=== PATIENT | female | born 1960 | race Caucasian/White ===

== ENCOUNTER 2019-09-09 03:08 | Emergency (ER) | payer MEDICAID, SELFPAY ==
--- NOTE | 2019-09-09 03:14 | ED_ITS ---
Entered by Alea Lauren, acting as scribe for Travis Guido MD HPI - Back Pain/Injury General: Chief Complaint: Back Pain/Injury Stated Complaint: BACK PAIN Time Seen by Provider: 09/09/19 03:10 History of Present Illness: HPI Narrative: 59 yo f came to the er by [facility] for back pain. Onset was 3-4 weeks ago. Pt states that she fell 3-4 weeks ago and about 2100 last night the pain was severe. Pt states that it just isnt getting any better and that she is also out of her pain meds. MD elicited complaint: back pain Pertinent past history: prior back pain Onset (ago): day(s) Timing: constant Severity: mild Similar Symptoms Previously: Yes Quality: other (pain) Radiation: none Exacerbating factors: none Relieving factors: none Context: turning/twisting Associated symptoms: Reports no associated symptoms; Deny abdominal pain, chills, fever(s) or vomiting Work related injury: No Review of Systems General: Reports: 10 or more systems reviewed and unremarkable except in HPI and below Const: Denies: fever or chills Eyes: Denies: change in vision ENMT: Denies: throat pain or mouth pain Card: Denies: chest pain Resp: Denies: shortness of breath GI: Denies: abdominal pain, vomiting or diarrhea : Denies: difficulty urinating Musc: Reports: back pain; Denies: joint pain Skin/Breast: Denies: rash Neuro: Denies: headache Psych: Denies: depression Endo: Denies: excessive urination Emir/Lymph: Denies: easy bruising All/Imm: Denies: hives PFSH ED PFSH: Statuses (acute, chronic, etc) shown below reflect problem list status as previously entered and may not be historically accurate Social History Smoking and tobacco status: former smoker Physical Exam Const: COMMON NORMALS: no apparent distress and healthy appearing HENMT: COMMON NORMALS: normocephalic and external nose normal HEAD & SCALP: normocephalic NOSE: external nose normal and no nasal discharge (nasal dischage) Eye: COMMON NORMALS: PERRL PUPIL: Yes PERRL Neck/C-Spine: COMMON NORMALS: full ROM and no lymphadenopathy Chest: COMMONS NORMALS: inspection of chest normal Resp: COMMON NORMALS: normal respiratory effort and clear to auscultation bilaterally AUSCULTATION: clear to auscultation bilaterally Cardio: COMMON NORMALS: regular rate and regular rhythm RATE: regular rate RHYTHM: regular rhythm GI: COMMON NORMALS: soft to palpation PALPATION: Yes soft Back/Pelvis: OTHER: . Paraspinal tenderness over lumbar spine no midline tenderness Extremity: COMMON NORMALS: normal to inspection, full ROM and normal capillary refill Psych: COMMON NORMALS: mental status grossly normal and cooperative Skin: COMMON NORMALS: no rashes or lesions noted GENERAL SKIN EXAM: no rashes or lesions noted MDM - Back Pain/Injury MDM Narrative: Medical decision making narrative: Patient presents here with back pain that is acute on chronic. She states is been worsening over the last 3 weeks. X-ray shows no new fracture. Will place patient on Naprosyn and Robaxin and she is stable for discharge. She is to follow-up with her primary care doctor in 3 to 5 days and return if worsening. Imaging Data^: xr lumbar spine: Attestation: I personally reviewed and interpreted this imaging study as follows: My impression: no acute abnormality xr thoracic spine: Attestation: I personally reviewed and interpreted this imaging study as follows: My impression: no acute fx Discharge Plan Discharge Patient Disposition: Home, Self-Care Clinical Impression: Low back pain Qualifiers: Chronicity: chronic Back pain laterality: bilateral Sciatica presence: without sciatica Qualified Code(s): M54.5 - Low back pain Condition: Stable Prescriptions: New EC-Naprosyn 500 mg tablet,delayed release (DR/EC) 500 mg PO BID PRN (Reason: pain) Qty: 20 RF: 0 No Action Prozac 40 mg Capsule 40 mg PO DAILY RF: 0 Lipitor 40 mg Tablet 40 mg PO DAILY RF: 0 insulin glargine 100 unit/mL Solution 100 unit SUBCUT QPM RF: 0 trazodone 50 mg Tablet 100 mg PO DAILY RF: 0 Zyrtec 10 mg Tablet 10 mg PO DAILY PRN (Reason: Allergy Symptoms) RF: 0 Klonopin 0.5 mg Tablet 0.5 mg PO DAILY RF: 0 metoprolol succinate 100 mg Tablet Extended Release 24 Hr 100 mg PO Q12H RF: 0 aspirin 81 mg Tablet,Delayed Release (Dr/Ec) 81 mg PO DAILY RF: 0 tramadol 50 mg Tablet 50 mg PO BID PRN (Reason: Pain) RF: 0 acetaminophen 650 mg Tablet Extended Release 650 mg PO Q4H PRN (Reason: Fever) RF: 0 esomeprazole magnesium 40 mg Capsule,Delayed Release(Dr/Ec) 100 mg PO DAILY RF: 0 Zantac 150 mg Tablet 150 mg PO BID RF: 0 Topamax 200 mg Tablet 200 mg PO BID RF: 0 Neurontin 100 mg Capsule 100 mg PO TID RF: 0 insulin lispro 100 unit/mL Insulin Pen 10 unit SUBCUT TID RF: 0 metformin 750 mg Tablet Extended Release 24 Hr 1,500 mg PO BID RF: 0 Abilify 5 mg Tablet 5 mg PO DAILY RF: 0 Victoza 3-Chad 0.6 mg/0.1 mL (18 mg/3 mL) Pen Injector 1.2 mg SUBCUT DAILY RF: 0 Latuda 40 mg Tablet 40 mg PO QPM RF: 0 Discharge Orders: Discharge Order (Routine); Ordered 09/09/19 Ordered By: Travis Guido Referrals: Hilda Patel MD [Primary Care Provider] - 4-7 days Discharge Diet: Advance as tolerated Discharge Activity: Resume usual activity Patient Instructions: Back Pain (ED) Coding Level of Care Code ED Congregational Care Pastor for Chg Fwd Exam Problem Focused The documentation recorded by the Leonidas casper Stephanie Lyn, accurately reflects the service I personally performed and the decisions made by Lata dunne Korby, MD Sep 09, 2019 03:08
--- NOTE | 2019-09-09 03:16 | XR_ITS ---
WS: [id number] Lumbar spine, AP and lateral, 09/09/2019 Clinical Data: pain Comparison: Lumbar spine, 11/21/2018. Findings: The compression fracture of the anterior and central portions of the superior aspect of the L1 verteb ral body remains the same. There is loss of less than 25% of the vertebral body height. There is dege nerative disc narrowing at L4-L5 and L5-S1 unchanged.. The transverse processes and SI joints are no rmal. Minimal anterior osteoarthritic spurring of the vertebral bodies L1-L5 is noted. XR/XR lumbar spine 2-3V* [id number] Impression: 1. No change in compression fracture of L1. 2. Degenerative disc disease at L4-L5 and L5-S1. 3. No change in osteoarthritis.
--- NOTE | 2019-09-09 03:16 | XR_ITS ---
WS: [id number] Thoracic spine, 3 views, 09/09/2019 Clinical Data: injury Comparison: Thoracic spine, 09/09/2018. Findings: No compression fractures are seen. The disc heights are normal. Minimal osteoarthritis of the thoracic vertebral bodies is seen. There is an orthopedic anchor in one of the humeral heads. XR/XR thoracic spine 3V* [id number] Impression: Minimal osteoarthritis.
[2019-09-09 03:21] VITALS: BMI 37.2
[2019-09-09] MEDS: HYDROcodone-acetaminophen 5-325 mg Tablet 1 TAB PO (03:25)
[2019-09-09 05:30] VITALS: BP 138/71; PULSE 72; RESP 16; TEMP 36.7; O2SAT 97
== END 2019-09-09 05:47 | disposition home or self-care (01) ==
PROVIDERS: Emergency Provider Emergency Medicine; Family Provider Internal Medicine; PCP Internal Medicine
DX: G89.29 Other chronic pain (principal); M54.5 Low back pain; Z79.82 Long term (current) use of aspirin; Z79.4 Long term (current) use of insulin; Z87.891 Personal history of nicotine dependence
CPT/HCPCS: 72072; 72100; 99281; 99283

== ENCOUNTER → 2019-09-11 09:28 | Outpatient (BNVA) | payer MEDICAID, SELFPAY | PROVIDERS: Family Provider Internal Medicine; PCP Internal Medicine; Visit Provider Nurse Practitioner | DX: F25.1 Schizoaffective disorder, depressive type (principal); R41.83 Borderline intellectual functioning | CPT/HCPCS: 99213 ==

== ENCOUNTER 2019-09-16 08:24 | Emergency (ER) | payer MEDICAID, SELFPAY ==
[2019-09-16 08:29] VITALS: BP 145/103; PULSE 76; RESP 18; TEMP 36.6; O2SAT 96; BMI 31.6
--- NOTE | 2019-09-16 08:38 | ECG_ITS ---
Measurements Intervals [place] Rate: 69 P: 31 IA: 136 QRS: -26 QRSD: 100 T: 11 QT: 410 QTc: 442 SINUS RHYTHM BORDERLINE LEFT AXIS DEVIATION [QRS AXIS < -20] ST DEVIATION AND MODERATE T-WAVE ABNORMALITY, CONSIDER ANTERIOR ISCHEMIA [-0.1+ mV T WAVE IN V3/V4] Compared to ECG 11/21/2018 02:33:52 T-wave abnormality now present Possible ischemia now present Electronically Signed On 09-16-2019 22:07:45 ARTIST MODEL by Chuyita Mark M.D. [email or web address]
--- NOTE | 2019-09-16 08:38 | XR_ITS ---
WS: [id number] PORTABLE CHEST HISTORY: cough/congestion COMPARISON: 04/27/2019 Lungs are clear and well expanded. No pleural effusion or pneumothorax. Cardiac size: Normal. Mediastinum/Aorta: Mild atherosclerosis aorta. Prior rotator cuff repair on the LEFT. Resection of the distal LEFT clavicle. XR/XR chest 1V portable [id number] IMPRESSION: Atherosclerosis aorta. No acute disease.
--- NOTE | 2019-09-16 08:48 | PC.NURSE ---
X-ray completed at bedside.
[2019-09-16 09:17] LABS: Basophils # 0.1 10^3/uL (0.0-0.1); Basophils % 0.6 %; Eosinophils # 0.1 10^3/uL (0.0-0.8); Eosinophils % 1.3 %; Hematocrit 41.3 % (37.0-47.0); Hemoglobin 14.3 g/dL (11.5-15.3); Lymphocytes # 2.2 10^3/uL (0.8-4.8); Lymphocytes % 23.4 %; Mean Corpuscular HGB Conc 34.6 g/dL (30.0-36.0); Mean Corpuscular Hemoglobin 31.1 pg (28.0-34.0); Mean Corpuscular Volume 89.8 fL (81-99); Mean Platelet Volume 11.9 fL (7.4-10.4); Monocytes # 0.5 10^3/uL (0.2-0.9); Monocytes % 5.5 %; Neutrophils # 6.6 10^3/uL (1.8-7.7); Neutrophils % 68.9 %; Nucleated Red Blood Cells % 0 %; Platelet Count 107 10^3/cmm (130-400); Positive C 1; Red Cell Distribution Width 12.7 % (12.1-15.1); White Blood Count 9.6 10^3/uL (4.0-10.0)
[2019-09-16 09:26] LABS: Alanine Aminotransferase 16 U/L (0-33); Albumin Level 4.7 g/dL (3.5-5.2); Alkaline Phosphatase 79 IU/L (35-105); Anion Gap 16.4 (5-19); Aspartate Amino Transferase 20 U/L (0-32); Blood Urea Nitrogen 22 mg/dL (8-23); Calcium 9.4 mg/Dl (8.8-10.2); Carbon Dioxide 23 mmol/L (22-29); Chloride 103 mmol/L (98-107); Globulin 3.5 g/dL (1.3-4.6); Glomerular Filtration Rate 50.5 mL/min (90-130); Glucose 325 mg/dL (74-106); Lipase 65 U/L (13-60); Potassium 4.4 mmol/L (3.5-5.1); Sodium 138 mmol/L (136-145); Total Bilirubin 0.3 mg/dL (0.15-1.2); Total Protein 8.2 g/dL (6.6-8.7)
--- NOTE | 2019-09-16 09:36 | W.ED.GENADLT ---
HPI - General Adult General: Chief complaint: General Medical Stated complaint: cough/headache Time Seen by Provider: 09/16/19 08:33 Source: patient Mode of arrival: ambulatory Limitations: no limitations History of Present Illness: HPI narrative: Patient is a 59-year-old female who presents to ED today with complaints of a productive cough over the past week; patient has a history of COPD in which she normally just uses a rescue inhaler; reports some mild upper abdominal discomfort w/o N/V/D/C; no chest pains/SOB; no fevers/chills Associated symptoms: Deny dyspnea, headache(s), nausea, rash or vomiting Review of Systems Const: Denies: fever, chills, body aches or fatigue Eyes: Denies: change in vision, blurry vision, photophobia, eye discomfort or eye discharge ENMT: Denies: throat pain, enlarged tonsils, painful swallowing, swelling of lips/tongue, oral sores/lesions, ear pain, ear discharge, nasal discharge, nasal congestion, post nasal drip or facial/sinus pain Resp: Reports: productive cough and chest congestion; Denies: shortness of breath, wheezing, stridor, pain on inspiration, change in phlegm color or coughing up blood GI: Reports: abdominal pain and heartburn/indigestion; Denies: nausea, vomiting, vomiting blood, diarrhea, constipation, excessive passing of gas, fecal incontinence or painful bowel movements : Denies: difficulty urinating, painful urination, urinary frequency or urinary urgency Skin/Breast: Denies: rash Neuro: Denies: headache All/Imm: Denies: facial swelling or seasonal allergies PFSH ED PFSH: Statuses (acute, chronic, etc) shown below reflect problem list status as previously entered and may not be historically accurate Medical History (Updated 09/16/19 @ 10:06 by JESSICA Hinton) Borderline intellectual functioning (Acute) Schizoaffective disorder, depressive type (Acute) Social History (Updated 09/15/19 @ 11:23 by Onelia Jackson LPN) Smoking and tobacco status: never smoked Alcohol intake: never Lives independently: Yes Household members: none Housing: Apartment Marital status: Single Current occupational status: disabled Physical Exam Const: COMMON NORMALS: no apparent distress, oriented x3, alert and well nourished HENMT: COMMON NORMALS: normocephalic, head/scalp atraumatic, EAC's normal and TM's normal bilaterally HEAD & SCALP: normocephalic and atraumatic FACE & SINUS: normal facial exam EXTERNAL AUDITORY CANAL: EAC's normal TYMPANIC MEMBRANE: TM's normal bilaterally THROAT: posterior oropharynx normal, tonsils normal and uvula midline Neck/C-Spine: COMMON NORMALS: full ROM, no lymphadenopathy, supple and no meningeal signs Chest: COMMONS NORMALS: inspection of chest normal Resp: COMMON NORMALS: normal respiratory effort and clear to auscultation bilaterally AUSCULTATION: clear to auscultation bilaterally Cardio: COMMON NORMALS: regular rate and regular rhythm RATE: regular rate RHYTHM: regular rhythm GI: COMMON NORMALS: normal to inspection, nondistended, normoactive bowel sounds, soft to palpation, no hepatosplenomegaly and no masses PALPATION: Yes soft, Yes tender (mild tenderness throughout upper abdomen ) and Yes no hepatosplenomegaly OTHER: obese : COMMON NORMALS: Yes no CVA tenderness BLADDER/KIDNEY EXAM: Yes no CVA tenderness Back/Pelvis: COMMON NORMALS: no CVA tenderness and thoracic and lumbar spine normal to inspection Extremity: COMMON NORMALS: normal to inspection Neuro: COMMON NORMALS: oriented x3 SENSORIUM/ORIENTATION: Yes alert MENINGEAL SIGNS: Yes no meningeal signs Skin: COMMON NORMALS: no rashes or lesions noted GENERAL SKIN EXAM: no rashes or lesions noted Course Vital Signs: Vital signs: Vital Signs Temperature 98 F 09/16/19 08:29 Pulse Rate 70 09/16/19 10:10 Respiratory Rate 15 09/16/19 10:10 Blood Pressure 125/80 09/16/19 10:10 Pulse Oximetry 97 09/16/19 10:10 MDM - General Adult MDM Narrative: Medical decision making narrative: pts labs are non-concerning (elevated glucose but states her normal is in the 200s and she didn't take her DM meds this morning because I knew I'd be coming to the hospital ); her vitals are stable; clinically she is in NAD; most likely with viral bronchitis; there is no indication for abx at this time; won't place on steroids due to already uncontrolled sugars; she can continue her inhaler prn; requesting tessalon pearls as she states they work well for her; return to ED precautions given Lab Data: Labs: Lab Results 09/16/19 09/16/19 09/16/19 Range/Units 08:58 08:58 08:58 WBC 9.6 (4.0-10.0) 10^3/ uL RBC 4.60 (4.1-5.3) 10^6/u L Hgb 14.3 (11.5-15.3) g/dL Hct 41.3 (37.0-47.0) % MCV 89.8 (81-99) fL MCH 31.1 (28.0-34.0) pg MCHC 34.6 (30.0-36.0) g/dL RDW 12.7 (12.1-15.1) % Plt Count 107 L (130-400) 10^3/c mm MPV 11.9 H (7.4-10.4) fL Neut % (Auto) 68.9 % Lymph % (Auto) 23.4 % [place] % (Auto) 5.5 % Eos % (Auto) 1.3 % Baso % (Auto) 0.6 % Neut # (Auto) 6.6 (1.8-7.7) 10^3/u L Lymph # (Auto) 2.2 (0.8-4.8) 10^3/u L [place] # (Auto) 0.5 (0.2-0.9) 10^3/u L Eos # (Auto) 0.1 (0.0-0.8) 10^3/u L Baso # (Auto) 0.1 (0.0-0.1) 10^3/u L Nucleated RBC % (a uto) 0 % Nucleated RBCs # 0.0 /100WBC Sodium 138 (136-145) mmol/L Potassium 4.4 (3.5-5.1) mmol/L Chloride 103 (98-107) mmol/L Carbon Dioxide 23 (22-29) mmol/L Anion Gap 16.4 (5-19) BUN 22 (8-23) mg/dL Creatinine 1.1 H (0.5-0.9) mg/dL GFR Calculation 50.5 L (90-130) mL/min Glucose 325 H (74-106) mg/dL Calcium 9.4 (8.8-10.2) mg/Dl Total Bilirubin 0.3 (0.15-1.2) mg/dL AST 20 (0-32) U/L ALT 16 (0-33) U/L Alkaline Phosphata se 79 (35-105) IU/L Troponin T Gen 5 n g/L 8 (0-10) ng/mL Total Protein 8.2 (6.6-8.7) g/dL Albumin 4.7 (3.5-5.2) g/dL Globulin 3.5 (1.3-4.6) g/dL Lipase 65 H (13-60) U/L Imaging Data^: CXR: Radiologist's impression: [address] [address] XRay Report Signed Patient: Jacqueline Jackson Unit #: [id number] : 1960 Age/Sex: 59 / F ADM Date: 09/16/19 Loc: ER Room/Bed: Attending Dr: Ordering Provider/Ordering MD: Eli Yu Date of Service: 09/16/19 Procedure(s): XR chest 1V portable [id number] Accession Number(s): [id number] Report Number: [id number] WS: [id number] PORTABLE CHEST HISTORY: cough/congestion COMPARISON: 04/27/2019 Lungs are clear and well expanded. No pleural effusion or pneumothorax. Cardiac size: Normal. Mediastinum/Aorta: Mild atherosclerosis aorta. Prior rotator cuff repair on the LEFT. Resection of the distal LEFT clavicle. XR/XR chest 1V portable [id number] IMPRESSION: Atherosclerosis aorta. No acute disease. Dictated By: Kiersten Garcia DO Signed By: Kierstne Garcia DO Signed Date/Time: 09/16/19929 DD/ 8 Discharge Plan Discharge Patient Disposition: Home, Self-Care Clinical Impression: Acute bronchitis, viral Condition: Stable Prescriptions: New Tessalon Perles 100 mg capsule 100 mg PO TID PRN (Reason: cough) Qty: 20 RF: 0 No Action Prozac 40 mg capsule 40 mg PO DAILY Qty: 30 RF: 2 Topamax 200 mg tablet 200 mg PO BID Qty: 60 RF: 2 trazodone 50 mg tablet 100 mg PO DAILY Qty: 30 RF: 2 ziprasidone HCl [Geodon] 20 mg capsule 20 mg PO BID Qty: 60 RF: 2 Klonopin 0.5 mg tablet 0.5 mg PO DAILY PRN (Reason: anxiety) Qty: 30 RF: 2 Lipitor 40 mg Tablet 40 mg PO DAILY RF: 0 insulin glargine 100 unit/mL Solution 100 unit SUBCUT QPM RF: 0 Zyrtec 10 mg Tablet 10 mg PO DAILY PRN (Reason: Allergy Symptoms) RF: 0 metoprolol succinate 100 mg Tablet Extended Release 24 Hr 100 mg PO Q12H RF: 0 aspirin 81 mg Tablet,Delayed Release (Dr/Ec) 81 mg PO DAILY RF: 0 tramadol 50 mg Tablet 50 mg PO BID PRN (Reason: Pain) RF: 0 acetaminophen 650 mg Tablet Extended Release 650 mg PO Q4H PRN (Reason: Fever) RF: 0 esomeprazole magnesium 40 mg Capsule,Delayed Release(Dr/Ec) 100 mg PO DAILY RF: 0 Zantac 150 mg Tablet 150 mg PO BID RF: 0 Neurontin 100 mg Capsule 100 mg PO TID RF: 0 insulin lispro 100 unit/mL Insulin Pen 10 unit SUBCUT TID RF: 0 metformin 750 mg Tablet Extended Release 24 Hr 1,500 mg PO BID RF: 0 Victoza 3-Chad 0.6 mg/0.1 mL (18 mg/3 mL) Pen Injector 1.2 mg SUBCUT DAILY RF: 0 EC-Naprosyn 500 mg tablet,delayed release (DR/EC) 500 mg PO BID PRN (Reason: pain) Qty: 20 RF: 0 Discharge Orders: Discharge Order (Routine); Ordered 09/16/19 Ordered By: Eli Yu Referrals: Hilda Patel MD [Primary Care Provider] - Discharge Diet: Usual diet Discharge Activity: Increase activity as tolerated Activity Restrictions/Additional Instructions: Follow up with PCP in 5-7 days for continued symptoms. Return to ED for worsening symptoms, fevers greater than 100.4, shortness of breath, or chest pain. Discharge Date/Time: 09/16/19 10:11 Coding Level of Care Code ED Optical Manufacturing Technician for Chg Fwd Exam Problem Focused
[2019-09-16 09:44] LABS: Slide Review Slide Review Perform
[2019-09-16 09:57] LABS: Troponin T (5th) Once 8 ng/mL (0-10)
[2019-09-16 10:10] VITALS: BP 125/80; PULSE 70; RESP 15; O2SAT 97
== END 2019-09-16 10:11 | disposition home or self-care (01) ==
PROVIDERS: Emergency Provider Physician Assistant; Family Provider Internal Medicine; PCP Internal Medicine
DX: J20.8 Acute bronchitis due to other specified organisms (principal); Z79.4 Long term (current) use of insulin
CPT/HCPCS: 36415; 71045; 80053; 83690; 84484; 85025; 93005; 99282

== ENCOUNTER 2019-09-20 23:51 | Emergency (ER) | payer MEDICAID, SELFPAY ==
[2019-09-21 00:02] VITALS: BP 164/99; PULSE 82; RESP 18; TEMP 36.6; O2SAT 95; BMI 31.6
--- NOTE | 2019-09-21 00:06 | ED_ITS ---
Entered by Alea Lauren, acting as scribe for Zander Duncan DO HPI - Back Pain/Injury General: Chief Complaint: Back Pain/Injury Stated Complaint: back pain Time Seen by Provider: 09/21/19 00:07 Source: patient Mode of arrival: ambulatory Limitations: no limitations History of Present Illness: HPI Narrative: 59 yo f came to the er pov for back pain. Onset was tonight. Pt states that she was having some pain in the middle of her back. The pt states that she is unsure of any injury. Pt states that she is to see her pcp this coming week. PT states that she is out of her medication. PT states that she has had some back pain in the past. MD elicited complaint: back pain Pertinent past history: prior back pain Similar Symptoms Previously: Yes Quality: sharp Associated symptoms: Reports no associated symptoms; Deny abdominal pain, chills, dysuria, fever(s), hematuria, nausea, urinary urgency or vomiting Review of Systems Const: Denies: fever or chills Card: Denies: chest pain, palpitations, irregular heart rhythm, edema, swelling of feet/ankles, shortness of breath on exertion or shortness of breath when lying down Resp: Denies: shortness of breath, productive cough, non-productive cough or wheezing GI: Denies: abdominal pain, nausea, vomiting, rectal pain, blood in stool or black tarry stool : Denies: painful urination, urinary frequency, urinary urgency or blood in urine Musc: Reports: back pain; Denies: neck pain, redness or joint warmth Skin/Breast: Denies: rash, itching or redness Neuro: Denies: headache, dizziness, vertigo, confusion or seizure-like activity PFSH ED PFSH: Statuses (acute, chronic, etc) shown below reflect problem list status as previously entered and may not be historically accurate Medical History Borderline intellectual functioning (Acute) Schizoaffective disorder, depressive type (Acute) Social History Smoking and tobacco status: never smoked Alcohol intake: never Lives independently: Yes Household members: none Housing: Apartment Marital status: Single Current occupational status: disabled Physical Exam Const: GENERAL APPEARANCE: well developed ORIENTATION/CONSCIOUSNESS: Yes oriented to person, Yes oriented to place and Yes oriented to time HENMT: COMMON NORMALS: normocephalic and external nose normal HEAD & SCALP: normocephalic; no scalp tenderness FACE & SINUS: normal facial exam NOSE: external nose normal and no nasal discharge Eye: COMMON NORMALS: conjunctivae normal EYELID: eyelids normal CONJUNCTIVA: Yes conjunctivae normal Neck/C-Spine: GENERAL: No tracheal deviation CERVICAL SPINE: Yes normal cervical lordosis and No cervical spine tenderness Chest: COMMONS NORMALS: inspection of chest normal CHEST: No tenderness Resp: COMMON NORMALS: clear to auscultation bilaterally EFFORT & INSPECTION: No tachypneic, No respiratory distress, No retractions, No uses accessory muscles and No tracheal deviation AUSCULTATION: clear to auscul tation bilaterally, no rhonchi, no wheezes and lung sounds not diminished Cardio: COMMON NORMALS: regular rate and regular rhythm RATE: regular rate RHYTHM: regular rhythm HEART SOUNDS: no murmurs PERIPHERAL PULSES: radial pulses present GI: INSPECTION: No abdominal distension AUSCULTATION: No hyperactive bowel sounds and No hypoactive bowel sounds PALPATION: No guarding and No rigid PERCUSSION: no dullness to percussion and no tympanic to percussion : COMMON NORMALS: Yes no CVA tenderness BLADDER/KIDNEY EXAM: Yes no CVA tenderness Back/Pelvis: COMMON NORMALS: no CVA tenderness THORACIC SPINE/UPPER BACK: Yes thoracic spinal tenderness (On exam.Lower thoracic midline tenderness. No radicular symptoms. No pain) Neuro: SENSORIUM/ORIENTATION: Yes oriented to person, Yes oriented to place and Yes oriented to time Psych: COMMON NORMALS: mental status grossly normal Skin: COMMON NORMALS: no rashes or lesions noted GENERAL SKIN EXAM: no rashes or lesions noted Course ED course: Patient presents with acute on chronic problem of lower thoracic back pain. There was no trauma involved. She is experiencing no neurological symptoms. She was given an injection. Vital Signs: Vital signs: Vital Signs Temperature 97.9 F 09/21/19 00:02 Pulse Rate 77 09/21/19 01:19 Respiratory Rate 15 09/21/19 01:19 Blood Pressure 102/80 09/21/19 01:19 Pulse Oximetry 96 09/21/19 01:19 Discharge Plan Discharge Patient Disposition: Home, Self-Care Clinical Impression: Thoracic back pain Qualifiers: Chronicity: unspecified Back pain laterality: midline Qualified Code(s): M54.6 - Pain in thoracic spine Condition: Stable Prescriptions: No Action Prozac 40 mg capsule 40 mg PO DAILY Qty: 30 RF: 2 Topamax 200 mg tablet 200 mg PO BID Qty: 60 RF: 2 trazodone 50 mg tablet 100 mg PO DAILY Qty: 30 RF: 2 ziprasidone HCl [Geodon] 20 mg capsule 20 mg PO BID Qty: 60 RF: 2 Klonopin 0.5 mg tablet 0.5 mg PO DAILY PRN (Reason: anxiety) Qty: 30 RF: 2 Lipitor 40 mg Tablet 40 mg PO DAILY RF: 0 insulin glargine 100 unit/mL Solution 100 unit SUBCUT QPM RF: 0 Zyrtec 10 mg Tablet 10 mg PO DAILY PRN (Reason: Allergy Symptoms) RF: 0 metoprolol succinate 100 mg Tablet Extended Release 24 Hr 100 mg PO Q12H RF: 0 aspirin 81 mg Tablet,Delayed Release (Dr/Ec) 81 mg PO DAILY RF: 0 tramadol 50 mg Tablet 50 mg PO BID PRN (Reason: Pain) RF: 0 acetaminophen 650 mg Tablet Extended Release 650 mg PO Q4H PRN (Reason: Fever) RF: 0 esomeprazole magnesium 40 mg Capsule,Delayed Release(Dr/Ec) 100 mg PO DAILY RF: 0 Zantac 150 mg Tablet 150 mg PO BID RF: 0 Neurontin 100 mg Capsule 100 mg PO TID RF: 0 insulin lispro 100 unit/mL Insulin Pen 10 unit SUBCUT TID RF: 0 metformin 750 mg Tablet Extended Release 24 Hr 1,500 mg PO BID RF: 0 Victoza 3-Chad 0.6 mg/0.1 mL (18 mg/3 mL) Pen Injector 1.2 mg SUBCUT DAILY RF: 0 EC-Naprosyn 500 mg tablet,delayed release (DR/EC) 500 mg PO BID PRN (Reason: pain) Qty: 20 RF: 0 Tessalon Perles 100 mg capsule 100 mg PO TID PRN (Reason: cough) Qty: 20 RF: 0 Discharge Orders: Discharge Order (Routine); Ordered 09/21/19 Ordered By: Zander Duncan Referrals: Hilda Patel MD [Primary Care Provider] - Discharge Diet: Usual diet Discharge Activity: Increase activity as tolerated Patient Instructions: Back Pain (ED) Discharge Date/Time: 09/21/19 01:19 Coding Level of Care Code ED Ship Engineer for Casey Vaughn The documentation recorded by the Leonidas casper Stephanie Lyn, accurately reflects the service I personally performed and the decisions made by Dakota dunne Jeremy John, DO Sep 20, 2019 23:51
[2019-09-21] MEDS: HYDROcodone-acetaminophen 5-325 mg Tablet 1 TAB PO (00:35)
[2019-09-21] MEDS: ketorolac 60 mg/2 mL INJ IM (00:53)
[2019-09-21 01:19] VITALS: BP 102/80; PULSE 77; RESP 15; O2SAT 96
== END 2019-09-21 01:19 | disposition home or self-care (01) ==
PROVIDERS: Emergency Provider Emergency Medicine; Family Provider Internal Medicine; PCP Internal Medicine
DX: M54.6 Pain in thoracic spine (principal); Z79.4 Long term (current) use of insulin
CPT/HCPCS: 96372; 99281; J1885

== ENCOUNTER 2019-10-08 14:19 | Outpatient (CLI) | payer MEDICAID, SELFPAY ==
--- NOTE | 2019-10-08 14:40 | MR_ITS ---
WS: [id number] MRI THORACIC SPINE WITHOUT CONTRAST TECHNIQUE: Sagittal T1, T2 and STIR imaging. Axial T2 imaging. Noncontrast imaging obtained. CLINICAL INFORMATION: Thoracic pain COMPARISON: None. FINDINGS: Mild thoracic curve. Mild thoracic kyphosis. Mild chronic appearing compression superior endplate L1. No significant edema. Minimal retropulsion of the posterior superior cortex. Mild disc bulging T12-L 1 with slight effacement of ventral thecal sac. Mild left proximal foraminal narrowing at this level. Tiny central protrusion T2-3 with slight effacement of ventral thecal sac. Moderate facet arthropathy lower thoracic spine. Mild disc bulging cervical spine at C5-C6 and C6-C7. Normal visualized thoracic aorta. MR/MR thoracic spin wo con* [id number] IMPRESSION: 1. Mild thoracic curve. Mild thoracic kyphosis. No high-grade central canal st enosis. 2. Cord signal is normal. 3. Mild chronic appearing compression superior endplate L1. No endplate edema. 4. Disc bulging T12-L1 with slight effacement of ventral thecal sac. Minimal r etropulsion of the posterior L1 vertebral body. No significant central canal st enosis. 5. Tiny central protrusion T2-3 with slight effacement of ventral thecal sac. 6. Mild disc bulging in the lower cervical spine seen on the football scout imaging at C5-C6 and C6-C7.
== END 2019-10-08 14:20 | disposition home or self-care (01) ==
LOC: RADWPI 14:24
PROVIDERS: Family Provider Internal Medicine; PCP Internal Medicine; Visit Provider Licensed Practical Nurse
DX: M51.84 Other intervertebral disc disorders, thoracic region (principal); M51.24 Other intervertebral disc displacement, thoracic region
CPT/HCPCS: 72146

== ENCOUNTER 2019-11-03 22:59 | Emergency (ER) | payer MEDICAID, SELFPAY ==
[2019-11-03 23:02] VITALS: BP 150/86; PULSE 74; RESP 15; TEMP 36.4; O2SAT 97; BMI 32.1
--- NOTE | 2019-11-04 01:06 | W.ED.EXTPRO ---
HPI - Extremity Problem General: Chief complaint: Extremity Problem,Nontraumatic Stated complaint: right leg pain Time Seen by Provider: 11/04/19 01:06 History of Present Illness: HPI Narrative: Patient is a 59-year-old female who comes into the ED with right lower leg swelling and pain. Patient did say she has a history of blood clots. She currently takes baby aspirin daily. Patient says that tonight she noticed her right leg started feeling warm and started swelling. She also states that her right leg is a little bit of pain. She denies any chest pain, shortness of breath or cough. Denies coughing up any blood as well. Associated symptoms: Deny chest pain, fever(s) or rash Review of Systems Const: Denies: fever, chills or fatigue Eyes: Denies: change in vision or eye discomfort ENMT: Denies: throat pain, painful swallowing, nasal discharge or nasal congestion Card: Denies: chest pain, palpitations, edema, swelling of feet/ankles, shortness of breath on exertion or shortness of breath when lying down Resp: Denies: shortness of breath, productive cough or non-productive cough GI: Denies: abdominal pain, nausea, vomiting, diarrhea, constipation or blood in stool : Denies: flank pain, painful urination or blood in urine Musc: Reports: extremity pain (Right lower leg) and extremity swelling (Right lower leg); Denies: neck pain or back pain Skin/Breast: Denies: rash or new lesion Neuro: Denies: headache, numbness in extremities or weakness in extremities [facility] ED PFSH: Medical History Borderline intellectual functioning Disc displacement, lumbar Lumbar compression fracture 11/08/2018 Schizoaffective disorder, depressive type Surgical History History of knee surgery (~09/04/13) Dr. Harper Family History Sister High cholesterol Social History Smoking and tobacco status: never smoked Alcohol intake: never Lives independently: Yes Household members: none Housing: Apartment Marital status: Single service: No Current occupational status: disabled History of recent travel: No Physical Exam Const: COMMON NORMALS: oriented x3 HENMT: COMMON NORMALS: normocephalic HEAD & SCALP: normocephalic MOUTH: oral and palatal mucosa normal THROAT: posterior oropharynx normal and uvula midline Neck/C-Spine: COMMON NORMALS: supple GENERAL: Yes normal visual inspection Resp: COMMON NORMALS: normal respiratory effort, no retractions, no use of accessory muscles and clear to auscultation bilaterally AUSCULTATION: clear to auscultation bilaterally Cardio: COMMON NORMALS: regular rate, regular rhythm, S1 normal heart sound, S2 normal heart sound, no gallops, no clicks, no murmurs and peripheral pulses 2+ throughout RATE: regular rate RHYTHM: regular rhythm HEART SOUNDS: S1 normal and S2 normal PERIPHERAL PULSES: pulses 2+ throughout GI: COMMON NORMALS: normal to inspection, nondistended, normoactive bowel sounds, soft to palpation, non-tender and no masses PALPATION: Yes soft : COMMON NORMALS: Yes no CVA tenderness BLADDER/KIDNEY EXAM: Yes no CVA tenderness Back/Pelvis: COMMON NORMALS: no CVA tenderness Extremity: RIGHT LOWER EXTREMITY: Yes lower leg Right lower leg: Yes inspection (Swelling in lower leg-2+ non pitting edema), Yes palpation (mild tenderness along lower leg) and Yes neurovascular exam (Intact, with 2+ pedal pulse) Neuro: COMMON NORMALS: oriented x3 and moves all extremities Skin: COMMON NORMALS: no rashes or lesions noted GENERAL SKIN EXAM: no rashes or lesions noted and dry skin Course Vital Signs: Vital signs: Vital Signs Temperature 97.6 F 11/03/19 23:02 Pulse Rate 70 11/04/19 04:06 Respiratory Rate 18 11/04/19 04:06 Blood Pressure 100/53 11/04/19 04:06 Pulse Oximetry 98 11/04/19 04:06 MDM - Extremity (Nontraumatic) Lab Data: Labs: Lab Results 11/04/19 Range/Units 01:50 POC Glucose 88 (70-110) mg/dL Imaging Data^: US Vascular: Attestation: I personally reviewed and interpreted this imaging study as follows: Radiologist's impression: Prelim report?right lower extremity showed no clots or DVTs. All veins were open. Discharge Plan Discharge Patient Disposition: Home, Self-Care Clinical Impression: Right leg swelling Condition: Stable Prescriptions: No Action trazodone 50 mg tablet 100 mg PO DAILY Qty: 30 RF: 2 Klonopin 0.5 mg tablet 0.5 mg PO DAILY PRN (Reason: anxiety) Qty: 30 RF: 2 Prozac 40 mg capsule 40 mg PO DAILY Qty: 30 RF: 2 Topamax 200 mg tablet 200 mg PO BID Qty: 60 RF: 2 ziprasidone HCl [Geodon] 20 mg capsule 20 mg PO BID Qty: 60 RF: 2 atorvastatin [Lipitor] 40 mg Tablet 40 mg PO DAILY RF: 0 insulin glargine 100 unit/mL Solution 100 unit SUBCUT QPM RF: 0 cetirizine [Zyrtec] 10 mg Tablet 10 mg PO DAILY PRN (Reason: Allergy Symptoms) RF: 0 metoprolol succinate 100 mg Tablet Extended Release 24 Hr 100 mg PO Q12H RF: 0 aspirin 81 mg Tablet,Delayed Release (Dr/Ec) 81 mg PO DAILY RF: 0 tramadol 50 mg Tablet 50 mg PO BID PRN (Reason: Pain) RF: 0 acetaminophen 650 mg Tablet Extended Release 650 mg PO Q4H PRN (Reason: Fever) RF: 0 esomeprazole magnesium 40 mg Capsule,Delayed Release(Dr/Ec) 100 mg PO DAILY RF: 0 ranitidine HCl [Zantac] 150 mg Tablet 150 mg PO BID RF: 0 gabapentin [Neurontin] 100 mg Capsule 100 mg PO TID RF: 0 insulin lispro 100 unit/mL Insulin Pen 10 unit SUBCUT TID RF: 0 metformin 750 mg Tablet Extended Release 24 Hr 1,500 mg PO BID RF: 0 Victoza 3-Chad 0.6 mg/0.1 mL (18 mg/3 mL) Pen Injector 1.2 mg SUBCUT DAILY RF: 0 naproxen [EC-Naprosyn] 500 mg tablet,delayed release (DR/EC) 500 mg PO BID PRN (Reason: pain) Qty: 20 RF: 0 benzonatate [Tessalon Perles] 100 mg capsule 100 mg PO TID PRN (Reason: cough) Qty: 20 RF: 0 Discharge Orders: Discharge Order (Routine); Ordered 11/04/19 Ordered By: Lavon Flores Referrals: Hilda Patel MD [Primary Care Provider] - Discharge Diet: Advance as tolerated Discharge Activity: Resume usual activity Patient Instructions: Leg Edema (ED) Activity Restrictions/Additional Instructions: Follow-up with your PCP in 5 to 7 days for reevaluation. Elevate right leg to help reduce some of the swelling. You can also wear compression stockings on the right leg to help with swelling as well. Drink plenty of fluids and stay hydrated. Return to the ED if you are having any symptoms such coughing up any blood or shortness of breath. Discharge Date/Time: 11/04/19 03:59 Coding Level of Care Code ED Cv/Cvn Cv Tsc System Operator for Marileeg Fwd Exam Comprehensive
--- NOTE | 2019-11-04 01:41 | USCV_ITS ---
Manuel January Age: 59 Gender: F : 1960 Exam Date: 11/04/2019 03:38 Ordering Phys: Lavon Flores Technologist: Steffen Pascual [place]am [place] [facility] [place] Indication: SWELLING HISTORY: Lower extremity swelling. PROCEDURES: Venous duplex imaging was performed in only the right lower extremity. The following venous structures were evaluated: common femoral vein, profunda vein, proximal portion of the greater saphenous vein, superficial femoral vein, and the popliteal vein. In addition, the posterior tibial and peroneal trunk were evaluated. Serial compression, augmentation maneuvers, and spectral Doppler flow evaluation were performed. FINDINGS: Normal 2-D Doppler and augmentation and compressibility throughout the lower extremity venous structures. Additional imaging through the proximal calf veins also reveals no thrombus. Limited evaluation of the greater saphenous vein is patent with no thrombus.. CONCLUSIONS Negative right lower extremity deep venous Doppler ultrasound. Dr. Albertina Waite MD (Electronically Signed) Final Date: 04 November 2019 10:32 S
[2019-11-04 01:54] LABS: Glucose Point of Care 88 mg/dL (70-110)
[2019-11-04 02:00] VITALS: BP 134/82; PULSE 60; RESP 19; O2SAT 95
[2019-11-04 03:00] VITALS: BP 137/90; PULSE 59; O2SAT 97
[2019-11-04 04:06] VITALS: BP 100/53; PULSE 70; RESP 18; O2SAT 98
== END 2019-11-04 03:59 | disposition home or self-care (01) ==
PROVIDERS: Emergency Provider Physician Assistant; Family Provider Internal Medicine; PCP Internal Medicine
DX: R60.0 Localized edema (principal); Z79.82 Long term (current) use of aspirin
CPT/HCPCS: 12345; 36416; 82962; 93971; 99281; 99283

== ENCOUNTER → 2020-01-06 07:46 | Outpatient (BNVA) | payer MEDICAID, SELFPAY | PROVIDERS: Family Provider Internal Medicine; PCP Internal Medicine; Visit Provider Nurse Practitioner | DX: R41.83 Borderline intellectual functioning (principal); F25.1 Schizoaffective disorder, depressive type | CPT/HCPCS: 99213 ==

== ENCOUNTER 2020-02-07 20:46 | Emergency (ER) | payer MEDICAID, SELFPAY ==
[2020-02-07 22:19] VITALS: BP 126/78; PULSE 70; RESP 18; TEMP 36.6; O2SAT 98; BMI 32.3
--- NOTE | 2020-02-07 23:26 | ED_ITS ---
HPI - Back Pain/Injury General: Chief Complaint: Back Pain/Injury Stated Complaint: LUMBAR BACK PAIN Time Seen by Provider: 02/07/20 23:20 Source: patient Mode of arrival: ambulatory Limitations: no limitations History of Present Illness: HPI Narrative: Patient reports that she had been lifting some cases of soda today. Patient thinks she is aggravated her chronic back pain. Patient appears well. Patient appears no acute distress. Patient was requesting a shot of Toradol to help with her pain. Patient was also concerned about some cramps in her left lower leg and did not know if it may be her back pain causing it or she might have low potassium. Patient states that she has had a history of low potassium. Patient appears well. Patient appears in moderate pain. Review of Systems General: Reports: 10 or more systems reviewed and unremarkable except in HPI and below Musc: Reports: back pain PFS ED PFSH: Medical History (Updated 02/08/20 @ 00:01 by KIM Lloyd) Borderline intellectual functioning Disc displacement, lumbar Lumbar compression fracture 11/08/2018 Schizoaffective disorder, depressive type Surgical History History of knee surgery (~09/04/13) Dr. Harper Family History Sister High cholesterol Social History (Updated 11/05/19 @ 15:51 by Onelia Jackson LPN) Smoking and tobacco status: never smoked Alcohol intake: never Household members: none Marital status: Single Current occupational status: disabled History of recent travel: No Physical Exam Const: COMMON NORMALS: no acute distress and patient oriented x3 GENERAL APPEARANCE: cooperative HENMT: COMMON NORMALS: normocephalic and Normal external nose present HEAD & SCALP: normal to inspection and normocephalic NOSE: Normal external nose present MOUTH: Normal oral and palatal mucosa present THROAT: posterior oropharynx normal Eye: GENERAL EYE: appearance normal, both eyes and all related structures Neck/C-Spine: COMMON NORMALS: full ROM Lymph: LYMPHATIC: no lymphadenopathy noted Chest: COMMONS NORMALS: normal inspection of the chest Resp: COMMON NORMALS: normal respiratory effort EFFORT & INSPECTION: Yes able to speak in complete sentences Cardio: COMMON NORMALS: regular rate and regular rhythm RATE: regular rate RHYTHM: regular rhythm GI: COMMON NORMALS: non-tender Back/Pelvis: LUMBAR SPINE/LOWER BACK: Yes paraspinal muscle tenderness Extremity: COMMON NORMALS: normal to inspection Neuro: COMMON NORMALS: patient oriented x3 and moves all extremities Psych: COMMON NORMALS: mental status grossly normal and cooperative Skin: COMMON NORMALS: no rashes or lesions noted GENERAL SKIN EXAM: no rashes or lesions noted Course Vital Signs: Vital signs: Vital Signs Temperature 97.9 F 02/07/20 22:19 Pulse Rate 70 02/07/20 22:19 Respiratory Rate 18 02/07/20 22:19 Blood Pressure 126/78 02/07/20 22:19 Pulse Oximetry 98 02/07/20 22:19 MDM - Back Pain/Injury MDM Narrative: Medical decision making narrative: Patient came in today for concerns of low back pain and leg cramps. On exam patient has decreased range of motion of the lumbar spine. Respirations were even lungs were clear to auscultation. No acute distress was noted. Differential diagnosis includes lumbar strain, intervertebral disc disease, facet arthropathy, hypokalemia. Patient was concerned about her potassium being low. Basic metabolic panel was normal. Patient was given an injection of ketorolac for pain. Patient was recommended to follow-up with primary care for further treatment. Patient reported understanding agreed to plan. Lab Data: Labs: Lab Results 02/07/20 Range/Units 23:28 Sodium 136 (136-145) mmol/L Potassium 4.1 (3.5-5.1) mmol/L Chloride 101 (98-107) mmol/L Carbon Dioxide 22 (22-29) mmol/L Anion Gap 17.1 (5-19) BUN 18 (8-23) mg/dL Creatinine 0.9 (0.5-0.9) mg/dL GFR Calculation 63.4 L (90-130) mL/min Glucose 339 H (65-115) mg/dL Calculated Osmolal ity 292 (285-295) mOsm/k g Calcium 9.3 (8.5-10.5) mg/dL Discharge Plan Discharge Patient Disposition: Home, Self-Care Clinical Impression: Lumbar radiculopathy Condition: Stable Prescriptions: No Action famotidine 40 mg tablet 40 mg PO DAILY RF: 0 Prozac 40 mg capsule 40 mg PO DAILY Qty: 30 RF: 2 Topamax 200 mg tablet 200 mg PO BID Qty: 60 RF: 2 trazodone 50 mg tablet 100 mg PO DAILY Qty: 30 RF: 2 ziprasidone HCl [Geodon] 20 mg capsule 20 mg PO BID Qty: 60 RF: 2 Klonopin 0.5 mg tablet 0.5 mg PO DAILY PRN (Reason: anxiety) Qty: 30 RF: 2 atorvastatin [Lipitor] 40 mg Tablet 40 mg PO DAILY RF: 0 insulin glargine 100 unit/mL Solution 100 unit SUBCUT QPM RF: 0 cetirizine [Zyrtec] 10 mg Tablet 10 mg PO DAILY PRN (Reason: Allergy Symptoms) RF: 0 metoprolol succinate 100 mg Tablet Extended Release 24 Hr 100 mg PO Q12H RF: 0 aspirin 81 mg Tablet,Delayed Release (Dr/Ec) 81 mg PO DAILY RF: 0 tramadol 50 mg Tablet 50 mg PO BID PRN (Reason: Pain) RF: 0 acetaminophen 650 mg Tablet Extended Release 650 mg PO Q4H PRN (Reason: Fever) RF: 0 esomeprazole magnesium 40 mg Capsule,Delayed Release(Dr/Ec) 100 mg PO DAILY RF: 0 gabapentin [Neurontin] 100 mg Capsule 100 mg PO TID RF: 0 insulin lispro 100 unit/mL Insulin Pen 10 unit SUBCUT TID RF: 0 metformin 750 mg Tablet Extended Release 24 Hr 1,500 mg PO BID RF: 0 Victoza 3-Chad 0.6 mg/0.1 mL (18 mg/3 mL) Pen Injector 1.2 mg SUBCUT DAILY RF: 0 naproxen [EC-Naprosyn] 500 mg tablet,delayed release (DR/EC) 500 mg PO BID PRN (Reason: pain) Qty: 20 RF: 0 benzonatate [Tessalon Perles] 100 mg capsule 100 mg PO TID PRN (Reason: cough) Qty: 20 RF: 0 Discharge Orders: Discharge Order (Routine); Ordered 02/07/20 Ordered By: Nilesh Resendez Referrals: Hilda Patel MD [Primary Care Provider] - Discharge Diet: Usual diet Discharge Activity: Increase activity as tolerated Patient Instructions: Lumbar Radiculopathy (ED) Activity Restrictions/Additional Instructions: Activity as tolerated. Continue with routine medications at home for pain. Use ice or heat for further pain relief. Use gentle stretching and exercise to help in the recovery of discomfort. Follow-up with primary care as needed. Return to the ER for fever or new concerns. Coding Level of Care Code ED Vice President Of Consulting Services for Casey Fwrain Exam Comprehensive
[2020-02-07] MEDS: ketorolac 30 mg/mL INJ IM (23:30)
[2020-02-07 23:56] LABS: Anion Gap 17.1 (5-19); Blood Urea Nitrogen 18 mg/dL (8-23); Calcium 9.3 mg/dL (8.5-10.5); Carbon Dioxide 22 mmol/L (22-29); Chloride 101 mmol/L (98-107); Glomerular Filtration Rate 63.4 mL/min (90-130); Glucose 339 mg/dL (65-115); Osmolality Calculated 292 mOsm/kg (285-295); Potassium 4.1 mmol/L (3.5-5.1); Sodium 136 mmol/L (136-145)
[2020-02-08 00:14] VITALS: BP 116/74; PULSE 70; RESP 16; O2SAT 97
--- NOTE | 2020-02-08 00:32 | PC.NURSE ---
i agree with this assessment
== END 2020-02-08 00:32 | disposition home or self-care (01) ==
PROVIDERS: Emergency Provider Nurse Practitioner Family; PCP Internal Medicine
DX: M54.16 Radiculopathy, lumbar region (principal); Z79.4 Long term (current) use of insulin; Z79.82 Long term (current) use of aspirin
CPT/HCPCS: 12345; 80048; 96372; 99281; 99283; J1885

== ENCOUNTER 2020-03-17 19:32 | Emergency (ER) | payer MEDICAID, SELFPAY ==
[2020-03-17 20:28] VITALS: PULSE 74; RESP 16; O2SAT 94
--- NOTE | 2020-03-17 22:31 | XR_ITS ---
WS: [id number] LEFT SHOULDER: 3 VIEW(S) TECHNIQUE: Internal and external rotation with Y view. HISTORY: pain COMPARISON: 08/15/2016 Prior resection of the distal LEFT clavicle. Single anchor in the humeral head. Hypertrophic bone for mation with deformity of the LEFT humeral head. Moderate narrowing of the glenohumeral joint. No frac ture identified or displacement. Humeral head is high riding. Visualized LEFT lung is clear. Mild atherosclerosis aorta. XR/XR shoulder LT min 2V* [id number] IMPRESSION: 1. Prior resection distal LEFT clavicle. 2. Hypertrophic bone formation with degenerative changes involving the humeral head and glenohumeral joint. No acute fracture.
--- NOTE | 2020-03-17 22:44 | W.ED.GENADLT ---
HPI - General Adult General: Chief complaint: General Medical Stated complaint: shoulder pain Time Seen by Provider: 03/17/20 22:22 Source: patient Mode of arrival: ambulatory Limitations: no limitations History of Present Illness: HPI narrative: 60-year-old female whose had left shoulder surgery and injuries in the past. She states she believes she slept on her left arm wrong as she woke up and had shoulder pain in that left arm. She states that it continued throughout the day and is an aching pain and rates it a 5 out of 10. She denies any weakness. She states is actually improved slightly through the day. She states that it is worse with palpation and with movement. It is improved with rest. Associated symptoms: Deny chest pain, dyspnea, headache(s), nausea, rash or vomiting Review of Systems Const: Denies: fever(s), chills, body aches or change in appetite Eyes: Denies: blurry vision or eye discomfort ENMT: Denies: throat pain or dental pain Card: Denies: chest pain Resp: Denies: dyspnea GI: Denies: abdominal pain, nausea, vomiting or diarrhea : Denies: dysuria Musc: Reports: joint pain; Denies: neck pain or back pain Skin/Breast: Denies: rash Neuro: Denies: headache(s) Psych: Denies: depression Emir/Lymph: Denies: easy bruising All/Imm: Denies: urticaria PFSH ED PFSH: Medical History (Updated 03/17/20 @ 22:46 by Travis Guido MD) Borderline intellectual functioning Disc displacement, lumbar Lumbar compression fracture 11/08/2018 Schizoaffective disorder, depressive type Surgical History History of knee surgery (~09/04/13) Dr. Harper Family History Sister High cholesterol Social History Smoking and tobacco status: never smoked Alcohol intake: never Household members: none Marital status: Single Current occupational status: disabled History of recent travel: No Physical Exam Const: COMMON NORMALS: no acute distress, patient oriented x3 and healthy appearing HENMT: COMMON NORMALS: normocephalic and atraumatic HEAD & SCALP: normocephalic and atraumatic Eye: COMMON NORMALS: Equal, round and reactive pupils present and EOMs intact bilaterally PUPIL: Yes Equal, round and reactive pupils present Neck/C-Spine: COMMON NORMALS: full ROM and supple Chest: COMMONS NORMALS: normal inspection of the chest and normal palpation of entire chest wall Resp: COMMON NORMALS: normal respiratory effort, No retractions, No use of accessory muscles and clear to auscultation bilaterally AUSCULTATION: clear to auscultation bilaterally Cardio: COMMON NORMALS: regular rate, regular rhythm and No murmurs present (Cardio) RATE: regular rate RHYTHM: regular rhythm GI: COMMON NORMALS: Normal to inspection, nondistended, normoactive bowel sounds present, Soft to palpation, non-tender and no masses PALPATION: Yes Soft to palpation Extremity: COMMON NORMALS: normal to inspection and full ROM NARRATIVE EXTREMITY EXAM: Slight tenderness over left shoulder. Full range of motion is available. No obvious deformity Neuro: COMMON NORMALS: patient oriented x3, moves all extremities and no focal motor deficits Psych: COMMON NORMALS: mental status grossly normal, Normal thought process present and cooperative THOUGHT PROCESS: Normal thought process present Skin: COMMON NORMALS: no rashes or lesions noted and no wounds GENERAL SKIN EXAM: no rashes or lesions noted Course Vital Signs: Vital signs: Vital Signs Pulse Rate 74 03/17/20 20:28 Respiratory Rate 16 03/17/20 20:28 Pulse Oximetry 94 03/17/20 20:28 MDM - General Adult MDM Narrative: Medical decision making narrative: Patient presents with a shoulder sprain. Patient's x-ray here shows no acute fracture. Exam here is benign. She is to ice and I will place her on Naprosyn. She is to follow-up with her primary care doctor in 3 to 5 days return if worsening. Imaging Data^: X-ray left shoulder: Attestation: I personally reviewed and interpreted this imaging study as follows: My impression: No obvious deformity Discharge Plan Discharge Patient Disposition: Home, Self-Care Clinical Impression: Left shoulder strain Qualifiers: Encounter type: initial encounter Qualified Code(s): S46.912A - Strain of unspecified muscle, fascia and tendon at shoulder and upper arm level, left arm, initial encounter Condition: Stable Prescriptions: New Naprosyn 500 mg tablet 500 mg PO BID PRN (Reason: pain) Qty: 20 RF: 0 No Action famotidine 40 mg tablet 40 mg PO DAILY RF: 0 Prozac 40 mg capsule 40 mg PO DAILY Qty: 30 RF: 2 Topamax 200 mg tablet 200 mg PO BID Qty: 60 RF: 2 trazodone 50 mg tablet 100 mg PO DAILY Qty: 30 RF: 2 ziprasidone HCl [Geodon] 20 mg capsule 20 mg PO BID Qty: 60 RF: 2 Klonopin 0.5 mg tablet 0.5 mg PO DAILY PRN (Reason: anxiety) Qty: 30 RF: 2 atorvastatin [Lipitor] 40 mg Tablet 40 mg PO DAILY RF: 0 insulin glargine 100 unit/mL Solution 100 unit SUBCUT QPM RF: 0 cetirizine [Zyrtec] 10 mg Tablet 10 mg PO DAILY PRN (Reason: Allergy Symptoms) RF: 0 metoprolol succinate 100 mg Tablet Extended Release 24 Hr 100 mg PO Q12H RF: 0 aspirin 81 mg Tablet,Delayed Release (Dr/Ec) 81 mg PO DAILY RF: 0 tramadol 50 mg Tablet 50 mg PO BID PRN (Reason: Pain) RF: 0 acetaminophen 650 mg Tablet Extended Release 650 mg PO Q4H PRN (Reason: Fever) RF: 0 esomeprazole magnesium 40 mg Capsule,Delayed Release(Dr/Ec) 100 mg PO DAILY RF: 0 gabapentin [Neurontin] 100 mg Capsule 100 mg PO TID RF: 0 insulin lispro 100 unit/mL Insulin Pen 10 unit SUBCUT TID RF: 0 metformin 750 mg Tablet Extended Release 24 Hr 1,500 mg PO BID RF: 0 Victoza 3-Chad 0.6 mg/0.1 mL (18 mg/3 mL) Pen Injector 1.2 mg SUBCUT DAILY RF: 0 naproxen [EC-Naprosyn] 500 mg tablet,delayed release (DR/EC) 500 mg PO BID PRN (Reason: pain) Qty: 20 RF: 0 benzonatate [Tessalon Perles] 100 mg capsule 100 mg PO TID PRN (Reason: cough) Qty: 20 RF: 0 Discharge Orders: Discharge Order (Routine); Ordered 03/17/20 Ordered By: Travis Guido Referrals: Hilda Patel MD [Primary Care Provider] - 1-3 days Discharge Diet: Advance as tolerated Discharge Activity: Resume usual activity Patient Instructions: Shoulder Sprain (ED) Coding Level of Care Code ED Human Resources Services Specialist for Casey Vaughn
[2020-03-17] MEDS: HYDROcodone-acetaminophen 7.5-325 mg Tablet 1 TAB PO (22:57)
== END 2020-03-17 23:02 | disposition home or self-care (01) ==
PROVIDERS: Emergency Provider Emergency Medicine; PCP Internal Medicine
DX: S46.912A Strain of unspecified muscle, fascia and tendon at shoulder and upper arm level, left arm, initial encounter (principal); Z79.4 Long term (current) use of insulin; Z79.82 Long term (current) use of aspirin; X58.XXXA Exposure to other specified factors, initial encounter
CPT/HCPCS: 12345; 73030; 99281; 99283

== ENCOUNTER 2020-04-16 18:44 | Emergency (ER) | payer MEDICAID, SELFPAY ==
[2020-04-16 18:46] VITALS: BP 141/88; PULSE 81; RESP 20; TEMP 37.1; O2SAT 96; BMI 31.6
--- NOTE | 2020-04-16 19:31 | ED_ITS ---
HPI - Extremity Problem General: Chief complaint: Extremity Injury, Lower Stated complaint: R HAMSTRING & KNEE PAIN Time Seen by Provider: 04/16/20 19:26 Source: patient Mode of arrival: ambulatory Limitations: no limitations History of Present Illness: HPI Narrative: Patient reports some increased activity over the last few days. Patient reports pain to the right lateral knee . Patient thinks she may have pulled a hamstring. Patient does have a history of tibial fracture to that extremity. Patient appears well. Patient appears in mild pain. MD Complaint: extremity pain Review of Systems General: Reports: 10 or more systems reviewed and unremarkable except in HPI and below Musc: Reports: joint pain PFS ED PFSH: Medical History (Updated 04/16/20 @ 20:11 by KIM Lloyd) Borderline intellectual functioning Disc displacement, lumbar Lumbar compression fracture 11/08/2018 Schizoaffective disorder, depressive type Surgical History History of knee surgery (~09/04/13) Dr. Harper Family History Sister High cholesterol Social History Smoking and tobacco status: never smoked Alcohol intake: never Household members: none Marital status: Single Current occupational status: disabled History of recent travel: No Physical Exam Const: COMMON NORMALS: no acute distress and patient oriented x3 GENERAL APPEARANCE: cooperative HENMT: COMMON NORMALS: normocephalic and Normal external nose present HEAD & SCALP: normal to inspection and normocephalic NOSE: Normal external nose present MOUTH: Normal oral and palatal mucosa present THROAT: posterior oropharynx normal Eye: GENERAL EYE: appearance normal, both eyes and all related structures Neck/C-Spine: COMMON NORMALS: full ROM Chest: COMMONS NORMALS: normal inspection of the chest Resp: COMMON NORMALS: normal respiratory effort EFFORT & INSPECTION: Yes able to speak in complete sentences Cardio: COMMON NORMALS: regular rate and regular rhythm RATE: regular rate RHYTHM: regular rhythm GI: COMMON NORMALS: non-tender Back/Pelvis: COMMON NORMALS: thoracic and lumbar spine normal to inspection Extremity: NARRATIVE EXTREMITY EXAM: Swelling is noted to the knee joint, no redness is noted no fluid palpation is noted patient has tenderness in the lateral and posterior part of the right knee. Neuro: COMMON NORMALS: patient oriented x3 and moves all extremities Psych: COMMON NORMALS: mental status grossly normal and cooperative Skin: COMMON NORMALS: no rashes or lesions noted GENERAL SKIN EXAM: no rashes or lesions noted Course Vital Signs: Vital signs: Vital Signs Temperature 98.8 F 04/16/20 18:46 Pulse Rate 81 04/16/20 18:46 Respiratory Rate 20 H 04/16/20 18:46 Blood Pressure 141/88 04/16/20 18:46 Pulse Oximetry 96 04/16/20 18:46 MDM - Extremity (Nontraumatic) MDM Narrative: Medical decision making narrative: Patient comes in with right knee pain. On exam we note no obvious redness or swelling to the knee. Distal pulses are intact. No increased swelling or tenderness is noted in the calf. Differential diagnosis includes osteoarthritis, strain, contusion. X-ray of the knee shows significant arthritis to the right knee. Reviewed exam with patient with recommendations for treatment and follow-up. Patient reports understanding agreed to plan. Discharge Plan Discharge Patient Disposition: Home Clinical Impression: Acute pain of right knee Condition: Stable Prescriptions: New diclofenac potassium 50 mg tablet 50 mg PO Q8H PRN (Reason: pain) Qty: 20 RF: 0 Discontinued naproxen [Naprosyn] 500 mg tablet 500 mg PO BID PRN (Reason: pain) Qty: 20 RF: 0 tramadol 50 mg Tablet 50 mg PO BID PRN (Reason: Pain) RF: 0 naproxen [EC-Naprosyn] 500 mg tablet,delayed release (DR/EC) 500 mg PO BID PRN (Reason: pain) Qty: 20 RF: 0 No Action famotidine 40 mg tablet 40 mg PO DAILY RF: 0 Prozac 40 mg capsule 40 mg PO DAILY Qty: 30 RF: 2 Topamax 200 mg tablet 200 mg PO BID Qty: 60 RF: 2 trazodone 50 mg tablet 100 mg PO DAILY Qty: 30 RF: 2 ziprasidone HCl [Geodon] 20 mg capsule 20 mg PO BID Qty: 60 RF: 2 Klonopin 0.5 mg tablet 0.5 mg PO DAILY PRN (Reason: anxiety) Qty: 30 RF: 2 atorvastatin [Lipitor] 40 mg Tablet 40 mg PO DAILY RF: 0 insulin glargine 100 unit/mL Solution 100 unit SUBCUT QPM RF: 0 cetirizine [Zyrtec] 10 mg Tablet 10 mg PO DAILY PRN (Reason: Allergy Symptoms) RF: 0 metoprolol succinate 100 mg Tablet Extended Release 24 Hr 100 mg PO Q12H RF: 0 aspirin 81 mg Tablet,Delayed Release (Dr/Ec) 81 mg PO DAILY RF: 0 acetaminophen 650 mg Tablet Extended Release 650 mg PO Q4H PRN (Reason: Fever) RF: 0 esomeprazole magnesium 40 mg Capsule,Delayed Release(Dr/Ec) 100 mg PO DAILY RF: 0 gabapentin [Neurontin] 100 mg Capsule 100 mg PO TID RF: 0 insulin lispro 100 unit/mL Insulin Pen 10 unit SUBCUT TID RF: 0 metformin 750 mg Tablet Extended Release 24 Hr 1,500 mg PO BID RF: 0 Victoza 3-Chad 0.6 mg/0.1 mL (18 mg/3 mL) Pen Injector 1.2 mg SUBCUT DAILY RF: 0 benzonatate [Tessalon Perles] 100 mg capsule 100 mg PO TID PRN (Reason: cough) Qty: 20 RF: 0 Discharge Orders: Discharge Order (Routine); Ordered 04/16/20 Ordered By: Nilesh Resendez Referrals: Hilda Patel MD [Primary Care Provider] - Discharge Diet: Usual diet Discharge Activity: Increase activity as tolerated Patient Instructions: Osteoarthritis (ED) Activity Restrictions/Additional Instructions: Increase activity as tolerated. Acetaminophen as needed for breakthrough pain. Diclofenac as directed. Follow-up with primary care as needed. Return to the emergency department for new concerns. Coding Level of Care Code ED Art Psychotherapist for Casey Fwd Exam Comprehensive
--- NOTE | 2020-04-16 19:40 | XR_ITS ---
WS: [id number] EXAM: RIGHT KNEE: 3 VIEWS DATE OF EXAMINATION: 04/16/2020, 1946 hours COMPARISON: Right knee examination from 04/24/2019. HISTORY: Patient is 60 years old with right knee pain. FINDINGS: Since the prior examination there is again demonstrated to be prior open reduction internal fixation of a tibial plateau fracture with extensive hardware placement. Again demonstrated are changes of sev ere arthritis within the lateral compartment of the right knee considered posttraumatic secondary ost eoarthritis in nature. Medial compartment joint space does not appear to be extensively narrowed. The re is sharpening of both tibial spines. Slight arthritis patellofemoral compartment. No appreciable j oint effusion. There is also slight arthritis at the proximal tibiofibular synchondrosis. No acute mariia ny abnormality is seen. Overall bone density is decreased. 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 No acute bony abnormality.
[2020-04-16] MEDS: ketorolac 30 mg/mL INJ IM (19:50)
[2020-04-16 20:54] VITALS: BP 136/92; PULSE 84; RESP 20; O2SAT 96
--- NOTE | 2020-04-16 21:18 | PC.NURSE ---
I agree with this assessment
== END 2020-04-16 21:19 | disposition home or self-care (01) ==
PROVIDERS: Emergency Provider Nurse Practitioner Family; PCP Internal Medicine
DX: M25.561 Pain in right knee (principal); Z79.82 Long term (current) use of aspirin; Z79.4 Long term (current) use of insulin
CPT/HCPCS: 12345; 73562; 96372; 99281; 99283; J1885

== ENCOUNTER → 2020-05-12 09:27 | Outpatient (BNVA) | payer MEDICAID, SELFPAY | PROVIDERS: PCP Internal Medicine; Visit Provider Nurse Practitioner | DX: F25.1 Schizoaffective disorder, depressive type (principal); R41.83 Borderline intellectual functioning | CPT/HCPCS: 99213 ==

== ENCOUNTER 2020-07-13 12:38 | Outpatient (CLI) | payer MEDICAID, SELFPAY ==
--- NOTE | 2020-07-13 12:48 | MM_ITS ---
WS: [id number] Exam: [id number] Date/Time of Exam: 07/13/2020 12:57 PM Reason For Exam: SCREEN VIEWS: MLO and CC views both breasts. Comparison made with prior exam of 01/30/2017. Findings: There was no sign of mass, architectural distortion or suspicious calcification in either breast. He terogeneously dense MM/[id number] Impression: BI-RADS: 2-Benign FOLLOW-UP: 1 Year Follow-up This mammogram was also analyzed by the Computer Aided Detection System [employer]2 [employer].
== END 2020-07-13 12:39 | disposition home or self-care (01) ==
LOC: RADSHAW 12:40
PROVIDERS: PCP Internal Medicine; Visit Provider Internal Medicine
DX: Z12.31 Encounter for screening mammogram for malignant neoplasm of breast (principal)
CPT/HCPCS: 77067

== ENCOUNTER → 2020-08-16 12:46 | Outpatient (BNVA) | payer MEDICAID, SELFPAY | PROVIDERS: PCP Internal Medicine; Visit Provider Nurse Practitioner | DX: Z20.828 Contact with and (suspected) exposure to other viral communicable diseases (principal) | CPT/HCPCS: 87635 ==

== ENCOUNTER → 2020-09-09 12:31 | Outpatient (BNVA) | payer MEDICAID, SELFPAY | PROVIDERS: PCP Internal Medicine; Visit Provider Nurse Practitioner | DX: R41.83 Borderline intellectual functioning (principal); F25.1 Schizoaffective disorder, depressive type | CPT/HCPCS: 99213 ==

== ENCOUNTER → 2020-09-23 13:48 | Outpatient (BNVA) | payer MEDICAID, SELFPAY | PROVIDERS: PCP Internal Medicine; Visit Provider Orthopaedic Surgery | DX: M54.9 Dorsalgia, unspecified (principal) | CPT/HCPCS: 72072; 72114 ==

== ENCOUNTER 2020-09-30 06:00 | Outpatient (RCR) | payer MEDICAID, SELFPAY | END 2020-10-24 23:59 | disposition home or self-care (01) | LOC: SPT 06:00 | PROVIDERS: PCP Internal Medicine; Referring Provider Orthopaedic Surgery; Visit Provider Orthopaedic Surgery | DX: M54.5 Low back pain (principal) | CPT/HCPCS: 97110; 97161 ==

== ENCOUNTER 2020-10-21 08:02 | Outpatient (CLI) | payer MEDICAID, SELFPAY ==
--- NOTE | 2020-10-21 08:00 | MR_ITS ---
WS: [id number] MRI LUMBAR SPINE NONCONTRAST TECHNIQUE: Sagittal T1, T2 and STIR imaging. Axial T1 and T2 imaging. CLINICAL INFORMATION: M54.9 - Dorsalgia, unspecified COMPARISON: MRI FINDINGS: Mild lumbar curve. Stable mild compression anterior superior endplate L1 is unchanged. T12-L1: Mild disc osteophyte protrusion with slight effacement of ventral thecal sac. Spinal canal an d foramen are patent. L1-L2: Normal. L2-L3: Mild annular bulging. Slight narrowing of the right subarticular recess. Mild facet arthropath y. Foramen are patent. L3-L4: Mild annular bulging with slight effacement of ventral thecal sac. Narrowing of the left great er than right subarticular recess. Mild left and no significant right foraminal narrowing. Mild facet arthropathy. L4-L5: Small shallow central disc protrusion. Impingement traversing L5 nerve roots bilaterally. Mild facet arthropathy. Tiny annular fissure. Mild left and no significant right foraminal narrowing. L5-S1: Mild disc bulging eccentric to the right with osteophytic ridging. Mild right and no left fora linn narrowing. Mild facet arthropathy. Visualized pelvic bony structures: Normal. Paravertebral soft tissues: Normal. MR/MR lumbar spine wo con* [id number] IMPRESSION: 1. Mild lumbar curve. Mild compression superior endplate L1 unchanged. 2. Mild annular bulging L3-4 with slight impingement on the left subarticular recess. 3. Shallow central protrusion L4-5 with impingement traversing L5 nerve roots bilaterally. Small annular fissure. Mild left L4-5 foraminal narrowing. 4. Right eccentric disc osteophytic ridging L5-S1 with mild right foraminal na rrowing. 5. No significant changes from previous.
== END 2020-10-21 08:03 | disposition home or self-care (01) ==
LOC: RADSHAW 08:02
PROVIDERS: PCP Internal Medicine; Visit Provider Orthopaedic Surgery
DX: M51.26 Other intervertebral disc displacement, lumbar region (principal); M25.78 Osteophyte, vertebrae
CPT/HCPCS: 72148

== ENCOUNTER 2020-10-25 06:00 | Outpatient (RCR) | payer SELFPAY | END 2020-11-24 23:59 | disposition home or self-care (01) | LOC: SPT 06:00 | PROVIDERS: PCP Internal Medicine; Referring Provider Orthopaedic Surgery; Visit Provider Orthopaedic Surgery | DX: M19.90 Unspecified osteoarthritis, unspecified site (principal) | CPT/HCPCS: 97110 ==

== ENCOUNTER 2020-11-25 06:00 | Outpatient (RCR) | payer SELFPAY | END 2020-12-24 23:59 | disposition home or self-care (01) | LOC: SPT 06:00 | PROVIDERS: PCP Internal Medicine; Referring Provider Orthopaedic Surgery; Visit Provider Orthopaedic Surgery | DX: M19.90 Unspecified osteoarthritis, unspecified site (principal) | CPT/HCPCS: 97110 ==

== ENCOUNTER 2020-12-25 06:00 | Outpatient (RCR) | payer MEDICAID, SELFPAY | END 2021-01-12 23:00 | disposition home or self-care (01) | LOC: SPT 06:00 | PROVIDERS: PCP Internal Medicine; Referring Provider Orthopaedic Surgery; Visit Provider Orthopaedic Surgery | DX: M19.90 Unspecified osteoarthritis, unspecified site (principal) | CPT/HCPCS: 97110 ==

== ENCOUNTER 2021-01-11 10:48 | Outpatient (CLI) | payer MEDICAID, SELFPAY ==
--- NOTE | 2021-01-11 11:01 | XRR_ITS ---
PROCEDURE INFORMATION: Exam: XR Left Hand Exam date and time: 01/11/2021 11:04 AM Age: 60 years old Clinical indication: Injury or trauma; Fall; Swelling; Hand; Left; Blunt trauma (contusions or hematomas); Additional info: Fall/hand swelling TECHNIQUE: Imaging protocol: XR Left hand. Views: 3 or more views. COMPARISON: CR Hand 3 views, LEFT* [id number] 05/21/2018 12:57 PM FINDINGS: Bones/joints: osseous structures of the hand are without an acute process. Distal radioulnar joint and radiocarpal joints grossly normal. Carpus without fracture. Metacarpals and phalangeal without fracture or dislocation. No erosive changes or periarticular calcifications. Moderate degenerative changes at the first carpometacarpal joint. Degenerative changes within the distal interphalangeal joints. degenerative changes scaphoid trapezium and trapezoid articulations. Soft tissues: Normal. XR/XR hand LT min 3V* [id number] IMPRESSION: An acute fracture is not appreciated. 1. Moderate degenerative changes at the first carpometacarpal joint. 2. Degenerative changes within the distal interphalangeal joints. 3. Degenerative changes scaphoid trapezium and trapezoid articulations.
== END 2021-01-11 10:49 | disposition home or self-care (01) ==
PROVIDERS: PCP Internal Medicine; Visit Provider Internal Medicine
DX: M79.89 Other specified soft tissue disorders (principal); W19.XXXA Unspecified fall, initial encounter
CPT/HCPCS: 73130

== ENCOUNTER → 2021-01-21 12:12 | Outpatient (BNVA) | payer MEDICAID, SELFPAY | PROVIDERS: PCP Internal Medicine; Visit Provider Nurse Practitioner | DX: R41.83 Borderline intellectual functioning (principal); F25.1 Schizoaffective disorder, depressive type | CPT/HCPCS: 99214 ==

== ENCOUNTER 2021-02-24 00:27 | Emergency (ER) | payer MEDICAID, SELFPAY ==
[2021-02-24 00:42] VITALS: BP 106/72; PULSE 66; RESP 16; TEMP 36.7; O2SAT 99; BMI 30.5
--- NOTE | 2021-02-24 03:49 | XRR_ITS ---
PROCEDURE INFORMATION: Exam: XR Right Foot Exam date and time: 02/24/2021 3:49 AM Age: 61 years old Clinical indication: Foot; Right; Prior surgery; Surgery type: Ankle fixation. ; Patient HX: C/O pain. Tip of great toe turning black. ; Additional info: Injury TECHNIQUE: Imaging protocol: XR Right foot. Views: 3 or more views. COMPARISON: No relevant prior studies available. FINDINGS: Bones/joints: Intact buttress plate and screw fixation of healed distal fibular fracture. Intra-articular fracture of the distal aspect of the proximal phalanx. Soft tissues: Normal. XR/XR foot RT min 3V* [id number] IMPRESSION: 1. Intra-articular fracture of the distal aspect of the proximal phalanx. 2. Otherwise, no acute disease.
--- NOTE | 2021-02-24 03:49 | W.ED.EXTPRO ---
HPI - Extremity Problem General: Chief complaint: Extremity Problem,Nontraumatic Stated complaint: Rt Toe turning Black Time Seen by Provider: 02/24/21 03:38 Source: patient Mode of arrival: ambulatory Limitations: no limitations History of Present Illness: HPI Narrative: 61-year-old female who states that she has had a small portion of her distal right great toe have an area of discoloration to it. The size of a dime since the distal portion of the foot is black in nature. States she does have some pain there. She denies any fever. States she has been trying to get a hold of her impress associate but has not been able to get a hold of them. Denies any worsening or improving factors. Denies any injuries. Associated symptoms: Deny chest pain, fever(s) or rash Review of Systems Const: Denies: fever(s), chills, body aches or change in appetite Eyes: Denies: blurry vision or eye discomfort ENMT: Denies: throat pain or dental pain Card: Denies: chest pain Resp: Denies: dyspnea GI: Denies: abdominal pain, nausea, vomiting or diarrhea : Denies: dysuria Musc: Denies: neck pain or back pain Skin/Breast: Denies: rash Neuro: Denies: headache(s) Psych: Denies: depression Emir/Lymph: Denies: easy bruising All/Imm: Denies: urticaria PFSH ED PFSH: Medical History (Updated 02/24/21 @ 04:08 by Travis Guido MD) Borderline intellectual functioning Disc displacement, lumbar Lumbar compression fracture 11/08/2018 Schizoaffective disorder, depressive type Surgical History History of knee surgery (~09/04/13) Dr. Harper Family History Sister High cholesterol Social History Smoking and tobacco status: never smoked Alcohol intake: never Household members: none Marital status: Single Current occupational status: disabled History of recent travel: No Physical Exam Const: COMMON NORMALS: no acute distress, patient oriented x3 and healthy appearing HENMT: COMMON NORMALS: normocephalic and atraumatic HEAD & SCALP: normocephalic and atraumatic Eye: COMMON NORMALS: Equal, round and reactive pupils present and EOMs intact bilaterally PUPIL: Yes Equal, round and reactive pupils present Neck/C-Spine: COMMON NORMALS: full ROM and supple Chest: COMMONS NORMALS: normal inspection of the chest and normal palpation of entire chest wall Resp: COMMON NORMALS: normal respiratory effort, No retractions, No use of accessory muscles and clear to auscultation bilaterally AUSCULTATION: clear to auscultation bilaterally Cardio: COMMON NORMALS: regular rate, regular rhythm and No murmurs present (Cardio) RATE: regular rate RHYTHM: regular rhythm GI: COMMON NORMALS: Normal to inspection, nondistended, normoactive bowel sounds present, Soft to palpation, non-tender and no masses PALPATION: Yes Soft to palpation Extremity: COMMON NORMALS: full ROM NARRATIVE EXTREMITY EXAM: small distal portion discoloration of right great toe. strong dorsalis pedis pulse to right foot Neuro: COMMON NORMALS: patient oriented x3, moves all extremities and no focal motor deficits Psych: COMMON NORMALS: mental status grossly normal, Normal thought process present and cooperative THOUGHT PROCESS: Normal thought process present Skin: COMMON NORMALS: no rashes or lesions noted and no wounds GENERAL SKIN EXAM: no rashes or lesions noted Course Vital Signs: Vital signs: Vital Signs Temperature 98.0 F 02/24/21 00:42 Pulse Rate 66 02/24/21 00:42 Respiratory Rate 16 02/24/21 00:42 Blood Pressure 106/72 02/24/21 00:42 Pulse Oximetry 99 02/24/21 00:42 MDM - Extremity (Nontraumatic) MDM Narrative: Medical decision making narrative: Patient presents here with a very mild necrosis to the tip of her right big toe. No signs of osteomyelitis has good pulses to her dorsalis pedis and posterior tib. We will place her on Bactrim and she is to follow-up with Dr. Turner in 1 to 2 days. Discharge Plan Discharge Patient Disposition: Home Clinical Impression: Discoloration of skin of toe Condition: Stable Prescriptions: New Bactrim DS 800-160 mg tablet 1 tab PO BID 10 Days Qty: 20 RF: 0 No Action amoxicillin 500 mg tablet 500 mg PO TID Qty: 30 RF: 0 benzonatate [Tessalon Perles] 100 mg capsule 100 mg PO BID PRN (Reason: cough) Qty: 20 RF: 0 Topamax 200 mg tablet 200 mg PO BID Qty: 60 RF: 2 Klonopin 0.5 mg tablet 0.5 mg PO DAILY PRN (Reason: anxiety) Qty: 30 RF: 2 Prozac 40 mg capsule 40 mg PO DAILY Qty: 30 RF: 2 ziprasidone HCl [Geodon] 20 mg capsule 20 mg PO BID Qty: 60 RF: 2 hydroxyzine HCl 10 mg tablet 10 mg PO .HS PRN (Reason: sleep) Qty: 30 RF: 2 famotidine 40 mg tablet 40 mg PO DAILY RF: 0 insulin glargine 100 unit/mL Solution 100 unit SUBCUT QPM RF: 0 cetirizine [Zyrtec] 10 mg Tablet 10 mg PO DAILY PRN (Reason: Allergy Symptoms) RF: 0 metoprolol succinate 100 mg Tablet Extended Release 24 Hr 100 mg PO Q12H RF: 0 aspirin 81 mg Tablet,Delayed Release (Dr/Ec) 81 mg PO DAILY RF: 0 acetaminophen 650 mg Tablet Extended Release 650 mg PO Q4H PRN (Reason: Fever) RF: 0 esomeprazole magnesium 40 mg Capsule,Delayed Release(Dr/Ec) 100 mg PO DAILY RF: 0 gabapentin [Neurontin] 100 mg Capsule 100 mg PO TID RF: 0 insulin lispro 100 unit/mL Insulin Pen 10 unit SUBCUT TID RF: 0 metformin 750 mg Tablet Extended Release 24 Hr 1,500 mg PO BID RF: 0 Victoza 3-Chad 0.6 mg/0.1 mL (18 mg/3 mL) Pen Injector 1.2 mg SUBCUT DAILY RF: 0 Discharge Orders: Discharge ED (Routine); Ordered 02/24/21 Ordered By: Travis Guido Referrals: Hilda Patel MD [Primary Care Provider] - Aiden Turner DPM [Physician] - 1-3 days Discharge Diet: Advance as tolerated Discharge Activity: Resume usual activity Patient Instructions: Dislocation - Toe Coding Level of Care Code ED Family Services Coordinator for Chg Fwd Exam Comprehensive
[2021-02-24] MEDS: HYDROcodone-acetaminophen 5-325 mg Tablet 1 TAB PO (04:25)
[2021-02-24 04:26] VITALS: BP 110/72; PULSE 68; RESP 16; O2SAT 98
--- NOTE | 2021-03-01 09:43 | DCPLANNER ---
manager engagement had message to schedule a follow up appointment for patient with ortho for a 5th toe fracture. manager engagement called the ortho clinic, spoke with Caitlyn, gave clinic patients information. manager engagement was told that patients information would be printed and reviewed. Clinic will call patient with appointment information.
--- NOTE | 2021-03-03 07:40 | DCPLANNER ---
Patient has a follow up appointment scheduled for , March 17, 2021 at 11:[address] Turner at the ortho clinic. Clinic will call patient with appointment information.
--- NOTE | 2021-04-15 14:13 | DCPLANNER ---
Patient had a follow up appointment scheduled with ortho - patient did attend appointment.
== END 2021-02-24 04:28 | disposition home or self-care (01) ==
PROVIDERS: Emergency Provider Emergency Medicine; PCP Internal Medicine
DX: L98.8 Other specified disorders of the skin and subcutaneous tissue (principal); Z79.82 Long term (current) use of aspirin; Z79.4 Long term (current) use of insulin
CPT/HCPCS: 73630; 99283

== ENCOUNTER → 2021-03-01 15:50 | Outpatient (BNVA) | payer MEDICAID, SELFPAY | PROVIDERS: PCP Internal Medicine; Visit Provider Podiatrist Foot & Ankle Surgery | DX: M19.071 Primary osteoarthritis, right ankle and foot (principal); M20.41 Other hammer toe(s) (acquired), right foot; M79.671 Pain in right foot | CPT/HCPCS: 73630 ==

== ENCOUNTER 2021-05-09 10:51 | Outpatient (CLI) | payer MEDICAID, SELFPAY | END 2021-05-09 10:52 | disposition home or self-care (01) | LOC: RAD 14:13 | PROVIDERS: PCP Internal Medicine; Visit Provider Specialist | DX: M17.11 Unilateral primary osteoarthritis, right knee (principal); M25.761 Osteophyte, right knee | CPT/HCPCS: 73560; 73565 ==

== ENCOUNTER 2021-06-06 08:01 | Outpatient (CLI) | payer MEDICAID, SELFPAY ==
--- NOTE | 2021-06-06 08:13 | NM_ITS ---
WS: [id number] THREE-PHASE BONE SCAN HISTORY: M17.11 - Unilateral primary osteoarthritis, right knee COMPARISON: 08/12/2015 and radiographs 05/09/2021 Patient is is injected with 22.5 mCi Tc99m HDP intravenously. Immediate angiographic phase imaging is performed over the area of concern. Static blood pool imaging also performed. Two-hour whole-body sc intigrams performed in anterior and posterior projections. Additional large field of view imaging sub mitted as necessary. Angiographic and blood pool phase imaging is normal at the knees. On the two-hour delayed imaging the re is moderate increased uptake predominantly involving the lateral RIGHT knee compartment and greate st along the tibial plateau. More moderate uptake in the lateral femoral condyle. Photopenic defect i n the proximal tibia near the hardware insertion site. Moderate osteophytic changes involving each ankle but greatest on the RIGHT and also within the midfo ot. Normal soft tissue and renal uptake. NM/NM bone 3 phase 98014 IMPRESSION: 1. No evidence for osteomyelitis at the RIGHT knee. 2. Increased uptake at the lateral RIGHT knee from osteoarthritis.
== END 2021-06-06 08:02 | disposition home or self-care (01) ==
LOC: RAD 08:06
PROVIDERS: PCP Internal Medicine; Visit Provider Specialist
DX: M17.11 Unilateral primary osteoarthritis, right knee (principal)
CPT/HCPCS: 78315; A9561

== ENCOUNTER → 2021-07-01 10:59 | Outpatient (BNVA) | payer MEDICAID, SELFPAY | PROVIDERS: PCP Internal Medicine; Visit Provider Nurse Practitioner | DX: R41.83 Borderline intellectual functioning (principal); F25.1 Schizoaffective disorder, depressive type | CPT/HCPCS: 99214 ==

== ENCOUNTER → 2021-07-26 09:20 | Day surgery (SDC) | payer MEDICAID, SELFPAY | PROVIDERS: PCP Internal Medicine; Visit Provider Specialist | DX: Z01.818 Encounter for other preprocedural examination (principal); M17.31 Unilateral post-traumatic osteoarthritis, right knee; Z96.9 Presence of functional implant, unspecified | CPT/HCPCS: 93005 ==

== ENCOUNTER → 2021-07-28 14:41 | Outpatient (BNVA) | payer MEDICAID, SELFPAY | PROVIDERS: PCP Internal Medicine; Visit Provider Specialist | DX: Z20.822 Contact with and (suspected) exposure to COVID-19 (principal); M17.31 Unilateral post-traumatic osteoarthritis, right knee | CPT/HCPCS: 87635 ==

== ENCOUNTER 2021-08-02 14:13 | Observation (INO) | payer MEDICAID, SELFPAY ==
--- NOTE | 2021-07-26 09:20 | ECG_ITS ---
[facility] Test Date: 2021-07-26 Pat Name: Jacqueline Jackson Department: Room: Gender: Female Ham Clerk: : 1960 Requested By: Aditya Hale Order Number: [id number] Gilmore MD: Alysa Owens M.D. Measurements Intervals [place] Rate: 63 P: 25 NE: 136 QRS: -22 QRSD: 101 T: 21 QT: 416 QTc: 429 Interpretive Statements SINUS RHYTHM BORDERLINE LEFT AXIS DEVIATION [QRS AXIS < -20] Compared to ECG 09/16/2019 09:00:01 T-wave abnormality no longer present Possible ischemia no longer present Electronically Signed On 07-26-2021 18:00:54 VOCATIONAL TECHNICAL EDUCATION DIRECTOR by Alysa Owens M.D. [id number]
[2021-07-26 09:36] VITALS: BMI 31.2
[2021-07-26 09:54] LABS: Add Urine Microscopic? YES; Bilirubin Urine Neg (Negative); Blood Urine 3+ (Negative); Glucose Urine UA 4+ (Normal); Ketones Urine Negative (Negative); Leukocyte Esterase Urine Negative (Negative); Nitrate Urine Negative (Negative); Protein Urine Neg (Negative); Urine Appearance Clear (CLEAR); Urine Color Straw (Yellow); Urobilinogen Urine Norm (Negative); pH Urine 5 (5-7)
[2021-07-26 09:59] LABS: RBC Urine RARE /hpf (0-2); Squamous Epithelial Cell Urine 0-4 /hpf (0-5)
[2021-07-26 10:00] LABS: Add Urine Culture? No; Bacteria Urine TRACE /hpf
--- NOTE | 2021-07-26 10:07 | ANES.PREANE2 ---
Pre-Anesthetic Assessment Pre-Anesthetic Assessment: Height/Weight: Height 1.57 m Weight 77.564 kg Proposed Procedure: Operation Date: 08/02/21 07:00 Proposed Procedures p Total Knee Arthroplasty 29394 24748 M17.10(Right) - Kaci Laguna MD s Hardware Removal Knee(Right) - Kaci Laguna MD Was Beta Colin taken within 24 hours: N/A Was Clonidine taken within 24 hours: N/A Social: Social History: No alcohol and No tobacco Exam: Pre-Anes Outpt Exam: alert, oriented x 3, clear to auscultation bilaterally and regular rate & rhythm Airway: Submandibular: WNL Cervical ROM: WNL MP: 1 Dentition: False Pulmonary: Pulmonary: None reported CV/HEM: CV/HEM: None reported : : None reported Hepatic: Hepatic: None reported GI: GI: GERD Metabolic: Metabolic: DM Musc/skel: Musc/skel: OA/DJD Neuropsych: Neuropsych: Anxiety and Bipolar Anesthetic Plan: ASA status: 3 Anesthesia: Regional (specify below) Other: Spinal with Adductor Canal Block PFSH Anesthesia PFSH: Medical History Borderline intellectual functioning Disc displacement, lumbar Lumbar compression fracture 11/08/2018 Schizoaffective disorder, depressive type Surgical History History of knee surgery (~09/04/13) Dr. Harper Family History Sister High cholesterol Social History Smoking and tobacco status: never smoked Alcohol intake: never Household members: none Marital status: Single Current occupational status: disabled History of recent travel: No Data Anesthesia CBC & Chem 7: 07/26/21 09:51 07/26/21 09:51 Other Labs: Laboratory Results - last 48 hr 07/26/21 09:15 Urine Color Straw Urine Appearance Clear Urine pH 5 Ur Specific [place] 1.010 Urine Protein Neg Urine Glucose (UA) 4+ H Urine Ketones Negative Urine Blood 3+ H Urine Nitrate Negative Urine Bilirubin Neg Urine Urobilinogen Norm Ur Leukocyte Esterase Negative Urine RBC Rare Urine WBC 10-15 H Ur Squamous Epith Cells 0-4 H Amorphous Sediment Not Reportable Urine Bacteria Trace Cardiac Studies: No Data to Display
[2021-07-26 10:15] LABS: Basophils # 0.1 10^3/uL (0.0-0.1); Basophils % 0.9 %; Eosinophils # 0.2 10^3/uL (0.0-0.8); Eosinophils % 2.3 %; Hemoglobin 13.4 g/dL (11.5-15.3); Lymphocytes # 2.6 10^3/uL (0.8-4.8); Lymphocytes % 38.1 %; Mean Corpuscular HGB Conc 33.5 g/dL (30.0-36.0); Mean Corpuscular Hemoglobin 31.5 pg (28.0-34.0); Mean Corpuscular Volume 94.1 fl (81-99); Mean Platelet Volume 12.3 fL (7.4-10.4); Monocytes # 0.6 10^3/uL (0.2-0.9); Monocytes % 8.2 %; Neutrophils # 3.48 10^3/uL (1.8-7.7); Neutrophils % 50.2 %; Nucleated Red Blood Cells % 0 %; Platelet Count 124 10^3/cmm (130-400); Red Blood Count 4.25 10^6/uL (4.1-5.3); Red Cell Distribution Width 13.2 % (12.1-15.1); White Blood Count 6.9 10^3/uL (4.0-10.0)
[2021-07-26 10:41] LABS: Alanine Aminotransferase 10 U/L (0-33); Albumin Level 4.3 g/dL (3.5-5.2); Alkaline Phosphatase 77 IU/L (35-105); Anion Gap 19.3 (5-19); Aspartate Amino Transferase 9 U/L (0-32); Blood Urea Nitrogen 36 mg/dL (8-23); Calcium 9.1 mg/dL (8.5-10.5); Carbon Dioxide 19 mmol/L (22-29); Chloride 100 mmol/L (98-107); Globulin 3.2 g/dL (1.3-4.6); Glomerular Filtration Rate 50.2 mL/min (90-130); Glucose 406 mg/dL (65-115); Osmolality Calculated 303 mOsm/kg (285-295); Potassium 4.3 mmol/L (3.5-5.1); Sodium 134 mmol/L (136-145); Total Bilirubin 0.2 mg/dL (0.15-1.2); Total Protein 7.5 g/dL (6.6-8.7)
[2021-08-02] VITALS (28 sets, daily range): BP systolic 109–142; BP diastolic 67–92; PULSE 67–96; RESP 12–21; TEMP 36.4–37; O2SAT 2–99
[2021-08-02 06:04] LABS: Glucose Point of Care 283 mg/dL (70-110)
[2021-08-02] MEDS: acetaminophen 1,000 MG/100 ML PIGGYBACK 400 MG IV ×3 (06:10→23:01)
[2021-08-02] MEDS: sodium chloride 0.9% 1,000 ML 30 ML IV (06:13)
[2021-08-02] MEDS: CELEcoxib 200 mg Capsule 400 MG PO (06:13)
--- NOTE | 2021-08-02 06:51 | P.HPUD_ITS ---
Surgery/Procedure H&P Update DATE OF PROCEDURE: August 02, 2021 DATE H&P PERFORMED: 07/25/21 H&P UPDATE INFORMATION: I have reviewed H&P completed within last 30 days, I have examined patient prior to procedure, No changes to prior documentation and H&P is in [facility] E[facility] on date indicated PREOP DIAGNOSIS: Degenerative osteoarthritis, posttraumatic, right knee with retained hardwa PLANNED PROCEDURE: Operation Date: 08/02/21 07:00 Proposed Procedures p Total Knee Arthroplasty [id number] M17.10(Right) - Kaci Laguna MD s Hardware Removal Knee(Right) - Kaci Laguna MD Related Problem List Diagnoses (1) Post-traumatic osteoarthritis of right knee: (2) Retained orthopedic hardware:
[2021-08-02] MEDS: vancomycin 1,000 MG in sodium chloride 0.9% 250 ML 250 MG IV (06:52)
--- NOTE | 2021-08-02 06:53 | P.ANESUD_ITS ---
Pre-Anesthetic Update Pre-Anesthetic Assessment: Date of Surgery/Procedure: 08/02/21 Preop Melanie gnosis: Degenerative osteoarthritis, posttraumatic, right knee with retained hardwa Proposed Procedure: Operation Date: 08/02/21 07:00 Proposed Procedures p Total Knee Arthroplasty 12950 95171 M17.10(Right) - Kaci Laguna MD s Hardware Removal Knee(Right) - Kaci Laguna MD Any changes to Pre-Anesthetic Assessment?: No Last Intake: Intake Last Liquid Date 08/01/21 Last Liquid Time 23:30 Last Solid Date 08/01/21 Last Solid Time 20:00 Labs Last 48hrs: Laboratory Results - last 48 hr 08/02/21 05:59 POC Glucose 283 H Vitals: Temperature 98.4 F 08/02/21 05:55 Temperature Source Temporal Artery S can 08/02/21 05:55 Pulse Rate 71 08/02/21 05:55 Pulse Rhythm 08/02/21 05:55 Pulse Strength 3+ Normal 08/02/21 05:55 Respiratory Rate 18 08/02/21 05:55 Blood Pressure 109/87 08/02/21 05:55 Blood Pressure María Elena n 94 08/02/21 05:55 Pulse Oximetry 97 08/02/21 05:55 Oxygen Delivery Me thod 08/02/21 05:55 Exam: Pre-Anes Outpt Exam: alert, oriented x 3, clear to auscultation bilaterally and regular rate & rhythm Other Pertinent Information: Other Pertinent Information: We discussed anesthetic plan and risk and benefits. Patient would prefer general over spinal, would like adductor block. We discussed risk of stroke, [place], , nerve injury, bleeding, infection, LAST. Cardiac Studies: No Data to Display
--- NOTE | 2021-08-02 07:45 | ANES.PROC ---
Anesthesia Procedures Procedure/Date: 08/02/21 Nerve Block ^: Nerve Block 1: Main Anesthesia: general anesthesia Time Out Performed: Yes Consent: from patient Nerve block location: adductor canal (For post op pain control) Anesthesia monitors applied: pulse oximetry, EKG, BP cuff and oxygen Nerve block position: supine Anesthetic Used: ropivicaine 0.5% Amount of anesthesia used (mL): 20 Ultrasound used to: recognize landmarks, visualize and ID femerol nerve and other (US guidance used for real time visualization of structures, real time visualization of needle entry and advancement, real time visualization of LA spread. Images saved. ) Nerve Stimulator Used?: No Interscalene/Femoral BLK: 4 stimuplex 21 g needle used for position and inplane approach Injection: neg aspiration of heme Patient Tolerated Procedure: well Complications: none
[2021-08-02] MEDS: ceFAZolin 1,000 mg SDV 2000 MG IRRIGATION (08:17)
[2021-08-02] MEDS: vancomycin 1,000 MG SDV 1000 MG XX (08:18)
--- NOTE | 2021-08-02 11:15 | PM.OP ---
Operative Report Date of procedure: August 02, 2021 Pre-op Diagnosis: Degenerative osteoarthritis, posttraumatic, right knee Pre-op Diagnosis: with retained hardware Post-op diagnosis: same Post-op Findings: Significantly lateral tibial plateau bone loss, limited preoperative range of motion under anesthesia, 20 degrees to 70 degrees only. Procedure Done: Right total knee revision with removal of retained hardware from lateral tibia through an extended and separate fascial incision Implants: The [place] revision total knee system with a size 3 cemented right triathlon posterior stabilized femur right, a triathlon size 3 universal tibial baseplate, cemented, with medial and lateral 5 mm augments. Additionally, a cemented stem was placed consisting of a 25 mm stem canvas shop laborer and a 15 mm x 50 mm cemented stem. Additionally, a size a symmetric tibial cone augment was placed. A triathlon X3 posterior stabilized tibial bearing insert size 3 X 11 mm and a cemented asymmetric patella size 32 x 10 mm. Mary DBM plus putty with cancellous bone was placed along the lateral tibia following removal of the lateral tibial plate. Specimens removed/disposition: None Pathology: none sent Surgeon: Kaci Laguna Director Of Event Management: [facility] operating room technicians Anesthesia: General (Intubated with preoperative regional block, ASA 3) Estimated blood loss (mL): 100 Tourniquet time (min): 178 Tourniquet time: Tourniquet was elevated to 250 mmHg for a total of 120 minutes. It was then released for 15 minutes, and reelevated for 58 additional minutes. Total tourniquet time was 178 minutes IV fluids (mL): 1,000 Urine output (mL): 350 Complications: None Findings: Retained hardware with significant deformity and depression of the lateral tibial plateau. Also, very significant preoperative limited range of motion even under anesthesia. Range of motion was limited from approximately 20 degrees to 70 degrees in its entirety. Condition: stable Disposition: PACU (Then to floor for postoperative rehabilitation and pain management.) Brief History: This 61-year-old woman presented with complaints of severe right knee pain secondary to severe posttraumatic osteoarthritis. The patient had an open reduction internal fixation of a previously depressed tibial plateau fracture several years ago. She developed significant posttraumatic arthritis, and very limited range of motion. She was unable to weight-bear on the lower extremity secondary to the severe degree of pain as well as her lack of motion. After discussion and work-up, the patient elected to proceed with a revision total knee arthroplasty. We discussed a two-stage plan as well as a 1 stage plan, and with her negative bone scan and other studies, we elected to proceed in a single stage fashion for hardware removal and revision total knee arthroplasty. Risks and complications were discussed, and consents were signed preoperatively. Procedure: The patient was brought to the operating theater, and after undergoing adequate general anesthesia, with regional block, ASA 3, the right lower extremity was prepped with ChloraPrep and draped in usual fashion following placement of a tourniquet high on the leg. The leg was then draped free. Following prepping and draping, the leg was exsanguinated, and the tourniquet was elevated to 250 mm Hg for a total tourniquet time of 178 minutes. Tourniquet initially was elevated to 120 minutes at 250 mmHg. It was then released for 15 minutes and re-elevated for an additional 58 minutes. Prior to elevation of the tourniquet, but following exposure of the site of surgery, a surgical pause was performed. At the time of the surgical pause, we confirmed the site and side of surgery. Additionally, we confirmed the appropriate and timely administration of preoperative antibiotics, vancomycin 1 g and Transexemic acid 1 g. The availability of equipment was confirmed, and the patient's identity was verbalized as well. Following the surgical pause, an incision was made centering over the patella continuing proximally and distally as necessary to allow access to the knee joint. Distally, this incision was joined with the patient's previous incision from her open reduction internal fixation of her depressed tibial plateau fracture. Dissection continued through skin and soft tissues using a scalpel. Hemostasis was obtained using electrocautery. Attention initially was directed to the patient's retained tibial plateau plate. This was removed without incident. Following removal of the plate, the bone was debrided in the area of calcified soft tissue. We then copiously irrigated and DBX putty plus with cancellous chips was placed along the area of removal of the lateral plate. Once this was accomplished, closure over that area was accomplished of the fascial tissues. We also distally close the skin incision for approximately 4 inches. Following removal of this lateral plate, we directed attention for the total knee. The hardware removal was followed by a median parapatellar arthrotomy. The leg was extended and the patella was everted after significant debridement of soft tissue and the fat pad. There was significant adhesions within the knee that were also removed. A slight manipulation was accomplished once adhesions have been removed. Following this, the leg was returned to flexed position. The distal femur was exposed and a drill hole was made in this for placement of the distal femoral jig. The distal femoral jig was set at 5? of valgus. The distal femoral cutting block was then placed in appropriate position, and an slick wing was used to confirm an appropriate amount of distal femur would be resected. The distal femoral resection was accomplished with 10 mm of bone being resected distally due to the patient's significant flexion contracture. After the distal femoral resection had been accomplished, the femur was measured and it measured a size 3. Medial lateral dimension also measured a size 3. A size 3 femoral cutting block was placed in position, and we were then able to accomplish the anterior, posterior and chamfer cuts. This jig was then removed, and the notch guide was placed in position. With the notch guide in appropriate position, the notch was excised including resection of the anterior and posterior cruciate ligaments. This notch was to allow for the posterior stabilized femoral component. At this point, the femur was prepared and attention was directed to the proximal tibia. The posterior knee retractor was placed along with medial and lateral retractors. Further resection of the menisci was accomplished as we had better visualization. A complete meniscectomy was performed both medially and laterally with care being taken to protect the popliteus. Retractors were then placed so that the proximal tibia was well visualized. There was a significant depression of the posterior lateral aspect of the lateral tibial plateau. A drill hole was then made in the tibia for placement of the tibial reamers. We reamed sequentially to a size 15. Plan was that we would have a cemented stem to bypass the holes left from the hardware removal. The reamer was left in place. Over this, we placed the guide for resection of the proximal tibia. This guide was placed so that approximately 2 mm of bone would be resected from the significantly depressed and deficient lateral tibial plateau, and this resulted in a 7-8 mm resected from the medial tibial plateau. The intramedullary guide was utilized supplemented with an extramedullary guide to assure appropriate alignment for the proximal tibial resection. The proximal tibial jig was then evaluated, pinned in position, and the proximal tibial resection was accomplished without difficulty. The jig was removed, and the proximal tibia was measured. It measured a size 3. We then attempted a trial reduction with a size 3 by 11 mm insert. Subsequently, we were able to place up to a size 3 x 16 mm insert. The femoral component was placed in position for the trial reduction, and the knee was placed through range of motion. With this, there was excellent stability with excellent varus-valgus alignment with appropriate patellar tracking. Extension was noted to be full as well. This was felt to be the appropriate size insert. There was full extension and flexion without lift off and the rotation of the tibia was marked. Alignment was checked from the hip to the ankle, and this was noted to be appropriate as well. Given the patient's age and significant soft tissue contracture, we elected to place 5 mm augments medially and laterally on the tibial component so that we could place a less thick tibial insert giving potential for subsequent options. This was accomplished without difficulty. Attention was then directed to the patella. The patella was measured with a caliper. We resected sufficient patella to leave approximately 14 mm of patella remaining. Measurements of the patella then indicated that a size asymmetric 32 mm x 10 mm was the appropriate patellar size. We then placed the jig to drill for the 3 pegs of the asymmetric cemented patella, and these drill holes were made without incident. A trial patella was then placed, and the knee was placed through range of motion. The patella was noted to track nicely without evidence of subluxation. All trial components were subsequently removed. The tibial tray was then pinned into position, and we broached the tibia for the stem of the tibial component. We then prepared the proximal tibia for placement of the size a cone. Care was taken to assure appropriate rotation of the tibia as well as appropriate position on the proximal tibia. The tibial tray was completely seated on the proximal tibia. Following this preparation, all surfaces were copiously irrigated quickly dried. Exparel was also injected at this point. Components were impacted into position in a cemented fashion. Initially, the tibia was assembled. The size A symmetric cone augment was impacted in a press-fit fashion into position. Onto the tibia were placed the two 5 mm augments as well as the stem extension and cemented stem. This construct was cemented into position on the tibia without difficulty. It was held until the cement was fully cured. Once the cement had cured, attention was directed to the femur. The femoral component was impacted into position in a cemented fashion. This was followed by cementing of the patella. These components were held until the cement had fully cured as well. Care was taken to assure that all excess cement was removed from around the components prior to curing. Following this, the tibial tray was inserted. This was a size 3 x 11 mm posterior stabilized implant. The knee was placed through range of motion. The patient had full extension. She was able to flex to 120 degrees prior to closure of soft tissue, but she was limited to about 100 degrees following closure of the soft tissue. The knee was then copiously irrigated and suctioned dry. Attention was then directed to closure. Closure was accomplished with 0 Vicryl in the fascial tissues. 0 Vicryl had also been used to close the fascial tissues overlying the area of plate removal. This had to be readdressed after the surgical procedure was completed. Following this, a 2-0 Monocryl was used in the subcutaneous tissues, and the skin was closed with skin jesus. A sterile dressing was then placed consisting of dermabond Prineo, OpSite, sterile soft roll, and an Tej wrap. The patient was returned the Recovery Room in a satisfactory condition. X-rays were obtained there. The patient will be discharged to the floor for postoperative rehabilitation and pain management. Secondary to the significant incision and concern for postoperative pain, we will plan to place the patient in inpatient status. A consultation will be obtained from the hospitalist team for management of the patient's diabetes as well as her schizo affective disorder. This was discussed with Dr. Aemzcua. Associated Problem List Diagnoses (1) Post-traumatic osteoarthritis of right knee: (2) Retained orthopedic hardware:
--- NOTE | 2021-08-02 11:34 | P.PCN_ITS ---
PACU note PACU note: VSS, Good respiratory effort, report to SUPERVISOR PLATE PASTING Post-Anesthesia Exam: awake
--- NOTE | 2021-08-02 11:34 | PM.PACU ---
PACU note PACU note: VSS, Good respiratory effort, report to PORTABLE SAWMILL OPERATOR Post-Anesthesia Exam: awake
--- NOTE | 2021-08-02 11:36 | XR_ITS ---
WS: [id number] Exam: XR knee RT 1-2V [id number] Date/Time of Exam: 08/02/2021 11:40 AM Reason For Exam: Post operative Comparison 05/09/2021. A total knee prosthesis is in place in satisfactory position. Postoperative changes in the adjacent s oft tissues. Anterior surgical skin clips are noted. XR/XR knee RT 1-2V 79030 IMPRESSION: 1. Total knee replacement in satisfactory position.
[2021-08-02 11:37] LABS: Glucose Point of Care 330 mg/dL (70-110)
[2021-08-02] MEDS: insulin regular-human 100 units/1 mL 5 UNIT IVP ×3 (11:53→13:55)
[2021-08-02 12:16] LABS: Glucose Point of Care 313 mg/dL (70-110)
--- NOTE | 2021-08-02 12:17 | SUR.PHASEI ---
1215 PT NOW IN HOLDING AND OUT OF PHASE1 RECOVERY, DR OLSON AT BEDSIDE ORDERS RECIEVED TO REPEAT 5 UNITS OF REGULAR INSULIN FOR BLOOD GLUCOSE OF 313 , ORDER PLACED PT TO BE MOVED TO [facility]
[2021-08-02 12:53] LABS: Glucose Point of Care 276 mg/dL (70-110)
[2021-08-02] MEDS: oxyCODONE 5 mg IR Tab/Cap PO ×2 (12:57→22:05)
[2021-08-02 13:30] LABS: Glucose Point of Care 280 mg/dL (70-110)
--- NOTE | 2021-08-02 14:47 | PC.NURSE ---
OR NOTE UP VIA BED WITH DARRELL PENA AT SIDE - 02 2LNC - AP RRR - LUNGS DIMINISHED THROUGHOUT - ABD SOFT WITH NO DISTENTION - BS PRESENT - IF PATENT TO RIGHT AC VIA PUMP - DE [place] PATENT WITH YELLOW URINE - RIGHT KNEE NOTED TO HAVE BULKY LIBERTY IN PLACE C/D/I WITH NO REDNESS OR DRAINAGE NOTED - 1ST ICE IN PLACE - RIGHT FOOT WITH FOOT PUMP - LEFT WITH SCD - PPP ORIENTATION TO ROOM PROVIDED PER THIS NURSE - HAND HELD CALL LIGHT IN WORKING ORDER
--- NOTE | 2021-08-02 15:40 | ANE.PACU2 ---
Inpatient post-anesthesia follow up: Airway intact: Yes Vital signs: Temperature 98.6 F Pulse Rate 96 Respiratory Rate 18 Blood Pressure 122/82 Pulse Oximetry 98 Oxygen Delivery Me thod Room Air Oxygen Flow Rate 3 Fraction of Inspir ed Oxygen Hydration adequate: Yes Nausea and vomiting: No Pain level: 4 Mental status: Baseline Additional Comments: Patient hyperglycemic post op. Treated with insulin incrementally. PO resumed. Transferred to floor. Hospitalist consulted by Doctor Laguna regarding blood sugar management on floor.
[2021-08-02] MEDS: gabapentin 100 mg Capsule PO ×2 (15:45→21:58)
--- NOTE | 2021-08-02 15:53 | PC.NURSE ---
SPOT CHECK SPOT CHECK ACCU CHECK AT 262 - WILL CONTINUE TO MONITOR
[2021-08-02 15:54] LABS: Glucose Point of Care 261 mg/dL (70-110)
--- NOTE | 2021-08-02 16:00 | PC.NURSE ---
PT UP WITH PT - AMBULATED IN [place] WITH WALKER - SRIKANTH WELL - RETURNED TO BED WITH CPM IN PLACE - PAIN CONTINUES TO BE WELL CONTROLLED - WILL MONITOR
[2021-08-02] MEDS: iron polysaccharide complex 150 mg Capsule PO (16:38)
[2021-08-02] MEDS: calcium carbonate 500 mg Chew Tablet 1000 MG PO (16:39)
[2021-08-02] MEDS: sennosides-docusate Tablet 2 TAB PO (16:39)
[2021-08-02] MEDS: chlorhexidine gluconate 0.12% Btl 473 mL 30 ML MUCOUS MEM ×2 (16:39→21:59)
[2021-08-02] MEDS: CELEcoxib 200 mg Capsule PO (16:39)
--- NOTE | 2021-08-02 16:43 | PC.NURSE ---
CPM REMOVED PT FROM CPM PER PT REQUEST
[2021-08-02] MEDS: insulin lispro 100 unit/1 mL 35 UNIT SUBCUT (17:07)
[2021-08-02 17:11] LABS: Glucose Point of Care 247 mg/dL (70-110)
--- NOTE | 2021-08-02 17:39 | P.CONIM_ITS ---
Providers/Reason For Consult Consulting Physician/Specialty*: Hospitalist Reason for Consult*: Diabetic management and schizoaffective disorder Attending Physician: Kaci Laguna MD Primary Care Provider: iHlda Patel MD History of Present Illness History of Present Illness Very pleasant 61-year-old lady with history of diabetes, disorder, DDD, posttraumatic osteoarthritis of right knee, is admitted by orthopedic service for right total knee revision with removal of retained hardware from lateral tibia through an extended separate fascial incision which she had undergone today, hospitalist service is consulted due to diabetes with hyperglycemia and schizoaffective disorder. Glucose today noted elevated, up as high as 330. She reports that she normally manages her diabetes with insulin, Lantus which she takes at 110 units nightly, as well as short acting insulin in addition to Jardiance. She states that she took half dose of the Lantus yesterday at 55 units and had a Jardiance in anticipation of surgery. She reports she is doing well postoperatively. She is not bothered by pain or discomfort. No chest pain or pressure, no trouble breathing. Her appetite has been good, she has eaten since the procedure. She reports she has liver issues has been in her baseline state of health preoperatively. Review of Systems Const: Denies: fever(s), chills, body aches or malaise Eyes: Denies: change in vision or eye redness ENMT: Denies: throat pain, oral sores or ear or mastoid pain Card: Denies: chest pain, edema, pre-syncope or dyspnea on exertion Resp: Denies: dyspnea, productive cough, change in phlegm color or hemoptysis GI: Denies: abdominal pain, nausea, vomiting, diarrhea, constipation, hematochezia or melena : Denies: flank pain, urinary frequency or hematuria Musc: Denies: back pain, joint swelling or joint redness Skin/Breast: Denies: rash, sores or new lesions Neuro: Denies: headache(s), numbness in extremities, weakness in extremities, dizziness, confusion or seizure-like activity Endo: Denies: polyuria or polydipsia Emir/Lymph: Denies: easy bleeding or purpura All/Imm: Denies: urticaria, throat swelling or tongue swelling Meds/Allergies Home Medications and Allergies Home Medications Medication Instructions Recorded Confirmed Last Taken Type acetaminophen 650 mg PO Q4H PRN 01/14/20 11/30/21 Unknown History aspirin 81 mg PO DAILY 09/09/19 08/02/21 07/31/21 History cetirizine [Zyrtec] 10 mg PO DAILY PRN 09/09/19 08/02/21 08/02/21 History gabapentin [Neurontin] 100 mg PO TID 09/09/19 08/02/21 08/01/21 History insulin glargine [Lantus U-100 110 unit SUBCUT QPM 09/09/19 08/02/21 08/01/21 History Insulin] insulin lispro [Humalog KwikPen 35 unit SUBCUT TID 09/09/19 08/02/21 08/01/21 History Insulin] liraglutide [Victoza 3-Chad] 1.6 mg SUBCUT DAILY 09/09/19 08/02/21 08/01/21 History famotidine 20 mg tablet 20 mg PO DAILY 03/01/21 08/02/21 08/01/21 History lisinopril 10 mg tablet 10 mg PO DAILY 03/01/21 08/02/21 08/01/21 History clonazepam 0.5 mg tablet 0.5 mg PO DAILY PRN #30 tab 07/01/21 07/26/21 Unknown Rx fluoxetine 40 mg capsule 40 mg PO DAILY #30 cap 07/01/21 08/02/21 08/01/21 Rx hydroxyzine HCl 10 mg tablet 10 mg PO .HS PRN #30 tab 07/01/21 08/02/21 08/01/21 Rx topiramate 200 mg tablet 200 mg PO BID #60 tab 07/01/21 08/02/21 08/01/21 Rx ziprasidone HCl 20 mg capsule 20 mg PO BID #60 cap 07/01/21 08/02/21 08/01/21 Rx empagliflozin [Jardiance] 10 mg PO DAILY 07/26/21 08/02/21 08/01/21 History Allergies Allergy/AdvReac Type Severity Reaction Status Date / Time Iodine and Iodide Containing Allergy ALGY-Difficulty Verified 07/25/21 09:39 Produc Breathing shellfish derived Allergy ALGY-Difficulty Verified 07/25/21 09:39 Breathing Current Medications Current Medications Generic Name Dose Route Start Last Admin Trade Name Freq PRN Reason Stop Dose Admin Calcium Carbonate 1,000 mg 08/02/21 18:00 08/02/21 16:39 Calcium Carbonate 500 Mg Chew Tablet PO 1,000 mg BID JACOB Administration Celecoxib 200 mg 08/02/21 18:00 08/02/21 16:39 Celecoxib 200 Mg Capsule PO 200 mg Q12H JACOB Administration Chlorhexidine Gluconate 30 ml 08/02/21 13:00 08/02/21 16:39 Chlorhexidine Gluconate 0.12% Btl 473 Ml MUCOUS MEM 30 ml QID JACOB Administration Gabapentin 100 mg 08/02/21 15:00 08/02/21 15:45 Gabapentin 100 Mg Capsule PO 100 mg TID JACOB Administration Sodium Chloride 1,000 mls @ 30 mls/hr 08/02/21 06:00 08/02/21 06:13 Sodium Chloride 0.9% IV 08/03/21 05:59 30 mls/hr .Q24H JACOB Administration Acetaminophen 1,000 mg in 100 mls @ 400 mls/hr 08/02/21 15:30 08/02/21 17:09 Acetaminophen IV 08/03/21 07:44 Infused Q8H JACOB Infusion Insulin Human Lispro 35 unit 08/02/21 18:00 08/02/21 17:07 Insulin Lispro 100 Unit/1 Ml SUBCUT 35 unit TIDWM JACOB Administration Mupirocin 1 applic 08/02/21 18:00 08/02/21 16:26 Mupirocin Oint 22 Gm NASAL 08/07/21 17:59 Not Given BID [facility] Protocol Oxycodone HCl 5 mg 08/02/21 11:57 08/02/21 12:57 Oxycodone 5 Mg Ir Tab/Cap PO 5 mg Q4H PRN Administration MODERATE PAIN Polysaccharide Iron Complex 150 mg 08/02/21 18:00 08/02/21 16:38 Iron Polysaccharide Complex 150 Mg Capsule PO 150 mg BIDWM JACOB Administration Senna/Docusate Sodium 2 tab 08/02/21 18:00 08/02/21 16:39 Sennosides-Docusate Tablet PO 2 tab BID JACOB Administration PFSH Acute PFSH: Medical History Borderline intellectual functioning Disc displacement, lumbar Lumbar compression fracture 11/08/2018 Schizoaffective disorder, depressive type Surgical History History of knee surgery (~09/04/13) Dr. Harper Family History Sister High cholesterol Social History Smoking and tobacco status: never smoked Alcohol intake: never Household members: none Marital status: Single Current occupational status: disabled History of recent travel: No Vitals/I&O/Wt Last Vital Signs Temp 97.5 F L 08/02/21 16:30 Pulse 81 08/02/21 16:30 Resp 18 08/02/21 16:30 BP 116/76 08/02/21 16:30 Pulse Ox 95 08/02/21 16:30 08/02/21 08/02/21 08/02/21 06:59 14:59 22:59 Intake Total 100 / 100 410 / 410 100 / 510 Output Total 780 / 780 600 / 1380 Balance 100 / 100 -370 / -370 -500 / -870 Physical Exam Const: COMMON NORMALS: no acute distress and patient oriented x3 HENMT: COMMON NORMALS: oropharynx normal Neck/C-Spine: COMMON NORMALS: no JVD Resp: COMMON NORMALS: normal respiratory effort and clear to auscultation bilaterally AUSCULTATION: clear to auscultation bilaterally Cardio: COMMON NORMALS: no JVD, regular rhythm, S1 normal heart sound present, S2 normal heart sound present and No murmurs present (Cardio) RHYTHM: regular rhythm HEART SOUNDS: S1 normal heart sound present and S2 normal heart sound present GI: COMMON NORMALS: Normal to inspection, nondistended, normoactive bowel sounds present, Soft to palpation and non-tender PALPATION: Yes Soft to palpation Extremity: COMMON NORMALS: no joint enlargement and no pedal edema OTHER: RLE dressing, LIBERTY wrap Neuro: COMMON NORMALS: patient oriented x3 and moves all extremities Skin: COMMON NORMALS: no rashes or lesions noted GENERAL SKIN EXAM: no rashes or lesions noted Urinary Catheter Management^: F: Cath Placed During This Visit: yes Urinary Catheter Date of Insertion: 08/02/21 Urinary Catheter Time of Insertion: 07:20 A&P Assessment and plan (1) Retained orthopedic hardware: S/p right total knee revision with removal of retained hardware from lateral tibia through an extended and separate fascial incision. She is doing well currently. Lab work in the morning. Disposition planning. Status: Acute (2) Post-traumatic osteoarthritis of right knee: Status: Acute Additional A&P Information DM2: Hyperglycemic today. Continue insulin. Just received half dose of Lantus in preparation for surgery. Normally takes 110 units. Consistent carbohydrate diet. Monitor blood glucose. Schizoaffective disorder: Continue ziprasidone, topiramate, clonazepam Consult Attestations Medical Necessity Statement: Per primary team, continue hospitalization for postoperative management after total knee revision, hardware removal from lateral to medial via separate incision in a lady with underlying diabetes. Coding Level of Care Code Acute Pharmacy Technologist for Casey Vaughn Diagnoses Retained orthopedic hardware Z96.9 Post-traumatic osteoarthritis of right knee M17.31
[2021-08-02 21:56] LABS: Glucose Point of Care 147 mg/dL (70-110)
[2021-08-02] MEDS: ziprasidone hcl 20 mg Capsule PO (21:58)
[2021-08-02] MEDS: topiramate 100 mg Tablet 200 MG PO (21:58)
[2021-08-02] MEDS: insulin glargine 100 units/1 mL 110 UNIT SUBCUT (21:59)
[2021-08-02] MEDS: sodium chloride 0.9% 1,000 ML 100 ML IV (23:01)
[2021-08-03] VITALS (10 sets, daily range): BP systolic 93–101; BP diastolic 56–64; PULSE 67–93; RESP 16–20; TEMP 36.5–37; O2SAT 92–98
[2021-08-03] MEDS: CELEcoxib 200 mg Capsule PO ×2 (06:25→17:13)
[2021-08-03 06:26] LABS: Basophils # 0.1 10^3/uL (0.0-0.1); Basophils % 0.7 %; Eosinophils # 0.1 10^3/uL (0.0-0.8); Eosinophils % 0.7 %; Hematocrit 35.1 % (37.0-47.0); Hemoglobin 11.3 g/dL (11.5-15.3); Lymphocytes # 1.8 10^3/uL (0.8-4.8); Lymphocytes % 19.9 %; Mean Corpuscular HGB Conc 32.2 g/dL (30.0-36.0); Mean Corpuscular Hemoglobin 31.8 pg (28.0-34.0); Mean Corpuscular Volume 98.9 fl (81-99); Mean Platelet Volume 11.5 fL (7.4-10.4); Monocytes # 0.8 10^3/uL (0.2-0.9); Monocytes % 9.2 %; Neutrophils # 6.17 10^3/uL (1.8-7.7); Neutrophils % 69.3 %; Nucleated Red Blood Cells % 0 %; Platelet Count 95 10^3/cmm (130-400); Red Blood Count 3.55 10^6/uL (4.1-5.3); Red Cell Distribution Width 13.2 % (12.1-15.1); White Blood Count 8.9 10^3/uL (4.0-10.0)
[2021-08-03 06:40] LABS: Anion Gap 16.1 (5-19); Blood Urea Nitrogen 17 mg/dL (8-23); Calcium 7.7 mg/dL (8.5-10.5); Carbon Dioxide 19 mmol/L (22-29); Chloride 111 mmol/L (98-107); Glucose 119 mg/dL (65-115); Osmolality Calculated 297 mOsm/kg (285-295); Potassium 4.1 mmol/L (3.5-5.1); Sodium 142 mmol/L (136-145)
[2021-08-03 06:47] LABS: Glucose Point of Care 148 mg/dL (70-110)
[2021-08-03] MEDS: acetaminophen 1,000 MG/100 ML PIGGYBACK 400 MG IV (07:05)
[2021-08-03] MEDS: cholecalciferol (vitamin D3) 1,000 unit Tablet 1000 UNIT PO (08:10)
[2021-08-03] MEDS: iron polysaccharide complex 150 mg Capsule PO ×2 (08:10→17:13)
[2021-08-03] MEDS: gabapentin 100 mg Capsule PO ×3 (08:10→20:37)
[2021-08-03] MEDS: multivitamin therapeutic Tablet 1 TAB PO (08:10)
[2021-08-03] MEDS: calcium carbonate 500 mg Chew Tablet 1000 MG PO ×2 (08:10→17:13)
[2021-08-03] MEDS: famotidine 20 mg Tablet PO (08:10)
[2021-08-03] MEDS: fluoxetine 20 mg Capsule 40 MG PO (08:10)
[2021-08-03] MEDS: aspirin 325 mg EC Tablet PO (08:10)
[2021-08-03] MEDS: sennosides-docusate Tablet 2 TAB PO ×2 (08:11→17:13)
[2021-08-03] MEDS: sodium chloride 0.9% 1,000 ML 100 ML IV (08:21)
[2021-08-03] MEDS: chlorhexidine gluconate 0.12% Btl 473 mL 30 ML MUCOUS MEM ×4 (08:26→20:37)
[2021-08-03] MEDS: topiramate 100 mg Tablet 200 MG PO ×2 (08:27→20:36)
[2021-08-03] MEDS: ziprasidone hcl 20 mg Capsule PO ×2 (08:27→20:37)
[2021-08-03] MEDS: oxyCODONE 5 mg IR Tab/Cap PO ×3 (10:22→21:37)
[2021-08-03 11:33] LABS: Glucose Point of Care 242 mg/dL (70-110)
[2021-08-03] MEDS: insulin lispro 100 unit/1 mL 35 UNIT SUBCUT (12:10)
--- NOTE | 2021-08-03 12:37 | P.PN_ITS ---
Subjective Subjective: Interval history: Reports he is doing well today. Aching a bit. She ambulated in the hallway with PT. Sugars are much better today. She states takes to lispro 35 units as long as sugars are above 200. If between 150-200, then take 15 units. Vitals/I&O/Wt Last Vital Signs Temp 97.7 F 08/03/21 11:45 Pulse 67 08/03/21 11:45 Resp 16 08/03/21 11:45 BP 93/56 08/03/21 11:45 Pulse Ox 92 08/03/21 11:45 08/02/21 08/03/21 08/03/21 22:59 06:59 14:59 Intake Total 460 / 870 820 / 1690 1633.333 / 1633.333 Output Total 600 / 1380 2150 / 3530 Balance -140 / -510 -1330 / -1840 1633.333 / 1633.333 Physical Exam Const: COMMON NORMALS: no acute distress and patient oriented x3 HENMT: COMMON NORMALS: oropharynx normal Neck/C-Spine: COMMON NORMALS: no JVD Resp: COMMON NORMALS: normal respiratory effort and clear to auscultation bilaterally AUSCULTATION: clear to auscultation bilaterally Cardio: COMMON NORMALS: no JVD, regular rhythm, S1 normal heart sound present, S2 normal heart sound present and No murmurs present (Cardio) RHYTHM: regular rhythm HEART SOUNDS: S1 normal heart sound present and S2 normal heart sound present GI: COMMON NORMALS: Normal to inspection, nondistended, normoactive bowel sounds present, Soft to palpation and non-tender PALPATION: Yes Soft to palpation Extremity: COMMON NORMALS: no joint enlargement and no pedal edema OTHER: RLE dressing, LIBERTY wrap Neuro: COMMON NORMALS: patient oriented x3 and moves all extremities Skin: COMMON NORMALS: no rashes or lesions noted GENERAL SKIN EXAM: no rashes or lesions noted Urinary Catheter Management^: F: Cath Placed During This Visit: yes Reason for Continuing Indwelling Catheter: Other Urinary Catheter Date of Insertion: 08/02/21 Urinary Catheter Time of Insertion: 07:20 Data : 08/03/21 06:12 08/03/21 06:12 A&P Assessment and plan (1) Retained orthopedic hardware: S/p right total knee revision with removal of retained hardware from lateral tibia through an extended and separate fascial incision. She is doing well currently. Lab work in the morning. Blood pressure slightly soft, will hold lisinopril. Would hold on discharge for the next 2 to 3 days, resume if blood pressure rising and follow-up with primary provider in case ends up being discharged today. Status: Acute (2) Post-traumatic osteoarthritis of right knee: Status: Acute Additional A&P Information DM2: She states takes to lispro 35 units as long as sugars are above 200. If between 150-200, then take 15 units. Lantus, lispro. Continue follow-up with primary provider in case she ends up going home today. Schizoaffective disorder: Continue ziprasidone, topiramate, clonazepam Attestations Medical Necessity Statement*: Postoperative management after total knee revision with removal of retained hardware from lateral right tibia. Coding Level of Care Code Acute Cooky Machine Operator for Casey Vaughn Diagnoses Retained orthopedic hardware Z96.9 Post-traumatic osteoarthritis of right knee M17.31
--- NOTE | 2021-08-03 14:14 | PM.PN ---
Subjective Subjective: Interval history: Patient is postop day 1 following revision right knee arthroplasty with removal of tibial plateau open reduction internal fixation hardware. Patient is doing well. She still has swelling and some foot numbness secondary to the complexity of the surgical procedure. Pain is relatively well managed at this time. She has not been up enough to establish full independence. Medications: Reviewed: Yes Vitals/I&O/Wt Last Vital Signs Temp 97.7 F 08/03/21 11:45 Pulse 67 08/03/21 11:45 Resp 16 08/03/21 11:45 BP 93/56 08/03/21 11:45 Pulse Ox 92 08/03/21 11:45 08/02/21 08/03/21 08/03/21 22:59 06:59 14:59 Intake Total 460 / 870 820 / 1690 1873.333 / 1873.333 Output Total 600 / 1380 2150 / 3530 Balance -140 / -510 -1330 / -1840 1873.333 / 1873.333 Physical Exam Const: COMMON NORMALS: no acute distress, average body habitus, patient oriented x3 and alert GENERAL APPEARANCE: cooperative and comfortable ORIENTATION/CONSCIOUSNESS: Yes awake HENMT: COMMON NORMALS: normocephalic and atraumatic HEAD & SCALP: normocephalic and atraumatic Eye: GENERAL EYE: appearance normal, both eyes and all related structures Chest: COMMONS NORMALS: normal inspection of the chest Resp: COMMON NORMALS: normal respiratory effort EFFORT & INSPECTION: Yes able to speak in complete sentences and Yes symmetric chest movement Extremity: RIGHT LOWER EXTREMITY: Yes knee joint (Dressing removed, wound benign.) Right knee: Yes inspection (No significant swelling or ecchymosis.), Yes palpation (Minimal tenderness to palpation.) and Yes neurovascular exam (Complains of foot numbness, neurovascular intact to sensory) Neuro: COMMON NORMALS: patient oriented x3 SENSORIUM/ORIENTATION: Yes alert Psych: COMMON NORMALS: mental status grossly normal APPEARANCE: Yes grossly normal ATTITUDE: Yes calm and Yes engaged ATTENTION/CONCENTRATION: Yes attention grossly intact Skin: COMMON NORMALS: no rashes or lesions noted GENERAL SKIN EXAM: no rashes or lesions noted Urinary Catheter Management^: F: Cath Placed During This Visit: yes Reason for Continuing Indwelling Catheter: Other Urinary Catheter Date of Insertion: 08/02/21 Urinary Catheter Time of Insertion: 07:20 Data : 08/03/21 06:12 08/03/21 06:12 A&P Assessment and plan (1) Status post revision of total replacement of right knee: Patient status post open reduction internal fixation for a lateral tibial plateau fracture. She underwent preoperative work-up, and subsequently, she was scheduled for operative intervention in the form of hardware removal and revision total knee arthroplasty on the right. Risks and complications were discussed with the patient, she understood and was consented for the surgical procedure. On the first postoperative day, she was doing well and working with physical therapy. It was felt that she was not ready for independent living at home. She needed to further control pain and have appropriate gait and strengthening. Status: Acute (2) Post-traumatic osteoarthritis of right knee: Status: Acute (3) Retained orthopedic hardware: Status: Acute Attestations Medical Necessity Statement*: Patient requires inpatient stay for further therapies from a safety perspective as well as further pain management. Coding Level of Care Code Acute Machine Rug Cleaner for Casey Vaughn Diagnoses Status post revision of total replacement of right knee Z96.651 Post-traumatic osteoarthritis of right knee M17.31 Retained orthopedic hardware Z96.9
[2021-08-03] MEDS: acetaminophen 500 mg Tablet 1000 MG PO ×2 (14:33→23:53)
[2021-08-03 17:25] LABS: Glucose Point of Care 132 mg/dL (70-110)
[2021-08-03 21:35] LABS: Glucose Point of Care 172 mg/dL (70-110)
[2021-08-03] MEDS: insulin glargine 100 units/1 mL 110 UNIT SUBCUT (21:38)
[2021-08-04] VITALS: BP 100/67; PULSE 87; RESP 18; TEMP 37.2; O2SAT 94
[2021-08-04 03:45] LABS: Glucose Point of Care 187 mg/dL (70-110)
[2021-08-04 04:00] VITALS: BP 102/65; PULSE 85; RESP 18; TEMP 37; O2SAT 94
[2021-08-04] MEDS: CELEcoxib 200 mg Capsule PO (05:07)
[2021-08-04 07:39] LABS: Glucose Point of Care 155 mg/dL (70-110)
[2021-08-04] MEDS: multivitamin therapeutic Tablet 1 TAB PO (07:52)
[2021-08-04] MEDS: gabapentin 100 mg Capsule PO (07:52)
[2021-08-04] MEDS: topiramate 100 mg Tablet 200 MG PO (07:52)
[2021-08-04] MEDS: cholecalciferol (vitamin D3) 1,000 unit Tablet 1000 UNIT PO (07:52)
[2021-08-04] MEDS: fluoxetine 20 mg Capsule 40 MG PO (07:52)
[2021-08-04] MEDS: sennosides-docusate Tablet 2 TAB PO (07:52)
[2021-08-04] MEDS: acetaminophen 500 mg Tablet 1000 MG PO (07:52)
[2021-08-04] MEDS: famotidine 20 mg Tablet PO (07:52)
[2021-08-04] MEDS: calcium carbonate 500 mg Chew Tablet 1000 MG PO (07:52)
[2021-08-04 07:53] VITALS: RESP 18
[2021-08-04] MEDS: iron polysaccharide complex 150 mg Capsule PO (07:53)
[2021-08-04] MEDS: aspirin 325 mg EC Tablet PO (07:53)
[2021-08-04] MEDS: ziprasidone hcl 20 mg Capsule PO (07:53)
[2021-08-04] MEDS: oxyCODONE 5 mg IR Tab/Cap PO (07:53)
[2021-08-04] MEDS: chlorhexidine gluconate 0.12% Btl 473 mL 30 ML MUCOUS MEM (07:54)
[2021-08-04 08:00] VITALS: BP 105/68; PULSE 69; RESP 18; TEMP 36.3; O2SAT 97
--- NOTE | 2021-08-04 11:41 | PM.DCS ---
Discharge Providers Date of Admission: 08/02/21 14:13 Date of Discharge: August 04, 2021 Attending Provider at Admission: Kaci Laguna MD Attending Provider at Discharge: Kaci Laguna MD Primary Care Provider: Hilda Patel MD Diagnoses at Discharge Discharge Diagnosis (1) Status post revision of total replacement of right knee: Status: Acute Permanent problem details: The [place] revision total knee system with a size 3 cemented right triathlon posterior stabilized femur right, a triathlon size 3 universal tibial baseplate, cemented, with medial and lateral 5 mm augments. Additionally, a cemented stem was placed consisting of a 25 mm stem traffic manager and a 15 mm x 50 mm cemented stem. Additionally, a size a symmetric tibial cone augment was placed. A triathlon X3 posterior stabilized tibial bearing insert size 3 X 11 mm and a cemented asymmetric patella size 32 x 10 mm. [place] DBM plus putty with cancellous bone was placed along the lateral tibia following removal of the lateral tibial plate. (2) Post-traumatic osteoarthritis of right knee: Status: Acute (3) Retained orthopedic hardware: Status: Acute Reason for Visit Reason for Visit: Osteoarthritis right knee Hospital Course Hospital Course This 61-year-old woman presented to the hospital for removal of hardware following remote open reduction internal fixation of a tibial plateau fracture. She had been worked up prior to presenting to the hospital. There was no evidence of nonunion or infection. Therefore, we did elect to proceed with a single stage surgical intervention in the form of revision total knee arthroplasty following removal of hardware. This was well-tolerated. The patient was admitted to the hospital postoperatively under observation status for pain control, monitoring of neurovascular status, monitoring of her diet better control, and therapy. The patient did well. She is neurologically intact distally. On the second postoperative day, she was seen and there were no complications. She had worked with physical therapy and was anxious to be discharged to home. Arrangements were made for this. She will follow up with me in the office as previously scheduled. Physical Exam Const: COMMON NORMALS: no acute distress, average body habitus, patient oriented x3 and alert GENERAL APPEARANCE: cooperative and comfortable ORIENTATION/CONSCIOUSNESS: Yes awake HENMT: COMMON NORMALS: normocephalic and atraumatic HEAD & SCALP: normocephalic and atraumatic Eye: GENERAL EYE: appearance normal, both eyes and all related structures Chest: COMMONS NORMALS: normal inspection of the chest Resp: COMMON NORMALS: normal respiratory effort EFFORT & INSPECTION: Yes able to speak in complete sentences and Yes symmetric chest movement Extremity: RIGHT LOWER EXTREMITY: Yes knee joint Right knee: Yes inspection (There is minimal to no swelling.), Yes palpation (Minimal tenderness to palpation.), Yes ROM (Patient is sitting up in the chair.), Yes neurovascular exam (Motor function intact distally.) and Yes other (No evidence of DVT.) Neuro: COMMON NORMALS: patient oriented x3 SENSORIUM/ORIENTATION: Yes alert Psych: COMMON NORMALS: mental status grossly normal APPEARANCE: Yes grossly normal ATTITUDE: Yes calm and Yes engaged ATTENTION/CONCENTRATION: Yes attention grossly intact Skin: COMMON NORMALS: no rashes or lesions noted GENERAL SKIN EXAM: no rashes or lesions noted Urinary Catheter Management^: F: Cath Placed During This Visit: yes, but has since been removed by the nurse Reason for Continuing Indwelling Catheter: Other Urinary Catheter Date of Insertion: 08/02/21 Urinary Catheter Time of Insertion: 07:20 Date Urinary Catheter Removed: 08/03/21 Time Urinary Catheter Discontinued: 12:30 Discharge Data Data Completed and Pending: Completed Studies During Hospitalization Category Date Time Status XR knee RT 1-2V 7 3560 Routine Exams 08/02/21 11:36 Completed Labs from last 24 hours 08/04/21 08/04/21 08/03/21 07:10 03:37 21:33 POC Glucose 155 H 187 H 172 H 08/03/21 17:13 POC Glucose 132 H Vitals: Last Vital Signs Temp 97.4 F L 08/04/21 08:00 Pulse 69 08/04/21 08:00 Resp 18 08/04/21 08:00 BP 105/68 08/04/21 08:00 Pulse Ox 97 08/04/21 08:00 Discharge Plan Discharge Patient Disposition: Home Condition: Stable Prescriptions: New celecoxib 200 mg Capsule 200 mg PO DAILY 30 Days Qty: 30 RF: 0 acetaminophen 500 mg Tablet 1,000 mg PO Q8H 15 Days Qty: 90 RF: 0 aspirin 325 mg Tablet,Delayed Release (Dr/Ec) 325 mg PO DAILY 30 Days RF: 0 oxycodone 5 mg Tablet 5 mg PO Q4H PRN (Reason: Moderate Pain) 7 Days Qty: 40 RF: 0 Continued famotidine 20 mg tablet 20 mg PO DAILY RF: 0 lisinopril 10 mg tablet 10 mg PO DAILY RF: 0 ziprasidone HCl [Geodon] 20 mg capsule 20 mg PO BID Qty: 60 RF: 2 Topamax 200 mg tablet 200 mg PO BID Qty: 60 RF: 2 hydroxyzine HCl 10 mg tablet 10 mg PO .HS PRN (Reason: sleep) Qty: 30 RF: 2 Prozac 40 mg capsule 40 mg PO DAILY Qty: 30 RF: 2 Klonopin 0.5 mg tablet 0.5 mg PO DAILY PRN (Reason: anxiety) Qty: 30 RF: 2 Jardiance 10 mg Tablet 10 mg PO DAILY RF: 0 Lantus U-100 Insulin 100 unit/mL Solution 110 unit SUBCUT QPM RF: 0 cetirizine [Zyrtec] 10 mg Tablet 10 mg PO DAILY PRN (Reason: Allergy Symptoms) RF: 0 gabapentin [Neurontin] 100 mg Capsule 100 mg PO TID RF: 0 insulin lispro [Humalog KwikPen Insulin] 100 unit/mL Insulin Pen 35 unit SUBCUT TID RF: 0 Victoza 3-Chad 0.6 mg/0.1 mL (18 mg/3 mL) Pen Injector 1.6 mg SUBCUT DAILY RF: 0 Held aspirin 81 mg Tablet,Delayed Release (Dr/Ec) 81 mg PO DAILY RF: 0 Hold Instructions: Resume on 09/02/21. May resume after 325 mg daily for 30 days acetaminophen 650 mg Tablet Extended Release 650 mg PO Q4H PRN (Reason: Fever) RF: 0 Hold Instructions: Resume on 08/19/21. Continue scheduled Tylenol until that time Discharge Orders: Discharge Order (Routine); Ordered 08/04/21 Ordered By: Kaci Laguna Other Ambulatory Orders: DME: [facility] (Order) Location: None Selected Ordered By: Kaci Laguna Referrals: Hilda Patel MD [Primary Care Provider] - 08/08/21 1:00 pm (You have an appointment with Dr. Patel on August 08 at 1:00.) Kaci Laguna MD [Physician] - 08/15/21 9:45 am (You have an appointment with Dr. Laguna on August 15 at 9:45.) Discharge Diet: Advance as tolerated and Usual diet Discharge Activity: Resume usual activity, Increase activity as tolerated and Use walker/crutches as instructed Patient Instructions: Oxycodone, Rapid Release (By mouth) (ETH-Oxydose, Oxy IR,..., Celecoxib (By mouth) (Aliciaebrethomas, eliksib), Knee Replacement (DC), Opioid Safety Activity Restrictions/Additional Instructions: Range of motion and strengthening as instructed. Ice and elevation Please follow-up with your primary doctor regarding anemia and low platelet levels. Please have your primary doctor recheck blood counts at next appointment. Consider additional work-up given persistent thrombocytopenia. Possible referral to carpet installation specialist. Please hold lisinopril for the next 2 days, or longer if blood pressures are soft. If blood pressure is rising above 120/80, resume lisinopril and half dose at first. If blood pressure continues to rise remaining above 120/80 after starting half dose, then resume full dose. Discharge Attestations Time Spent in Discharge Care*: greater than 30 min Specific Discharge Activities: educating patient, documenting/other paperwork and evaluating patient/reviewing data Quality Metrics Clinical Quality Measures During this hospital stay, did patient experience: None Coding Level of Care Code Acute Chg FW DC note Diagnoses Status post revision of total replacement of right knee Z96.651 Post-traumatic osteoarthritis of right knee M17.31 Retained orthopedic hardware Z96.9
[2021-08-04 11:54] VITALS: BP 118/73; PULSE 68; RESP 18; TEMP 36.4; O2SAT 99
[2021-08-04 12:17] LABS: Glucose Point of Care 256 mg/dL (70-110)
[2021-08-04] MEDS: insulin lispro 100 unit/1 mL 35 UNIT SUBCUT (12:39)
--- NOTE | 2021-08-04 12:57 | PM.PN ---
Subjective Subjective: Interval history: She reports she is doing very well. Right leg has been so some swelling, some warmth, but no significant redness, no drainage, no loss of sensation, no difficulties with moving her toes. She denies any lightheadedness or dizziness, no chest pain or pressure. No shortness of breath. States that she feels ready and wants to return home. States that she will come back to ER in case of even slightest concerning symptoms. Vitals/I&O/Wt Last Vital Signs Temp 97.6 F 08/04/21 11:54 Pulse 68 08/04/21 11:54 Resp 18 08/04/21 11:54 BP 118/73 08/04/21 11:54 Pulse Ox 99 08/04/21 11:54 08/03/21 08/04/21 08/04/21 22:59 06:59 14:59 Intake Total 1979 / 3853.333 240 / 4093.333 360 / 360 Output Total 1300 / 1300 Balance 1979 / 2653.333 240 / 2893.333 -940 / -940 Physical Exam Const: COMMON NORMALS: no acute distress, patient oriented x3 and alert ORIENTATION/CONSCIOUSNESS: Yes awake OTHER: In great spirits. Eager to be returning home. HENMT: COMMON NORMALS: oropharynx normal Neck/C-Spine: COMMON NORMALS: no JVD Resp: COMMON NORMALS: normal respiratory effort and clear to auscultation bilaterally AUSCULTATION: clear to auscultation bilaterally Cardio: COMMON NORMALS: no JVD, regular rhythm, S1 normal heart sound present, S2 normal heart sound present and No murmurs present (Cardio) RHYTHM: regular rhythm HEART SOUNDS: S1 normal heart sound present and S2 normal heart sound present GI: COMMON NORMALS: Normal to inspection, nondistended, normoactive bowel sounds present, Soft to palpation and non-tender PALPATION: Yes Soft to palpation Extremity: COMMON NORMALS: no joint enlargement and no pedal edema OTHER: RLE dressing, LIBERTY wrap Neuro: COMMON NORMALS: patient oriented x3 and moves all extremities SENSORIUM/ORIENTATION: Yes alert Skin: COMMON NORMALS: no rashes or lesions noted GENERAL SKIN EXAM: no rashes or lesions noted Urinary Catheter Management^: F: Cath Placed During This Visit: yes, but has since been removed by the nurse Reason for Continuing Indwelling Catheter: Other Urinary Catheter Date of Insertion: 08/02/21 Urinary Catheter Time of Insertion: 07:20 Date Urinary Catheter Removed: 08/03/21 Time Urinary Catheter Discontinued: 12:30 Data : 08/03/21 06:12 08/03/21 06:12 A&P Assessment and plan (1) Retained orthopedic hardware: Returning home today. Follow-up with orthopedics in office. Follow-up with primary provider. She knows to return the hospital in case of any concerning symptoms. S/p right total knee revision with removal of retained hardware from lateral tibia through an extended and separate fascial incision. She is doing well currently. Lab work in the morning. Blood pressure slightly soft, but now better, asked her to hold lisinopril on discharge for the next 2 to 3 days, resume if blood pressure rising and follow-up with primary provider. Status: Acute (2) Post-traumatic osteoarthritis of right knee: Status: Acute Additional A&P Information DM2: Continue insulin regimen. Continue follow-up with primary provider in case she ends up going home today. Schizoaffective disorder: Continue ziprasidone, topiramate, clonazepam Attestations Medical Necessity Statement*: Returning home. Coding Level of Care Code Acute Real Estate Closing Coordinator for Casey Vaughn Exam Comprehensive Diagnoses Retained orthopedic hardware Z96.9 Post-traumatic osteoarthritis of right knee M17.31
[2021-08-04 14:30] VITALS: BP 118/73; PULSE 68; RESP 18; TEMP 36.4; O2SAT 99
== END 2021-08-04 14:31 | disposition home or self-care (01) ==
LOC: MEDSURG 14:13
PROVIDERS: Admitting Provider Specialist; PCP Internal Medicine; Visit Provider Specialist
PROC: (CPT 27487; 2021-08-02 07:00)
DX: M17.11 Unilateral primary osteoarthritis, right knee (principal); M17.31 Unilateral post-traumatic osteoarthritis, right knee; K21.9 Gastro-esophageal reflux disease without esophagitis; E11.9 Type 2 diabetes mellitus without complications; F41.9 Anxiety disorder, unspecified; F31.9 Bipolar disorder, unspecified; Z79.82 Long term (current) use of aspirin; Z79.4 Long term (current) use of insulin; Z96.9 Presence of functional implant, unspecified
CPT/HCPCS: 27487; 36415; 36416; 51702; 73560; 80048; 80053; 81001; 82962; 85025; 96365; 96372; 97110; 97116; 97161; 97165; 97530; C1713; C1776; C9290; G0378; J0690; J1100; J1815 ×2; J2405; J2704; J2795; J3010; J3370; J3490; J7030; J7050

== ENCOUNTER → 2021-08-15 08:47 | Outpatient (BNVA) | payer MEDICAID, SELFPAY | PROVIDERS: PCP Internal Medicine; Visit Provider Specialist | DX: Z96.651 Presence of right artificial knee joint (principal); Z98.890 Other specified postprocedural states | CPT/HCPCS: 73560; 73565 ==

== ENCOUNTER → 2021-09-07 10:55 | Outpatient (BNVA) | payer MEDICAID, SELFPAY | PROVIDERS: PCP Internal Medicine; Visit Provider Specialist | DX: Z96.651 Presence of right artificial knee joint (principal) | CPT/HCPCS: 73560; 73565 ==

== ENCOUNTER → 2021-11-02 09:19 | Outpatient (BNVA) | payer MEDICAID, SELFPAY | PROVIDERS: PCP Internal Medicine; Visit Provider Specialist | DX: Z96.651 Presence of right artificial knee joint (principal) | CPT/HCPCS: 73560; 73565 ==

== ENCOUNTER → 2021-11-23 12:37 | Outpatient (BNVA) | payer MEDICAID, SELFPAY | PROVIDERS: PCP Internal Medicine; Visit Provider Nurse Practitioner | DX: R41.83 Borderline intellectual functioning (principal); F25.1 Schizoaffective disorder, depressive type | CPT/HCPCS: 99214 ==

== ENCOUNTER 2022-01-01 20:23 | Emergency (ER) | payer MEDICAID, SELFPAY ==
[2022-01-01 20:47] VITALS: BP 154/90; PULSE 65; RESP 16; TEMP 36.9; O2SAT 97
[2022-01-01 20:50] VITALS: BP 164/75; PULSE 61; RESP 20; TEMP 36.6; O2SAT 96
--- NOTE | 2022-01-01 22:12 | XRR_ITS ---
PROCEDURE INFORMATION: Exam: XR Chest Exam date and time: 01/02/2022 12:18 AM Age: 61 years old Clinical indication: Dyspnea TECHNIQUE: Imaging protocol: XR of the chest. Views: 2 views. COMPARISON: CR XR chest 1V portable [id number] 09/16/2019 8:40 AM FINDINGS: Lungs: No significant or acute findings. No consolidation. Pleural spaces: No costophrenic angle blunting. No pneumothorax. Heart/Mediastinum: Heart size is normal. Vasculature: Atherosclerotic tortuosity of the thoracic aorta. Bones/joints: No acute osseous abnormality. XR/XR chest 2V* [id number] IMPRESSION: No evidence of acute cardiopulmonary disease.
--- NOTE | 2022-01-01 23:57 | W.ED.SOB ---
HPI - SOB/Dyspnea General: Chief Complaint: Shortness of Breath/Dyspnea Stated Complaint: possiable bronchitis Time Seen by Provider: 01/01/22 23:57 History of Present Illness: HPI Narrative: 61-year-old female comes in today for complaints of some chest congestion for the last 2 to 3 days. 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 Patient is in no acute distress. Patient is very talkative. Patient does have an occasional cough. Associated symptoms: Deny chest pain, fever(s), nausea or vomiting Review of Systems General: Reports: 10 or more systems reviewed and unremarkable except in HPI and below Const: Denies: fever(s) ENMT: Denies: throat pain Card: Denies: chest pain Resp: Reports: non-productive cough GI: Denies: nausea or vomiting : Denies: difficulty voiding Skin/Breast: Denies: rash PFSH ED PFSH: Medical History (Updated 01/02/22 @ 00:32 by KIM Lloyd) Borderline intellectual functioning Disc displacement, lumbar Lumbar compression fracture 11/08/2018 Schizoaffective disorder, depressive type Surgical History History of knee surgery (~09/04/13) Dr. Harper Family History Sister High cholesterol Social History Smoking and tobacco status: never smoked Alcohol intake: never Household members: none Marital status: Single Current occupational status: disabled History of recent travel: No Physical Exam Const: COMMON NORMALS: alert HENMT: COMMON NORMALS: normocephalic and Normal external nose present HEAD & SCALP: normocephalic NOSE: Normal external nose present THROAT: posterior oropharynx normal Neck/C-Spine: COMMON NORMALS: full ROM Resp: COMMON NORMALS: normal respiratory effort and clear to auscultation bilaterally AUSCULTATION: clear to auscultation bilaterally Cardio: COMMON NORMALS: regular rate RATE: regular rate Extremity: COMMON NORMALS: normal to inspection Neuro: SENSORIUM/ORIENTATION: Yes alert Skin: COMMON NORMALS: no rashes or lesions noted GENERAL SKIN EXAM: no rashes or lesions noted Course Vital Signs: Vital signs: Vital Signs Temperature 97.8 F 01/01/22 20:50 Pulse Rate 61 01/01/22 20:50 Respiratory Rate 20 H 01/01/22 20:50 Blood Pressure 164/75 01/01/22 20:50 Pulse Oximetry 96 01/01/22 20:50 MDM - SOB/Dyspnea Medical Decision Making 61-year-old female comes in today with complaints of cough and chest congestion. On exam lungs are clear to auscultation. Skin is warm and dry. Vital signs are normal. Differential diagnosis includes pneumonia, bronchitis, upper respiratory infection. Chest x-ray was unremarkable. Believe the patient probably has a mild bronchitis due to her complaints to similar illness in the past. We will give doxycycline 100 mg twice a day for 5 days. Patient was given 1 dose of dexamethasone. Patient has a nebulizer machine and she can use as needed for cough or wheezing. Patient reported understanding of care plan need for follow-up or return to the ER. Lab Data : 01/02/22 00:10 01/02/22 00:10 Labs/Radiology: Laboratory Results WBC 6.4 10^3/uL (4.0-10.0) 01/02/22 00:10 RBC 4.82 10^6/uL (4.1-5.3) 01/02/22 00:10 Hgb 14.7 g/dL (11.5-15.3) 01/02/22 00:10 Hct 43.3 % (37.0-47.0) 01/02/22 00:10 MCV 89.8 fl (81-99) 01/02/22 00:10 MCH 30.5 pg (28.0-34.0) 01/02/22 00:10 MCHC 33.9 g/dL (30.0-36.0) 01/02/22 00:10 RDW 14.1 % (12.1-15.1) 01/02/22 00:10 Plt Count 125 10^3/cmm (130-400) L 01/02/22 00:10 MPV 12.1 fL (7.4-10.4) H 01/02/22 00:10 Neut % (Auto) 45.7 % 01/02/22 00:10 Lymph % (Auto) 42.4 % 01/02/22 00:10 [place] % (Auto) 8.1 % 01/02/22 00:10 Eos % (Auto) 2.5 % 01/02/22 00:10 Baso % (Auto) 1.1 % 01/02/22 00:10 Neut # (Auto) 2.92 10^3/uL (1.8-7.7) 01/02/22 00:10 Lymph # (Auto) 2.7 10^3/uL (0.8-4.8) 01/02/22 00:10 [place] # (Auto) 0.5 10^3/uL (0.2-0.9) 01/02/22 00:10 Eos # (Auto) 0.2 10^3/uL (0.0-0.8) 01/02/22 00:10 Baso # (Auto) 0.1 10^3/uL (0.0-0.1) 01/02/22 00:10 Nucleated RBC % (auto) 0 % 01/02/22 00:10 Nucleated RBCs # 0.0 /100WBC 01/02/22 00:10 Sodium 141 mmol/L (136-145) 01/02/22 00:10 Potassium 4.0 mmol/L (3.5-5.1) 01/02/22 00:10 Chloride 107 mmol/L (98-107) 01/02/22 00:10 Carbon Dioxide 22 mmol/L (22-29) 01/02/22 00:10 Anion Gap 16.0 (5-19) 01/02/22 00:10 BUN 16 mg/dL (8-23) 01/02/22 00:10 Creatinine 0.9 mg/dL (0.5-0.9) 01/02/22 00:10 GFR Calculation 63.2 mL/min (90-130) L 01/02/22 00:10 Glucose 173 mg/dL (65-115) H 01/02/22 00:10 Calculated Osmolality 297 mOsm/kg (285-295) H 01/02/22 00:10 Calcium 9.6 mg/dL (8.5-10.5) 01/02/22 00:10 Discharge Plan Discharge Patient Disposition: Home Clinical Impression: Bronchitis Condition: Stable Prescriptions: New doxycycline monohydrate 100 mg capsule 100 mg PO BID Qty: 10 0RF No Action famotidine 20 mg tablet 20 mg PO DAILY 0RF lisinopril 10 mg tablet 10 mg PO DAILY 0RF Label Comments: pt reports no longer taking (DME) diabetic shoes with molded inserts See Rx Instructions .Route .MEDSUPPLY Qty: 1 0RF Rx Instructions: As directed hydrocodone-acetaminophen 5-325 mg tablet 1 tab PO Q6H PRN (Reason: pain) 0RF Label Comments: pt reports no longer taking Prozac 40 mg capsule 40 mg PO DAILY Qty: 30 1RF ziprasidone HCl [Geodon] 20 mg capsule 20 mg PO BID Qty: 60 1RF Rx Instructions: give with food (meal/snack) hydroxyzine HCl 10 mg tablet 10 mg PO .HS PRN (Reason: sleep) Qty: 30 1RF Topamax 200 mg tablet 200 mg PO BID Qty: 60 1RF clonazepam [Klonopin] 0.5 mg tablet 0.5 mg PO DAILY PRN (Reason: anxiety) Qty: 30 1RF celecoxib [Celebrex] 200 mg capsule 200 mg PO DAILY Qty: 30 0RF Rx Instructions: Take 1 capsule by mouth daily Jardiance 10 mg Tablet 10 mg PO DAILY 0RF Lantus U-100 Insulin 100 unit/mL Solution 110 unit SUBCUT QPM 0RF cetirizine [Zyrtec] 10 mg Tablet 10 mg PO DAILY PRN (Reason: Allergy Symptoms) 0RF aspirin 81 mg Tablet,Delayed Release (Dr/Ec) 81 mg PO DAILY 0RF Hold Instructions: Resume on 09/02/21. May resume after 325 mg daily for 30 days acetaminophen 650 mg Tablet Extended Release 650 mg PO Q4H PRN (Reason: Fever) 0RF Hold Instructions: Resume on 08/19/21. Continue scheduled Tylenol until that time gabapentin [Neurontin] 100 mg Capsule 100 mg PO TID 0RF insulin lispro [Humalog KwikPen Insulin] 100 unit/mL Insulin Pen 35 unit SUBCUT TID 0RF Victoza 3-Chad 0.6 mg/0.1 mL (18 mg/3 mL) Pen Injector 1.6 mg SUBCUT DAILY 0RF Discharge Orders: Discharge ED (Routine); Ordered 01/02/22 Ordered By: Nilesh Resendez Referrals: Hilda Patel MD [Primary Care Provider] - Discharge Diet: Usual diet Discharge Activity: Increase activity as tolerated Patient Instructions: Acute Bronchitis (ED) Activity Restrictions/Additional Instructions: Home and rest. Take antibiotic 1 tablet twice a day for 5 days. Drink plenty of water with medication. Continue with use of nebulizer machine every 4-6 hours as needed for cough or shortness of breath. Follow-up with primary care in 3 to 5 days. Return to ER for worsening symptoms or new concerns. Coding Level of Care Code ED Social Problems Specialist for Casey Vaughn
[2022-01-02 00:26] LABS: Basophils # 0.1 10^3/uL (0.0-0.1); Basophils % 1.1 %; Eosinophils # 0.2 10^3/uL (0.0-0.8); Eosinophils % 2.5 %; Hematocrit 43.3 % (37.0-47.0); Hemoglobin 14.7 g/dL (11.5-15.3); Lymphocytes # 2.7 10^3/uL (0.8-4.8); Lymphocytes % 42.4 %; Mean Corpuscular HGB Conc 33.9 g/dL (30.0-36.0); Mean Corpuscular Hemoglobin 30.5 pg (28.0-34.0); Mean Corpuscular Volume 89.8 fl (81-99); Mean Platelet Volume 12.1 fL (7.4-10.4); Monocytes # 0.5 10^3/uL (0.2-0.9); Monocytes % 8.1 %; Neutrophils # 2.92 10^3/uL (1.8-7.7); Neutrophils % 45.7 %; Nucleated Red Blood Cells % 0 %; Platelet Count 125 10^3/cmm (130-400); Red Blood Count 4.82 10^6/uL (4.1-5.3); Red Cell Distribution Width 14.1 % (12.1-15.1); White Blood Count 6.4 10^3/uL (4.0-10.0)
[2022-01-02] MEDS: ibuprofen 200 mg Tablet 400 MG PO (00:32)
[2022-01-02] MEDS: dexamethasone 10 mg/mL INJ IM (00:32)
[2022-01-02] MEDS: doxycycline 100 mg Tablet PO (00:32)
[2022-01-02 00:41] LABS: Blood Urea Nitrogen 16 mg/dL (8-23); Calcium 9.6 mg/dL (8.5-10.5); Carbon Dioxide 22 mmol/L (22-29); Chloride 107 mmol/L (98-107); Glomerular Filtration Rate 63.2 mL/min (90-130); Glucose 173 mg/dL (65-115); Osmolality Calculated 297 mOsm/kg (285-295); Sodium 141 mmol/L (136-145)
[2022-01-02] MEDS: benzonatate 100 mg Capsule PO (01:05)
[2022-01-02 01:06] VITALS: BP 144/82; PULSE 67; RESP 16; O2SAT 97
[2022-01-02 01:26] VITALS: BP 144/82; PULSE 67; RESP 16; O2SAT 97
== END 2022-01-02 01:29 | disposition home or self-care (01) ==
PROVIDERS: Emergency Medicine; Emergency Provider Nurse Practitioner Family; PCP Internal Medicine
DX: J40 Bronchitis, not specified as acute or chronic (principal); Z79.891 Long term (current) use of opiate analgesic; Z79.82 Long term (current) use of aspirin
CPT/HCPCS: 71046; 80048; 85025; 99283; J1100

== ENCOUNTER → 2022-01-31 08:34 | Outpatient (BNVA) | payer MEDICAID, SELFPAY | PROVIDERS: PCP Internal Medicine; Visit Provider Podiatrist Foot & Ankle Surgery | DX: L60.3 Nail dystrophy (principal); L84 Corns and callosities; E11.42 Type 2 diabetes mellitus with diabetic polyneuropathy | CPT/HCPCS: 11056; 11721 ==

== ENCOUNTER → 2022-02-08 09:40 | Outpatient (BNVA) | payer MEDICAID, SELFPAY | PROVIDERS: PCP Internal Medicine; Visit Provider Specialist | DX: M17.31 Unilateral post-traumatic osteoarthritis, right knee (principal); Z96.651 Presence of right artificial knee joint | CPT/HCPCS: 73560; 73565; 99213 ==

== ENCOUNTER → 2022-02-17 09:32 | Outpatient (BNVA) | payer MEDICAID, SELFPAY | PROVIDERS: PCP Internal Medicine; Visit Provider Nurse Practitioner | DX: F25.1 Schizoaffective disorder, depressive type (principal); R41.83 Borderline intellectual functioning | CPT/HCPCS: 99214 ==

== ENCOUNTER 2022-02-23 08:56 | Outpatient (CLI) | payer MEDICAID, SELFPAY ==
--- NOTE | 2022-02-23 09:01 | MM_ITS ---
WS: [id number] BILATERAL SCREENING DIGITAL BREAST TOMOSYNTHESIS MAMMOGRAM WITH CAD HISTORY: SCREENING COMPARISON: 07/13/2020 and 02/12/2019 Bilateral CC and MLO views with tomosynthesis and synthetic mammography submitted. Computer aided det ection analyzed. Breast composition: There are scattered areas of fibroglandular density. No suspicious masses, microc alcifications or architectural distortion. MM/[place] [id number] IMPRESSION: BI-RADS: 1-Negative FOLLOW UP: 1 Year Follow-up
== END 2022-02-23 08:57 | disposition home or self-care (01) ==
PROVIDERS: PCP Internal Medicine; Visit Provider Internal Medicine
DX: Z12.31 Encounter for screening mammogram for malignant neoplasm of breast (principal)
CPT/HCPCS: 77063; 77067

== ENCOUNTER 2022-07-03 19:54 | Emergency (ER) | payer MEDICAID, SELFPAY ==
[2022-07-03 20:19] VITALS: BP 131/79; PULSE 74; RESP 18; TEMP 36.8; O2SAT 97; BMI 31.3
--- NOTE | 2022-07-03 20:27 | W.ED.EXTPRO ---
HPI - Extremity Problem General: Chief complaint: Extremity Injury, Lower Stated complaint: right leg pain Time Seen by Provider: 07/03/22 20:26 History of Present Illness: 62-year-old female comes in today for complaints of right lower leg pain. Patient reports pain radiates from her calf up into her upper leg. Patient denies any falls or injury. Patient appears nontoxic. Patient appears in mild to moderate pain. 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 Patient is also had a knee replacement in the right lower extremity. Review of medications notes that patient takes medication for osteoarthritis, anxiety, GERD, depression, neuropathy, diabetes, intervertebral disc disease. Associated symptoms: Deny chest pain or fever(s) Review of Systems Const: Denies: fever(s) Card: Denies: chest pain Resp: Denies: dyspnea GI: Denies: nausea or vomiting : Denies: difficulty voiding Musc: Reports: extremity pain [facility] ED PFSH: Medical History (Updated 07/03/22 @ 21:28 by FABIOLA LloydP) Borderline intellectual functioning Disc displacement, lumbar Lumbar compression fracture 11/08/2018 Schizoaffective disorder, depressive type Surgical History History of knee surgery (~09/04/13) Dr. Harper Family History Sister High cholesterol Social History Smoking and tobacco status: current every day smoker Alcohol intake: never Household members: none Marital status: Single Current occupational status: disabled History of recent travel: No Physical Exam Const: COMMON NORMALS: alert HENMT: COMMON NORMALS: normocephalic, TM's normal bilaterally and Normal external nose present HEAD & SCALP: normocephalic NOSE: Normal external nose present TYMPANIC MEMBRANE: TM's normal bilaterally Eye: GENERAL EYE: appearance normal, both eyes and all related structures Neck/C-Spine: COMMON NORMALS: full ROM Resp: COMMON NORMALS: normal respiratory effort Cardio: COMMON NORMALS: regular rate RATE: regular rate Extremity: RIGHT LOWER EXTREMITY: Yes upper leg (anterior muscle tightness) and Yes lower leg (calf pain, no redness or swelling) Neuro: SENSORIUM/ORIENTATION: Yes alert Skin: COMMON NORMALS: turgor normal GENERAL SKIN EXAM: turgor normal Course Vital Signs: Vital signs: Vital Signs Temperature 98.2 F 07/03/22 20:19 Pulse Rate 74 07/03/22 20:19 Respiratory Rate 18 07/03/22 20:19 Blood Pressure 131/79 07/03/22 20:19 Pulse Oximetry 97 07/03/22 20:19 Oxygen Delivery Me thod 07/03/22 20:19 MDM - Extremity (Nontraumatic) Medical Decision Making 62-year-old female comes in today with complaints of right lower leg pain. On exam patient has no obvious swelling or redness to the leg. Patient does have some muscle tightness in the anterior part of the right upper leg. Tenderness is noted in the low back on the right side. Differential diagnosis includes intervertebral disc disease, facet arthropathy, sciatica, muscle strain, DVT. Patient was concerned about DVT due to a history of prior blood clots. Ultrasound was performed on the extremity without any signs of DVT. Patient is exam points to a muscle strain in the right upper leg. Recommend acetaminophen and ibuprofen for pain. Discussed the need not to take Celebrex with ibuprofen. Patient states that she no longer takes Celebrex. Recommend follow-up with primary care for further instruction or return to the ED for new concerns. Patient reported understanding. Lab Data Radiology Impressions Venous Duplex 07/03/22 20:32 IMPRESSION: No evidence of deep vein thrombosis. Discharge Plan Discharge Patient Disposition: Home Clinical Impression: Muscle strain of right lower extremity Qualifiers: Encounter type: initial encounter Qualified Code(s): S86.911A - Strain of unspecified muscle(s) and tendon(s) at lower leg level, right leg, initial encounter Condition: Stable Prescriptions: New ibuprofen 800 mg tablet 800 mg PO Q8H PRN (Reason: pain) Qty: 30 0RF Rx Instructions: do not use if taking celecoxib No Action famotidine 20 mg tablet 20 mg PO DAILY (DME) diabetic shoes with molded inserts See Rx Instructions .Route .MEDSUPPLY Qty: 1 0RF Rx Instructions: As directed clonazepam [Klonopin] 0.5 mg tablet 0.5 mg PO DAILY PRN (Reason: anxiety) Qty: 30 2RF ziprasidone HCl [Geodon] 20 mg capsule 20 mg PO BID Qty: 60 2RF Rx Instructions: give with food (meal/snack) Topamax 200 mg tablet 200 mg PO BID Qty: 60 2RF melatonin 5 mg capsule 5 mg PO .HS Qty: 30 2RF Prozac 40 mg capsule 40 mg PO DAILY Qty: 30 2RF celecoxib [Celebrex] 200 mg capsule 200 mg PO DAILY Qty: 30 0RF Rx Instructions: Take 1 capsule by mouth daily Jardiance 10 mg Tablet 10 mg PO DAILY Lantus U-100 Insulin 100 unit/mL Solution 110 unit SUBCUT QPM cetirizine [Zyrtec] 10 mg Tablet 10 mg PO DAILY PRN (Reason: Allergy Symptoms) aspirin 81 mg Tablet,Delayed Release (Dr/Ec) 81 mg PO DAILY Hold Instructions: Resume on 09/02/21. May resume after 325 mg daily for 30 days acetaminophen 650 mg Tablet Extended Release 650 mg PO Q4H PRN (Reason: Fever) Hold Instructions: Resume on 08/19/21. Continue scheduled Tylenol until that time gabapentin [Neurontin] 100 mg Capsule 100 mg PO TID insulin lispro [Humalog KwikPen Insulin] 100 unit/mL Insulin Pen 35 unit SUBCUT TID Victoza 3-Chad 0.6 mg/0.1 mL (18 mg/3 mL) Pen Injector 1.6 mg SUBCUT DAILY Discharge Orders: Discharge ED (Routine); Ordered 07/03/22 Ordered By: Nilesh Resendez Referrals: Hilda Patel MD [Primary Care Provider] - Discharge Diet: Usual diet Discharge Activity: Increase activity as tolerated Patient Instructions: Musculoskeletal Pain (ED) Activity Restrictions/Additional Instructions: Activity as tolerated. Use acetaminophen ibuprofen for pain. If you are using celecoxib, Celebrex, do not use ibuprofen with it. You may hold the Celebrex and use ibuprofen if it works better for your pain. Drink plenty of water with medications. Follow-up with primary care for further instruction. Return to ED for worsening symptoms such as redness, swelling, or severe pain. Coding Level of Care Code ED Regulatory Internship for Casey Fwd Exam Comprehensive
--- NOTE | 2022-07-03 20:32 | USR_ITS ---
PROCEDURE INFORMATION: Exam: US Duplex Right Lower Extremity Veins, Limited Exam date and time: 07/03/2022 8:46 PM Age: 62 years old Clinical indication: Leg, lower; Prior surgery; Surgery date: 6+ months; Patient HX: C/O posterior calf and posterior knee pain tonight. History of prior dvt 2005. Nx right total knee replacement 2020. ; Additional info: Calf pain, HX of dvt TECHNIQUE: Imaging protocol: Real-time Duplex ultrasound of the Right Lower Extremity with 2-D choudhury scale, color Doppler flow and spectral waveform analysis with image documentation. Limited exam was focused on the right lower extremity veins. COMPARISON: CR XR knees AP WB w RT lmt ORTH 02/08/2022 10:15 AM FINDINGS: Right deep veins: Unremarkable. The common femoral, femoral, proximal profunda femoral and popliteal veins are patent without thrombus. Normal Doppler waveforms. Normal compressibility and/or augmentation response. Right superficial veins: Unremarkable. Saphenofemoral junction is patent without thrombus. Soft tissues: Unremarkable. US/[place] [id number] IMPRESSION: No evidence of deep vein thrombosis.
[2022-07-03] MEDS: ibuprofen 800 mg tablet PO (20:38)
== END 2022-07-03 21:39 | disposition home or self-care (01) ==
PROVIDERS: Emergency Provider Nurse Practitioner Family; PCP Internal Medicine
DX: S86.911A Strain of unspecified muscle(s) and tendon(s) at lower leg level, right leg, initial encounter (principal); Z79.4 Long term (current) use of insulin; Z79.82 Long term (current) use of aspirin; F17.210 Nicotine dependence, cigarettes, uncomplicated; X58.XXXA Exposure to other specified factors, initial encounter
CPT/HCPCS: 93971; 99283

== ENCOUNTER → 2022-08-29 12:51 | Outpatient (BNVA) | payer MEDICAID, SELFPAY | PROVIDERS: PCP Internal Medicine; Visit Provider Orthopaedic Surgery | DX: M48.062 Spinal stenosis, lumbar region with neurogenic claudication (principal) | CPT/HCPCS: 99213 ==

== ENCOUNTER → 2022-09-19 08:10 | Outpatient (BNVA) | payer MEDICAID, SELFPAY | PROVIDERS: PCP Internal Medicine; Visit Provider Podiatrist Foot & Ankle Surgery | DX: E11.8 Type 2 diabetes mellitus with unspecified complications (principal); E11.42 Type 2 diabetes mellitus with diabetic polyneuropathy; L84 Corns and callosities; L60.3 Nail dystrophy; Z79.4 Long term (current) use of insulin | CPT/HCPCS: 11055; 11721 ==

== ENCOUNTER → 2022-10-24 07:43 | Outpatient (BNVA) | payer MEDICAID, SELFPAY | PROVIDERS: PCP Internal Medicine; Visit Provider Orthopaedic Surgery | DX: M48.062 Spinal stenosis, lumbar region with neurogenic claudication (principal) | CPT/HCPCS: 99213 ==

== ENCOUNTER 2022-10-30 13:44 | Outpatient (CLI) | payer MEDICAID, SELFPAY ==
--- NOTE | 2022-10-30 14:01 | XR_ITS ---
WS: [id number] DEXA (DUAL ENERGY X-RAY ABSORPTIOMETRY) Bone mineral density was performed using a [employer] machine. HISTORY: ASYMPTOMATIC POSTMENOPAUSAL COMPARISON: 01/26/2017 Lumbar spine BMD (L1-L4): 1.164 g/cm2 T score: -0.1 Z score: 1.0 Total hip BMD: Left: 0.916 g/cm2. T score: -0.7 Z score: 0.2 Right: 0.829 g/cm2. T score: -1.4 Z score: -0.5 10 year probability of a major osteoporotic fracture is 17.6%. Compared to the prior study from 01/26/2017. Lumbar spine bone mineral density has increased by 8.6%. Bilateral hips bone mineral density has decreased by 8.2%. XR/XR DEXA axial skeleton* [id number] IMPRESSION: OSTEOPENIA based upon the WHO classification for females. Significant increase in bone mineral density within the lumbar spine since the prior study. Significant decrease in bone mineral density within the hips since the prior st reginay.
== END 2022-10-30 13:45 | disposition home or self-care (01) ==
LOC: RAD 13:47
PROVIDERS: PCP Internal Medicine; Visit Provider Internal Medicine
DX: Z78.0 Asymptomatic menopausal state (principal); M85.89 Other specified disorders of bone density and structure, multiple sites
CPT/HCPCS: 77080

== ENCOUNTER → 2022-12-20 08:37 | Outpatient (BNVA) | payer MEDICAID, SELFPAY | PROVIDERS: PCP Internal Medicine; Visit Provider Podiatrist Foot & Ankle Surgery | DX: E11.42 Type 2 diabetes mellitus with diabetic polyneuropathy (principal); L60.3 Nail dystrophy; L84 Corns and callosities; Z79.4 Long term (current) use of insulin | CPT/HCPCS: 11056; 11721 ==

== ENCOUNTER → 2023-01-23 08:44 | Outpatient (BNVA) | payer MEDICAID, SELFPAY | PROVIDERS: PCP Internal Medicine; Visit Provider Orthopaedic Surgery | DX: M48.062 Spinal stenosis, lumbar region with neurogenic claudication (principal) | CPT/HCPCS: 99213 ==

== ENCOUNTER 2023-01-30 16:55 | Inpatient (IN) | payer MEDICAID, SELFPAY ==
[2023-01-30 16:57] VITALS: BP 175/101; PULSE 60; TEMP 36.4; O2SAT 93; BMI 30.5
--- NOTE | 2023-01-30 17:13 | XRR_ITS ---
PROCEDURE INFORMATION: Exam: XR Right Wrist Exam date and time: 01/30/2023 5:20 PM Age: 62 years old Clinical indication: Injury or trauma; Fall TECHNIQUE: Imaging protocol: Radiologic exam of the right wrist. Views: 3 or more views. COMPARISON: No relevant prior studies available. FINDINGS: Bones/joints: Comminuted fracture of the distal radius extending to the radiocarpal joint space. Ulnar styloid avulsion fracture noted. Soft tissues: Normal. XR/XR wrist RT min 3V* [id number] IMPRESSION: Fracture of the distal radius and ulnar styloid avulsion fracture.
--- NOTE | 2023-01-30 17:13 | XRR_ITS ---
PROCEDURE INFORMATION: Exam: XR Right Femur Exam date and time: 01/30/2023 5:35 PM Age: 62 years old Clinical indication: Injury or trauma; Fall TECHNIQUE: Imaging protocol: Radiologic exam of the right femur. Views: 2 views. COMPARISON: CR (PELVIS, ) 01/30/2023 5:25 PM FINDINGS: Bones/joints: Intertrochanteric right hip fracture. Soft tissues: Unremarkable. XR/XR femur RT min 2V* [id number] IMPRESSION: Intertrochanteric right hip fracture.
--- NOTE | 2023-01-30 17:13 | XRR_ITS ---
PROCEDURE INFORMATION: Exam: XR Right Hip Exam date and time: 01/30/2023 5:25 PM Age: 62 years old Clinical indication: Injury or trauma; Fall TECHNIQUE: Imaging protocol: Radiologic exam of the right hip. Views: 1 view hip with pelvis when performed. COMPARISON: No relevant prior studies available. FINDINGS: Bones/joints: No acute fracture. Soft tissues: Unremarkable. XR/XR hip RT 2-3V wo/w pel* [id number] IMPRESSION: No acute findings.
--- NOTE | 2023-01-30 17:14 | W.ED.EXTPRO ---
Documented by User: Frantz Collado DO 02/01/23 05:58 HPI - Extremity Problem General: Chief complaint: Extremity Injury, Lower Stated complaint: R LOWER & UPPER EXTREMITY INJURY Time Seen by Provider: 01/30/23 16:59 Source: patient Mode of arrival: EMS History of Present Illness: 62-year-old female who presents emergency room complaining of right wrist pain and right hip and femur pain she tripped and fell twisted her leg and landed on an outstretched right hand while she was doing some form of exercise the video. She did not lose consciousness she denies any other injuries. She is awake and alert. MD Complaint: extremity pain and joint pain Onset (ago): minute(s) Pain Consistency: constant Location: right, upper extremity and lower extremity Quality: sharp Radiation: distal Relieving factors: rest Exacerbating factors: range of motion and palpation Associated symptoms: Deny arthralgias, chest pain, fever(s), myalgias, rash or short of breath Review of Systems Const: Denies: fever(s), chills, fatigue or malaise ENMT: Denies: throat pain, ear or mastoid pain, nasal discharge or nasal congestion Card: Denies: chest pain Resp: Denies: dyspnea, productive cough or non-productive cough GI: Denies: abdominal pain, nausea, vomiting, hematemesis, coffee ground emesis, diarrhea, constipation, bloating, hematochezia or melena : Denies: flank pain, difficulty voiding, dysuria, urinary frequency or urinary urgency Skin/Breast: Denies: rash or pruritus COUNT INCLUDES THE [facility] ED PFSH: Medical History Borderline intellectual functioning Disc displacement, lumbar Lumbar compression fracture 11/08/2018 Schizoaffective disorder, depressive type Surgical History History of knee surgery (~09/04/13) Dr. Harper Family History Sister High cholesterol Social History Smoking and tobacco status: current every day smoker Alcohol intake: never Substance/Drug Use: never Household members: none Marital status: Single Current occupational status: disabled Physical Exam Const: GENERAL APPEARANCE: cooperative ORIENTATION/CONSCIOUSNESS: Yes awake, Yes oriented to person, Yes oriented to place and Yes oriented to time HENMT: COMMON NORMALS: normocephalic, atraumatic and hearing grossly normal bilaterally HEAD & SCALP: normocephalic and atraumatic Resp: COMMON NORMALS: normal respiratory effort, No retractions, No use of accessory muscles and clear to auscultation bilaterally AUSCULTATION: clear to auscultation bilaterally Cardio: COMMON NORMALS: regular rate, regular rhythm and No murmurs present (Cardio) RATE: regular rate RHYTHM: regular rhythm GI: COMMON NORMALS: Soft to palpation and No hepatosplenomegaly present AUSCULTATION: Yes normoactive bowel sounds PALPATION: Yes Soft to palpation, No Tenderness to palpation present (GI), No Guarding due to palpation present (GI) and Yes No hepatosplenomegaly present Extremity: OTHER: Right wrist is splinted and has obvious deformity at the distal radius. Patient complaining of right hip pain no external rotation or shortening noted. Peripheral pulses in the right arm and right leg are normal neurovascularly intact Neuro: SENSORIUM/ORIENTATION: Yes oriented to person, Yes oriented to place and Yes oriented to time Skin: COMMON NORMALS: no rashes or lesions noted GENERAL SKIN EXAM: no rashes or lesions noted Course Vital Signs: Vital signs: Vital Signs Temperature 98.2 F 02/01/23 02:50 Pulse Rate 68 02/01/23 02:50 Respiratory Rate 17 02/01/23 02:50 Blood Pressure 110/69 02/01/23 02:50 Pulse Oximetry 98 02/01/23 02:50 Oxygen Delivery Me thod Nasal Cannula 01/31/23 21:35 Oxygen Flow Rate 2 01/31/23 21:35 MDM - Extremity (Nontraumatic) Medical Decision Making X-ray shows right wrist fracture. X-ray of the hip there is a subtle abnormality but no clear fracture. Given the concern on the plain film we will go ahead and order CT to further evaluate the right hip. Care signed out to Dr. Guido at change of shift. See final notes for diagnosis and disposition. Patient presents with a right hip fracture from a fall no other injuries noted spoke to hospitalist with orthopedist and will admit at this time. Lab Data 02/01/23 04:30 02/01/23 04:30 Radiology Impressions Femur X-Ray 01/30/23 17:13 IMPRESSION: Intertrochanteric right hip fracture. Hip CT 01/30/23 17:39 IMPRESSION: Mildly displaced intertrochanteric right hip fracture. Chest X-Ray 01/30/23 18:05 IMPRESSION: No acute findings. Hip/Pelvis X-Ray 01/31/23 18:20 IMPRESSION: Interval placement of right hip fixation device in expected alignment. Wrist X-Ray 01/31/23 18:20 IMPRESSION: Interval placement of ORIF hardware within the distal radius in expected alignment. Laboratory Results WBC 10.6 10^3/uL (4.0-10.0) H 01/30/23 18:29 RBC 5.05 10^6/uL (4.1-5.3) 01/30/23 18:29 Hgb 15.5 g/dL (11.5-15.3) H 01/30/23 18:29 Hct 45.9 % (37.0-47.0) 01/30/23 18:29 MCV 90.9 fl (81-99) 01/30/23 18:29 MCH 30.7 pg (28.0-34.0) 01/30/23 18:29 MCHC 33.8 g/dL (30.0-36.0) 01/30/23 18:29 RDW 13.0 % (12.1-15.1) 01/30/23 18:29 Plt Count 106 10^3/cmm (130-400) L 01/30/23 18:29 MPV 12.1 fL (7.4-10.4) H 01/30/23 18:29 Neut % (Auto) 77.6 % 01/30/23 18:29 Lymph % (Auto) 15.2 % 01/30/23 18:29 [place] % (Auto) 5.5 % 01/30/23 18:29 Eos % (Auto) 0.6 % 01/30/23 18:29 Baso % (Auto) 0.6 % 01/30/23 18:29 Neut # (Auto) 8.22 10^3/uL (1.8-7.7) H 01/30/23 18:29 Lymph # (Auto) 1.6 10^3/uL (0.8-4.8) 01/30/23 18:29 [place] # (Auto) 0.6 10^3/uL (0.2-0.9) 01/30/23 18: Eos # (Auto) 0.1 10^3/uL (0.0-0.8) 01/30/23 18: Baso # (Auto) 0.1 10^3/uL (0.0-0.1) 01/30/23 18: Nucleated RBC % (auto) 0 % 01/30/23 18: Nucleated RBCs # 0.0 /100WBC 01/30/23 18: PT 13.80 SECONDS (12.1-14.9) 01/30/23 18: INR 1.03 (0.8-1.2) 01/30/23 18: Sodium 136 mmol/L (136-145) 01/30/23 18: Potassium 4.1 mmol/L (3.5-5.1) 01/30/23 18: Chloride 102 mmol/L (98-107) 01/30/23 18: Carbon Dioxide 23 mmol/L (22-29) 01/30/23 18: Anion Gap 15.1 (5-19) 01/30/23 18: BUN 20 mg/dL (8-23) 01/30/23 18: Creatinine 0.9 mg/dL (0.5-0.9) 01/30/23 18: GFR Calculation 63.0 mL/min (90-130) L 01/30/23 18: Glucose 224 mg/dL (65-115) H 01/30/23 18: Calculated Osmolality 292 mOsm/kg (285-295) 01/30/23 18: Calcium 8.8 mg/dL (8.5-10.5) 01/30/23 18: Total Bilirubin 0.4 mg/dL (0.15-1.2) 01/30/23 18: AST 19 U/L (0-32) 01/30/23 18: ALT 13 U/L (0-33) 01/30/23 18: Alkaline Phosphatase 69 U/L (35-105) 01/30/23 18: Total Protein 7.8 g/dL (6.6-8.7) 01/30/23 18:29 Albumin 4.5 g/dL (3.5-5.2) 01/30/23 18:29 Globulin 3.3 g/dL (1.3-4.6) 01/30/23 18:29 Discharge Plan Discharge Patient Disposition: Admitted As Inpatient Admit Provider: Jeyson Murry Clinical Impression: Closed fracture of right hip, Fall Condition: Stable Coding Level of Care Code ED Head Up Operator Helper for Chg Fwd Documented by User: Travis Guido MD 01/30/23 18:37 HPI - Extremity Problem General: Chief complaint: Extremity Injury, Lower Stated complaint: R LOWER & UPPER EXTREMITY INJURY Time Seen by Provider: 01/30/23 16:59 PFSH ED PFSH: Medical History Borderline intellectual functioning Disc displacement, lumbar Lumbar compression fracture 11/08/2018 Schizoaffective disorder, depressive type Surgical History History of knee surgery (~09/04/13) Dr. Harper Family History Sister High cholesterol Social History Smoking and tobacco status: current every day smoker Alcohol intake: never Substance/Drug Use: never Household members: none Marital status: Single Current occupational status: disabled Course Vital Signs: Vital signs: Vital Signs Temperature 98.2 F 02/01/23 02:50 Pulse Rate 68 02/01/23 02:50 Respiratory Rate 17 02/01/23 02:50 Blood Pressure 110/69 02/01/23 02:50 Pulse Oximetry 98 02/01/23 02:50 Oxygen Delivery Me thod Nasal Cannula 01/31/23 21:35 Oxygen Flow Rate 2 01/31/23 21:35 MDM - Extremity (Nontraumatic) Medical Decision Making Patient presents with a right hip fracture from a fall no other injuries noted spoke to hospitalist with orthopedist and will admit at this time. Medical Records I reviewed the patient's medical records. Lab Data I reviewed the patient's lab results. 02/01/23 04:30 02/01/23 04:30 Radiology Impressions Femur X-Ray 01/30/23 17:13 IMPRESSION: Intertrochanteric right hip fracture. Hip CT 01/30/23 17:39 IMPRESSION: Mildly displaced intertrochanteric right hip fracture. Chest X-Ray 01/30/23 18:05 IMPRESSION: No acute findings. Hip/Pelvis X-Ray 01/31/23 18:20 IMPRESSION: Interval placement of right hip fixation device in expected alignment. Wrist X-Ray 01/31/23 18:20 IMPRESSION: Interval placement of ORIF hardware within the distal radius in expected alignment. Laboratory Results WBC 10.6 10^3/uL (4.0-10.0) H 01/30/23 18:29 RBC 5.05 10^6/uL (4.1-5.3) 01/30/23 18:29 Hgb 15.5 g/dL (11.5-15.3) H 01/30/23 18:29 Hct 45.9 % (37.0-47.0) 01/30/23 18:29 MCV 90.9 fl (81-99) 01/30/23 18:29 MCH 30.7 pg (28.0-34.0) 01/30/23 18:29 MCHC 33.8 g/dL (30.0-36.0) 01/30/23 18:29 RDW 13.0 % (12.1-15.1) 01/30/23 18:29 Plt Count 106 10^3/cmm (130-400) L 01/30/23 18:29 MPV 12.1 fL (7.4-10.4) H 01/30/23 18:29 Neut % (Auto) 77.6 % 01/30/23 18:29 Lymph % (Auto) 15.2 % 01/30/23 18:29 [place] % (Auto) 5.5 % 01/30/23 18:29 Eos % (Auto) 0.6 % 01/30/23 18:29 Baso % (Auto) 0.6 % 01/30/23 18:29 Neut # (Auto) 8.22 10^3/uL (1.8-7.7) H 01/30/23 18:29 Lymph # (Auto) 1.6 10^3/uL (0.8-4.8) 01/30/23 18: [place] # (Auto) 0.6 10^3/uL (0.2-0.9) 01/30/23 18: Eos # (Auto) 0.1 10^3/uL (0.0-0.8) 01/30/23 18: Baso # (Auto) 0.1 10^3/uL (0.0-0.1) 01/30/23: Nucleated RBC % (auto) 0 % 01/30/23: Nucleated RBCs # 0.0 /100WBC 01/30/23 18: PT 13.80 SECONDS (12.1-14.9) 01/30/23 18: INR 1.03 (0.8-1.2) 01/30/23 18: Sodium 136 mmol/L (136-145) 01/30/23 18: Potassium 4.1 mmol/L (3.5-5.1) 01/30/23 18: Chloride 102 mmol/L (98-107) 01/30/23 18: Carbon Dioxide 23 mmol/L (22-29) 01/30/23 18: Anion Gap 15.1 (5-19) 01/30/23 18:29 BUN 20 mg/dL (8-23) 01/30/23 18: Creatinine 0.9 mg/dL (0.5-0.9) 01/30/23 18: GFR Calculation 63.0 mL/min (90-130) L 01/30/23 18: Glucose 224 mg/dL (65-115) H 01/30/23 18: Calculated Osmolality 292 mOsm/kg (285-295) 01/30/23 18: Calcium 8.8 mg/dL (8.5-10.5) 01/30/23 18: Total Bilirubin 0.4 mg/dL (0.15-1.2) 01/30/23 18:29 AST 19 U/L (0-32) 01/30/23 18:29 ALT 13 U/L (0-33) 01/30/23 18:29 Alkaline Phosphatase 69 U/L (35-105) 01/30/23 18:29 Total Protein 7.8 g/dL (6.6-8.7) 01/30/23 18:29 Albumin 4.5 g/dL (3.5-5.2) 01/30/23 18:29 Globulin 3.3 g/dL (1.3-4.6) 01/30/23 18:29 Discharge Plan Discharge Patient Disposition: Admitted As Inpatient Admit Provider: Jeyson Murry Clinical Impression: Closed fracture of right hip, Fall Condition: Stable Coding Level of Care Code ED Head Up Operator Helper for Casey Vaughn
[2023-01-30] MEDS: HYDROcodone-acetaminophen 5-325 mg Tablet 1 TAB PO (17:33)
[2023-01-30 17:36] VITALS: PULSE 59; RESP 16; O2SAT 97
--- NOTE | 2023-01-30 17:39 | CTR_ITS ---
PROCEDURE INFORMATION: Exam: CT Right Lower Extremity Without Contrast, Hip Exam date and time: 01/30/2023 5:54 PM Age: 62 years old Clinical indication: Injury or trauma; Fall; Blunt trauma; Hip; Right; Additional info: Pain after faill TECHNIQUE: Imaging protocol: CT of the right lower extremity without contrast was performed. Exam focused on the hip. Radiation optimization: All CT scans at this facility use at least one of these dose optimization techniques: automated exposure control; mA and/or kV adjustment per patient size (includes targeted exams where dose is matched to clinical indication); or iterative reconstruction. REPORTING DATA: Count of CT and Cardiac NM exams in prior 12 months: This patient has received 0 known CTs and 0 known cardiac nuclear medicine studies in the 12 months prior to the current study. COMPARISON: CR (PELVIS, ) 01/30/2023 5:25 PM RADIATION DOSE METRICS: Total DLP (mGy-cm): 517 FINDINGS: Bones/joints: Mildly displaced comminuted intertrochanteric right hip fracture. Soft tissues: Normal. CT/CT hip RT wo con* [id number] IMPRESSION: Mildly displaced intertrochanteric right hip fracture.
--- NOTE | 2023-01-30 18:05 | XRR_ITS ---
PROCEDURE INFORMATION: Exam: XR Chest Exam date and time: 01/30/2023 6:32 PM Age: 62 years old Clinical indication: Injury or trauma; Fall TECHNIQUE: Imaging protocol: Radiologic exam of the chest. Views: 1 view. COMPARISON: CR XR chest 2V* [id number] 01/02/2022 12:18 AM FINDINGS: Lungs: Unremarkable. No consolidation. Pleural spaces: Unremarkable. No pleural effusion. No pneumothorax. Heart/Mediastinum: Unremarkable. No cardiomegaly. Bones/joints: Rotator cuff repair anchor noted in the left humeral head. Visualized osseous structures are intact. XR/XR chest 1V portable [id number] IMPRESSION: No acute findings.
[2023-01-30 18:41] LABS: Basophils # 0.1 10^3/uL (0.0-0.1); Basophils % 0.6 %; Eosinophils # 0.1 10^3/uL (0.0-0.8); Eosinophils % 0.6 %; Hematocrit 45.9 % (37.0-47.0); Hemoglobin 15.5 g/dL (11.5-15.3); Lymphocytes # 1.6 10^3/uL (0.8-4.8); Lymphocytes % 15.2 %; Mean Corpuscular HGB Conc 33.8 g/dL (30.0-36.0); Mean Corpuscular Hemoglobin 30.7 pg (28.0-34.0); Mean Corpuscular Volume 90.9 fl (81-99); Mean Platelet Volume 12.1 fL (7.4-10.4); Monocytes # 0.6 10^3/uL (0.2-0.9); Monocytes % 5.5 %; Neutrophils # 8.22 10^3/uL (1.8-7.7); Neutrophils % 77.6 %; Nucleated Red Blood Cells % 0 %; Platelet Count 106 10^3/cmm (130-400); Red Blood Count 5.05 10^6/uL (4.1-5.3); White Blood Count 10.6 10^3/uL (4.0-10.0)
--- NOTE | 2023-01-30 18:42 | ECG_ITS ---
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 Measurements Intervals [place] Rate: 62 P: 57 MD: 142 QRS: -17 QRSD: 108 T: 38 QT: 434 QTc: 442 Interpretive Statements SINUS RHYTHM INCOMPLETE RIGHT BUNDLE BRANCH BLOCK [90+ ms QRS DURATION, TERMINAL R IN V1/V2, 40+ ms S IN I/aVL/V4/V5/V6] SEPTAL MYOCARDIAL INFARCTION , PROBABLY OLD [40+ ms Q WAVE IN V1/V2] Compared to ECG 07/26/2021 09:37:58 Incomplete right bundle-branch block now present Myocardial infarct finding now present Electronically Signed On 01-31-2023 2:55:22 CDT by Jesus Manuel De Jesus M.D. [id number]
--- NOTE | 2023-01-30 18:52 | PM.CONSULT ---
Providers/Reason For Consult Consulting Physician/Specialty*: Cristian Flores DO/orthopedic surgery Reason for Consult*: Right intertrochanteric femur fracture, right distal radius fracture Requesting Physician: Dr. Travis Guido Attending Physician: Dr. Murry Primary Care Provider: Hilda Patel MD History of Present Illness History of Present Illness Jacqueline Jackson is a 62 year old female with past medical history of diabetes, after she experienced what appears to be a mechanical fall, as she tripped, and twisted her leg, resulting in fall on outstretched right hand, post fall she has been experiencing wrist pain as well as right hip pain, she denied any loss of consciousness.?CT hip RT wo con: Mildly displaced intertrochanteric right hip fracture.? X-ray right wrist: Fracture of the distal radius and ulnar styloid avulsion fracture. Patient splinted in the emergency department to the right upper extremity Hospitalist admitting for primary medical management. Orthopedics consulted for evaluation and treatment recommendations of right hip fracture and right wrist fracture. Patient states at baseline she is a community ambulator lives at home by herself but does ambulate often with a walker or a cane. She has history of a right total knee arthroplasty done by Dr. Laguna one of my partners back in 2020. She is done well with this. She has no pain to her right knee. Patient denies any chest pain shortness of breath nausea vomiting fevers or chills Patient would like to proceed with surgical intervention Takes aspirin 81 mg daily no other anticoagulants Review of Systems General: Reports: 10 or more systems reviewed and unremarkable except in HPI and below Medications/Allergies Home Medications Medication Instructions Recorded Confirmed Last Taken Type aspirin 81 mg tablet,delayed 81 mg PO DAILY 09/09/19 01/31/23 07/31/21 History release cetirizine 10 mg tablet (Zyrtec) 10 mg PO DAILY PRN Allergy Symptoms 09/09/19 01/31/23 08/02/21 History gabapentin 100 mg capsule 100 mg PO TID 09/09/19 01/31/23 08/01/21 History (Neurontin) insulin glargine 100 unit/mL 110 unit SUBCUT QPM 09/09/19 01/31/23 08/01/21 History subcutaneous solution (Lantus U-100 Insulin) insulin lispro 100 unit/mL 38 unit SUBCUT TID 09/09/19 01/31/23 08/01/21 History subcutaneous pen (Humalog KwikPen (U-100) Insulin) liraglutide 0.6 mg/0.1 mL (18 mg/3 1.6 mg SUBCUT DAILY 09/09/19 01/31/23 08/01/21 History mL) subcutaneous pen injector (Victoza 3-Chad) famotidine 20 mg tablet 20 mg PO DAILY 03/01/21 01/31/23 08/01/21 History empagliflozin 10 mg tablet 10 mg PO DAILY 07/26/21 01/31/23 08/01/21 History (Jardiance) diabetic shoes with molded inserts #1 ea 10/18/21 01/31/23 Unknown Rx fluoxetine 40 mg capsule (Prozac) 40 mg PO DAILY #30 caps 01/02/23 01/31/23 Unknown Rx topiramate 100 mg tablet (Topamax) 100 mg PO BID #60 tabs 01/02/23 01/31/23 Unknown Rx ziprasidone HCl 20 mg capsule 20 mg PO BID #60 caps 01/02/23 01/31/23 Unknown Rx (Geodon) clonazepam 0.5 mg tablet 0.5 mg PO DAILY PRN anxiety #30 01/29/23 01/31/23 Unknown Rx tabs albuterol sulfate 2.5 mg/3 mL 2.5 mg inhalation Q4H PRN 01/31/23 01/31/23 Unknown History (0.083 %) solution for nebulization Shortness Of Breath fluticasone propionate 50 2 spray intranasal DAILY PRN Nasal 01/31/23 01/31/23 Unknown History mcg/actuation nasal Congestion spray,suspension melatonin 10 mg tablet 10 mg PO BEDTIME 01/31/23 01/31/23 Unknown History rosuvastatin 20 mg tablet 20 mg PO DAILY 01/31/23 01/31/23 Unknown History Allergies Allergy/AdvReac Type Severity Reaction Status Date / Time Iodinated Contrast Media Allergy ALGY-Anaphy Verified 01/30/23 17:04 laxis Iodine and Iodide Containing Allergy ALGY-Difficulty Verified 01/30/23 17:04 Produc Breathing marijuana (cannabis) Allergy ADR-Headach Verified 01/30/23 17:04 [marijuana] e shellfish derived Allergy ALGY-Difficulty Verified 01/30/23 17:04 Breathing PFSH Acute PFSH: Medical History (Updated 01/31/23 @ 10:43 by Cristian Flores DO) Borderline intellectual functioning Disc displacement, lumbar Lumbar compression fracture 11/08/2018 Schizoaffective disorder, depressive type Surgical History History of knee surgery (~09/04/13) Dr. Harper Family History Sister High cholesterol Social History Smoking and tobacco status: current every day smoker Alcohol intake: never Substance/Drug Use: never Household members: none Marital status: Single Current occupational status: disabled Vitals/I&O/Wt Last Vital Signs Temp 97.6 F 01/30/23 16:57 Pulse 59 L 01/30/23 17:36 Resp 16 01/30/23 17:36 BP 175/101 01/30/23 16:57 Pulse Ox 97 01/30/23 17:36 O2 Del Method Room Air 01/30/23 17:36 Weight last 48 hrs Weight 167 lb Physical Exam Narrative: Constitutional?discomfort secondary to pain, alert and oriented follows commands Orthopedic specific examination: Examination of the right lower extremity it is shortened and externally rotated. Patient has pain with logroll. Tenderness palpation of the right hip. No tenderness palpation of the right knee with well-healed right knee incision from previous total arthroplasty. Patient is able to wiggle toes plantarflex and dorsiflex ankle, distal pulses are palpable toes warm well perfused brisk capillary refill less than 2 seconds. Compartments are soft and compressible. Patient is unable to perform [place]inch[place] secondary to pain of the right hip. No pain with pelvic compression. Left lower extremity?negative logroll negative Stinchfield left lower extremity, patient is able to wiggle toes plantarflex dorsiflex ankle no tenderness palpation of the left hip knee foot or ankle. Gross motor and sensory intact Right upper extremity tenderness to palpation over right distal radius with subtle deformity noted patient is currently in a volar splint and this was not taken down secondary to patient's pain. No tenderness to palpation at the right elbow. No tenderness to palpation of the right shoulder.Patient is able to subtly wiggle fingers she endorses sensation intact light touch in the radial/ulnar/median nerve distribution fingertips warm well-perfused Left upper extremity no tenderness palpation left upper extremity joints with normal range of motion gross motor and sensory intact. Mild tenderness to palpation lumbar spine which patient states is baseline. Data 01/31/23 04:27 01/31/23 04:27 Xray Ortho: My impression: X-rays and CT scan of the right hip reviewed and personally interpreted by myself demonstrating a displaced right intertrochanteric femur fracture fracture pattern appears to be stable in nature. No involvement subtrochanteric extension. X-rays of the right wrist reviewed in person interpreted by myself demonstrating a comminuted right intra-articular distal radius fracture as well as ulnar styloid avulsion fracture. Patient does have dorsal angulation noted as well as a large radial styloid fracture fragment. A&P Assessment and plan (1) Fracture, intertrochanteric, right femur: (2) Closed fracture of right distal radius and ulna: Plan Splint in place to right upper extremity Nonweightbearing right upper extremity, nonweightbearing right lower extremity Elevation ice as needed for pain and swelling Pain control Hold a.m. anticoagulation Internal medicine's is admitted as primary Reviewed imaging Labs reviewed Plan to proceed with the OR tomorrow for right trochanteric femur nail for intertrochanteric femur fracture and open reduction internal fixation for right distal radius fracture MDM: Jacqueline is a pleasant 62-year-old female who sustained a fall onto her right hip and outstretched right hand she has a distal radius fracture as well as a right intertrochanteric femur fracture. We talked about treatment options ultimately for earlier mobilization and weightbearing as well as to help with therapy and given this is a polytrauma would recommend surgical fixation of both the distal radius and the intertrochanteric femur fracture. We will allow her to be weightbearing as tolerated to the right lower extremity and she will be able to utilize a platform walker to assist walking with therapy. We will try to otherwise keep her nonweightbearing to the right wrist postoperatively. We did talk about the treatment options as far as nonoperative and operative invention. Ultimately through shared decision making she like to proceed with surgical intervention risk of surgery include not limited to make a better make it worse blood clot, heart attack, stroke, on the table, infection, failure of hardware, decreased range of motion injury to nerves vessels or tendons blood loss. Understanding risk of surgery she agrees to proceed with surgical intervention we will get her added on surgery schedule tomorrow for right trochanteric femur nail and right distal radius ORIF. Patient understands agrees with current plan. All questions answered. Consult Attestations Medical Necessity Statement: Right intertrochanteric femur fracture, right distal radius fracture ongoing care Coding Level of Care Code Acute Code for [facility] Fwd Diagnoses Fracture, intertrochanteric, right femur S72.141A Closed fracture of right distal radius and ulna S52.501A; S52.601A Time Spent (min) 50
[2023-01-30 19:00] LABS: Alanine Aminotransferase 13 U/L (0-33); Albumin Level 4.5 g/dL (3.5-5.2); Alkaline Phosphatase 69 U/L (35-105); Anion Gap 15.1 (5-19); Aspartate Amino Transferase 19 U/L (0-32); Blood Urea Nitrogen 20 mg/dL (8-23); Calcium 8.8 mg/dL (8.5-10.5); Carbon Dioxide 23 mmol/L (22-29); Chloride 102 mmol/L (98-107); Globulin 3.3 g/dL (1.3-4.6); Glucose 224 mg/dL (65-115); Osmolality Calculated 292 mOsm/kg (285-295); Potassium 4.1 mmol/L (3.5-5.1); Sodium 136 mmol/L (136-145); Total Bilirubin 0.4 mg/dL (0.15-1.2); Total Protein 7.8 g/dL (6.6-8.7)
[2023-01-30 19:04] LABS: INR 1.03 (0.8-1.2)
--- NOTE | 2023-01-30 19:24 | P.HP_ITS ---
Providers/Chief Complaint Primary Care Provider: Hilda Patel MD Chief Complaint: R LOWER & UPPER EXTREMITY INJURY History of Present Illness Jacqueline Jackson is a 62 year old female with past medical history of diabetes, after she experienced what appears to be a mechanical fall, as she tripped, and twisted her leg, resulting in fall on outstretched right hand, post fall she has been experiencing wrist pain as well as right hip pain, she denied any loss of consciousness head injury.?CT hip RT wo con: Mildly displaced intertrochanteric right hip fracture. X-ray right wrist: Fracture of the distal radius and ulnar styloid avulsion fracture. Further vitals and labs have been reviewed, orthopedic has been consulted by ER. Review of Systems General: Reports: 10 or more systems reviewed and unremarkable except in HPI and below Const: Denies: fever(s), chills, body aches, change in appetite or diaphoresis Card: Denies: palpitations, edema, swelling of feet/ankles, dyspnea on exertion, orthopnea or leg pain with exertion Resp: Denies: dyspnea, productive cough, wheezing or pain on inspiration GI: Denies: abdominal pain, nausea, vomiting, diarrhea or constipation : Denies: flank pain Musc: Reports: extremity pain; Denies: back pain or extremity swelling Neuro: Denies: headache(s) Medications/Allergies Home Medications Medication Instructions Recorded Confirmed Last Taken Type aspirin 81 mg tablet,delayed 81 mg PO DAILY 09/09/19 01/23/23 07/31/21 History release cetirizine 10 mg tablet (Zyrtec) 10 mg PO DAILY PRN Allergy Symptoms 09/09/19 01/23/23 08/02/21 History gabapentin 100 mg capsule 100 mg PO TID 09/09/19 01/23/23 08/01/21 History (Neurontin) insulin glargine 100 unit/mL 110 unit SUBCUT QPM 09/09/19 01/23/23 08/01/21 History subcutaneous solution (Lantus U-100 Insulin) insulin lispro 100 unit/mL 35 unit SUBCUT TID 09/09/19 01/23/23 08/01/21 History subcutaneous pen (Humalog KwikPen (U-100) Insulin) liraglutide 0.6 mg/0.1 mL (18 mg/3 1.6 mg SUBCUT DAILY 09/09/19 01/23/23 08/01/21 History mL) subcutaneous pen injector (Victoza 3-Chad) famotidine 20 mg tablet 20 mg PO DAILY 03/01/21 01/23/23 08/01/21 History empagliflozin 10 mg tablet 10 mg PO DAILY 07/26/21 01/23/23 08/01/21 History (Jardiance) diabetic shoes with molded inserts #1 ea 10/18/21 01/23/23 Unknown Rx fluoxetine 40 mg capsule (Prozac) 40 mg PO DAILY #30 caps 01/02/23 01/23/23 Unknown Rx melatonin 10 mg tablet 10 mg PO .HS #30 tabs 01/02/23 01/23/23 Unknown Rx topiramate 100 mg tablet (Topamax) 100 mg PO BID #60 tabs 01/02/23 01/23/23 Unknown Rx ziprasidone HCl 20 mg capsule 20 mg PO BID #60 caps 01/02/23 01/23/23 Unknown Rx (Geodon) clonazepam 0.5 mg tablet 0.5 mg PO DAILY PRN anxiety #30 01/29/23 Unknown Rx tabs Allergies Allergy/AdvReac Type Severity Reaction Status Date / Time Iodinated Contrast Media Allergy ALGY-Anaphy Verified 01/30/23 17:04 laxis Iodine and Iodide Containing Allergy ALGY-Difficulty Verified 01/30/23 17:04 Produc Breathing marijuana (cannabis) Allergy ADR-Headach Verified 01/30/23 17:04 [marijuana] e shellfish derived Allergy ALGY-Difficulty Verified 01/30/23 17:04 Breathing PFSH Acute PFSH: Medical History (Updated 01/30/23 @ 19:26 by Jeyson Murry MD) Borderline intellectual functioning Disc displacement, lumbar Lumbar compression fracture 11/08/2018 Schizoaffective disorder, depressive type Surgical History History of knee surgery (~09/04/13) Dr. Harper Family History Sister High cholesterol Social History Smoking and tobacco status: current every day smoker Alcohol intake: never Substance/Drug Use: never Household members: none Marital status: Single Current occupational status: disabled Vitals/I&O/Wt Last Vital Signs Temp 97.6 F 01/30/23 16:57 Pulse 59 L 01/30/23 17:36 Resp 16 01/30/23 17:36 BP 175/101 01/30/23 16:57 Pulse Ox 97 01/30/23 17:36 O2 Del Method Room Air 01/30/23 17:36 Weight last 48 hrs Weight 75.75 kg Physical Exam HENMT: COMMON NORMALS: normocephalic and atraumatic HEAD & SCALP: normocephalic and atraumatic Resp: COMMON NORMALS: clear to auscultation bilaterally AUSCULTATION: clear to auscultation bilaterally Cardio: COMMON NORMALS: regular rate, regular rhythm, S1 normal heart sound present, S2 normal heart sound present, No gallops present (Cardio), No murmurs present (Cardio), No rub (Cardio) and Peripheral pulses 2+ throughout RATE: regular rate RHYTHM: regular rhythm HEART SOUNDS: S1 normal heart sound present and S2 normal heart sound present PERIPHERAL PULSES: Peripheral pulses 2+ throughout GI: COMMON NORMALS: Normal to inspection, nondistended, normoactive bowel sounds present, Soft to palpation, non-tender, No hepatosplenomegaly present and no masses AUSCULTATION: Yes normoactive bowel sounds PALPATION: Yes Soft to palpation and Yes No hepatosplenomegaly present RECTAL EXAM: deferred Extremity: COMMON NORMALS: no clubbing, cyanosis or edema and no pedal edema Urinary Catheter Management: 2-way Urethral: Cath Placed During This Visit: yes Urinary Catheter Date of Insertion: 01/30/23 Urinary Catheter Time of Insertion: 18:50 Data 01/30/23 18:29 01/30/23 18:29 A&P Assessment and plan (1) Closed fracture of right hip: (2) Fall: (3) Diabetes: Plan 2 year old female with past medical history of diabetes, after she experienced what appears to be a mechanical fall, as she tripped, and twisted her leg, resulting in fall on outstretched right hand, post fall she has been experien cing wrist pain as well as right hip pain, she denied any loss of consciousness head injury. Assessment: Right hip fracture: CT hip RT wo con: Mildly displaced intertrochanteric right hip fracture. Pain control Bowel regimen Orthopedic on board Physical therapy on board Fracture of the distal radius and ulnar styloid avulsion fracture. History of diabetes: Continue Lantus sliding scale insulin Monitor fingerstick glucose Diabetic diet CODE STATUS full code DVT prophylaxis on Lovenox SCDs Attestations Medical Necessity Statement*: Patient is to be in hospital management of right hip fracture.Anticipated length of stay greater then 2 midnights Coding Level of Care Code Acute Code for Chg Fwd Diagnoses Closed fracture of right hip S72.001A Fall W19.XXXA Diabetes E11.9
[2023-01-30 19:45] VITALS: BP 159/98; PULSE 85; RESP 16; O2SAT 94
[2023-01-30 19:48] VITALS: BP 159/98; PULSE 85; RESP 16; TEMP 36.4; O2SAT 94
[2023-01-30 20:00] VITALS: BP 149/87; PULSE 63; RESP 15; TEMP 36.7; O2SAT 95
[2023-01-30 20:11] VITALS: RESP 16
[2023-01-30] MEDS: morphine 4 mg/mL SDV 1 mL 2 MG IVP (20:11)
[2023-01-30 21:09] LABS: Glucose Point of Care 298 mg/dL (70-110)
[2023-01-30] MEDS: insulin lispro 100 unit/1 mL SUBCUT (21:39)
[2023-01-30] MEDS: insulin glargine 100 units/1 mL 30 UNIT SUBCUT (21:40)
[2023-01-31] VITALS (24 sets, daily range): BP systolic 115–161; BP diastolic 64–93; PULSE 67–96; RESP 13–20; TEMP 36.5–37.2; O2SAT 90–99
[2023-01-31] MEDS: morphine 4 mg/mL SDV 1 mL 2 MG IVP ×2 (02:25→09:59)
[2023-01-31 05:06] LABS: Basophils % 0.4 %; Hematocrit 43.7 % (37.0-47.0); Hemoglobin 14.6 g/dL (11.5-15.3); Lymphocytes # 0.9 10^3/uL (0.8-4.8); Lymphocytes % 10.2 %; Mean Corpuscular HGB Conc 33.4 g/dL (30.0-36.0); Mean Corpuscular Hemoglobin 30.3 pg (28.0-34.0); Mean Corpuscular Volume 90.7 fl (81-99); Mean Platelet Volume 12.4 fL (7.4-10.4); Monocytes # 0.3 10^3/uL (0.2-0.9); Monocytes % 3.2 %; Neutrophils # 7.92 10^3/uL (1.8-7.7); Neutrophils % 85.8 %; Nucleated Red Blood Cells % 0 %; Platelet Count 106 10^3/cmm (130-400); Red Blood Count 4.82 10^6/uL (4.1-5.3); Red Cell Distribution Width 12.9 % (12.1-15.1); White Blood Count 9.2 10^3/uL (4.0-10.0)
[2023-01-31 05:50] LABS: Blood Urea Nitrogen 21 mg/dL (8-23); Calcium 9.3 mg/dL (8.5-10.5); Carbon Dioxide 19 mmol/L (22-29); Chloride 106 mmol/L (98-107); Glomerular Filtration Rate 55.8 mL/min (90-130); Glucose 256 mg/dL (65-115); Osmolality Calculated 300 mOsm/kg (285-295); Sodium 139 mmol/L (136-145)
[2023-01-31 06:45] LABS: Glucose Point of Care 258 mg/dL (70-110)
[2023-01-31 11:23] LABS: Glucose Point of Care 212 mg/dL (70-110)
--- NOTE | 2023-01-31 12:30 | ANES.PREANE2 ---
Pre-Anesthetic Assessment Height/Weight: Height 1.57 m Weight 75.75 kg Temp Pulse Resp BP Pulse Ox O2 Del Method 98.6 F 67 16 152/86 93 Room Air 01/31/23 07:37 01/31/23 11:58 01/31/23 11:58 01/31/23 11:58 01/31/23 11:58 01/31/23 11:58 Preop Diagnosis: Right intertrochanteric femur fracture, right distal radius fracture Operation Date: 01/31/23 12:30 Proposed Procedures p Trochanteric Femoral Nail(Right) - Cristian Sandra, DO s ORIF Wrist ORIF Distal Radius(Right) - Cristian Dimmit, DO Familial anesthetic complications: Slow to wake up Was Beta Colin taken within 24 hours: N/A Was Clonidine taken within 24 hours: N/A Last intake: Intake Last Liquid Date 01/30/23 Last Liquid Time 23:00 Last Solid Date 01/30/23 Last Solid Time 19:00 Social No alcohol and No tobacco Exam alert, oriented x 3, clear to auscultation bilaterally and regular rate & rhythm Airway Mallampati: Class III Dentition: full Pulmonary Asthma CV/HEM Hypertension Metabolic Diabetes Mellitus and Hyperlipidemia Anesthetic Plan ASA status: 3 Anesthesia: General and Regional (specify below) Risk of > 500 ml blood loss (7ml/kg in children): No Medications/Allergies Home Medications Medication Instructions Recorded Confirmed Last Taken Type aspirin 81 mg tablet,delayed 81 mg PO DAILY 09/09/19 01/31/23 07/31/21 History release cetirizine 10 mg tablet (Zyrtec) 10 mg PO DAILY PRN Allergy Symptoms 09/09/19 01/31/23 08/02/21 History gabapentin 100 mg capsule 100 mg PO TID 09/09/19 01/31/23 08/01/21 History (Neurontin) insulin glargine 100 unit/mL 110 unit SUBCUT QPM 09/09/19 01/31/23 08/01/21 History subcutaneous solution (Lantus U-100 Insulin) insulin lispro 100 unit/mL 38 unit SUBCUT TID 09/09/19 01/31/23 08/01/21 History subcutaneous pen (Humalog KwikPen (U-100) Insulin) liraglutide 0.6 mg/0.1 mL (18 mg/3 1.6 mg SUBCUT DAILY 09/09/19 01/31/23 08/01/21 History mL) subcutaneous pen injector (Victoza 3-Chad) famotidine 20 mg tablet 20 mg PO DAILY 03/01/21 01/31/23 08/01/21 History empagliflozin 10 mg tablet 10 mg PO DAILY 07/26/21 01/31/23 08/01/21 History (Jardiance) diabetic shoes with molded inserts #1 ea 10/18/21 01/31/23 Unknown Rx fluoxetine 40 mg capsule (Prozac) 40 mg PO DAILY #30 caps 01/02/23 01/31/23 Unknown Rx topiramate 100 mg tablet (Topamax) 100 mg PO BID #60 tabs 01/02/23 01/31/23 Unknown Rx ziprasidone HCl 20 mg capsule 20 mg PO BID #60 caps 01/02/23 01/31/23 Unknown Rx (Geodon) clonazepam 0.5 mg tablet 0.5 mg PO DAILY PRN anxiety #30 01/29/23 01/31/23 Unknown Rx tabs albuterol sulfate 2.5 mg/3 mL 2.5 mg inhalation Q4H PRN 01/31/23 01/31/23 Unknown History (0.083 %) solution for nebulization Shortness Of Breath fluticasone propionate 50 2 spray intranasal DAILY PRN Nasal 01/31/23 01/31/23 Unknown History mcg/actuation nasal Congestion spray,suspension melatonin 10 mg tablet 10 mg PO BEDTIME 01/31/23 01/31/23 Unknown History rosuvastatin 20 mg tablet 20 mg PO DAILY 01/31/23 01/31/23 Unknown History Allergies Allergy/AdvReac Type Severity Reaction Status Date / Time Iodinated Contrast Media Allergy ALGY-Anaphy Verified 01/30/23 17:04 laxis Iodine and Iodide Containing Allergy ALGY-Difficulty Verified 01/30/23 17:04 Produc Breathing marijuana (cannabis) Allergy ADR-Headach Verified 01/30/23 17:04 [marijuana] e shellfish derived Allergy ALGY-Difficulty Verified 01/30/23 17:04 Breathing Current Medications Generic Name Dose Route Start Last Admin Trade Name Freq PRN Reason Stop Dose Admin Aspirin 81 mg 01/31/23 09:00 01/31/23 09:59 Aspirin 81 Mg Ec Tablet PO Not Given DAILY JACOB Insulin Glargine 30 unit 01/30/23 21:00 01/31/23 09:59 Insulin Glargine 100 Units/1 Ml SUBCUT Not Given DAILY [facility] Insulin Human Lispro 0 unit 01/30/23 21:00 01/31/23 11:45 Insulin Lispro 100 Unit/1 Ml SUBCUT Not Given WM&BEDTIME [facility] Protocol Morphine Sulfate 2 mg 01/30/23 19:19 01/31/23 09:59 Morphine 4 Mg/Ml Sdv 1 Ml IVP 2 mg Q2H PRN Administration SEVERE PAIN PFSH Anesthesia Medical History (Updated 01/31/23 @ 10:43 by Cristian Flores DO) Borderline intellectual functioning Disc displacement, lumbar Lumbar compression fracture 11/08/2018 Schizoaffective disorder, depressive type Surgical History History of knee surgery (~09/04/13) Dr. Harper Family History Sister High cholesterol Social History Smoking and tobacco status: current every day smoker Alcohol intake: never Substance/Drug Use: never Household members: none Marital status: Single Current occupational status: disabled Data Anesthesia 01/31/23 04:27 01/31/23 04:27 Short CBC 01/30/23 01/31/23 Range/Units 18:29 04:27 WBC 10.6 H 9.2 (4.0-10.0) 10^3/uL Hgb 15.5 H 14.6 (11.5-15.3) g/dL Hct 45.9 43.7 (37.0-47.0) % MCV 90.9 90.7 (81-99) fl Plt Count 106 L 106 L (130-400) 10^3/cmm Neut % (Auto) 77.6 85.8 % Neut # (Auto) 8.22 H 7.92 H (1.8-7.7) 10^3/uL BMP 01/30/23 01/31/23 18:29 04:27 Sodium 136 139 Potassium 4.1 4.0 Chloride 102 106 Carbon Dioxide 23 19 L BUN 20 21 Creatinine 0.9 1.0 H Glucose 224 H 256 H Calcium 8.8 9.3 Liver Function 01/30/23 Range/Units 18:29 Total Bilirubin 0.4 (0.15-1.2) mg/dL AST 19 (0-32) U/L ALT 13 (0-33) U/L Alkaline Phosphatase 69 (35-105) U/L Albumin 4.5 (3.5-5.2) g/dL Blood Bank 01/31/23 04:27 Blood Type A Negative Rho(D) Type Negative Antibody Screen Negative Coags 01/30/23 18:29 PT 13.80 INR 1.03 Cardiac Studies: No Data to Display
[2023-01-31] MEDS: sodium chloride 0.9% 1,000 ML 30 ML IV (12:32)
[2023-01-31 12:33] LABS: Glucose Point of Care 185 mg/dL (70-110)
--- NOTE | 2023-01-31 12:49 | ANES.PROC ---
Anesthesia Procedures Procedure/Date: 01/31/23 Nerve Block ^: Nerve Block 1: Main Anesthesia: general anesthesia Time Out Performed: Yes Consent: requested by attending/covering physician, from patient, from other, risks and benefits reviewed and patient agrees to proceed Nerve block location: axillary (R) Anesthesia monitors applied: pulse oximetry, EKG, BP cuff and oxygen Nerve block position: supine Anesthetic Used: ropivicaine 0.5% (30 ml) and with decadron (4 mg) Ultrasound used to: recognize landmarks and visualize and ID brachial plexus Nerve Stimulator Used?: No Interscalene/Femoral BLK: 2 stimuplex 22 g needle used for position and inplane approach, visualize local anesthetic spread and no vascular puncture identified Injection: neg aspiration of heme Patient Tolerated Procedure: well Complications: none
[2023-01-31] MEDS: ketorolac 30 mg/mL INJ IVP (12:59)
[2023-01-31] MEDS: acetaminophen 1,000 MG/100 ML PIGGYBACK 400 MG IV (13:00)
--- NOTE | 2023-01-31 14:43 | W.PM.OPSUD ---
Surgery/Procedure H&P Update DATE OF PROCEDURE: January 31, 2023 DATE H&P PERFORMED: 01/30/23 CHANGES TO PREVIOUS DOCUMENTATION: None PREOP DIAGNOSIS: Right intertrochanteric femur fracture, right distal radius fracture PRIMARY INDICATION FOR PROCEDURE: Right intertrochanteric femur fracture, right distal radius fracture with ulnar styloid fracture PLANNED PROCEDURE: Operation Date: 01/31/23 12:30 Proposed Procedures p Trochanteric Femoral Nail(Right) - Cristian Flores DO s ORIF Wrist ORIF Distal Radius(Right) - Cristian Flores DO
[2023-01-31] MEDS: ceFAZolin 2,000 MG in sodium chloride 0.9% (plus) 50 ML 100 MG IV ×2 (15:00→20:45)
--- NOTE | 2023-01-31 18:09 | P.OP_ITS ---
Brief Operative Note Date of procedure: 01/31/23 Pre-op diagnosis: Right distal radius fracture intra-articular, right intertro chanteric femur Post-op diagnosis: same Procedure Done: Right distal radius open reduction internal fixation four-part intra-articular Right intertrochanteric femur fracture trochanteric femoral nail Surgeon: Cristian Flores Estimated blood loss (mL): 85 Complications: None Post-op Plan: Patient taken to PACU in stable condition. Recovering well. Will return to the floor postoperatively. Patient will be nonweightbearing to the right hand but we will allow patient to weight-bear through a platform walker to the right upper extremity to allow for earlier mobilization. Weight-bear as tolerated to the right lower extremity. Postoperative TXA, postoperative DVT prophylaxis, postoperative antibiotics, pain control, PT/OT. Internal medicine on board as primary and appreciate their medical management. Orthopedics will continue to follow on the floor. Condition: stable Disposition: floor Coding Level of Care Code Acute Code for Chg Fwd
--- NOTE | 2023-01-31 18:12 | PM.PACU ---
PACU note Narrative: Patient taken to PACU in stable condition recovering well. Dressings on in place to the right upper extremity and right lower extremity dressings are clean dry and intact. Splint on in place to the right wrist. Dressings to right lower extremity clean dry and intact. Compartments are soft and compressible to the right upper extremity and right lower extremity. Unable to assess motor to right upper extremity secondary to regional anesthesia. Right lower extremity distal pulses are palpable toes warm well-perfused brisk capillary refill less than 2 seconds. She is able to wiggle toes plantarflex and dorsiflex ankle sensation intact light touch distally. Exam: awake Disposition: back to floor
--- NOTE | 2023-01-31 18:13 | P.OP_ITS ---
Operative Report Date of procedure: January 31, 2023 Pre-op diagnosis: Preop Diagnosis Right intertrochanteric femur fracture, right distal radius fracture Post-op diagnosis: Same with right ulnar styloid fracture Procedure done: 1. Right distal radius open reduction internal fixation (4 part intra- articular) 2. Right intertrochanteric femur fracture trochanteric femur nail Implants: Richey variax 4-hole intermediate right distal radius plate Combination 2.7 and 2.4 mm locking and nonlocking screws both proximally and distally Mary gamma 3 nail 11 mm x 180 mm x 125 degree Lag screw 10.5 mm x 90 mm Distal interlocking screw 5 mm x 32.5 mm Surgeon: Cristian Flores DO Estimated blood loss: 85mL 37 minutes for distal radius IV fluids: 1500 mL Urine output: 500 mL Complications: None Findings: See operative report narrative Condition: stable Disposition: PACU Brief History: Patient is a 63-year-old female who was working out her home sustained a fall to outstretched right upper extremity and right hip she sustained a right distal radius and right intertrochanteric femur fracture. Work-up in the emergency department found to have these fractures internal medicine admitted patient for medical optimization's and orthopedics was consulted for treatment recommendations patient's active community ambulator she lives at home by herself. At this point time through shared decision making for earlier mobilization as well as pain control and given the polytrauma nature of distal radius and intertrochanteric femur fracture recommended surgical intervention. We talked about the risk benefits complication alternatives with surgical nonsurgical treatment options. Understanding risk of surgery she elects to proceed with surgical intervention we will proceed with a right intertrochanteric femur open reduction internal fixation with cephalomedullary nail and ORIF right distal radius. All questions answered. Procedure: Patient seen and evaluated in the preoperative holding area.? Consent reviewed and signed with patient.? Correct extremities were marked and consent was reviewed and signed.? She was seen and evaluated by anesthesia department.? Underwent regional anesthesia for the right upper extremity.. Once cleared for surgery she was taken back to the operative suite.? Patient was then transported into the operative suite transferred to an OR table all bony prominences well- padded patient was appropriate secured to bed in supine position.? An armboard was applied to the right upper extremity.? The right upper extremity had a nonsterile tourniquet applied to the right upper arm.? She subsequently was then prepped and draped in standard orthopedic fashion she underwent anesthesia per the anesthesia department.? A final timeout was performed.? Patient received appropriate preoperative antibiotics. Esmarch was used exsanguinate the right? upper extremity and tourniquet was insufflated to 250 mmHg. A standard modified FCR volar approach was performed to the right distal radius.? Sharp scalpel incision through skin and subcutaneous tissue.? I then switched to Littler dissection scissors identify the FCR tendon releases out of the sheath both proximally and distally mobilized the tendon ulnarly and then subsequently incised the floor of the FCR tendon sheath with care to just incise the floor.? I then bluntly sweep the FPL tendon muscle belly ulnarly and placed blunt self-retaining retractor.? At this point time I direct visualization of the pronator quadratus which was incised in standard L fashion off the radial and distal border in the distal radius and fracture site was scraped clean of in terposed muscle belly.? I then identified the 4 part intra-articular right distal radius fracture.? This was subsequently opened above and freed of interposing muscle belly as well as periosteum and fracture hematoma.? I did have to utilize my [place] which was placed through the fracture pattern and disengage the fracture and performed manual manipulation and anatomic reduction of the distal radius fracture.. ?Once this was cleared I then manually performed a reduction maneuver and had appropriate anatomic reduction of the volar cortex.? This was confirmed with mini C arm in multiple orthogonal imaging.? At this point time? I selected a Richey anatomic distal radius plate utilizing a intermediate 4-hole plate which would have appropriate spread distally.? This was then placed up to the distal radius while maintaining my reduction pins were placed distally and proximally to confirm appropriate placement of the plate along the distal radius.? Minor adjustments were made and once I was satisfied I then subsequently drilled a bicortical 2.7mmscrew proximally in the oblong hole to allow for appropriate sliding of the distal radius plate appropriately to perfect position on the distal radius.? This had excellent fixation and purchase and brought the plate to bone.? While maintaining my reduction I then confirmed in multiple orthogonal imaging that my plate was in appropriate position.? Once satisfied with my position I then subsequently placed the distal locking guide.? The locking guide was then subsequently loaded and I subsequently drilled and placed a fully threaded cortical screw to compress the plate to bone for the distal fracture fragment.? This was performed with plan to then remove this and placed a shorter locking screw had bicortical fixation with excellent purchase and appropriate reduction of my volar tilt and bringing plate to bone of the distal fragment and plate.? Once I was satisfied with my plate position as well as reduction of the distal radius which was confirmed on AP oblique and lateral imaging I then subsequently drilled measured and placed locking screws around this cortical screw.? Then I subsequently removed the cortical screw and placed a shorter locking screw that did not penetrate the dorsal cortex.? This completed my distal fixation.? I did utilize mini C arm to confirm appropriate placement of the screws these were all within the distal radius and no joint involvement within the radiocarpal joint or the DRUJ.? These had appropriate subchondral support and maintenance of reduction and fixation of the distal radius fracture.? I then turned my attention and screwed in the locking guides for my final to screws proximally these were then subsequently drilled measured and appropriate length bicortical screw in the most proximal part of the plate fixation and then subsequently placed the locking guide on in place for my additional 2 screws from my proximal fixation to augment my construct strength with 2 additional proximal locking screws these were subsequently drilled measured and appropriate length screws applied. This completed my construct.? The peek guide was subsequently removed and final imaging of the right distal radius open reduction internal fixation was taken of AP lateral as well and is orthogonal imaging.? I then took a inclination view which showed my radial styloid screw was out of the penetration of the joint.? All my distal screws were appropriate length did not penetrate dorsal cortex and did not penetrate the joint.? This completed my fixation.? Wrist was then taken through pronation supination and stressed the DRUJ which was found to be stable.? Ulnar styloid fracture fragment was left alone. The wound was then thoroughly irrigated.? Tourniquet was then subsequently deflated.? Hemostasis satisfactory with bipolar electrocautery.? I then subsequently placed interrupted 3-0 Vicryl sutures for subcutaneous tissue and then subsequently placed a nylon the skin for closure.? Incision was then dressed with Xeroform 4 x 4's Kerlix cast padding and a volar Ortho-Glass splint was then applied with Tej wrap.? Drapes were then subsequently broken down. At this point patient was doing well and elected to proceed with plan was to prep patient for the right intertrochanteric femur fracture fixation. Once the splint was set we then placed patient on the [place] bed appropriately secured them to the bed. All bony prominences were well-padded.?? Prior to beginning surgery a standard closed reduction maneuver was placed on the [place] table and large C-arm was brought in.? After performing a closed reduction maneuver there was able to achieve satisfactory reduction of right intertrochanteric femur fracture.? Fracture site did not extend into the subtrochanteric region as result plan was for a short nail.?? This point time the right lower extremity was then prepped and draped in standard orthopedic fashion. A standard longitudinal incision was made just proximal to the greater tro chanter roughly 4 cm in length sharp scalpel vision was made through skin and subcutaneous tissue.? I then utilized a blunt Chery to split her fascia and mobilized directly down to the greater trochanter.? I then inserted my starting guidewire which was placed appropriate starting position the tip of the greater trochanter.? This was advanced in AP and lateral films to be in center center position and advanced to the level lesser trochanter.? This was confirmed to be in center center position on AP and lateral imaging.? Once this was done I then introduced my opening reamer which was then subsequently guide pin removed.? I selected a 11 mm x 180 mm x 125 degree. At this point time the nail was then loaded onto the [employer] gamma trochanteric nail guide.? This was placed within the canal and confirmed with XR and the setscrew was then gently placed.? The nail was then impacted to appropriate depth .? At this point time I then inserted my lag screw guide and subsequently made a small incision through skin and subcutaneous tissue splitting the IT band longitudinally and the guide was placed directly onto bone.? Next I then subsequently placed the guidewire in center center position in the head with an appropriate tip to apex distance this was confirmed with multiple orthogonal images.? Once I was satisfied with my planned lag screw placement I then measured which was 90.? I then set my cannulated drill 90 subsequently reamed this into the head at appropriate depth and did feel as though this would accommodate for 90 with an excellent tip to apex distance.? I then had my rep open the 10.5 mm x 90 mm lag screw which was then opened on the back table and subsequently screwed into place over my cannulated drill guide.? This was placed with excellent tip to apex distance.? Next I then utilized the compressing device and subsequently compressed my fracture after I let off traction.? This had excellent fracture compression and opposition and closing down to my fracture line.? Next I then locked the nail setting my setscrew.? This point time the guidewire as well as the sleeve was then removed.? Next I plan for statically locking the nail distally.? This triple sleeve was then placed a small stab incision was made blunt dissection directly down to bone and the guide sleeve was placed and locked directly onto the bone.? I then inserted the drill bit and subsequently drilled bicortically measured appropriate length screw and then placed a 32.5 mm distal interlocking screw and had excellent fixation was appropriate length.? This point time is completed my construct I remove the outer jig and took final images of AP and lateral of the right intertrochanteric femur fracture which showed stable reduction and stable fixation.? Wound was then thoroughly irrigated.? Hemostasis was maintained with electrocautery.? I then once again thoroughly irrigated the incisions and then subsequently closed in layered fashion of 0 Vicryl 2-0 Vicryl and jesus.? Silverlon dressings applied.? Patient was then awakened from anesthesia transported onto the hospital bed and taken to PACU in stable condition.? Patient tolerated procedure without complications. Disposition: Patient taken to PACU in stable condition.? Postoperatively.? Patient to receive appropriate discharge instructions as well as pain medication DVT prophylaxis postoperatively.? She will be allowed weightbearing as tolerated right lower extremity.? Maintain splint until follow-up. Nonweightbearing to right upper extremity. Will be allowed to utilize a platform walker with PT/OT. Will receive appropriate postoperative antibiotics. Patient to follow-up in the orthopedic office in 2 weeks.? Patients family understands and agrees with current plan.? All questions answered.
--- NOTE | 2023-01-31 18:20 | XRR_ITS ---
PROCEDURE INFORMATION: Exam: XR Right Hip Exam date and time: 01/31/2023 5:30 PM Age: 62 years old Clinical indication: Hip pain; Right hip; Prior surgery; Surgery date: Post-operative (0-2 days); Surgery type: Orif; Additional info: Postop orif hip, ap pelvis, cross table lat, ap right hip TECHNIQUE: Imaging protocol: Radiologic exam of the right hip. Views: 1 view hip with pelvis when performed. COMPARISON: CT hip RT wo con* [id number] 01/30/2023 5:54 PM FINDINGS: Bones/joints: Placement of a right hip fixation device traversing known intertrochanteric right hip fracture. Soft tissues: Soft tissue swelling and gas around the right hip consistent with recent surgical procedure. XR/XR hip RT 2-3V wo/w pel* [id number] IMPRESSION: Interval placement of right hip fixation device in expected alignment.
--- NOTE | 2023-01-31 18:20 | XRR_ITS ---
PROCEDURE INFORMATION: Exam: XR Right Wrist Exam date and time: 01/31/2023 5:37 PM Age: 62 years old Clinical indication: Pain; Wrist; Right; Prior surgery; Surgery date: Post-operative (0-2 days); Surgery type: Orif; Additional info: Postop orif distal radius, ap and lateral right wrist TECHNIQUE: Imaging protocol: Radiologic exam of the right wrist. Views: 1 or 2 views. COMPARISON: CR (UP EXM, ) 01/30/2023 5:20 PM FINDINGS: Bones/joints: Interval placement of ORIF hardware within the distal radius traversing known distal radial fracture. Ulnar styloid avulsion fracture again noted. Soft tissues: Normal. XR/XR wrist RT 2V [id number] IMPRESSION: Interval placement of ORIF hardware within the distal radius in expected alignment.
--- NOTE | 2023-01-31 18:31 | SUR.PHASEI ---
patient in pacu with simple mask in place at 8L sats at 99%. patient has first ice to right hip. dressing to rip hip dry and intact. lay in place and draining. patient awake some but still very drowsy. XR at bedside currently.
[2023-01-31] MEDS: fentaNYL 50 mcg/mL INJ 2mL IVP (18:48)
--- NOTE | 2023-01-31 18:53 | SUR.PHASEI ---
patient wakes and says her r thigh hurts, medicated per orders. place patient on 2L NC after removing simple mask.
--- NOTE | 2023-01-31 18:56 | SUR.PHASEI ---
patient able to move fingers to right hand and toes and foot to right leg. patient wakes to talk.
[2023-01-31 19:12] LABS: Glucose Point of Care 217 mg/dL (70-110)
--- NOTE | 2023-01-31 20:09 | PM.PN ---
Subjective Subjective: In PACU, having just completed surgery, waking up. Vitals/I&O/Wt Last Vital Signs Temp 97.7 F 01/31/23 18:21 Pulse 86 01/31/23 19:07 Resp 14 01/31/23 19:07 BP 134/84 01/31/23 19:07 Pulse Ox 95 01/31/23 19:07 O2 Del Method Nasal Cannula 01/31/23 19:07 O2 Flow Rate 2 01/31/23 19:07 01/31/23 01/31/23 01/31/23 06:59 14:59 22:59 Intake Total 100 / 100 1660 / 1760 Output Total 1000 / 2300 650 / 650 585 / 1235 Balance -1000 / -2300 -550 / -550 1075 / 525 Weight last 48 hrs Weight 75.75 kg Physical Exam Const: GENERAL APPEARANCE: cooperative and other (Somnolent) HENMT: COMMON NORMALS: oropharynx normal Neck/C-Spine: COMMON NORMALS: no JVD Resp: COMMON NORMALS: normal respiratory effort and clear to auscultation bilaterally AUSCULTATION: clear to auscultation bilaterally Cardio: COMMON NORMALS: no JVD, regular rhythm, S1 normal heart sound present, S2 normal heart sound present and No murmurs present (Cardio) RHYTHM: regular rhythm HEART SOUNDS: S1 normal heart sound present and S2 normal heart sound present GI: COMMON NORMALS: Normal to inspection, nondistended, normoactive bowel sounds present, Soft to palpation and non-tender PALPATION: Yes Soft to palpation Extremity: COMMON NORMALS: no joint enlargement and no pedal edema OTHER: Postop dressing RUE with splint. Dressing, cooling pack over right hip. RLE appears and feels perfused. Urinary Catheter Management: 2-way Urethral: Cath Placed During This Visit: yes Reason for Continuing Indwelling Catheter: Perioperative Use in Selected Surgeries Urinary Catheter Date of Insertion: 01/30/23 Urinary Catheter Time of Insertion: 18:50 Data 01/31/23 04:27 01/31/23 04:27 A&P Assessment and plan (1) Closed fracture of right hip: (2) Fall: (3) Diabetes: Plan 62 year old female with past medical history of diabetes, after she experienced what appears to be a mechanical fall, as she tripped, and twisted her leg, resulting in fall on outstretched right hand, post fall she has been experiencing wrist pain as well as right hip pain, she denied any loss of consciousness head injury. Assessment: Multiple trauma, risk of severe acute anemia additionally with noted thrombocytopenia. Right hip fracture: Status post femoral nail repair intertrochanteric fracture. Follow-up hemoglobin. CBC this morning noted with some thrombocytopenia platelets 106. Hemoglobin 14.6. Follow-up CBC requested. Started on low-dose Lovenox for VT prophylaxis. Pain control IV morphine as needed until able to take Tylenol, hydrocodone. PT assessment. Orthopedic documentation reviewed. Discussed with orthopedics. They are ordering a platform walker for her. Discussed with case management she will likely need SNF for rehabilitation. Fracture of the distal radius and ulnar styloid avulsion fracture. Status post ORIF. As above. Mild NUVIA? Creatinine noted 1. BUN 21. May have a degree of CKD with diabetes. Reassess chemistry for renal function. History of diabetes: Continue Lantus sliding scale insulin Monitor fingerstick glucose Diabetic diet CODE STATUS full code DVT prophylaxis on Lovenox SCDs Attestations Medical Necessity Statement*: Continue admission following repair of right hip and right wrist fracture reassessment of blood counts with risk of anemia with multiple trauma, 2 fractures, risk of anemia. Post discharge planning arrangements. Diagnoses Closed fracture of right hip S72.001A Fall W19.XXXA Diabetes E11.9
[2023-01-31] MEDS: chlorhexidine gluconate 0.12% UDC 15 mL 30 ML MUCOUS MEM (20:46)
[2023-01-31] MEDS: insulin lispro 100 unit/1 mL SUBCUT (20:52)
[2023-01-31 21:13] LABS: Glucose Point of Care 243 mg/dL (70-110)
[2023-01-31] MEDS: acetaminophen 325 mg Tablet 650 MG PO (22:23)
[2023-02-01] VITALS (9 sets, daily range): BP systolic 110–128; BP diastolic 68–82; PULSE 68–96; RESP 16–18; TEMP 36.6–37; O2SAT 94–98
[2023-02-01] MEDS: ceFAZolin 2,000 MG in sodium chloride 0.9% (plus) 50 ML 100 MG IV ×2 (04:14→12:14)
[2023-02-01] MEDS: HYDROcodone-acetaminophen 5-325 mg Tablet 1 TAB PO ×4 (04:21→21:42)
[2023-02-01 05:15] LABS: Basophils % 0.2 %; Hematocrit 35.3 % (37.0-47.0); Hemoglobin 11.5 g/dL (11.5-15.3); Lymphocytes # 1.6 10^3/uL (0.8-4.8); Lymphocytes % 14.2 %; Mean Corpuscular HGB Conc 32.6 g/dL (30.0-36.0); Mean Corpuscular Hemoglobin 30.7 pg (28.0-34.0); Mean Corpuscular Volume 94.4 fl (81-99); Mean Platelet Volume 11.9 fL (7.4-10.4); Monocytes # 0.8 10^3/uL (0.2-0.9); Monocytes % 7.4 %; Neutrophils % 77.9 %; Nucleated Red Blood Cells % 0 %; Platelet Count 93 10^3/cmm (130-400); Red Blood Count 3.74 10^6/uL (4.1-5.3); Red Cell Distribution Width 13.3 % (12.1-15.1); White Blood Count 10.9 10^3/uL (4.0-10.0)
[2023-02-01 05:35] LABS: Blood Urea Nitrogen 20 mg/dL (8-23); Carbon Dioxide 19 mmol/L (22-29); Chloride 109 mmol/L (98-107); Glomerular Filtration Rate 17.7 mL/min (90-130); Glucose 139 mg/dL (65-115); Osmolality Calculated 315 mOsm/kg (285-295); Sodium 150 mmol/L (136-145)
[2023-02-01 05:37] LABS: Anion Gap 25.6 (5-19); Potassium 3.6 mmol/L (3.5-5.1)
[2023-02-01] MEDS: enoxaparin 30 mg/0.3 mL Syringe SUBCUT (06:17)
[2023-02-01 06:38] LABS: Glucose Point of Care 165 mg/dL (70-110)
[2023-02-01] MEDS: docusate sodium 100 mg Capsule PO ×2 (08:28→17:10)
[2023-02-01] MEDS: aspirin 81 mg EC Tablet PO (08:28)
[2023-02-01] MEDS: calcium carb-vit d 600mg/400unit 1 Tablet 1 EACH PO ×2 (08:28→17:10)
[2023-02-01] MEDS: insulin lispro 100 unit/1 mL SUBCUT ×4 (08:28→21:54)
[2023-02-01] MEDS: mupirocin oint 22 gm 1 APPLIC NASAL ×2 (08:28→17:11)
[2023-02-01] MEDS: iron polysaccharide complex 150 mg Capsule PO ×2 (08:28→17:10)
[2023-02-01] MEDS: multivitamin therapeutic Tablet 1 TAB PO (08:28)
[2023-02-01] MEDS: chlorhexidine gluconate 0.12% UDC 15 mL 30 ML MUCOUS MEM ×4 (08:29→21:18)
[2023-02-01] MEDS: insulin glargine 100 units/1 mL 30 UNIT SUBCUT (08:29)
[2023-02-01 09:22] LABS: Creatine Phosphokinase 262 U/L (26-192)
[2023-02-01 10:48] LABS: Glucose Point of Care 251 mg/dL (70-110)
--- NOTE | 2023-02-01 12:32 | ANE.PACU2 ---
Inpatient post-anesthesia follow up: Airway intact: No Vital signs: Temperature 98.4 F Pulse Rate [Right Radial] 59 Pulse Rate 74 Respiratory Rate 16 Blood Pressure 114/72 Pulse Oximetry 95 Oxygen Delivery Me thod [ Nasal Cannula Current Rate & Del foreign] Oxygen Delivery Me thod Room Air Oxygen Flow Rate [ Current Rate 2 & Delivery] Oxygen Flow Rate 2 Fraction of Inspir ed Oxygen Hydration adequate: Yes Nausea and vomiting: No Pain level: 1 Mental status: Altered
--- NOTE | 2023-02-01 12:58 | PM.PN ---
Subjective Subjective: Patient was seen and evaluated at lunchtime. Patient had gotten up with therapy and done well. Pain controlled. Dressings on in place to the right hip are clean dry and intact. Splint on in place clean dry and intact. No other issues at this time. Vitals/I&O/Wt Last Vital Signs Temp 98.4 F 02/01/23 11:41 Pulse 74 02/01/23 11:41 Resp 16 02/01/23 11:41 BP 114/72 02/01/23 11:41 Pulse Ox 95 02/01/23 11:41 O2 Del Method Room Air 02/01/23 11:41 O2 Flow Rate 2 02/01/23 08:00 01/31/23 02/01/23 02/01/23 22:59 06:59 14:59 Intake Total 2710 / 2810 480 / 3290 1215 / 1215 Output Total 1235 / 1885 500 / 2385 300 / 300 Balance 1475 / 925 -20 / 905 915 / 915 Weight last 48 hrs Weight 167 lb Physical Exam Narrative: Examination right hip dressings are on in place they are clean dry and intact no signs of bleeding or saturation compartments are soft and compressible. Patient is able to wiggle toes plantarflex and dorsiflex ankle sensations intact light touch distally. Distal pulses are palpable. Toes are warm and well-perfused. No pain with logroll. Splint limits exam to right upper extremity. Fingertips are warm well-perfused brisk capillary refill less than 2 seconds. Sensations return to light touch since regional anesthesia as well as motor. She is able to wiggle her fingers however once again splint limits her examination. Urinary Catheter Management: 2-way Urethral: Cath Placed During This Visit: yes Reason for Continuing Indwelling Catheter: Required Immobilization for Trauma or Surgery or Anesthesia Urinary Catheter Date of Insertion: 01/30/23 Urinary Catheter Time of Insertion: 18:50 Data 02/03/23 04:25 02/03/23 04:25 Other Labs: 02/01/2023 hemoglobin 11.5 Xray Ortho: My impression: X-rays demonstrate stable ORIF right distal radius fracture as well as stable ORIF with trochanteric femur nail right intertrochanteric femur fracture. A&P Assessment and plan (1) Closed fracture of right distal radius and ulna: (2) Fracture, intertrochanteric, right femur: Plan Non weightbearing right upper extremity?May utilize platform walker to ambulate with PT/OT PT/OT Weight-bear as tolerated right lower extremity Pain control DVT prophylaxis Complete postoperative antibiotics Case management for discharge planning Ice and elevate as needed for pain and swelling A.m. labs reviewed Orthopedics will continue to follow stable from Ortho standpoint no further intervention required at this time. Patient will be evaluated by nurse practitioner tomorrow with the orthopedic team as long as no issues I anticipate patient will be cleared for discharge from orthopedic standpoint tomorrow. All questions answered. Patient will follow-up with orthopedics in the office in 2 weeks upon discharge. Attestations Medical Necessity Statement*: Ongoing care for right distal radius fracture and right intertrochanteric femur fracture Coding Level of Care Code Acute Code for [facility] Fwd Diagnoses Closed fracture of right distal radius and ulna S52.501A; S52.601A Fracture, intertrochanteric, right femur S72.141A Time Spent (min) 25
[2023-02-01 16:43] LABS: Glucose Point of Care 258 mg/dL (70-110)
--- NOTE | 2023-02-01 17:49 | P.PN_ITS ---
Subjective Subjective: States she is doing all right today. She says that she felt very dry and thirsty in the morning. Vitals/I&O/Wt Last Vital Signs Temp 98.5 F 02/01/23 16:00 Pulse 80 02/01/23 16:00 Resp 16 02/01/23 16:00 BP 128/82 02/01/23 16:00 Pulse Ox 94 02/01/23 16:00 O2 Del Method Room Air 02/01/23 16:00 O2 Flow Rate 2 02/01/23 08:00 02/01/23 02/01/23 02/01/23 06:59 14:59 22:59 Intake Total 480 / 3290 1265 / 1265 240 / 1505 Output Total 500 / 2385 300 / 300 700 / 1000 Balance -20 / 905 965 / 965 -460 / 505 Physical Exam Const: GENERAL APPEARANCE: cooperative and other (Somnolent) HENMT: COMMON NORMALS: oropharynx normal OTHER: MM not parched but on the dry side Neck/C-Spine: COMMON NORMALS: no JVD Resp: COMMON NORMALS: normal respiratory effort and clear to auscultation bilaterally AUSCULTATION: clear to auscultation bilaterally Cardio: COMMON NORMALS: no JVD, regular rhythm, S1 normal heart sound present, S2 normal heart sound present and No murmurs present (Cardio) RHYTHM: regular rhythm HEART SOUNDS: S1 normal heart sound present and S2 normal heart sound present GI: COMMON NORMALS: Normal to inspection, nondistended, normoactive bowel sounds present, Soft to palpation and non-tender PALPATION: Yes Soft to palpation Extremity: COMMON NORMALS: no joint enlargement and no pedal edema OTHER: Postop dressing RUE with splint. Dressing right hip. RLE appears and feels perfused. Urinary Catheter Management: 2-way Urethral: Cath Placed During This Visit: yes Reason for Continuing Indwelling Catheter: Required Immobilization for Trauma or Surgery or Anesthesia Urinary Catheter Date of Insertion: 01/30/23 Urinary Catheter Time of Insertion: 18:50 Data 02/01/23 04:30 02/01/23 04:30 A&P Assessment and plan (1) Closed fracture of right hip: (2) Fall: (3) Diabetes: Plan 62 year old female with past medical history of diabetes, after she experienced what appears to be a mechanical fall, as she tripped, and twisted her leg, resulting in fall on outstretched right hand, post fall she has been experiencing wrist pain as well as right hip pain, she denied any loss of consciousness head injury. Assessment: Right hip fracture: She states today she is doing okay. Hemoglobin 11.5, platelets 93. Reassess blood counts, at risk of anemia with multiple fractures. Discussed with orthopedics, they will add discharge instructions. Discussed with case management, working on postdischarge rehabilitation. Discussed with PT, platform walker is being set up for her. Status post femoral nail repair intertrochanteric fracture. Follow-up blood counts requested. Continue low-dose Lovenox for VT prophylaxis. Ortho documentation reviewed. Fracture of the distal radius and ulnar styloid avulsion fracture. Status post ORIF. As above. Hypernatremia: Sodium up to 150. She felt dehydrated this morning. Additional assessment as below. For now start D5 30 mill per hour. Reassess chemistries. NUVIA creatinine with significant jump up to 2.7. BUN 20. Noted bicarb 19, anion gap 25.6. Monitor urine output, so far producing urine. Noted hyponatremia, felt dry this morning, will give her gentle hydration with D5. Reassess renal function. Stop Toradol as NSAIDs possibly contributing to NUVIA. With metabolic acidosis, DM assess for possible ketoacidosis. Will recheck chemistry, check urine and serum ketones. Reassess chemistry for renal f unction, electrolytes, acid-base balance. History of diabetes: Assess for possible DKA. Continue Lantus sliding scale insulin Monitor fingerstick glucose Diabetic diet CODE STATUS full code DVT prophylaxis on Lovenox SCDs Attestations Medical Necessity Statement*: Continue admission for assessment management following right hip and right wrist fractures and repair, in a lady with thrombocytopenia, additional assessment for possible DKA in a lady with underlying diabetes with noted worsening chemistry, hypernatremia, metabolic acidosis, NUVIA. Diagnoses Closed fracture of right hip S72.001A Fall W19.XXXA Diabetes E11.9
[2023-02-01] MEDS: dextrose 5% 1,000 ML 30 ML IV (18:18)
[2023-02-01 19:44] LABS: Anion Gap 14.9 (5-19); Blood Urea Nitrogen 27 mg/dL (8-23); Calcium 8.3 mg/dL (8.5-10.5); Carbon Dioxide 22 mmol/L (22-29); Chloride 103 mmol/L (98-107); Glomerular Filtration Rate 55.8 mL/min (90-130); Glucose 278 mg/dL (65-115); Osmolality Calculated 297 mOsm/kg (285-295); Potassium 3.9 mmol/L (3.5-5.1); Sodium 136 mmol/L (136-145)
[2023-02-01 19:47] LABS: Add Urine Microscopic? YES; Bilirubin Urine Neg (Negative); Ketones Urine Negative (Negative); Nitrate Urine Negative (Negative); Urobilinogen Urine Norm (Negative)
[2023-02-01 19:58] LABS: Specific Gravity, Urine 1.005 (1.005-1.030); Urine Appearance Clear (CLEAR); Urine Color Light yellow (Yellow); pH Urine 5 (5-7)
[2023-02-01 19:59] LABS: Blood Urine Neg (Negative); Glucose Urine UA 4+ (Normal); Leukocyte Esterase Urine 1+ (Negative); Protein Urine Neg (Negative); Squamous Epithelial Cell Urine 0-4 /hpf (0-5)
[2023-02-01 20:00] LABS: Add Urine Culture? Yes; Bacteria Urine TRACE /hpf
[2023-02-01 20:14] LABS: Ketone (Acetest) Serum Negative (Negative)
[2023-02-01 21:42] LABS: Glucose Point of Care 233 mg/dL (70-110)
[2023-02-01] MEDS: TRAMadol 50 mg Tablet PO (22:17)
[2023-02-02] VITALS (12 sets, daily range): BP systolic 104–136; BP diastolic 66–83; PULSE 76–96; RESP 16–20; TEMP 36.6–37.1; O2SAT 94–99
[2023-02-02] MEDS: ipratropium-albuterol 3 mL Neb INHALATION ×4 (02:37→21:31)
[2023-02-02] MEDS: TRAMadol 50 mg Tablet PO ×2 (03:57→18:34)
[2023-02-02 05:13] LABS: Basophils # 0.1 10^3/uL (0.0-0.1); Basophils % 0.6 %; Eosinophils # 0.1 10^3/uL (0.0-0.8); Eosinophils % 1.3 %; Hematocrit 36.8 % (37.0-47.0); Hemoglobin 12.2 g/dL (11.5-15.3); Lymphocytes # 2.1 10^3/uL (0.8-4.8); Lymphocytes % 20.9 %; Mean Corpuscular HGB Conc 33.2 g/dL (30.0-36.0); Mean Corpuscular Hemoglobin 30.5 pg (28.0-34.0); Mean Platelet Volume 12.7 fL (7.4-10.4); Monocytes # 0.8 10^3/uL (0.2-0.9); Monocytes % 8.1 %; Neutrophils # 6.88 10^3/uL (1.8-7.7); Neutrophils % 68.6 %; Nucleated Red Blood Cells % 0 %; Platelet Count 88 10^3/cmm (130-400); Red Cell Distribution Width 13.3 % (12.1-15.1)
[2023-02-02 05:42] LABS: Blood Urea Nitrogen 22 mg/dL (8-23); Calcium 8.3 mg/dL (8.5-10.5); Carbon Dioxide 22 mmol/L (22-29); Chloride 105 mmol/L (98-107); Glomerular Filtration Rate 84.2 mL/min (90-130); Glucose 152 mg/dL (65-115); Osmolality Calculated 294 mOsm/kg (285-295); Sodium 139 mmol/L (136-145)
[2023-02-02 05:47] LABS: Anion Gap 15.6 (5-19); Potassium 3.6 mmol/L (3.5-5.1)
[2023-02-02 06:04] LABS: Slide Review Slide Review Perform
[2023-02-02] MEDS: enoxaparin 30 mg/0.3 mL Syringe SUBCUT (06:16)
[2023-02-02 06:47] LABS: Glucose Point of Care 167 mg/dL (70-110)
[2023-02-02] MEDS: insulin lispro 100 unit/1 mL SUBCUT ×4 (08:53→21:53)
[2023-02-02] MEDS: calcium carb-vit d 600mg/400unit 1 Tablet 1 EACH PO ×2 (08:53→18:30)
[2023-02-02] MEDS: docusate sodium 100 mg Capsule PO ×2 (08:53→18:30)
[2023-02-02] MEDS: multivitamin therapeutic Tablet 1 TAB PO (08:53)
[2023-02-02] MEDS: HYDROcodone-acetaminophen 5-325 mg Tablet 1 TAB PO (08:53)
[2023-02-02] MEDS: iron polysaccharide complex 150 mg Capsule PO ×2 (08:54→18:30)
[2023-02-02] MEDS: aspirin 81 mg EC Tablet PO (08:54)
[2023-02-02] MEDS: chlorhexidine gluconate 0.12% UDC 15 mL 30 ML MUCOUS MEM ×3 (08:54→18:31)
[2023-02-02] MEDS: mupirocin oint 22 gm 1 APPLIC NASAL ×2 (08:54→18:30)
[2023-02-02] MEDS: insulin glargine 100 units/1 mL 30 UNIT SUBCUT (08:58)
[2023-02-02 11:27] LABS: Glucose Point of Care 300 mg/dL (70-110)
--- NOTE | 2023-02-02 11:40 | P.PN_ITS ---
Orthopedic nurse practitioners assessment and plan reviewed and agree. Patient will be allowed to weight-bear through the right forearm utilizing a platform walker to help assist with her mobilization however strict nonweightbearing otherwise to the right upper extremity. We will follow-up in the office in 2 weeks. Stable from Ortho standpoint. Subjective Subjective: States she is doing all right today. Here pain is controlled well and she is feeling better. She hopes to get a sponge bath and discharged to her rehab facility. Vitals/I&O/Wt Last Vital Signs Temp 98.4 F 02/02/23 08:00 Pulse 83 02/02/23 08:00 Resp 17 02/02/23 08:00 BP 133/83 02/02/23 08:00 Pulse Ox 97 02/02/23 08:00 O2 Del Method Room Air 02/02/23 08:00 O2 Flow Rate 2 02/01/23 20:00 02/01/23 02/02/23 02/02/23 22:59 06:59 14:59 Intake Total 240 / 1505 360 / 360 Output Total 2200 / 2500 400 / 2900 Balance -1960 / -995 -400 / -1395 360 / 360 Physical Exam Narrative: Right arm Patient still has postoperative splint in place she can wiggle and move her fingers freely good perfusion cap refill less than 2 seconds sensation intact to light touch. Right hip silver dressing intact there is no saturation. Distal pulses are +2, sensation is intact patient can dorsiflex and plantarflex ankle, minimal range of motion due to pain at the hip. Can fire quadricep, hamstring, calf, anterior tibialis and her glutes. Const: COMMON NORMALS: no acute distress, patient oriented x3 and alert Resp: COMMON NORMALS: normal respiratory effort, No use of accessory muscles and clear to auscultation bilaterally AUSCULTATION: clear to auscultation bilaterally Cardio: COMMON NORMALS: regular rate, regular rhythm, S1 normal heart sound present and S2 normal heart sound present RATE: regular rate RHYTHM: regular rhythm HEART SOUNDS: S1 normal heart sound present and S2 normal heart sound present Neuro: COMMON NORMALS: patient oriented x3 SENSORIUM/ORIENTATION: Yes alert Psych: COMMON NORMALS: mental status grossly normal, cooperative and normal affect Urinary Catheter Management: 2-way Urethral: Cath Placed During This Visit: yes, but has since been removed by the nurse Reason for Continuing Indwelling Catheter: Decision to DC Catheter Urinary Catheter Date of Insertion: 01/30/23 Urinary Catheter Time of Insertion: 18:50 Date Urinary Catheter Removed: 02/01/23 Time Urinary Catheter Discontinued: 07:30 Data 02/02/23 04:32 02/02/23 04:32 A&P Assessment and plan (1) Closed fracture of right distal radius and ulna: (2) Fracture, intertrochanteric, right femur: Plan Patient is ready for discharge, she will be going to rehab facility in [place]. Patient will follow-up in 2 weeks for postoperative visit that time we will get x-rays and get her out of postoperative splint for her wrist. she is to be non weight bearing on wrist. Can weight bear as tolerated on her RIght hip. She can start rehab on her right hip can leave dressing and intact unless it is saturated. Will add Tramdol per patient request for discharge pain medication instead of [place]. Attestations Medical Necessity Statement*: Patient is ready for discharge to rehab factility Coding Level of Care Code Acute Code for [facility] Diagnoses Closed fracture of right distal radius and ulna S52.501A; S52.601A Fracture, intertrochanteric, right femur S72.141A
--- NOTE | 2023-02-02 13:21 | P.DS_ITS ---
Discharge Providers Date of Admission: 01/30/23 19:28 Date of Discharge: February 02, 2023 Attending Provider at Admission: Jeyson Murry MD Attending Provider at Discharge: Jeyson Murry MD Primary Care Provider: Hilda Patel MD Diagnoses at Discharge Discharge Diagnosis (1) Closed fracture of right distal radius and ulna: Status: Acute (2) Fracture, intertrochanteric, right femur: Status: Acute Reason for Visit Reason for Visit: R LOWER & UPPER EXTREMITY INJURY Hospital Course Hospital Course 62 year old female with past medical history of diabetes, after she experienced what appears to be a mechanical fall, as she tripped, and twisted her leg, resulting in fall on outstretched right hand, post fall she has been experiencing wrist pain as well as right hip pain, she denied any loss of consciousness head injury.?CT hip RT wo con: Mildly displaced intertrochanteric right hip fracture.? X-ray right wrist: Fracture of the distal radius and ulnar styloid avulsion fracture.s/p ?femoral nail repair intertrochanteric fracture,Status post ORIF., Orthopedic was on board, Physical therapy was on board, during the hospital stay patient also developed, prerenal NUVIA with possible contribution from NSAIDs as well as, hypernatremia, responded well to IV hydration, and discontinuing the NSAIDs ,at the time of discharge NUVIA and hypernatremia had resolved, patient was transferred to inpatient [facility] rehab. Physical Exam HENMT: COMMON NORMALS: normocephalic and atraumatic HEAD & SCALP: normocephalic and atraumatic Resp: COMMON NORMALS: clear to auscultation bilaterally AUSCULTATION: clear to auscultation bilaterally Cardio: COMMON NORMALS: regular rate, regular rhythm, S1 normal heart sound present, S2 normal heart sound present, No gallops present (Cardio), No murmurs present (Cardio), No rub (Cardio) and Peripheral pulses 2+ throughout RATE: regular rate RHYTHM: regular rhythm HEART SOUNDS: S1 normal heart sound present and S2 normal heart sound present PERIPHERAL PULSES: Peripheral pulses 2+ throughout GI: COMMON NORMALS: Normal to inspection, nondistended, normoactive bowel sounds present, Soft to palpation, non-tender, No hepatosplenomegaly present and no masses AUSCULTATION: Yes normoactive bowel sounds PALPATION: Yes Soft to palpation and Yes No hepatosplenomegaly present RECTAL EXAM: deferred Extremity: COMMON NORMALS: no clubbing, cyanosis or edema and no pedal edema Urinary Catheter Management: 2-way Urethral: Cath Placed During This Visit: yes, but has since been removed by the nurse Reason for Continuing Indwelling Catheter: Decision to DC Catheter Urinary Catheter Date of Insertion: 01/30/23 Urinary Catheter Time of Insertion: 18:50 Date Urinary Catheter Removed: 02/01/23 Time Urinary Catheter Discontinued: 07:30 Discharge Data Studies Completed and Pending Completed Studies During Hospitalization Category Date Time Status CT hip RT wo con* [id number] Stat Cat Scan 01/30/23 17:39 Completed XR chest 1V portable [id number] Stat Exams 01/30/23 18:05 Completed XR femur RT min 2V* [id number] Stat Exams 01/30/23 17:13 Completed XR hip RT 2-3V wo/w pel* [id number] Routine Exams 01/31/23 18:20 Completed XR hip RT 2-3V wo/w pel* [id number] Stat Exams 01/30/23 17:13 Completed XR wrist RT 2V [id number] Routine Exams 01/31/23 18:20 Completed XR wrist RT min 3V* [id number] Stat Exams 01/30/23 17:13 Completed Pending at discharge Category Date Time Status Basic Metabolic Panel AM LABS Lab 02/03/23 04:00 Ordered Complete Blood Count w/Auto AM LABS Lab 02/03/23 04:00 Ordered Urine Culture Routine Lab 02/01/23 19:35 Received Radiology Impressions Femur X-Ray 01/30/23 17:13 IMPRESSION: Intertrochanteric right hip fracture. Hip CT 01/30/23 17:39 IMPRESSION: Mildly displaced intertrochanteric right hip fracture. Chest X-Ray 01/30/23 18:05 IMPRESSION: No acute findings. Hip/Pelvis X-Ray 01/31/23 18:20 IMPRESSION: Interval placement of right hip fixation device in expected alignment. Wrist X-Ray 01/31/23 18:20 IMPRESSION: Interval placement of ORIF hardware within the distal radius in expected alignment. Laboratory Results WBC 10.0 10^3/uL (4.0-10.0) 02/02/23 04:32 RBC 4.00 10^6/uL (4.1-5.3) L 02/02/23 04:32 Hgb 12.2 g/dL (11.5-15.3) 02/02/23 04:32 Hct 36.8 % (37.0-47.0) L 02/02/23 04:32 MCV 92.0 fl (81-99) 02/02/23 04:32 MCH 30.5 pg (28.0-34.0) 02/02/23 04:32 MCHC 33.2 g/dL (30.0-36.0) 02/02/23 04:32 RDW 13.3 % (12.1-15.1) 02/02/23 04:32 Plt Count 88 10^3/cmm (130-400) L 02/02/23 04:32 MPV 12.7 fL (7.4-10.4) H 02/02/23 04:32 Neut % (Auto) 68.6 % 02/02/23 04:32 Lymph % (Auto) 20.9 % 02/02/23 04:32 [place] % (Auto) 8.1 % 02/02/23 04:32 Eos % (Auto) 1.3 % 02/02/23 04:32 Baso % (Auto) 0.6 % 02/02/23 04:32 Neut # (Auto) 6.88 10^3/uL (1.8-7.7) 02/02/23 04:32 Lymph # (Auto) 2.1 10^3/uL (0.8-4.8) 02/02/23 04:32 [place] # (Auto) 0.8 10^3/uL (0.2-0.9) 02/02/23 04:32 Eos # (Auto) 0.1 10^3/uL (0.0-0.8) 02/02/23 04:32 Baso # (Auto) 0.1 10^3/uL (0.0-0.1) 02/02/23 04:32 Nucleated RBC % (auto) 0 % 02/02/23 04:32 Nucleated RBCs # 0.0 /100WBC 02/02/23 04:32 PT 13.80 SECONDS (12.1-14.9) 01/30/23 18:29 INR 1.03 (0.8-1.2) 01/30/23 18:29 Sodium 139 mmol/L (136-145) 02/02/23 04:32 Potassium 3.6 mmol/L (3.5-5.1) 02/02/23 04:32 Chloride 105 mmol/L (98-107) 02/02/23 04:32 Carbon Dioxide 22 mmol/L (22-29) 02/02/23 04:32 Anion Gap 15.6 (5-19) 02/02/23 04:32 BUN 22 mg/dL (8-23) 02/02/23 04:32 Creatinine 0.7 mg/dL (0.5-0.9) 02/02/23 04:32 GFR Calculation 84.2 mL/min (90-130) L 02/02/23 04:32 Glucose 152 mg/dL (65-115) H 02/02/23 04:32 POC Glucose 300 mg/dL (70-110) H 02/02/23 11:16 Calculated Osmolality 294 mOsm/kg (285-295) 02/02/23 04:32 Calcium 8.3 mg/dL (8.5-10.5) L 02/02/23 04:32 Total Bilirubin 0.4 mg/dL (0.15-1.2) 01/30/23 18:29 AST 19 U/L (0-32) 01/30/23 18:29 ALT 13 U/L (0-33) 01/30/23 18:29 Alkaline Phosphatase 69 U/L (35-105) 01/30/23 18:29 Creatine Kinase 262 U/L (26-192) H 02/01/23 04:30 Total Protein 7.8 g/dL (6.6-8.7) 01/30/23 18:29 Albumin 4.5 g/dL (3.5-5.2) 01/30/23 18:29 Globulin 3.3 g/dL (1.3-4.6) 01/30/23 18:29 Urine Color Light yellow (Yellow) 02/01/23 19:35 Urine Appearance Clear (CLEAR) 02/01/23 19:35 Urine pH 5 (5-7) 02/01/23 19:35 Ur Specific [place] 1.005 (1.005-1.030) 02/01/23 19:35 Urine Protein Neg (Negative) 02/01/23 19:35 Urine Glucose (UA) 4+ (Normal) H 02/01/23 19:35 Urine Ketones Negative (Negative) 02/01/23 19:35 Urine Blood Neg (Negative) 02/01/23 19:35 Urine Nitrate Negative (Negative) 02/01/23 19:35 Urine Bilirubin Neg (Negative) 02/01/23 19:35 Urine Urobilinogen Norm mg/dL (Negative) 02/01/23 19:35 Ur Leukocyte Esterase 1+ (Negative) H 02/01/23 19:35 Urine RBC None /hpf (0-2) 02/01/23 19:35 Urine WBC 10-15 /hpf (0-5) H 02/01/23 19:35 Ur Squamous Epith Cells 0-4 /hpf (0-5) H 02/01/23 19:35 Amorphous Sediment Not Reportable 02/01/23 19:35 Urine Bacteria Trace /hpf (NONE) 02/01/23 19:35 Urine Yeast Trace /hpf 02/01/23 19:35 Serum Ketones Negative (Negative) 02/01/23 19:15 Blood Type A Negative 01/31/23 04:27 Rho(D) Type Negative 01/31/23 04:27 Antibody Screen Negative 01/31/23 04:27 Vitals Last Vital Signs Temp 97.9 F 02/02/23 12:00 Pulse 79 02/02/23 12:00 Resp 18 02/02/23 12:00 BP 104/66 02/02/23 12:00 Pulse Ox 96 02/02/23 12:00 O2 Del Method Room Air 02/02/23 12:00 O2 Flow Rate 2 02/01/23 20:00 Discharge Plan Discharge Patient Disposition: Xfer SNF Condition: Stable Prescriptions: New docusate sodium [Colace] 100 mg capsule 100 mg PO DAILY PRN (Reason: constipation) 10 Days Qty: 10 0RF enoxaparin [Lovenox] 30 mg/0.3 mL syringe 30 mg SUBCUT DAILY 35 Days Qty: 10.5 0RF calcium carbonate-vitamin D3 600 mg-10 mcg (400 unit) Tablet 1 ea PO BID 30 Days Qty: 60 0RF ondansetron 4 mg tablet,disintegrating 4 mg PO DAILY 5 Days Qty: 5 0RF Continued famotidine 20 mg tablet 20 mg PO DAILY (DME) diabetic shoes with molded inserts See Rx Instructions .Route .MEDSUPPLY Qty: 1 0RF Rx Instructions: As directed Prozac 40 mg capsule 40 mg PO DAILY Qty: 30 2RF ziprasidone HCl [Geodon] 20 mg capsule 20 mg PO BID Qty: 60 2RF Rx Instructions: give with food (meal/snack) topiramate [Topamax] 100 mg tablet 100 mg PO BID Qty: 60 2RF clonazepam 0.5 mg tablet 0.5 mg PO DAILY PRN (Reason: anxiety) Qty: 30 2RF Jardiance 10 mg Tablet 10 mg PO DAILY insulin glargine [Lantus U-100 Insulin] 100 unit/mL Solution 110 unit SUBCUT QPM cetirizine [Zyrtec] 10 mg Tablet 10 mg PO DAILY PRN (Reason: Allergy Symptoms) aspirin 81 mg Tablet,Delayed Release (Dr/Ec) 81 mg PO DAILY Hold Instructions: Resume on 09/02/21. May resume after 325 mg daily for 30 days gabapentin [Neurontin] 100 mg Capsule 100 mg PO TID insulin lispro [Humalog KwikPen Insulin] 100 unit/mL Insulin Pen 38 unit SUBCUT TID Victoza 3-[place]ad 0.6 mg/0.1 mL (18 mg/3 mL) Pen Injector 1.6 mg SUBCUT DAILY albuterol sulfate 2.5 mg /3 mL (0.083 %) solution for nebulization 2.5 mg inhalation Q4H PRN (Reason: Shortness Of Breath) Flonase 50 mcg/actuation [place],Suspension 2 spray INTRANASAL DAILY PRN (Reason: Nasal Congestion) Rx Instructions: administer into each nostril rosuvastatin 20 mg tablet 20 mg PO DAILY melatonin 10 mg tablet 10 mg PO BEDTIME tramadol 50 mg Tablet 50 mg PO Q6H PRN (Reason: Pain) Qty: 30 0RF Discharge Orders: Discharge Order (Routine); Ordered 02/02/23 Ordered By: Jeyson Murry Referrals: Hilda Patel MD [Primary Care Provider] - Cristian Flores DO [Physician] - Discharge Diet: Advance as tolerated Discharge Activity: Limit activity as instructed Patient Instructions: Opioid Safety, Pain Management Activity Restrictions/Additional Instructions: Orthopedic discharge instructions: Patient may be weightbearing as tolerated to the right lower extremity Patient should ambulate with a platform walker Patient can weight-bear through right upper extremity with platform walker only Nonweightbearing otherwise to the right upper extremity Maintain splint until follow-up Encourage finger range of motion Ice and elevate right upper extremity and right lower extremity as needed for pain and swelling Encourage knee and hip range of motion PT/OT Take pain medication as prescribed Take antinausea medication as needed Take blood thinner as prescribed (Lovenox) Supplement with Citracal vitamin D for bone health and healing Take Colace as needed for constipation Do not get splint wet Dressings to the right hip should remain on for 7 days postoperatively after that they may be removed and a dry dressing applied. Otherwise may change dressings as needed if becomes more than 50% saturated Keep incisions clean dry and intact no baths or soaks Follow-up with Dr. Flores in the office in 2 weeks Contact the office for any questions or concerns Discharge Attestations Time Spent in Discharge Care*: less than 30 min Quality Metrics Clinical Quality Measures [ No reported AMI, CVA or VTE this stay] Coding Level of Care Code Acute Code for [facility] Diagnoses Closed fracture of right distal radius and ulna S52.501A; S52.601A Fracture, intertrochanteric, right femur S72.141A
--- NOTE | 2023-02-02 14:56 | PC.NURSE ---
Report called to [facility] in [place], [place]. Transport paperwork completed. Notified pt of transfer.
[2023-02-02 16:58] LABS: Glucose Point of Care 257 mg/dL (70-110)
[2023-02-02 20:44] LABS: Glucose Point of Care 186 mg/dL (70-110)
[2023-02-02] MEDS: acetaminophen 325 mg Tablet 650 MG PO (21:53)
[2023-02-03] VITALS: BP 110/70; PULSE 73; RESP 17; TEMP 36.6; O2SAT 96
[2023-02-03] MEDS: TRAMadol 50 mg Tablet PO ×2 (00:55→07:00)
[2023-02-03] MEDS: zolpidem 5 mg Tablet 2.5 MG PO (00:55)
[2023-02-03 02:44] VITALS: PULSE 74; RESP 16; O2SAT 94
[2023-02-03] MEDS: ipratropium-albuterol 3 mL Neb INHALATION ×2 (02:44→08:21)
[2023-02-03 03:39] VITALS: BP 115/73; PULSE 80; RESP 16; TEMP 36.6; O2SAT 94
[2023-02-03 05:32] LABS: Basophils # 0.1 10^3/uL (0.0-0.1); Basophils % 0.7 %; Eosinophils # 0.2 10^3/uL (0.0-0.8); Eosinophils % 2.4 %; Hematocrit 36.1 % (37.0-47.0); Hemoglobin 11.6 g/dL (11.5-15.3); Lymphocytes # 2.8 10^3/uL (0.8-4.8); Lymphocytes % 34.1 %; Mean Corpuscular HGB Conc 32.1 g/dL (30.0-36.0); Mean Corpuscular Hemoglobin 30.1 pg (28.0-34.0); Mean Corpuscular Volume 93.8 fl (81-99); Mean Platelet Volume 11.9 fL (7.4-10.4); Monocytes # 0.7 10^3/uL (0.2-0.9); Monocytes % 8.3 %; Neutrophils # 4.37 10^3/uL (1.8-7.7); Neutrophils % 54.1 %; Nucleated Red Blood Cells % 0 %; Platelet Count 78 10^3/cmm (130-400); Red Blood Count 3.85 10^6/uL (4.1-5.3); Red Cell Distribution Width 13.3 % (12.1-15.1); White Blood Count 8.1 10^3/uL (4.0-10.0)
[2023-02-03 05:52] LABS: Anion Gap 12.7 (5-19); Blood Urea Nitrogen 18 mg/dL (8-23); Calcium 8.8 mg/dL (8.5-10.5); Carbon Dioxide 25 mmol/L (22-29); Chloride 104 mmol/L (98-107); Glucose 143 mg/dL (65-115); Osmolality Calculated 290 mOsm/kg (285-295); Potassium 3.7 mmol/L (3.5-5.1); Sodium 138 mmol/L (136-145)
[2023-02-03] MEDS: enoxaparin 30 mg/0.3 mL Syringe SUBCUT (06:58)
[2023-02-03 07:16] LABS: Glucose Point of Care 208 mg/dL (70-110)
[2023-02-03 07:17] VITALS: BP 125/76; PULSE 84; RESP 16; TEMP 36.7; O2SAT 98
[2023-02-03] MEDS: aspirin 81 mg EC Tablet PO (07:54)
[2023-02-03] MEDS: calcium carb-vit d 600mg/400unit 1 Tablet 1 EACH PO (07:55)
[2023-02-03] MEDS: iron polysaccharide complex 150 mg Capsule PO (07:55)
[2023-02-03] MEDS: multivitamin therapeutic Tablet 1 TAB PO (07:55)
[2023-02-03] MEDS: docusate sodium 100 mg Capsule PO (07:55)
[2023-02-03 08:21] VITALS: PULSE 84; RESP 16; O2SAT 96
[2023-02-03] MEDS: insulin lispro 100 unit/1 mL SUBCUT (08:40)
[2023-02-03] MEDS: insulin glargine 100 units/1 mL 30 UNIT SUBCUT (08:40)
--- NOTE | 2023-02-03 09:04 | PC.NURSE ---
[facility] to get [facility]
[2023-02-03 09:38] VITALS: BP 125/68; PULSE 84; RESP 16; TEMP 36.7; O2SAT 96
== END 2023-02-03 09:15 | DRG 481 ==
LOC: ER 19:07 → MEDSURG 19:28
PROVIDERS: Internal Medicine; Student in an Organized Health Care Education/Training Program; Admitting Provider Internal Medicine; Emergency Provider Emergency Medicine; PCP Internal Medicine; Visit Provider Internal Medicine
PROC: 0QH636Z Insertion of Intramedullary Internal Fixation Device into Right Upper Femur, Percutaneous Approach (ICD-10-PCS; CPT 27245; principal; 2023-01-31 12:20)
PROC: 0QH636Z Insertion of Intramedullary Internal Fixation Device into Right Upper Femur, Percutaneous Approach (ICD-10-PCS; 2023-01-31 12:20)
DX: S72.141A Displaced intertrochanteric fracture of right femur, initial encounter for closed fracture (principal); E87.0 Hyperosmolality and hypernatremia; S52.611A Displaced fracture of right ulna styloid process, initial encounter for closed fracture; S52.571A Other intraarticular fracture of lower end of right radius, initial encounter for closed fracture; N17.9 Acute kidney failure, unspecified; E87.20 Acidosis, unspecified; W01.0XXA Fall on same level from slipping, tripping and stumbling without subsequent striking against object, initial encounter; E11.9 Type 2 diabetes mellitus without complications; Z79.84 Long term (current) use of oral hypoglycemic drugs; Z79.4 Long term (current) use of insulin; Z79.82 Long term (current) use of aspirin; Z79.51 Long term (current) use of inhaled steroids; Z79.891 Long term (current) use of opiate analgesic; Z96.651 Presence of right artificial knee joint; R41.83 Borderline intellectual functioning; F25.1 Schizoaffective disorder, depressive type; F17.210 Nicotine dependence, cigarettes, uncomplicated; D69.6 Thrombocytopenia, unspecified
CPT/HCPCS: 36415; 36416; 51702; 71045; 73100; 73110; 73502; 73552; 73700; 76000; 80048; 80053; 81001; 82009; 82550; 82962; 85025; 85610; 86850; 86900; 87086; 93005; 94640; 96372; 97110; 97116; 97161; 97167; 97530; 97535; 99285; C1713; J0131; J0690; J1100; J1650; J1815; J1885; J2270; J2405; J2704; J2795; J3010; J3490; J7030; J7070

== ENCOUNTER 2023-02-16 06:00 | Outpatient (CLI) | payer MEDICAID, SELFPAY | END 2023-02-16 06:01 | LOC: SOT 02-19 08:58 | PROVIDERS: Visit Provider Nurse Practitioner Family | DX: Z98.890 Other specified postprocedural states (principal) | CPT/HCPCS: 97760; L3982 ==

== ENCOUNTER → 2023-02-16 09:28 | Outpatient (BNVA) | payer MEDICAID, SELFPAY | PROVIDERS: PCP Internal Medicine; Visit Provider Nurse Practitioner Family | DX: R52 Pain, unspecified (principal); Z98.890 Other specified postprocedural states | CPT/HCPCS: 73110; 73502; 99024 ==

== ENCOUNTER 2023-02-23 18:25 | Emergency (ER) | payer MEDICAID, SELFPAY ==
--- NOTE | 2023-02-23 18:30 | XRR_ITS ---
PROCEDURE INFORMATION: Exam: XR Chest Exam date and time: 02/23/2023 6:45 PM Age: 63 years old Clinical indication: Other: AMS; Additional info: Altered mental status TECHNIQUE: Imaging protocol: Radiologic exam of the chest. Views: 1 view. COMPARISON: CR (CHEST, ) 01/30/2023 6:32 PM FINDINGS: Lungs: Unremarkable. No consolidation. Pleural spaces: Unremarkable. No pleural effusion. No pneumothorax. Heart/Mediastinum: Unremarkable. No cardiomegaly. Bones/joints: Degenerative changes in the glenohumeral joints. [place] in the left humeral head. Resection of the distal left clavicle. XR/XR chest 1V portable [id number] IMPRESSION: No acute findings.
--- NOTE | 2023-02-23 18:30 | ECG_ITS ---
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 Measurements Intervals [place] Rate: 65 P: 54 OR: 170 QRS: -34 QRSD: 111 T: 27 QT: 402 QTc: 419 Interpretive Statements SINUS RHYTHM LEFT AXIS DEVIATION [QRS AXIS < -30] PATTERN CONSISTENT WITH PULMONARY DISEASE MODERATE INTRAVENTRICULAR CONDUCTION DELAY [110+ ms QRS DURATION] NONSPECIFIC T-WAVE ABNORMALITY Compared to ECG 01/30/2023 18:42:58 Left-axis deviation now present Intraventricular conduction delay now present T-wave abnormality now present Incomplete right bundle-branch block no longer present Myocardial infarct finding no longer present Electronically Signed On 02-24-2023 6:00:14 CDT by Jesus Manuel De Jesus M.D. [id number]
[2023-02-23 18:48] VITALS: BP 120/74; PULSE 69; RESP 18; TEMP 36.8; O2SAT 97; BMI 30.5
[2023-02-23 18:51] VITALS: O2SAT 93
[2023-02-23] MEDS: sodium chloride 0.9% 1,000 ML 999 ML IV (19:42)
[2023-02-23 20:36] LABS: Basophils % 0.3 %; Eosinophils # 0.2 10^3/uL (0.0-0.8); Eosinophils % 3.1 %; Hematocrit 35.9 % (37.0-47.0); Lymphocytes # 2.7 10^3/uL (0.8-4.8); Lymphocytes % 43.9 %; Mean Corpuscular HGB Conc 33.4 g/dL (30.0-36.0); Mean Corpuscular Hemoglobin 30.4 pg (28.0-34.0); Mean Corpuscular Volume 90.9 fl (81-99); Mean Platelet Volume 11.6 fL (7.4-10.4); Monocytes # 0.7 10^3/uL (0.2-0.9); Monocytes % 10.6 %; Neutrophils # 2.61 10^3/uL (1.8-7.7); Neutrophils % 41.9 %; Nucleated Red Blood Cells % 0 %; Platelet Count 134 10^3/cmm (130-400); Red Blood Count 3.95 10^6/uL (4.1-5.3); Red Cell Distribution Width 13.7 % (12.1-15.1); White Blood Count 6.2 10^3/uL (4.0-10.0)
[2023-02-23 20:55] LABS: Alanine Aminotransferase 11 U/L (0-33); Albumin Level 3.8 g/dL (3.5-5.2); Alkaline Phosphatase 197 U/L (35-105); Anion Gap 13.4 (5-19); Aspartate Amino Transferase 11 U/L (0-32); Blood Urea Nitrogen 21 mg/dL (8-23); Calcium 8.7 mg/dL (8.5-10.5); Carbon Dioxide 21 mmol/L (22-29); Chloride 112 mmol/L (98-107); Globulin 2.8 g/dL (1.3-4.6); Glomerular Filtration Rate 55.6 mL/min (90-130); Glucose 200 mg/dL (65-115); Magnesium 1.9 mg/dL (1.7-2.3); Osmolality Calculated 305 mOsm/kg (285-295); Potassium 3.4 mmol/L (3.5-5.1); Sodium 143 mmol/L (136-145); Total Bilirubin 0.2 mg/dL (0.15-1.2); Total Protein 6.6 g/dL (6.6-8.7)
[2023-02-23 21:42] VITALS: BP 122/80; PULSE 69; RESP 18; O2SAT 99
[2023-02-23 21:55] LABS: Urine Appearance Clear (CLEAR); Urine Color Colorless (Yellow)
[2023-02-23 21:56] LABS: Glucose Urine UA 2+ (Normal); Protein Urine Neg (Negative); pH Urine 6 (5-7)
[2023-02-23 21:57] LABS: Add Urine Microscopic? YES; Bilirubin Urine Neg (Negative); Blood Urine Neg (Negative); Ketones Urine Negative (Negative); Leukocyte Esterase Urine Trace (Negative); Nitrate Urine Negative (Negative); RBC Urine 0-4 /hpf (0-2); Urobilinogen Urine Norm (Negative); WBC Urine 0-4 /hpf (0-5)
[2023-02-23 21:58] LABS: Bacteria Urine TRACE /hpf; Squamous Epithelial Cell Urine 0-4 /hpf (0-5)
[2023-02-23] MEDS: TRAMadol 50 mg Tablet PO (21:59)
[2023-02-23 22:00] LABS: Amphetamines Screen Urine Negative (Negative); Barbiturates Screen Urine Negative (Negative); Benzodiazepines Screen Urine Negative (Negative); Cocaine Screen Urine Negative (Negative); Opiate Screen Urine Negative (Negative); PCP Screen Urine Negative (Negative); THC Screen Urine Negative (Negative)
[2023-02-23 22:18] VITALS: BP 123/82; PULSE 67; RESP 16; O2SAT 98
--- NOTE | 2023-02-24 05:54 | W.ED.AMS ---
HPI - Altered Mental Status General: Chief Complaint: Altered Mental Status Stated Complaint: sleepy. altered mental changes Time Seen by Provider: 02/23/23 18:44 Source: patient History of Present Illness: 63-year-old female presenting via ambulance. A friend called the ambulance, because she believed the patient was more somnolent than normal. On my examination, the patient is awake, alert, and cooperative. She states that she had wrist and hip surgery recently, and that she had not slept well last night and was therefore more sleepy today. She denies any increase in mind altering substance use, etc. MD complaint: altered mental status Onset (ago): hour(s) Timing confirmed by: other Severity: mild Consistency of symptoms: Waxing and Waning Associated symptoms: Deny auditory hallucinations, visual hallucinations, depression or homicidal ideation Review of Systems Const: Denies: fever(s) Card: Denies: chest pain Resp: Denies: dyspnea GI: Denies: abdominal pain, nausea or vomiting Neuro: Denies: headache(s) Psych: Denies: depression, visual hallucinations, auditory hallucinations or homicidal ideation [facility] ED PFSH: Medical History Borderline intellectual functioning Closed fracture of right distal radius and ulna Closed fracture of right hip Diabetes Disc displacement, lumbar Fall Fracture, intertrochanteric, right femur Lumbar compression fracture 11/08/2018 Schizoaffective disorder, depressive type Surgical History History of knee surgery (~09/04/13) Dr. Harper Family History Sister High cholesterol Social History Smoking and tobacco status: current every day smoker Alcohol intake: never Substance/Drug Use: never Household members: none Marital status: Single Current occupational status: disabled Physical Exam Const: COMMON NORMALS: no acute distress GENERAL APPEARANCE: not lethargic ORIENTATION/CONSCIOUSNESS: Yes awake, Yes oriented to place and Yes oriented to time; not confused and not lethargic HENMT: COMMON NORMALS: normocephalic, atraumatic and Normal external nose present HEAD & SCALP: normocephalic and atraumatic NOSE: Normal external nose present Eye: COMMON NORMALS: Equal, round and reactive pupils present and EOMs intact bilaterally PUPIL: Yes Equal, round and reactive pupils present Neck/C-Spine: GENERAL: Yes trachea midline Chest: CHEST: Yes Symmetrical chest wall rise Resp: COMMON NORMALS: normal respiratory effort, No use of accessory muscles and clear to auscultation bilaterally AUSCULTATION: clear to auscultation bilaterally Cardio: COMMON NORMALS: regular rate and regular rhythm RATE: regular rate RHYTHM: regular rhythm GI: COMMON NORMALS: Soft to palpation PALPATION: Yes Soft to palpation Extremity: COMMON NORMALS: no pedal edema Neuro: JEANINE COMA SCALE: document GCS findings [place] coma scale eye opening: Spontaneous Jeanine coma scale verbal response: Orientated Jeanine coma scale motor response: Obey commands [place] coma scale total score: 15 SENSORIUM/ORIENTATION: Yes oriented to place, Yes oriented to time and No lethargic Course Vital Signs: Vital signs: Vital Signs Temperature 98.3 F 02/23/23 18:48 Pulse Rate 67 02/23/23 22:18 Respiratory Rate 16 02/23/23 22:18 Blood Pressure 123/82 02/23/23 22:18 Pulse Oximetry 98 02/23/23 22:18 Oxygen Delivery Me thod Room Air 02/23/23 21:42 MDM - Altered Mental Status Medical Decision Making The patient remains awake and alert. Her vital signs are normal. CBC is not remarkable. BMP is not terribly remarkable. Chest x-ray is negative. Urine drug screen is negative. Urinalysis is negative for urinary tract infection. She appears at baseline at this point. She will be allowed discharge home. Lab Data 02/23/23 20:23 02/23/23 19:00 Radiology Impressions Chest X-Ray 02/23/23 18:30 IMPRESSION: No acute findings. Laboratory Results WBC 6.2 10^3/uL (4.0-10.0) 02/23/23 20:23 Corrected WBC Cancelled 02/23/23 19:00 RBC 3.95 10^6/uL (4.1-5.3) L 02/23/23 20:23 Hgb 12.0 g/dL (11.5-15.3) 02/23/23 20:23 Hct 35.9 % (37.0-47.0) L 02/23/23 20:23 MCV 90.9 fl (81-99) 02/23/23 20: MCH 30.4 pg (28.0-34.0) 02/23/23 20: MCHC 33.4 g/dL (30.0-36.0) 02/23/23 20: RDW 13.7 % (12.1-15.1) 02/23/23 20: Plt Count 134 10^3/cmm (130-400) 02/23/23 20: MPV 11.6 fL (7.4-10.4) H 02/23/23 20:23 Gran % Cancelled 02/23/23 19:00 Neut % (Auto) 41.9 % 02/23/23 20: Lymph % (Auto) 43.9 % 02/23/23 20: Irwin % (Auto) 10.6 % 02/23/23: Eos % (Auto) 3.1 % 02/23/23: Baso % (Auto) 0.3 % 02/23/23: Neut # (Auto) 2.61 10^3/uL (1.8-7.7) 02/23/23 20: Lymph # (Auto) 2.7 10^3/uL (0.8-4.8) 02/23/23: Irwin # (Auto) 0.7 10^3/uL (0.2-0.9) 02/23/23: Eos # (Auto) 0.2 10^3/uL (0.0-0.8) 02/23/23: Baso # (Auto) 0.0 10^3/uL (0.0-0.1) 02/23/23: Absolute Gran (auto) Cancelled 02/23/23 19:00 Nucleated RBC % (auto) 0 % 02/23/23: Nucleated RBCs # 0.0 /100WBC 02/23/23 20: Sodium 143 mmol/L (136-145) 02/23/23 19:00 Potassium 3.4 mmol/L (3.5-5.1) L 02/23/23 19:00 Chloride 112 mmol/L (98-107) H 02/23/23 19:00 Carbon Dioxide 21 mmol/L (22-29) L 02/23/23 19:00 Anion Gap 13.4 (5-19) 02/23/23 19:00 BUN 21 mg/dL (8-23) 02/23/23 19:00 Creatinine 1.0 mg/dL (0.5-0.9) H 02/23/23 19:00 GFR Calculation 55.6 mL/min (90-130) L 02/23/23 19:00 Glucose 200 mg/dL (65-115) H 02/23/23 19:00 Calculated Osmolality 305 mOsm/kg (285-295) H 02/23/23 19:00 Calcium 8.7 mg/dL (8.5-10.5) 02/23/23 19:00 Magnesium 1.9 mg/dL (1.7-2.3) 02/23/23 19:00 Total Bilirubin 0.2 mg/dL (0.15-1.2) 02/23/23 19:00 AST 11 U/L (0-32) 02/23/23 19:00 ALT 11 U/L (0-33) 02/23/23 19:00 Alkaline Phosphatase 197 U/L (35-105) H 02/23/23 19:00 Total Protein 6.6 g/dL (6.6-8.7) 02/23/23 19:00 Albumin 3.8 g/dL (3.5-5.2) 02/23/23 19:00 Globulin 2.8 g/dL (1.3-4.6) 02/23/23 19:00 Urine Color Colorless (Yellow) 02/23/23 21:41 Urine Appearance Clear (CLEAR) 02/23/23 21:41 Urine pH 6 (5-7) 02/23/23 21:41 Ur Specific [place] 1.010 (1.005-1.030) 02/23/23 21:41 Urine Protein Neg (Negative) 02/23/23 21:41 Urine Glucose (UA) 2+ (Normal) H 02/23/23 21:41 Urine Ketones Negative (Negative) 02/23/23 21:41 Urine Blood Neg (Negative) 02/23/23 21:41 Urine Nitrate Negative (Negative) 02/23/23 21:41 Urine Bilirubin Neg (Negative) 06/30/23 21:41 Urine Urobilinogen Norm mg/dL (Negative) 02/23/23 21:41 Ur Leukocyte Esterase Trace (Negative) H 02/23/23 21:41 Urine RBC 0-4 /hpf (0-2) H 02/23/23 21:41 Urine WBC 0-4 /hpf (0-5) H 02/23/23 21:41 Ur Squamous Epith Cells 0-4 /hpf (0-5) H 02/23/23 21:41 Amorphous Sediment Not Reportable 02/23/23 21:41 Urine Bacteria Trace /hpf (NONE) 02/23/23 21:41 Urine Opiates Screen Negative ng/mL (Negative) 02/23/23 21:41 Ur Barbiturates Screen Negative ng/mL (Negative) 02/23/23 21:41 Ur Phencyclidine Scrn Negative ng/mL (Negative) 02/23/23 21:41 Ur Amphetamines Screen Negative ng/mL (Negative) 02/23/23 21:41 U Benzodiazepines Scrn Negative ng/mL (Negative) 02/23/23 21:41 Urine Cocaine Screen Negative ng/mL (Negative) 02/23/23 21:41 U Marijuana (THC) Screen Negative ng/mL (Negative) 02/23/23 21:41 Discharge Plan Discharge Patient Disposition: Home Clinical Impression: Drowsiness Condition: Stable Prescriptions: No Action famotidine 20 mg tablet 20 mg PO DAILY (DME) diabetic shoes with molded inserts See Rx Instructions .Route .MEDSUPPLY Qty: 1 0RF Rx Instructions: As directed Prozac 40 mg capsule 40 mg PO DAILY Qty: 30 2RF ziprasidone HCl [Geodon] 20 mg capsule 20 mg PO BID Qty: 60 2RF Rx Instructions: give with food (meal/snack) topiramate [Topamax] 100 mg tablet 100 mg PO BID Qty: 60 2RF (DME) Fast Form See Rx Instructions .Route .MEDSUPPLY Qty: 1 0RF Rx Instructions: As directed ibuprofen 800 mg tablet 800 mg PO Q8H PRN (Reason: pain) Qty: 60 0RF clonazepam 0.5 mg tablet 0.5 mg PO DAILY PRN (Reason: anxiety) Qty: 30 2RF Jardiance 10 mg Tablet 10 mg PO DAILY insulin glargine [Lantus U-100 Insulin] 100 unit/mL Solution 110 unit SUBCUT QPM cetirizine [Zyrtec] 10 mg Tablet 10 mg PO DAILY PRN (Reason: Allergy Symptoms) aspirin 81 mg Tablet,Delayed Release (Dr/Ec) 81 mg PO DAILY Hold Instructions: Resume on 09/02/21. May resume after 325 mg daily for 30 days gabapentin [Neurontin] 100 mg Capsule 100 mg PO TID insulin lispro [Humalog KwikPen Insulin] 100 unit/mL Insulin Pen 38 unit SUBCUT TID Victoza 3-Chad 0.6 mg/0.1 mL (18 mg/3 mL) Pen Injector 1.6 mg SUBCUT DAILY albuterol sulfate 2.5 mg /3 mL (0.083 %) solution for nebulization 2.5 mg inhalation Q4H PRN (Reason: Shortness Of Breath) fluticasone propionate 50 mcg/actuation [place],Suspension 2 spray INTRANASAL DAILY PRN (Reason: Nasal Congestion) Rx Instructions: administer into each nostril rosuvastatin 20 mg tablet 20 mg PO DAILY melatonin 10 mg tablet 10 mg PO BEDTIME Lovenox 30 mg/0.3 mL syringe 30 mg SUBCUT DAILY 35 Days Qty: 10.5 0RF calcium carbonate-vitamin D3 600 mg-10 mcg (400 unit) Tablet 1 ea PO BID 30 Days Qty: 60 0RF tramadol 50 mg Tablet 50 mg PO Q6H PRN (Reason: Pain) Qty: 30 0RF Discharge Orders: Discharge ED (Routine); Ordered 02/23/23 Ordered By: Zander Duncan Referrals: Hilda Patel MD [Primary Care Provider] - Patient Instructions: Altered Mental Status (ED) Activity Restrictions/Additional Instructions: Return for worsening mental status, fever, any other concerning symptoms. Coding Level of Care Code ED Rn Transitional for Casey Vaughn
== END 2023-02-23 22:17 | disposition home or self-care (01) ==
PROVIDERS: Emergency Medicine; Emergency Provider Emergency Medicine; PCP Internal Medicine
DX: R40.0 Somnolence (principal); Z79.82 Long term (current) use of aspirin; Z79.4 Long term (current) use of insulin; F17.210 Nicotine dependence, cigarettes, uncomplicated; E11.9 Type 2 diabetes mellitus without complications
CPT/HCPCS: 36415; 71045; 80053; 80306; 81001; 83735; 85025; 93005; 96360; 99285; J7030

== ENCOUNTER 2023-03-21 00:36 | Emergency (ER) | payer MEDICAID, SELFPAY ==
[2023-03-21 00:39] VITALS: BP 143/77; PULSE 70; RESP 12; TEMP 36.6; O2SAT 96; BMI 29.9
--- NOTE | 2023-03-21 00:45 | W.ED.EXTPRO ---
HPI - Extremity Problem General: Chief complaint: Extremity Injury, Upper Stated complaint: Hip\Wrist Pain Time Seen by Provider: 03/21/23 00:45 History of Present Illness: 63-year-old female comes in today with complaints of pain in the low back, right hip, and right wrist. Patient reports that she had ran out of her ibuprofen 800 mg and tramadol. Patient has just not been able to get refills on her medication because she had forgotten to call in for her prescription. Tonight patient reported that her pain in her hip and her wrist which she had recently broke and had repaired was increased. Patient believes that the weather is changing which is causing an increase in her pain. Patient also has some low back pain which is chronic for her. Patient reports no fever. Patient appears nontoxic. Patient appears in mild to moderate pain. Associated symptoms: Deny chest pain or fever(s) Review of Systems General: Reports: 10 or more systems reviewed and unremarkable except in HPI and below Const: Denies: fever(s) Card: Denies: chest pain Resp: Denies: dyspnea GI: Denies: nausea or vomiting : Denies: difficulty voiding Musc: Reports: back pain and extremity pain Skin/Breast: Denies: erythema Neuro: Denies: headache(s) [facility] ED PFSH: Medical History (Updated 03/21/23 @ 00:55 by KIM Lloyd) Borderline intellectual functioning Closed fracture of right distal radius and ulna Closed fracture of right hip Diabetes Disc displacement, lumbar Fall Fracture, intertrochanteric, right femur Lumbar compression fracture 11/08/2018 Schizoaffective disorder, depressive type Surgical History History of knee surgery (~09/04/13) Dr. Harper Family History Sister High cholesterol Social History Smoking and tobacco status: current every day smoker Alcohol intake: never Substance/Drug Use: never Household members: none Marital status: Single Current occupational status: disabled Physical Exam Const: COMMON NORMALS: alert HENMT: COMMON NORMALS: normocephalic HEAD & SCALP: normocephalic Neck/C-Spine: COMMON NORMALS: full ROM Resp: COMMON NORMALS: normal respiratory effort Cardio: COMMON NORMALS: regular rate RATE: regular rate Back/Pelvis: COMMON NORMALS: thoracic and lumbar spine normal to inspection Extremity: RIGHT UPPER EXTREMITY: Yes wrist (No redness, minimal swelling.) RIGHT LOWER EXTREMITY: Yes hip joint (Well-healed incisions, no redness.) Neuro: SENSORIUM/ORIENTATION: Yes alert Skin: COMMON NORMALS: turgor normal GENERAL SKIN EXAM: turgor normal Course Vital Signs: Vital signs: Vital Signs Temperature 97.8 F 03/21/23 00:39 Pulse Rate 70 03/21/23 00:39 Respiratory Rate 12 03/21/23 00:39 Blood Pressure 143/77 03/21/23 00:39 Pulse Oximetry 96 03/21/23 00:39 Oxygen Delivery Me thod Room Air 03/21/23 00:39 MDM - Extremity (Nontraumatic) Medical Decision Making 63-year-old female comes in today with complaints of increased back pain and right wrist and right hip pain. On exam no signs of redness or inflammation is noted to the skin. Patient moves all extremities well. Patient is guarded with movement due to pain and unsteadiness on feet. Examination of incision sites show well-healed scars. Vital signs are normal. Differential diagnosis includes exacerbation of chronic pain, malingering, wound infection, arthritis. Suspect patient probably has some arthritis and she has out of her anti-inflammatory and pain medication. Patient was given 1 dose of medication and is to follow-up with primary care tomorrow. Patient was agreeable with plan and recommendations. Discharge Plan Discharge Patient Disposition: Home Clinical Impression: Fracture of wrist, Post-op pain, Chronic back pain, S/P right hip fracture Condition: Stable Prescriptions: No Action famotidine 20 mg tablet 20 mg PO DAILY (DME) diabetic shoes with molded inserts See Rx Instructions .Route .MEDSUPPLY Qty: 1 0RF Rx Instructions: As directed Prozac 40 mg capsule 40 mg PO DAILY Qty: 30 2RF ziprasidone HCl [Geodon] 20 mg capsule 20 mg PO BID Qty: 60 2RF Rx Instructions: give with food (meal/snack) topiramate [Topamax] 100 mg tablet 100 mg PO BID Qty: 60 2RF (DME) Fast Form See Rx Instructions .Route .MEDSUPPLY Qty: 1 0RF Rx Instructions: As directed ibuprofen 800 mg tablet 800 mg PO Q8H PRN (Reason: pain) Qty: 60 0RF clonazepam 0.5 mg tablet 0.5 mg PO DAILY PRN (Reason: anxiety) Qty: 30 2RF Jardiance 10 mg Tablet 10 mg PO DAILY insulin glargine [Lantus U-100 Insulin] 100 unit/mL Solution 110 unit SUBCUT QPM cetirizine [Zyrtec] 10 mg Tablet 10 mg PO DAILY PRN (Reason: Allergy Symptoms) aspirin 81 mg Tablet,Delayed Release (Dr/Ec) 81 mg PO DAILY Hold Instructions: Resume on 09/02/21. May resume after 325 mg daily for 30 days gabapentin [Neurontin] 100 mg Capsule 100 mg PO TID insulin lispro [Humalog KwikPen Insulin] 100 unit/mL Insulin Pen 38 unit SUBCUT TID Victoza 3-Chad 0.6 mg/0.1 mL (18 mg/3 mL) Pen Injector 1.6 mg SUBCUT DAILY albuterol sulfate 2.5 mg /3 mL (0.083 %) solution for nebulization 2.5 mg inhalation Q4H PRN (Reason: Shortness Of Breath) fluticasone propionate 50 mcg/actuation [place],Suspension 2 spray INTRANASAL DAILY PRN (Reason: Nasal Congestion) Rx Instructions: administer into each nostril rosuvastatin 20 mg tablet 20 mg PO DAILY melatonin 10 mg tablet 10 mg PO BEDTIME tramadol 50 mg Tablet 50 mg PO Q6H PRN (Reason: Pain) Qty: 30 0RF Discharge Orders: Discharge ED (Routine); Ordered 03/21/23 Ordered By: Nilesh Resendez Referrals: Hilda Patel MD [Primary Care Provider] - Discharge Diet: Usual diet Discharge Activity: Increase activity as tolerated Patient Instructions: Opioid Safety, Pain Management Activity Restrictions/Additional Instructions: Follow-up with primary care in the morning for refills of medications. Monitor for signs of infection such as high fever, increased redness and swelling, and return to the ER. Coding Level of Care Code ED Track [employer] Supervisor for Casey Vaughn
[2023-03-21] MEDS: ketorolac 30 mg/mL INJ IM (00:58)
[2023-03-21] MEDS: HYDROcodone-acetaminophen 5-325 mg Tablet 1 TAB PO (00:58)
[2023-03-21 01:01] VITALS: PULSE 75
== END 2023-03-21 01:14 | disposition home or self-care (01) ==
PROVIDERS: Emergency Provider Nurse Practitioner Family; PCP Internal Medicine
DX: S52.501A Unspecified fracture of the lower end of right radius, initial encounter for closed fracture (principal); S52.201A Unspecified fracture of shaft of right ulna, initial encounter for closed fracture; G89.18 Other acute postprocedural pain; G89.29 Other chronic pain; M54.9 Dorsalgia, unspecified; E11.9 Type 2 diabetes mellitus without complications; F17.200 Nicotine dependence, unspecified, uncomplicated; Z79.4 Long term (current) use of insulin; Z79.84 Long term (current) use of oral hypoglycemic drugs; Z79.82 Long term (current) use of aspirin; Z79.899 Other long term (current) drug therapy; X58.XXXA Exposure to other specified factors, initial encounter
CPT/HCPCS: 96372; 99284; J1885

== ENCOUNTER → 2023-04-09 10:41 | Outpatient (BNVA) | payer MEDICAID, SELFPAY | PROVIDERS: PCP Internal Medicine; Visit Provider Specialist | DX: Z96.651 Presence of right artificial knee joint (principal); M25.512 Pain in left shoulder | CPT/HCPCS: 73560; 73565 ==

== ENCOUNTER 2023-04-09 23:07 | Emergency (ER) | payer MEDICAID, SELFPAY ==
[2023-04-09 23:28] VITALS: BP 126/78; PULSE 68; RESP 14; TEMP 36.7; O2SAT 96; BMI 30.5
--- NOTE | 2023-04-09 23:35 | PC.NURSE ---
pt is having pain in multiple areas- right wrist, right hip, left shoulder
--- NOTE | 2023-04-10 00:09 | W.ED.FALL ---
HPI - Fall General: Chief Complaint: Fall Stated Complaint: pain Time Seen by Provider: 04/10/23 00:09 History of Present Illness: 63-year-old female comes in today with multiple complaints of pain. Patient reports no recent injury. Patient reports left shoulder pain, right wrist pain, right hip pain, and low back pain. Patient has arthritis in all of these joints. Patient has recently seen Dr. Mason today and is supposed to have further evaluation of her rotator cuff in her left shoulder later. Patient reports she was unable to get rest at home which brought her to the ER seeking treatment for her uncontrolled pain. Patient had taken some ibuprofen and tramadol. Associated symptoms-after fall: Reports neck pain Review of Systems General: Reports: 10 or more systems reviewed and unremarkable except in HPI and below Musc: Reports: neck pain, back pain, extremity pain and joint pain PFSH ED PFSH: Medical History (Updated 04/10/23 @ 00:20 by KIM Lloyd) Borderline intellectual functioning Closed fracture of right distal radius and ulna Closed fracture of right hip Diabetes Disc displacement, lumbar Fall Fracture, intertrochanteric, right femur Lumbar compression fracture 11/08/2018 Schizoaffective disorder, depressive type Surgical History History of knee surgery (~09/04/13) Dr. Harper Family History Sister High cholesterol Social History Smoking and tobacco status: current every day smoker Alcohol intake: never Substance/Drug Use: never Household members: none Marital status: Single Current occupational status: disabled Physical Exam Const: COMMON NORMALS: alert HENMT: COMMON NORMALS: normocephalic HEAD & SCALP: normocephalic Neck/C-Spine: COMMON NORMALS: full ROM Resp: COMMON NORMALS: normal respiratory effort and clear to auscultation bilaterally AUSCULTATION: clear to auscultation bilaterally Cardio: COMMON NORMALS: regular rate RATE: regular rate Extremity: RIGHT UPPER EXTREMITY: Yes wrist (Velcro splint) LEFT UPPER EXTREMITY: Yes shoulder joint (Anterior tenderness normal range of motion) RIGHT LOWER EXTREMITY: Yes hip joint (Lateral tenderness) Neuro: SENSORIUM/ORIENTATION: Yes alert Skin: COMMON NORMALS: turgor normal GENERAL SKIN EXAM: turgor normal Course Vital Signs: Vital signs: Vital Signs Temperature 98.0 F 04/09/23 23:28 Pulse Rate 68 04/09/23 23:28 Respiratory Rate 14 04/09/23 23:28 Blood Pressure 126/78 04/09/23 23:28 Pulse Oximetry 96 04/09/23 23:28 Oxygen Delivery Me thod Room Air 04/09/23 23:28 MDM - Fall Medical Decision Making 63-year-old female comes in today with multiple complaints of pain. Patient has a history of chronic pain. On exam patient has some anterior tenderness of the left shoulder, and some tenderness to the right hip. Patient is scheduled to follow-up with her orthopedist in the morning regarding her hip discomfort. Patient is also seeing Dr. Mason for evaluation of her right wrist and is now going to be seen regarding her left shoulder. Patient was unable to get rest at home tonight which prompted her to come into the ER for something for pain. Patient reports no fever or other symptoms. Patient has had no recent falls. Differential diagnosis includes not limited to malingering, osteoarthritis, rotator cuff injury, chronic pain syndrome. Patient was given 30 mg Toradol IM and 1 5?325 hydrocodone tablet. Patient was recommended to follow-up with primary care regarding management of her chronic pain. Patient reported understanding agreed to plan. Discharge Plan Discharge Patient Disposition: Home Clinical Impression: Chronic pain syndrome Left shoulder pain Qualifiers: Chronicity: unspecified Qualified Code(s): M25.512 - Pain in left shoulder Condition: Stable Prescriptions: No Action famotidine 20 mg tablet 20 mg PO DAILY (DME) diabetic shoes with molded inserts See Rx Instructions .Route .MEDSUPPLY Qty: 1 0RF Rx Instructions: As directed Prozac 40 mg capsule 40 mg PO DAILY Qty: 30 2RF ziprasidone HCl [Geodon] 20 mg capsule 20 mg PO BID Qty: 60 2RF Rx Instructions: give with food (meal/snack) topiramate [Topamax] 100 mg tablet 100 mg PO BID Qty: 60 2RF (DME) Fast Form See Rx Instructions .Route .MEDSUPPLY Qty: 1 0RF Rx Instructions: As directed clonazepam 0.5 mg tablet 0.5 mg PO DAILY PRN (Reason: anxiety) Qty: 30 2RF tramadol 50 mg tablet 50 mg PO Q6H PRN (Reason: Pain) Qty: 30 0RF ibuprofen 800 mg tablet 800 mg PO Q8H PRN (Reason: pain) Qty: 60 0RF Jardiance 10 mg Tablet 10 mg PO DAILY insulin glargine [Lantus U-100 Insulin] 100 unit/mL Solution 110 unit SUBCUT QPM cetirizine [Zyrtec] 10 mg Tablet 10 mg PO DAILY PRN (Reason: Allergy Symptoms) aspirin 81 mg Tablet,Delayed Release (Dr/Ec) 81 mg PO DAILY Hold Instructions: Resume on 09/02/21. May resume after 325 mg daily for 30 days gabapentin [Neurontin] 100 mg Capsule 100 mg PO TID insulin lispro [Humalog KwikPen Insulin] 100 unit/mL Insulin Pen 38 unit SUBCUT TID Victoza 3-Chad 0.6 mg/0.1 mL (18 mg/3 mL) Pen Injector 1.6 mg SUBCUT DAILY albuterol sulfate 2.5 mg /3 mL (0.083 %) solution for nebulization 2.5 mg inhalation Q4H PRN (Reason: Shortness Of Breath) fluticasone propionate 50 mcg/actuation [place],Suspension 2 spray INTRANASAL DAILY PRN (Reason: Nasal Congestion) Rx Instructions: administer into each nostril rosuvastatin 20 mg tablet 20 mg PO DAILY melatonin 10 mg tablet 10 mg PO BEDTIME Discharge Orders: Discharge ED (Routine); Ordered 04/10/23 Ordered By: Nilesh Resendez Referrals: Hilda Patel MD [Primary Care Provider] - Discharge Diet: Usual diet Discharge Activity: Increase activity as tolerated Patient Instructions: Musculoskeletal Pain (ED), Pain Management Activity Restrictions/Additional Instructions: Activity as tolerated. Continue with routine medications as needed for pain. Use ice or heat for further pain relief. Follow-up with primary care for further instructions. Return to ED for new concerns. Coding Level of Care Code ED Finished Garment Inspector for Casey Vaughn
[2023-04-10] MEDS: HYDROcodone-acetaminophen 5-325 mg Tablet 1 TAB PO (00:49)
[2023-04-10] MEDS: ketorolac 30 mg/mL INJ IM (00:50)
[2023-04-10 01:01] VITALS: BP 147/86; PULSE 64; RESP 20; O2SAT 96
== END 2023-04-10 01:03 | disposition home or self-care (01) ==
PROVIDERS: Emergency Provider Nurse Practitioner Family; PCP Internal Medicine
DX: G89.4 Chronic pain syndrome (principal); M25.512 Pain in left shoulder; Z96.651 Presence of right artificial knee joint; Z79.4 Long term (current) use of insulin; Z79.82 Long term (current) use of aspirin; F17.210 Nicotine dependence, cigarettes, uncomplicated; E11.9 Type 2 diabetes mellitus without complications; M25.531 Pain in right wrist; M25.551 Pain in right hip
CPT/HCPCS: 96372; 99213; 99284; J1885

== ENCOUNTER → 2023-04-10 09:23 | Outpatient (BNVA) | payer MEDICAID, SELFPAY | PROVIDERS: PCP Internal Medicine; Visit Provider Student in an Organized Health Care Education/Training Program | DX: Z98.890 Other specified postprocedural states (principal); S52.501A Unspecified fracture of the lower end of right radius, initial encounter for closed fracture; S52.601A Unspecified fracture of lower end of right ulna, initial encounter for closed fracture; S72.001A Fracture of unspecified part of neck of right femur, initial encounter for closed fracture; X58.XXXA Exposure to other specified factors, initial encounter | CPT/HCPCS: 73110; 73502; 99024 ==

== ENCOUNTER 2023-04-15 02:28 | Emergency (ER) | payer MEDICAID, SELFPAY ==
[2023-04-15 02:30] VITALS: BP 139/88; PULSE 66; RESP 18; TEMP 36.6; O2SAT 98; BMI 32.9
[2023-04-15 02:35] VITALS: BP 139/88; PULSE 64; RESP 16; O2SAT 94
--- NOTE | 2023-04-15 02:50 | XRR_ITS ---
PROCEDURE INFORMATION: Exam: XR Right Wrist Exam date and time: 04/15/2023 2:54 AM Age: 63 years old Clinical indication: Right; Prior surgery; Surgery date: 1-6 months; Surgery type: Orif in January of 2023; Patient HX: C/O continued RT wrist pain since orif surgery on January of 2023. ; Additional info: Wrist pain, HX of orif TECHNIQUE: Imaging protocol: Radiologic exam of the right wrist. Views: 3 or more views. COMPARISON: CR (UP EXM, ) 01/31/2023 5:37 PM FINDINGS: Bones/joints: Stable appearance of distal radius ORIF hardware, with evidence of fracture healing, manifested by bony bridging/decreased lucency of fracture lines. Unchanged mildly displaced ununited fracture of the ulnar styloid process. No new fracture or dislocation seen. There is degenerative changes, involving the 1st MCP joint, 1st CMC joint, radial aspect of the midcarpal joint and radiocarpal joint, manifested by joint space narrowing, subchondral sclerosis and periarticular osteophytes. Soft tissues: Normal. XR/XR wrist RT min 3V* [id number] IMPRESSION: Stable appearance of distal radius ORIF hardware, with evidence of fracture healing.
--- NOTE | 2023-04-15 02:51 | ED_ITS ---
HPI - Extremity Problem General: Chief complaint: Extremity Injury, Upper Stated complaint: wrist pain Time Seen by Provider: 04/15/23 02:36 History of Present Illness: 63-year-old female with a history of right wrist fracture and ORIF back in January. She complains of right wrist pain tonight that is chronic, but worse. No repeat injury. No increased swelling. Only pain. She took hydrocodone at home without significant relief. Associated symptoms: Deny chest pain, fever(s) or rash Review of Systems Const: Denies: fever(s) Card: Denies: chest pain Resp: Denies: dyspnea GI: Denies: vomiting Skin/Breast: Denies: rash PFSH ED PFSH: Medical History (Updated 04/15/23 @ 02:56 by Zander Duncan DO) Borderline intellectual functioning Closed fracture of right distal radius and ulna Closed fracture of right hip Diabetes Disc displacement, lumbar Fall Fracture, intertrochanteric, right femur Lumbar compression fracture 11/08/2018 Schizoaffective disorder, depressive type Surgical History History of knee surgery (~09/04/13) Dr. Harper Family History Sister High cholesterol Social History Smoking and tobacco status: current every day smoker Alcohol intake: never Substance/Drug Use: never Household members: none Marital status: Single Current occupational status: disabled Physical Exam Const: COMMON NORMALS: no acute distress GENERAL APPEARANCE: cooperative; not ill appearing and not frail appearing HENMT: COMMON NORMALS: normocephalic and atraumatic HEAD & SCALP: normocephalic and atraumatic Eye: COMMON NORMALS: Equal, round and reactive pupils present and EOMs intact bilaterally PUPIL: Yes Equal, round and reactive pupils present Neck/C-Spine: GENERAL: Yes trachea midline Chest: CHEST: Yes Symmetrical chest wall rise Resp: COMMON NORMALS: normal respiratory effort and No use of accessory muscles Cardio: COMMON NORMALS: regular rate and regular rhythm RATE: regular rate RHYTHM: regular rhythm Extremity: NARRATIVE EXTREMITY EXAM: Examination of the right wrist reveals minimal reproducible tenderness. There is no significant swelling. No evidence of new injury. No deformity. Pulses capillary refill and sensation are intact distally. Course Vital Signs: Vital signs: Vital Signs Temperature 98 F 04/15/23 02:30 Pulse Rate 64 04/15/23 02:35 Respiratory Rate 16 04/15/23 02:35 Blood Pressure 139/88 04/15/23 02:35 Pulse Oximetry 94 04/15/23 02:35 Oxygen Delivery Me thod Room Air 04/15/23 02:35 MDM - Extremity (Nontraumatic) Medical Decision Making This is a 63-year-old lady who called an ambulance at 2:30 in the morning for wrist pain that is chronic. She is given an injection of Toradol. No evidence of DVT, hardware failure, or problems with the wrist otherwise. X-ray is negative. She will be discharged. Discharge Plan Discharge Patient Disposition: Home Clinical Impression: Chronic pain of right wrist Condition: Stable Prescriptions: No Action famotidine 20 mg tablet 20 mg PO DAILY (DME) diabetic shoes with molded inserts See Rx Instructions .Route .MEDSUPPLY Qty: 1 0RF Rx Instructions: As directed Prozac 40 mg capsule 40 mg PO DAILY Qty: 30 2RF ziprasidone HCl [Geodon] 20 mg capsule 20 mg PO BID Qty: 60 2RF Rx Instructions: give with food (meal/snack) topiramate [Topamax] 100 mg tablet 100 mg PO BID Qty: 60 2RF (DME) Fast Form See Rx Instructions .Route .MEDSUPPLY Qty: 1 0RF Rx Instructions: As directed hydrocodone-acetaminophen 5-325 mg tablet 1 tab PO Q6H PRN (Reason: pain) 5 Days Qty: 20 0RF clonazepam 0.5 mg tablet 0.5 mg PO DAILY PRN (Reason: anxiety) Qty: 30 2RF tramadol 50 mg tablet 50 mg PO Q6H PRN (Reason: Pain) Qty: 30 0RF ibuprofen 800 mg tablet 800 mg PO Q8H PRN (Reason: pain) Qty: 60 0RF Jardiance 10 mg Tablet 10 mg PO DAILY insulin glargine [Lantus U-100 Insulin] 100 unit/mL Solution 110 unit SUBCUT QPM cetirizine [Zyrtec] 10 mg Tablet 10 mg PO DAILY PRN (Reason: Allergy Symptoms) aspirin 81 mg Tablet,Delayed Release (Dr/Ec) 81 mg PO DAILY Hold Instructions: Resume on 09/02/21. May resume after 325 mg daily for 30 days gabapentin [Neurontin] 100 mg Capsule 100 mg PO TID insulin lispro [Humalog KwikPen Insulin] 100 unit/mL Insulin Pen 38 unit SUBCUT TID Victoza 3-Chad 0.6 mg/0.1 mL (18 mg/3 mL) Pen Injector 1.6 mg SUBCUT DAILY albuterol sulfate 2.5 mg /3 mL (0.083 %) solution for nebulization 2.5 mg inhalation Q4H PRN (Reason: Shortness Of Breath) fluticasone propionate 50 mcg/actuation [place],Suspension 2 spray INTRANASAL DAILY PRN (Reason: Nasal Congestion) Rx Instructions: administer into each nostril rosuvastatin 20 mg tablet 20 mg PO DAILY melatonin 10 mg tablet 10 mg PO BEDTIME Discharge Orders: Discharge ED (Routine); Ordered 04/15/23 Ordered By: Zander Duncan Referrals: Hilda Patel MD [Primary Care Provider] - 4-7 days Discharge Diet: Advance as tolerated Patient Instructions: Arthralgia (ED), Opioid Safety, Pain Management Activity Restrictions/Additional Instructions: Ice frequently at home. Take your home pain medication. See your doctor later this week in clinic. Coding Level of Care Code ED Vessel Scrapper Helper for Casey Vaughn
[2023-04-15] MEDS: ketorolac 60 mg/2 mL INJ IM (02:57)
[2023-04-15 03:22] VITALS: BP 139/88; PULSE 84; RESP 16; O2SAT 98
== END 2023-04-15 03:16 | disposition home or self-care (01) ==
PROVIDERS: Emergency Provider Emergency Medicine; PCP Internal Medicine
DX: M25.531 Pain in right wrist (principal)
CPT/HCPCS: 73110; 96372; 99284; J1885

== ENCOUNTER 2023-04-19 10:40 | Outpatient (CLI) | payer MEDICAID, SELFPAY ==
--- NOTE | 2023-04-19 10:55 | MM_ITS ---
WS: [id number] BILATERAL SCREENING DIGITAL TOMOSYNTHESIS MAMMOGRAM WITH CAD HISTORY: SCREENING COMPARISON: 02/23/2022 and 07/13/2020 Bilateral CC and MLO views with tomosynthesis and synthetic mammography submitted. Computer aided det ection analyzed. Breast composition: There are scattered areas of fibroglandular density. No suspicious masses, microc alcifications or architectural distortion. IMPRESSION: MM/[place] [id number] BI-RADS: 1-Negative FOLLOW UP: 1 Year Follow-up
== END 2023-04-19 10:41 | disposition home or self-care (01) ==
LOC: RAD 10:43 → MOBLMAM 10:44 → RAD 10:53
PROVIDERS: PCP Internal Medicine; Visit Provider Internal Medicine
DX: Z12.31 Encounter for screening mammogram for malignant neoplasm of breast (principal)
CPT/HCPCS: 77063; 77067

== ENCOUNTER 2023-05-06 03:45 | Emergency (ER) | payer MEDICAID, SELFPAY ==
[2023-05-06 03:46] VITALS: BP 168/84; PULSE 65; RESP 16; TEMP 36.6; O2SAT 95; BMI 30.5
[2023-05-06 05:07] VITALS: BP 181/87; PULSE 60; RESP 16; O2SAT 95
[2023-05-06 05:18] VITALS: RESP 16; O2SAT 98
[2023-05-06] MEDS: oxyCODONE-APAP 5-325 mg Tablet 2 TAB PO (05:18)
--- NOTE | 2023-05-06 05:24 | W.ED.EXTPRO ---
HPI - Extremity Problem General: Chief complaint: Extremity Injury, Lower Stated complaint: HIP PAIN Time Seen by Provider: 05/06/23 05:06 Source: patient History of Present Illness: 63-year-old female well-known to the emergency department. She complains of right lateral hip pain. It is nontraumatic. She had surgery on the hip back in January, intramedullary nail placement. No fever. Patient can walk. She states that she tried ibuprofen 800 mg at home without relief. MD Complaint: extremity pain Associated symptoms: Deny chest pain or fever(s) Review of Systems Const: Denies: fever(s) Card: Denies: chest pain Resp: Denies: dyspnea GI: Denies: abdominal pain, nausea or vomiting : Denies: flank pain PFSH ED PFSH: Medical History Borderline intellectual functioning Closed fracture of right distal radius and ulna Closed fracture of right hip Diabetes Disc displacement, lumbar Fall Fracture, intertrochanteric, right femur Lumbar compression fracture 11/08/2018 Schizoaffective disorder, depressive type Surgical History History of knee surgery (~09/04/13) Dr. Harper Family History Sister High cholesterol Social History Smoking and tobacco status: current every day smoker Alcohol intake: never Substance/Drug Use: never Household members: none Marital status: Single Current occupational status: disabled Physical Exam Const: COMMON NORMALS: no acute distress GENERAL APPEARANCE: cooperative and frail appearing; not ill appearing HENMT: COMMON NORMALS: normocephalic and atraumatic HEAD & SCALP: normocephalic and atraumatic Eye: COMMON NORMALS: Equal, round and reactive pupils present and EOMs intact bilaterally PUPIL: Yes Equal, round and reactive pupils present Neck/C-Spine: GENERAL: Yes trachea midline Resp: COMMON NORMALS: normal respiratory effort and No retractions Cardio: COMMON NORMALS: regular rate and regular rhythm RATE: regular rate RHYTHM: regular rhythm GI: COMMON NORMALS: Normal to inspection, nondistended, normoactive bowel sounds present and Soft to palpation PALPATION: Yes Soft to palpation Extremity: NARRATIVE EXTREMITY EXAM: Clean incisions that are healed to the right lateral hip. There is no deformity. Patient can freely move the hip. There are some lateral tenderness. Neuro: JEANINE COMA SCALE: document GCS findings Jeanine coma scale eye opening: Spontaneous [place] coma scale verbal response: Orientated [place] coma scale motor response: Obey commands Jeanine coma scale total score: 15 Course Vital Signs: Vital signs: Vital Signs Temperature 97.8 F 05/06/23 03:46 Pulse Rate 60 05/06/23 05:07 Respiratory Rate 16 05/06/23 05:18 Blood Pressure 181/87 05/06/23 05:07 Pulse Oximetry 98 05/06/23 05:18 Oxygen Delivery Me thod Room Air 05/06/23 05:07 MDM - Extremity (Nontraumatic) Medical Decision Making Hip was imaged last month without any problems. Imaging not likely to reveal anything new today. She has no fever. She is hypertensive, which she says is from pain. She is given a dose of pain medication here. Short-term prescription of tramadol. Outpatient follow-up. Discharge Plan Discharge Patient Disposition: Home Clinical Impression: Lateral pain of right hip Condition: Stable Prescriptions: Continued tramadol 50 mg tablet 50 mg PO Q6H PRN (Reason: Pain) Qty: 15 0RF Discontinued hydrocodone-acetaminophen 5-325 mg tablet 1 tab PO Q6H PRN (Reason: pain) 5 Days Qty: 20 0RF No Action famotidine 20 mg tablet 20 mg PO DAILY (DME) diabetic shoes with molded inserts See Rx Instructions .Route .MEDSUPPLY Qty: 1 0RF Rx Instructions: As directed Prozac 40 mg capsule 40 mg PO DAILY Qty: 30 2RF ziprasidone HCl [Geodon] 20 mg capsule 20 mg PO BID Qty: 60 2RF Rx Instructions: give with food (meal/snack) topiramate [Topamax] 100 mg tablet 100 mg PO BID Qty: 60 2RF (DME) Fast Form See Rx Instructions .Route .MEDSUPPLY Qty: 1 0RF Rx Instructions: As directed clonazepam 0.5 mg tablet 0.5 mg PO DAILY PRN (Reason: anxiety) Qty: 30 2RF ibuprofen 800 mg tablet 800 mg PO Q8H PRN (Reason: pain) Qty: 60 0RF Jardiance 10 mg Tablet 10 mg PO DAILY insulin glargine [Lantus U-100 Insulin] 100 unit/mL Solution 110 unit SUBCUT QPM cetirizine [Zyrtec] 10 mg Tablet 10 mg PO DAILY PRN (Reason: Allergy Symptoms) aspirin 81 mg Tablet,Delayed Release (Dr/Ec) 81 mg PO DAILY Hold Instructions: Resume on 09/02/21. May resume after 325 mg daily for 30 days gabapentin [Neurontin] 100 mg Capsule 100 mg PO TID insulin lispro [Humalog KwikPen Insulin] 100 unit/mL Insulin Pen 38 unit SUBCUT TID Victoza 3-Chad 0.6 mg/0.1 mL (18 mg/3 mL) Pen Injector 1.6 mg SUBCUT DAILY albuterol sulfate 2.5 mg /3 mL (0.083 %) solution for nebulization 2.5 mg inhalation Q4H PRN (Reason: Shortness Of Breath) fluticasone propionate 50 mcg/actuation [place],Suspension 2 spray INTRANASAL DAILY PRN (Reason: Nasal Congestion) Rx Instructions: administer into each nostril rosuvastatin 20 mg tablet 20 mg PO DAILY melatonin 10 mg tablet 10 mg PO BEDTIME Discharge Orders: Discharge ED (Routine); Ordered 05/06/23 Ordered By: Zander Duncan Referrals: Hilda Patel MD [Primary Care Provider] - 1-3 days Patient Instructions: Hip Pain (ED), Opioid Safety, Pain Management Coding Level of Care Code ED Inventory Control Specialist for Casey Vaughn
== END 2023-05-06 09:53 | disposition home or self-care (01) ==
PROVIDERS: Emergency Provider Emergency Medicine; PCP Internal Medicine
DX: M25.551 Pain in right hip (principal); R03.0 Elevated blood-pressure reading, without diagnosis of hypertension
CPT/HCPCS: 99283

== ENCOUNTER 2023-05-15 22:05 | Emergency (ER) | payer MEDICAID, SELFPAY ==
[2023-05-15 22:10] VITALS: BMI 32.9
[2023-05-15 22:13] VITALS: BP 157/83; PULSE 71; RESP 16; TEMP 37.1; O2SAT 96
--- NOTE | 2023-05-16 00:01 | ED_ITS ---
HPI - Headache General: Chief Complaint: Headache Stated Complaint: headeache Time Seen by Provider: 05/15/23 23:58 History of Present Illness: Patient presents ER with complaints of a headache and migraine for the last 4 to 5 hours. Patient rates pain 10 out of 10 she states nothing makes it better or worse. Patient states normally she takes ibuprofen and it goes away. Patient says she also has acid reflux at this time. Patient states his headaches like her normal headaches but just did not go away. Review of Systems General: Reports: 10 or more systems reviewed and unremarkable except in HPI and below PFSH ED PFSH: Medical History (Updated 05/16/23 @ 00:42 by Jayesh Casiano DO) Borderline intellectual functioning Closed fracture of right distal radius and ulna Closed fracture of right hip Diabetes Disc displacement, lumbar Fall Fracture, intertrochanteric, right femur Lumbar compression fracture 11/08/2018 Schizoaffective disorder, depressive type Surgical History History of knee surgery (~09/04/13) Dr. Harper Family History Sister High cholesterol Social History Smoking and tobacco status: current every day smoker Alcohol intake: never Substance/Drug Use: never Household members: none Marital status: Single Current occupational status: disabled Physical Exam Const: COMMON NORMALS: no acute distress, average body habitus, patient oriented x3, no limitations, healthy appearing, alert and well nourished HENMT: COMMON NORMALS: normocephalic, atraumatic, hearing grossly normal bilaterally, external ears normal, Normal external nose present and moist oral mucous membranes HEAD & SCALP: normocephalic and atraumatic NOSE: Normal external nose present EXTERNAL EAR: Yes external ears normal Eye: COMMON NORMALS: Equal, round and reactive pupils present, EOMs intact bilaterally, conjunctivae normal and no scleral icterus CONJUNCTIVA: Yes conjunctivae normal PUPIL: Yes Equal, round and reactive pupils present Neck/C-Spine: COMMON NORMALS: full ROM, no lymphadenopathy, supple, no meningeal signs, no JVD and Thyroid normal THYROID: Thyroid normal Lymph: LYMPHATIC: no lymphadenopathy noted Chest: COMMONS NORMALS: normal inspection of the chest and normal palpation of entire chest wall Resp: COMMON NORMALS: normal respiratory effort, No retractions, No use of accessory muscles and clear to auscultation bilaterally AUSCULTATION: clear to auscultation bilaterally Cardio: COMMON NORMALS: no JVD, regular rate, regular rhythm, S1 normal heart sound present, S2 normal heart sound present, No gallops present (Cardio), No clicks present (Cardio), No murmurs present (Cardio) and No rub (Cardio) RATE: regular rate RHYTHM: regular rhythm HEART SOUNDS: S1 normal heart sound present and S2 normal heart sound present GI: COMMON NORMALS: Normal to inspection, nondistended, normoactive bowel sounds present, Soft to palpation, non-tender, No hepatosplenomegaly present and no masses PALPATION: Yes Soft to palpation and Yes No hepatosplenomegaly present : COMMON NORMALS: Yes no CVA tenderness BLADDER/KIDNEY EXAM: Yes no CVA tenderness Back/Pelvis: COMMON NORMALS: no CVA tenderness Neuro: COMMON NORMALS: patient oriented x3 SENSORIUM/ORIENTATION: Yes alert MENINGEAL SIGNS: Yes no meningeal signs Course Vital Signs: Vital signs: Vital Signs Temperature 98.8 F 05/15/23 22:13 Pulse Rate 71 05/15/23 22:13 Respiratory Rate 16 05/15/23 22:13 Blood Pressure 157/83 05/15/23 22:13 Pulse Oximetry 96 05/15/23 22:13 Oxygen Delivery Me thod Room Air 05/15/23 22:13 MDM - Headache Medical Decision Making Patient presents to the ER for a migraine that lasted 4 to 5 hours. Patient was given a cocktail of Toradol 60 mg, 10 mg Reglan, 50 mg Benadryl IM. Headache has improved and patient be discharged home to follow-up with PCP in 7 days Differential Diagnosis Likely migraine; Unlikely tension headache, subarachnoid hemorrhage, headache, meningitis, sinusitis or postconcussion syndrome Medical Records I reviewed the patient's medical records. Lab Data I reviewed the patient's lab results. No radiology studies performed this visit Discharge Plan Discharge Patient Disposition: Home Clinical Impression: Migraine Qualifiers: Migraine type: unspecified Status migrainosus presence: without status migrainosus Intractability: not intractable Qualified Code(s): G43.909 - Migraine, unspecified, not intractable, without status migrainosus Condition: Stable Prescriptions: No Action famotidine 20 mg tablet 20 mg PO DAILY (DME) diabetic shoes with molded inserts See Rx Instructions .Route .MEDSUPPLY Qty: 1 0RF Rx Instructions: As directed Prozac 40 mg capsule 40 mg PO DAILY Qty: 30 2RF ziprasidone HCl [Geodon] 20 mg capsule 20 mg PO BID Qty: 60 2RF Rx Instructions: give with food (meal/snack) topiramate [Topamax] 100 mg tablet 100 mg PO BID Qty: 60 2RF (DME) Fast Form See Rx Instructions .Route .MEDSUPPLY Qty: 1 0RF Rx Instructions: As directed clonazepam 0.5 mg tablet 0.5 mg PO DAILY PRN (Reason: anxiety) Qty: 30 2RF ibuprofen 800 mg tablet 800 mg PO Q8H PRN (Reason: pain) Qty: 60 0RF Jardiance 10 mg Tablet 10 mg PO DAILY insulin glargine [Lantus U-100 Insulin] 100 unit/mL Solution 110 unit SUBCUT QPM cetirizine [Zyrtec] 10 mg Tablet 10 mg PO DAILY PRN (Reason: Allergy Symptoms) aspirin 81 mg Tablet,Delayed Release (Dr/Ec) 81 mg PO DAILY Hold Instructions: Resume on 09/02/21. May resume after 325 mg daily for 30 days gabapentin [Neurontin] 100 mg Capsule 100 mg PO TID insulin lispro [Humalog KwikPen Insulin] 100 unit/mL Insulin Pen 38 unit SUBCUT TID Victoza 3-Chad 0.6 mg/0.1 mL (18 mg/3 mL) Pen Injector 1.6 mg SUBCUT DAILY albuterol sulfate 2.5 mg /3 mL (0.083 %) solution for nebulization 2.5 mg inhalation Q4H PRN (Reason: Shortness Of Breath) fluticasone propionate 50 mcg/actuation [place],Suspension 2 spray INTRANASAL DAILY PRN (Reason: Nasal Congestion) Rx Instructions: administer into each nostril rosuvastatin 20 mg tablet 20 mg PO DAILY melatonin 10 mg tablet 10 mg PO BEDTIME tramadol 50 mg tablet 50 mg PO Q6H PRN (Reason: Pain) Qty: 15 0RF Discharge Orders: Discharge ED (Routine); Ordered 05/16/23 Ordered By: Jayesh Casiano Referrals: Hilda Patel MD [Primary Care Provider] - 1 week Patient Instructions: Migraine Headache (ED) Activity Restrictions/Additional Instructions: Please follow-up with your PCP in approximately 7 days or sooner as needed for further evaluation and treatment of your migraine headaches. Coding Level of Care Code ED Substance Addiction Coordinator for Casey Vaughn
[2023-05-16] MEDS: ketorolac 60 mg/2 mL INJ IM (00:32)
[2023-05-16] MEDS: metoclopramide 5 mg/mL SDV 2 mL 10 MG IM (00:34)
[2023-05-16] MEDS: diphenhydrAMINE 50 mg/mL SDV 1mL IM (00:37)
== END 2023-05-16 01:05 | disposition home or self-care (01) ==
PROVIDERS: Emergency Provider Emergency Medicine; PCP Internal Medicine
DX: G43.909 Migraine, unspecified, not intractable, without status migrainosus (principal); Z79.82 Long term (current) use of aspirin; Z79.4 Long term (current) use of insulin; E11.9 Type 2 diabetes mellitus without complications; F17.210 Nicotine dependence, cigarettes, uncomplicated
CPT/HCPCS: 96372; 99284; J1200; J1885; J2765

== ENCOUNTER → 2023-06-11 10:36 | Outpatient (BNVA) | payer MEDICAID, SELFPAY | PROVIDERS: PCP Internal Medicine; Visit Provider Nurse Practitioner | DX: M67.912 Unspecified disorder of synovium and tendon, left shoulder; M19.012 Primary osteoarthritis, left shoulder | CPT/HCPCS: 73030; 99213; 99214 ==

== ENCOUNTER → 2023-06-25 10:35 | Outpatient (BNVA) | payer SELFPAY | PROVIDERS: PCP Internal Medicine; Visit Provider Podiatrist Foot & Ankle Surgery | DX: E11.8 Type 2 diabetes mellitus with unspecified complications (principal); E11.42 Type 2 diabetes mellitus with diabetic polyneuropathy; L60.3 Nail dystrophy; M21.41 Flat foot [pes planus] (acquired), right foot; M21.42 Flat foot [pes planus] (acquired), left foot; L84 Corns and callosities; Z79.4 Long term (current) use of insulin | CPT/HCPCS: 11055; 11721 ==

== ENCOUNTER 2023-09-20 01:49 | Emergency (ER) | payer MEDICARE, MEDICAID, SELFPAY ==
[2023-09-20 01:50] VITALS: BP 130/76; PULSE 70; RESP 18; TEMP 36.8; O2SAT 96; BMI 29.6
--- NOTE | 2023-09-20 01:57 | XRR_ITS ---
PROCEDURE INFORMATION: Exam: XR Right Hip Exam date and time: 09/20/2023 2:02 AM Age: 63 years old Clinical indication: Hip pain; Right hip; Prior surgery; Surgery date: 6+ months; Surgery type: Unk surg date; Patient HX: Note: There is a artifact from drawstrings of pants visible in the lateral view but it is not obstructing anatomy. Patient was doing a [employer] workout back in January and turned the wrong way and hurt hip. Patient unable to internally rotate to achieve true ap position. But is able to internally rotate left leg fine. ; Additional info: Fall, hip pain TECHNIQUE: Imaging protocol: Radiologic exam of the right hip. Views: 1 view hip with pelvis when performed. COMPARISON: CR XR hip RT 2-3V wo/w pel* [id number] 04/10/2023 9:51 AM FINDINGS: Bones/joints: The patient is post internal fixation of the right proximal femur with a intramedullary gustavo and dynamic femoral head screw. There is questionable irregular lucency about the inferior left acetabulum. Please correlate clinically. Noncontrast CT of the left hip may be performed to further assess. Soft tissues: Unremarkable. XR/XR hip RT 2-3V wo/w pel* [id number] IMPRESSION: Postsurgical change about the right hip. Indeterminate questionable lucency overlying the inferior left acetabulum. Please correlate clinically, noncontrast CT of the left hip may be performed as clinically indicated to further assess.
[2023-09-20] MEDS: ketorolac 60 mg/2 mL INJ IM (02:04)
--- NOTE | 2023-09-20 02:12 | W.ED.EXTPRO ---
HPI - Extremity Problem General: Chief complaint: Extremity Problem,Nontraumatic Stated complaint: right hip pain Time Seen by Provider: 09/20/23 01:54 History of Present Illness: Patient presents to the ER with complaints of right hip pain. Patient stated she fractured her hip from a fall 6 months ago and is never been right since. The pain just kept getting worse until tonight she could not take it anymore. She did put Biofreeze on and it did help some but she still could not take it so she called EMS to bring her to the ER. Patient did ambulate from the EMS cot to the bed without difficulty and without any personal assistive device. Review of Systems General: Reports: 10 or more systems reviewed and unremarkable except in HPI and below PFSH ED PFSH: Medical History (Updated 09/20/23 @ 03:04 by Jayesh Casiano DO) Closed fracture of right distal radius and ulna Fracture, intertrochanteric, right femur Diabetes Fall Closed fracture of right hip Lumbar compression fracture 11/08/2018 Disc displacement, lumbar Borderline intellectual functioning Schizoaffective disorder, depressive type Surgical History History of knee surgery (~09/04/13) Dr. Harper Family History Sister High cholesterol Social History Smoking and tobacco/nicotine status: never used tobacco/nicotine Alcohol intake: never Substance/Drug Use: never Household members: none Marital status: Single Current occupational status: disabled Physical Exam Const: COMMON NORMALS: no acute distress, average body habitus, patient oriented x3, no limitations, healthy appearing, alert and well nourished HENMT: COMMON NORMALS: normocephalic, atraumatic, hearing grossly normal bilaterally, external ears normal, EAC's normal, Normal external nose present, moist oral mucous membranes and oropharynx normal HEAD & SCALP: normocephalic and atraumatic NOSE: Normal external nose present EXTERNAL EAR: Yes external ears normal EXTERNAL AUDITORY CANAL: EAC's normal Neck/C-Spine: COMMON NORMALS: no JVD Resp: COMMON NORMALS: normal respiratory effort, No retractions, No use of accessory muscles and clear to auscultation bilaterally AUSCULTATION: clear to auscultation bilaterally Cardio: COMMON NORMALS: no JVD, regular rate, regular rhythm, S1 normal heart sound present, S2 normal heart sound present, No gallops present (Cardio), No clicks present (Cardio), No murmurs present (Cardio) and No rub (Cardio) RATE: regular rate RHYTHM: regular rhythm HEART SOUNDS: S1 normal heart sound present and S2 normal heart sound present GI: COMMON NORMALS: Normal to inspection, nondistended, normoactive bowel sounds present, Soft to palpation, non-tender, No hepatosplenomegaly present and no masses PALPATION: Yes Soft to palpation and Yes No hepatosplenomegaly present Extremity: NARRATIVE EXTREMITY EXAM: Tender to palpate generically over right hip area. No obvious crepitus deformity instability noted. Neuro: COMMON NORMALS: patient oriented x3 SENSORIUM/ORIENTATION: Yes alert Course Vital Signs: Vital signs: Vital Signs Temperature 98.2 F 09/20/23 01:50 Pulse Rate 70 09/20/23 01:50 Respiratory Rate 18 09/20/23 01:50 Blood Pressure 130/76 09/20/23 01:50 Pulse Oximetry 96 09/20/23 01:50 Oxygen Delivery Me thod Room Air 09/20/23 01:50 MDM - Extremity (Nontraumatic) Medical Decision Making Patient was given 60 mg Toradol IM and an x-ray was obtained on her right hip and pelvis. Right hip was normal postsurgical changes no acute change. Differential Diagnosis Unlikely herpes zoster, gout, cellulitis, superficial thrombophlebitis, deep venous thrombosis of upper extremity, lower extremity edema or deep vein thrombosis of lower extremity Lab Data I reviewed the patient's lab results. Radiology Impressions Hip/Pelvis X-Ray 09/20/23 01:57 IMPRESSION: Postsurgical change about the right hip. Indeterminate questionable lucency overlying the inferior left acetabulum. Please correlate clinically, noncontrast CT of the left hip may be performed as clinically indicated to further assess. All radiology interpretation(s) finalized by discharge Discharge Plan Discharge Patient Disposition: Home Clinical Impression: Pain of right hip Condition: Stable Prescriptions: No Action famotidine 20 mg tablet 20 mg PO DAILY (DME) diabetic shoes with molded inserts See Rx Instructions .Route .MEDSULY Qty: 1 0RF Rx Instructions: As directed (DME) Fast Form See Rx Instructions .Route .MEDSUPPLY Qty: 1 0RF Rx Instructions: As directed insulin aspart U-100 [Novolog PenFill U-100 Insulin] 100 unit/mL cartridge 8 unit SUBCUT TID (DME) Diabetic Shoes with 3 pairs of inserts See Rx Instructions .Route .MEDSUPPLY Qty: 1 0RF Rx Instructions: As directed clonazepam 0.5 mg tablet 0.5 mg PO DAILY PRN (Reason: anxiety) Qty: 30 2RF Prozac 40 mg capsule 40 mg PO DAILY Qty: 30 0RF topiramate [Topamax] 100 mg tablet 100 mg PO BID Qty: 60 0RF ziprasidone HCl [Geodon] 20 mg capsule 20 mg PO BID Qty: 60 0RF Rx Instructions: give with food (meal/snack) melatonin 10 mg tablet 20 mg PO BEDTIME Qty: 60 0RF ibuprofen 800 mg tablet See Rx Instructions .ROUTE .COMPLEX Qty: 60 0RF Dose Instruction: TAKE ONE TABLET BY MOUTH EVERY 8 HOURS as needed for pain Rx Instructions: TAKE ONE TABLET BY MOUTH EVERY 8 HOURS as needed for pain Jardiance 10 mg Tablet 10 mg PO DAILY insulin glargine [Lantus U-100 Insulin] 100 unit/mL Solution 110 unit SUBCUT QPM cetirizine [Zyrtec] 10 mg Tablet 10 mg PO DAILY PRN (Reason: Allergy Symptoms) aspirin 81 mg Tablet,Delayed Release (Dr/Ec) 81 mg PO DAILY Hold Instructions: Resume on 09/02/21. May resume after 325 mg daily for 30 days gabapentin [Neurontin] 100 mg Capsule 100 mg PO TID Victoza 3-Chad 0.6 mg/0.1 mL (18 mg/3 mL) Pen Injector 1.6 mg SUBCUT DAILY albuterol sulfate 2.5 mg /3 mL (0.083 %) solution for nebulization 2.5 mg inhalation Q4H PRN (Reason: Shortness Of Breath) fluticasone propionate 50 mcg/actuation [place],Suspension 2 spray INTRANASAL DAILY PRN (Reason: Nasal Congestion) Rx Instructions: administer into each nostril rosuvastatin 20 mg tablet 20 mg PO DAILY tramadol 50 mg tablet 50 mg PO Q6H PRN (Reason: Pain) Qty: 15 0RF Discharge Orders: Discharge ED (Routine); Ordered 09/20/23 Ordered By: Jayesh Casiano Referrals: Hilda Patel MD [Primary Care Provider] - 1 week Patient Instructions: Hip Pain (ED) Activity Restrictions/Additional Instructions: The x-ray of your right hip was negative for acute changes. Please follow-up with your family practice physician for further evaluation and treatment. They may end up wanting you to see orthopedic surgeon or pain management if this hip pain keeps flaring up. Coding Level of Care Code ED Bat Lathe Operator for Casey Vaughn
[2023-09-20 03:20] VITALS: BP 130/76; PULSE 70; RESP 18; TEMP 36.8; O2SAT 96
== END 2023-09-20 03:21 | disposition home or self-care (01) ==
PROVIDERS: Emergency Provider Emergency Medicine; PCP Internal Medicine
DX: M25.551 Pain in right hip (principal); Z79.82 Long term (current) use of aspirin; Z79.4 Long term (current) use of insulin; E11.9 Type 2 diabetes mellitus without complications
CPT/HCPCS: 73502; 96372; 99284; J1885

== ENCOUNTER 2023-10-17 22:41 | Emergency (ER) | payer MEDICARE, MEDICAID, SELFPAY ==
[2023-10-17 22:42] VITALS: BP 146/96; PULSE 80; RESP 16; O2SAT 96; BMI 31.8
--- NOTE | 2023-10-17 22:43 | W.ED.GENADLT ---
HPI - General Adult General: Chief complaint: Extremity Problem,Nontraumatic Stated complaint: hip pain Time Seen by Provider: 10/17/23 22:42 History of Present Illness: 63-year-old female comes in today with right hip pain. Patient reports that her pain has been exacerbated tonight due to weather change. Patient had a hip replacement back in January from a fall and injury. Since then patient has had waxing and waning of hip pain. Patient appears nontoxic. Patient is alert and oriented. Patient reports that she ran out of her Voltaren gel which she will use for breakthrough pain that seems to help relieve her pain the best. Review of Systems General: Reports: 10 or more systems reviewed and unremarkable except in HPI and below Musc: Reports: joint pain PFS ED PFSH: Medical History (Updated 10/17/23 @ 22:51 by KIM Lloyd) Closed fracture of right distal radius and ulna Fracture, intertrochanteric, right femur Diabetes Fall Closed fracture of right hip Lumbar compression fracture 11/08/2018 Disc displacement, lumbar Borderline intellectual functioning Schizoaffective disorder, depressive type Surgical History History of knee surgery (~09/04/13) Dr. Harper Family History Sister High cholesterol Social History Smoking and tobacco/nicotine status: never used tobacco/nicotine Alcohol intake: never Substance/Drug Use: never Household members: none Marital status: Single Current occupational status: disabled Physical Exam Const: COMMON NORMALS: alert HENMT: COMMON NORMALS: normocephalic HEAD & SCALP: normocephalic Neck/C-Spine: COMMON NORMALS: no meningeal signs Resp: COMMON NORMALS: normal respiratory effort Cardio: COMMON NORMALS: regular rate RATE: regular rate GI: COMMON NORMALS: Soft to palpation and non-tender PALPATION: Yes Soft to palpation Back/Pelvis: COMMON NORMALS: thoracic and lumbar spine normal to inspection Extremity: RIGHT LOWER EXTREMITY: Yes hip joint (Normal range of motion. No crepitus. Weightbearing.) Neuro: SENSORIUM/ORIENTATION: Yes alert MENINGEAL SIGNS: Yes no meningeal signs Skin: COMMON NORMALS: turgor normal GENERAL SKIN EXAM: turgor normal Course Vital Signs: Vital signs: Vital Signs Pulse Rate 80 10/17/23 22:42 Respiratory Rate 16 10/17/23 22:42 Blood Pressure 146/96 10/17/23 22:42 Pulse Oximetry 96 10/17/23 22:42 Oxygen Delivery Me thod Room Air 10/17/23 22:42 MDM - General Adult Medical Decision Making 63-year-old female comes in with exacerbation of right hip pain. Patient appears nontoxic. Patient moves extremity without difficulty. No crepitus or deformity is noted. Patient is able to bear weight. Patient is able to sit up in bed without difficulty. No pain is noted on palpation of the spine. Patient denies any injury. Blood glucose was elevated above 400 with EMS was verified 418 in the emergency room. Differential diagnosis includes not limited to arthritis, chronic pain syndrome, intervertebral disc disease, facet arthropathy, muscle strain. No x-ray was warranted due to patient's mobility and no voiced injury. Patient was given 30 mg of ketorolac IM for her pain. Patient was written a prescription for diclofenac gel for further pain relief. Patient will continue with her Biofreeze otherwise for her pain. Patient was agreeable with plan and was discharged home. Patient was also given 8 units of subcu rapid insulin for elevated blood glucose. Patient was instructed to continue for routine care at home. Patient reported understanding agreed to plan. Patient was discharged home in stable condition. No radiology studies performed this visit Discharge Plan Discharge Patient Disposition: Home Clinical Impression: Pain in right hip Condition: Stable Prescriptions: [place] Arthritis Pain 1 % gel 4 g topical QID Qty: 100 3RF Rx Instructions: apply to single knee, ankle, foot; for foot includes sole/toes/top of foot No Action famotidine 20 mg tablet 20 mg PO DAILY (DME) diabetic shoes with molded inserts See Rx Instructions .Route .MEDSUPPLY Qty: 1 0RF Rx Instructions: As directed (DME) Fast Form See Rx Instructions .Route .MEDSUPPLY Qty: 1 0RF Rx Instructions: As directed insulin aspart U-100 [Novolog PenFill U-100 Insulin] 100 unit/mL cartridge 8 unit SUBCUT TID (DME) Diabetic Shoes with 3 pairs of inserts See Rx Instructions .Route .MEDSUPPLY Qty: 1 0RF Rx Instructions: As directed clonazepam 0.5 mg tablet 0.5 mg PO DAILY PRN (Reason: anxiety) Qty: 30 2RF Prozac 40 mg capsule 40 mg PO DAILY Qty: 30 0RF topiramate [Topamax] 100 mg tablet 100 mg PO BID Qty: 60 0RF ziprasidone HCl [Geodon] 20 mg capsule 20 mg PO BID Qty: 60 0RF Rx Instructions: give with food (meal/snack) melatonin 10 mg tablet 20 mg PO BEDTIME Qty: 60 0RF ibuprofen 800 mg tablet See Rx Instructions .ROUTE .COMPLEX Qty: 60 0RF Dose Instruction: TAKE ONE TABLET BY MOUTH EVERY 8 HOURS as needed for pain Rx Instructions: TAKE ONE TABLET BY MOUTH EVERY 8 HOURS as needed for pain Jardiance 10 mg Tablet 10 mg PO DAILY insulin glargine [Lantus U-100 Insulin] 100 unit/mL Solution 110 unit SUBCUT QPM cetirizine [Zyrtec] 10 mg Tablet 10 mg PO DAILY PRN (Reason: Allergy Symptoms) aspirin 81 mg Tablet,Delayed Release (Dr/Ec) 81 mg PO DAILY Hold Instructions: Resume on 09/02/21. May resume after 325 mg daily for 30 days gabapentin [Neurontin] 100 mg Capsule 100 mg PO TID Victoza 3-Chad 0.6 mg/0.1 mL (18 mg/3 mL) Pen Injector 1.6 mg SUBCUT DAILY albuterol sulfate 2.5 mg /3 mL (0.083 %) solution for nebulization 2.5 mg inhalation Q4H PRN (Reason: Shortness Of Breath) fluticasone propionate 50 mcg/actuation [place],Suspension 2 spray INTRANASAL DAILY PRN (Reason: Nasal Congestion) Rx Instructions: administer into each nostril rosuvastatin 20 mg tablet 20 mg PO DAILY tramadol 50 mg tablet 50 mg PO Q6H PRN (Reason: Pain) Qty: 15 0RF Discharge Orders: Discharge ED (Routine); Ordered 10/17/23 Ordered By: Nilesh Resendez Referrals: Hilda Patel MD [Primary Care Provider] - Patient Instructions: Pain Management Activity Restrictions/Additional Instructions: Activity as tolerated. Continue with routine care as directed. Follow-up with primary care for further instructions. Return to ED for new concerns. Coding Level of Care Code ED Casino Worker for Casey Vaughn
[2023-10-17] MEDS: ketorolac 30 mg/mL INJ IM (22:58)
[2023-10-17] MEDS: insulin lispro 100 unit/1 mL 8 UNIT SUBCUT (22:59)
[2023-10-17 23:19] VITALS: BP 146/96; PULSE 80; RESP 16; O2SAT 96
== END 2023-10-17 23:20 | disposition home or self-care (01) ==
PROVIDERS: Emergency Provider Nurse Practitioner Family; PCP Internal Medicine
DX: M25.551 Pain in right hip (principal); Z79.82 Long term (current) use of aspirin; Z79.4 Long term (current) use of insulin; E11.9 Type 2 diabetes mellitus without complications
CPT/HCPCS: 96372; 99284; J1815; J1885

== ENCOUNTER 2023-11-01 15:33 | Emergency (ER) | payer MEDICARE, MEDICAID, SELFPAY ==
[2023-11-01 15:41] VITALS: BP 128/84; PULSE 73; RESP 16; TEMP 37.1; O2SAT 95; BMI 30.5
--- NOTE | 2023-11-01 15:46 | ED_ITS ---
HPI - General Adult General: Chief complaint: General Medical Stated complaint: fall Time Seen by Provider: 11/01/23 15:45 History of Present Illness: Patient was walking outside and tripped on the curb causing her to fall onto her left side. Patient denies any serious injury but does have some left anterior rib pain. Patient reports she is able to take a deep breath without much pain or discomfort. Patient appears nontoxic. Patient is alert and oriented. Associated symptoms: Deny dyspnea Review of Systems General: Reports: 10 or more systems reviewed and unremarkable except in HPI and below Resp: Denies: dyspnea Musc: Reports: other (Left anterior rib discomfort) [facility] ED PFS: Medical History (Updated 11/01/23 @ 17:40 by KIM Lloyd) Closed fracture of right distal radius and ulna Fracture, intertrochanteric, right femur Diabetes Fall Closed fracture of right hip Lumbar compression fracture 11/08/2018 Disc displacement, lumbar Borderline intellectual functioning Schizoaffective disorder, depressive type Surgical History History of knee surgery (~09/04/13) Dr. Harper Family History Sister High cholesterol Social History Smoking and tobacco/nicotine status: never used tobacco/nicotine Alcohol intake: never Substance/Drug Use: never Household members: none Marital status: Single Current occupational status: disabled Physical Exam Const: COMMON NORMALS: alert HENMT: COMMON NORMALS: normocephalic HEAD & SCALP: normocephalic Neck/C-Spine: GENERAL: Yes normal visual inspection CERVICAL SPINE: Yes cervical ROM normal and No Cervical spine tenderness Chest: CHEST: Yes tenderness rib (Left anterior) Resp: COMMON NORMALS: normal respiratory effort and clear to auscultation bilaterally AUSCULTATION: clear to auscultation bilaterally Cardio: COMMON NORMALS: regular rate and regular rhythm RATE: regular rate RHYTHM: regular rhythm GI: COMMON NORMALS: Soft to palpation and non-tender PALPATION: Yes Soft to palpation Back/Pelvis: COMMON NORMALS: thoracic and lumbar spine normal to inspection Extremity: COMMON NORMALS: normal to inspection Neuro: SENSORIUM/ORIENTATION: Yes alert Skin: COMMON NORMALS: turgor normal GENERAL SKIN EXAM: turgor normal Course Vital Signs: Vital signs: Vital Signs Temperature 98.7 F 11/01/23 15:41 Pulse Rate 73 11/01/23 15:41 Respiratory Rate 16 11/01/23 15:41 Blood Pressure 128/84 11/01/23 15:41 Pulse Oximetry 95 11/01/23 15:41 Oxygen Delivery Me thod Room Air 11/01/23 15:41 MDM - General Adult Medical Decision Making 63-year-old female comes in today with left anterior rib pain and discomfort. Respirations are even lungs are clear to auscultation. No edema is noted in the extremities. Abdomen soft and nontender. Patient has some left anterior rib tenderness without crepitus or subcu emphysema. Reviewed exam with patient with recommendations for treatment and follow-up. X-rays were performed. Differential diagnosis includes not limited to fracture, pneumothorax, contusion. X-rays of the ribs showed no fractures. Patient appears nontoxic. Vital signs were normal. Patient was given a dose of Toradol and 1 hydrocodone tablet for her pain. Patient was recommended continue with routine medications for pain at home. Patient stated understanding and agreed to plan. Lab Data Radiology Impressions Ribs X-Ray 11/01/23 15:56 IMPRESSION: 1. No acute cardiopulmonary process. 2. No acute fracture. 3. CT scan of the chest with contrast would be recommended if there is continuing clinical concern for thoracic injury. 4. Incidental/nonacute findings are listed in the report. All radiology interpretation(s) finalized by discharge Discharge Plan Discharge Patient Disposition: Home Clinical Impression: Contusion of rib on left side Qualifiers: Encounter type: initial encounter Qualified Code(s): S20.212A - Contusion of left front wall of thorax, initial encounter Condition: Stable Prescriptions: No Action famotidine 20 mg tablet 20 mg PO DAILY (DME) diabetic shoes with molded inserts See Rx Instructions .Route .MEDSUPPLY Qty: 1 0RF Rx Instructions: As directed (DME) Fast Form See Rx Instructions .Route .MEDSUPPLY Qty: 1 0RF Rx Instructions: As directed insulin aspart U-100 [Novolog PenFill U-100 Insulin] 100 unit/mL cartridge 8 unit SUBCUT TID (DME) Diabetic Shoes with 3 pairs of inserts See Rx Instructions .Route .MEDSUPPLY Qty: 1 0RF Rx Instructions: As directed clonazepam 0.5 mg tablet 0.5 mg PO DAILY PRN (Reason: anxiety) Qty: 30 2RF topiramate [Topamax] 100 mg tablet 100 mg PO BID Qty: 60 0RF melatonin 10 mg tablet 20 mg PO BEDTIME Qty: 60 0RF ziprasidone HCl [Geodon] 20 mg capsule 20 mg PO BID Qty: 60 0RF Rx Instructions: give with food (meal/snack) Prozac 40 mg capsule 40 mg PO DAILY Qty: 30 2RF ibuprofen 800 mg tablet See Rx Instructions .ROUTE .COMPLEX Qty: 60 0RF Dose Instruction: TAKE ONE TABLET BY MOUTH EVERY 8 HOURS as needed for pain Rx Instructions: TAKE ONE TABLET BY MOUTH EVERY 8 HOURS as needed for pain Jardiance 10 mg Tablet 10 mg PO DAILY insulin glargine [Lantus U-100 Insulin] 100 unit/mL Solution 110 unit SUBCUT QPM cetirizine [Zyrtec] 10 mg Tablet 10 mg PO DAILY PRN (Reason: Allergy Symptoms) aspirin 81 mg Tablet,Delayed Release (Dr/Ec) 81 mg PO DAILY Hold Instructions: Resume on 09/02/21. May resume after 325 mg daily for 30 days gabapentin [Neurontin] 100 mg Capsule 100 mg PO TID Victoza 3-Chad 0.6 mg/0.1 mL (18 mg/3 mL) Pen Injector 1.6 mg SUBCUT DAILY albuterol sulfate 2.5 mg /3 mL (0.083 %) solution for nebulization 2.5 mg inhalation Q4H PRN (Reason: Shortness Of Breath) fluticasone propionate 50 mcg/actuation [place],Suspension 2 spray INTRANASAL DAILY PRN (Reason: Nasal Congestion) Rx Instructions: administer into each nostril rosuvastatin 20 mg tablet 20 mg PO DAILY tramadol 50 mg tablet 50 mg PO Q6H PRN (Reason: Pain) Qty: 15 0RF Voltaren Arthritis Pain 1 % gel 4 g topical QID Qty: 100 3RF Rx Instructions: apply to single knee, ankle, foot; for foot includes sole/toes/top of foot Discharge Orders: Discharge ED (Routine); Ordered 11/01/23 Ordered By: Nilesh Resendez Referrals: Hilda Patel MD [Primary Care Provider] - Discharge Diet: Usual diet Discharge Activity: Increase activity as tolerated Patient Instructions: Rib Contusion (ED) Activity Restrictions/Additional Instructions: Activity as tolerated. Use ice or heat to help control pain. Follow-up with primary care for further instructions. Return to ED for new concerns. Coding Level of Care Code ED Printing [employer] Stamping Supervisor for Casey Vaughn
--- NOTE | 2023-11-01 15:56 | XRR_ITS ---
PROCEDURE INFORMATION: Exam: XR Left Ribs with PA Chest Exam date and time: 11/01/2023 4:21 PM Age: 63 years old Clinical indication: Injury or trauma; Fall; Rib area, left side; Swelling; Additional info: Fall injury TECHNIQUE: Imaging protocol: Radiologic exam of the left ribs with PA chest. Views: 3 views COMPARISON: CR XR chest 1V portable [id number] 02/23/2023 6:45 PM FINDINGS: Lungs: Lungs are clear bilaterally. Pleural spaces: No pleural effusion. No pneumothorax. Heart/Mediastinum: Cardiac silhouette and mediastinal contours are unremarkable. Vasculature: Stable vascular calcifications in the aorta. Bones/joints: Bones are diffusely osteopenic. Degenerative changes in the spine and shoulders. Patient has had a previous left rotator cuff repair. No acute fracture. Osseous findings are stable. XR/XR ribs LT mn 3V w [id number] [id number] IMPRESSION: 1. No acute cardiopulmonary process. 2. No acute fracture. 3. CT scan of the chest with contrast would be recommended if there is continuing clinical concern for thoracic injury. 4. Incidental/nonacute findings are listed in the report.
[2023-11-01] MEDS: ketorolac 30 mg/mL INJ IM (16:15)
[2023-11-01] MEDS: HYDROcodone-acetaminophen 5-325 mg Tablet 1 TAB PO (17:48)
== END 2023-11-01 17:56 | disposition home or self-care (01) ==
PROVIDERS: Emergency Provider Nurse Practitioner Family; PCP Internal Medicine
DX: S20.212A Contusion of left front wall of thorax, initial encounter (principal); Z79.82 Long term (current) use of aspirin; Z79.4 Long term (current) use of insulin; E11.9 Type 2 diabetes mellitus without complications; W01.0XXA Fall on same level from slipping, tripping and stumbling without subsequent striking against object, initial encounter
CPT/HCPCS: 71101; 96372; 99284; J1885

== ENCOUNTER 2023-11-03 15:13 | Emergency (ER) | payer MEDICARE, MEDICAID, SELFPAY ==
[2023-11-03 15:14] VITALS: BMI 30.2
[2023-11-03 15:17] VITALS: BP 134/86; PULSE 75; RESP 16; TEMP 36.6; O2SAT 94
--- NOTE | 2023-11-03 16:14 | CTR_ITS ---
PROCEDURE INFORMATION: Exam: CT Chest Without Contrast; Diagnostic Exam date and time: 11/03/2023 4:39 PM Age: 63 years old Clinical indication: Injury or trauma; Blunt trauma (contusions or hematomas); Patient HX: Left chest/rib pain S/P fall; Additional info: Fall, negative cxr TECHNIQUE: Imaging protocol: Diagnostic computed tomography of the chest without contrast. Radiation optimization: All CT scans at this facility use at least one of these dose optimization techniques: automated exposure control; mA and/or kV adjustment per patient size (includes targeted exams where dose is matched to clinical indication); or iterative reconstruction. COMPARISON: CR (CHEST, ) 11/01/2023 4:21 PM RADIATION DOSE METRICS: Total DLP (mGy-cm): 577.6 FINDINGS: Lungs: Mild emphysematous changes suspected. Pleural spaces: Unremarkable. No pneumothorax. No pleural effusion. Heart: Unremarkable. No cardiomegaly. No pericardial effusion. Coronary arteries: Coronary artery atherosclerotic calcifications. Lymph nodes: Unremarkable. No enlarged lymph nodes. Vasculature: Unremarkable. No aortic aneurysm. Diaphragm: Small hiatal hernia. Bones/joints: L1 vertebral body minimal compression deformity without retropulsion of bony fragments, age indeterminate. Soft tissues: Unremarkable. CT/CT chest wo con [id number] IMPRESSION: 1. L1 vertebral body minimal compression deformity without retropulsion of bony fragments, age indeterminate. 2. Coronary artery atherosclerotic calcifications. 3. Small hiatal hernia. 4. Mild emphysematous changes suspected. COMMENTS: The presence of pulmonary emphysema on CT is an independent risk factor for lung cancer. In the absence of a history or active diagnosis of lung cancer, it is recommended that this patient with emphysema be evaluated for enrollment in a low dose CT lung cancer screening program.
--- NOTE | 2023-11-03 16:24 | W.ED.GENADLT ---
Documented by User: JESSICA Smith 11/03/23 18:07 HPI - General Adult General: Chief complaint: General Medical Stated complaint: LEFT RIB PAIN S/P FALL Time Seen by Provider: 11/03/23 15:18 Source: patient Mode of arrival: ambulatory Limitations: no limitations History of Present Illness: Patient is a 63-year-old female presents to the emergency department planing of left side pain status post fall on . She was seen and evaluated at that time where she had a negative chest x-ray for any fractures or other abnormal findings, however it was recommended that a CT chest be obtained if clinically she was in a significant amount of pain, which at that time she was not. She now returns stating the pain is gotten worse and she has pain with respirations, causing her to not take deep breaths. She denies noticing any bruising or feeling any deformities, but just states that the pain keeps getting worse. It is located primarily on the left ribs, and states that the pain is reproducible with palpation. She states she has used some topical arthritis cream as well as ice/heat which has not alleviated her pain. She denies any new injuries since the initial fall. She clarifies that the fall happened outside where she slipped and fell onto her back/left side but is ultimately unable to recall the events. No other new symptoms since the fall. She denies any urinary symptoms Associated symptoms: Deny chest pain, dyspnea, headache(s), nausea, rash, palpitations or vomiting Review of Systems General: Reports: 10 or more systems reviewed and unremarkable except in HPI and below and Other (fall) Const: Denies: fever(s), chills or fatigue Eyes: Denies: change in vision ENMT: Denies: throat pain, ear or mastoid pain or nasal discharge Card: Denies: chest pain, palpitations, swelling of feet/ankles or lightheadedness Resp: Denies: dyspnea, productive cough or wheezing GI: Denies: abdominal pain, nausea, vomiting, diarrhea or constipation : Denies: flank pain, difficulty voiding, dysuria or urinary frequency Musc: Reports: other (Left rib/side pain); Denies: neck pain, back pain or joint pain Skin/Breast: Denies: rash Neuro: Denies: headache(s), numbness in extremities or weakness in extremities PFSH ED PFSH: Medical History (Updated 11/03/23 @ 17:39 by JESSICA Smith) Closed fracture of right distal radius and ulna Fracture, intertrochanteric, right femur Diabetes Fall Closed fracture of right hip Lumbar compression fracture 11/08/2018 Disc displacement, lumbar Borderline intellectual functioning Schizoaffective disorder, depressive type Surgical History History of knee surgery (~09/04/13) Dr. Harper Family History Sister High cholesterol Social History Smoking and tobacco/nicotine status: never used tobacco/nicotine Alcohol intake: never Substance/Drug Use: never Household members: none Marital status: Single Current occupational status: disabled Physical Exam Const: COMMON NORMALS: no acute distress, patient oriented x3, no limitations, healthy appearing, alert and well nourished GENERAL APPEARANCE: cooperative ORIENTATION/CONSCIOUSNESS: Yes awake HENMT: COMMON NORMALS: normocephalic, atraumatic, hearing grossly normal bilaterally, external ears normal, EAC's normal, Normal nasal mucous membranes and turbinates present, moist oral mucous membranes and oropharynx normal HEAD & SCALP: normocephalic and atraumatic NOSE: Normal nasal mucous membranes and turbinates present EXTERNAL EAR: Yes external ears normal EXTERNAL AUDITORY CANAL: EAC's normal Eye: COMMON NORMALS: EOMs intact bilaterally and conjunctivae normal CONJUNCTIVA: Yes conjunctivae normal Neck/C-Spine: COMMON NORMALS: full ROM and supple CERVICAL SPINE: Yes cervical ROM normal Chest: COMMONS NORMALS: normal inspection of the chest and normal palpation of entire chest wall Breast/axilla inspection: Yes no chest deformity, asymmetry, normal contours, no nodules, masses, tenderness OTHER: Lateral chest wall moderately tender to palpation with no evidence of bruising or deformities Resp: COMMON NORMALS: normal respiratory effort, No retractions, No use of accessory muscles and clear to auscultation bilaterally AUSCULTATION: clear to auscultation bilaterally OTHER: Pain in left side reproduced with deep inhalation Cardio: COMMON NORMALS: regular rate, regular rhythm, S1 normal heart sound present, S2 normal heart sound present, No gallops present (Cardio), No clicks present (Cardio), No murmurs present (Cardio) and No rub (Cardio) RATE: regular rate RHYTHM: regular rhythm HEART SOUNDS: S1 normal heart sound present and S2 normal heart sound present GI: COMMON NORMALS: Normal to inspection, nondistended, normoactive bowel sounds present, Soft to palpation and non-tender PALPATION: Yes Soft to palpation : COMMON NORMALS: Yes no CVA tenderness BLADDER/KIDNEY EXAM: Yes no CVA tenderness Back/Pelvis: COMMON NORMALS: no CVA tenderness, no thoracic nor lumbar tenderness and thoraco-lumbar ROM normal Extremity: COMMON NORMALS: normal to inspection, full ROM and no clubbing, cyanosis or edema Neuro: COMMON NORMALS: patient oriented x3 SENSORIUM/ORIENTATION: Yes alert Psych: COMMON NORMALS: mental status grossly normal Skin: COMMON NORMALS: no rashes or lesions noted GENERAL SKIN EXAM: no rashes or lesions noted Course Vital Signs: Vital signs: Vital Signs Temperature 97.8 F 11/03/23 15:17 Pulse Rate 75 11/03/23 15:17 Respiratory Rate 16 11/03/23 15:17 Blood Pressure 134/86 11/03/23 15:17 Pulse Oximetry 94 11/03/23 15:17 Oxygen Delivery Me thod Room Air 11/03/23 15:17 [facility] - General Adult Medical Decision Making Patient seen emergency department today for subsequent, of left rib/chest wall pain status post fall 2 days ago. Patient initially seen where she had a chest x-ray insignificant for any fractures or other acute findings, however radiology recommended correlating with a chest CT if her symptoms did not improve or concern for thoracic injury was significant. She returns today stating the pain has gotten worse and that she now has pain with deep respirations. I gave her a shot of Toradol and Norflex. CT without contrast failed to demonstrate any findings correlating to her pain, as I think she is still dealing with a contusion of her left ribs. I will send her with this prescription for Toradol and cyclobenzaprine, and instructed her to return if her symptoms still do not improve. Patient agrees with this plan and will be discharged home. Medical Records I reviewed the patient's medical records. Lab Data Radiology Impressions Chest CT 11/03/23 16:14 IMPRESSION: 1. L1 vertebral body minimal compression deformity without retropulsion of bony fragments, age indeterminate. 2. Coronary artery atherosclerotic calcifications. 3. Small hiatal hernia. 4. Mild emphysematous changes suspected. COMMENTS: The presence of pulmonary emphysema on CT is an independent risk factor for lung cancer. In the absence of a history or active diagnosis of lung cancer, it is recommended that this patient with emphysema be evaluated for enrollment in a low dose CT lung cancer screening program. All radiology interpretation(s) finalized by discharge Discharge Plan Discharge Patient Disposition: Home Clinical Impression: Contusion of rib on left side Condition: Stable Prescriptions: New cyclobenzaprine 10 mg tablet 10 mg PO TID Qty: 30 0RF ketorolac 10 mg tablet 10 mg PO Q8H PRN (Reason: pain) Qty: 30 0RF No Action famotidine 20 mg tablet 20 mg PO DAILY (DME) diabetic shoes with molded inserts See Rx Instructions .Route .MEDSUPPLY Qty: 1 0RF Rx Instructions: As directed (DME) Fast Form See Rx Instructions .Route .MEDSUPPLY Qty: 1 0RF Rx Instructions: As directed insulin aspart U-100 [Novolog PenFill U-100 Insulin] 100 unit/mL cartridge 8 unit SUBCUT TID (DME) Diabetic Shoes with 3 pairs of inserts See Rx Instructions .Route .MEDSUPPLY Qty: 1 0RF Rx Instructions: As directed clonazepam 0.5 mg tablet 0.5 mg PO DAILY PRN (Reason: anxiety) Qty: 30 2RF topiramate [Topamax] 100 mg tablet 100 mg PO BID Qty: 60 0RF melatonin 10 mg tablet 20 mg PO BEDTIME Qty: 60 0RF ziprasidone HCl [Geodon] 20 mg capsule 20 mg PO BID Qty: 60 0RF Rx Instructions: give with food (meal/snack) Prozac 40 mg capsule 40 mg PO DAILY Qty: 30 2RF ibuprofen 800 mg tablet See Rx Instructions .ROUTE .COMPLEX Qty: 60 0RF Dose Instruction: TAKE ONE TABLET BY MOUTH EVERY 8 HOURS as needed for pain Rx Instructions: TAKE ONE TABLET BY MOUTH EVERY 8 HOURS as needed for pain Jardiance 10 mg Tablet 10 mg PO DAILY insulin glargine [Lantus U-100 Insulin] 100 unit/mL Solution 110 unit SUBCUT QPM cetirizine [Zyrtec] 10 mg Tablet 10 mg PO DAILY PRN (Reason: Allergy Symptoms) aspirin 81 mg Tablet,Delayed Release (Dr/Ec) 81 mg PO DAILY Hold Instructions: Resume on 09/02/21. May resume after 325 mg daily for 30 days gabapentin [Neurontin] 100 mg Capsule 100 mg PO TID Victoza 3-Chad 0.6 mg/0.1 mL (18 mg/3 mL) Pen Injector 1.6 mg SUBCUT DAILY albuterol sulfate 2.5 mg /3 mL (0.083 %) solution for nebulization 2.5 mg inhalation Q4H PRN (Reason: Shortness Of Breath) fluticasone propionate 50 mcg/actuation Chemult,Suspension 2 spray INTRANASAL DAILY PRN (Reason: Nasal Congestion) Rx Instructions: administer into each nostril rosuvastatin 20 mg tablet 20 mg PO DAILY tramadol 50 mg tablet 50 mg PO Q6H PRN (Reason: Pain) Qty: 15 0RF Voltaren Arthritis Pain 1 % gel 4 g topical QID Qty: 100 3RF Rx Instructions: apply to single knee, ankle, foot; for foot includes sole/toes/top of foot Discharge Orders: Discharge ED (Routine); Ordered 11/03/23 Ordered By: Yohan Hollis Referrals: Hilda Patel MD [Primary Care Provider] - Discharge Diet: Usual diet Discharge Activity: Increase activity as tolerated Patient Instructions: Rib Contusion (ED) Activity Restrictions/Additional Instructions: Toradol and cyclobenzaprine as directed. Apply ice/heat as needed. Follow-up with your primary care provider. Return for any new or worsening symptoms. Coding Level of Care Code ED Screen Printing Inspector for Chg Fwd Documented by User: Frantz Collado DO 11/05/23 11:27 HPI - General Adult General: Chief complaint: General Medical Stated complaint: LEFT RIB PAIN S/P FALL Time Seen by Provider: 11/03/23 15:18 PFSH ED PFSH: Medical History (Updated 11/03/23 @ 17:39 by JESSICA Smith) Closed fracture of right distal radius and ulna Fracture, intertrochanteric, right femur Diabetes Fall Closed fracture of right hip Lumbar compression fracture 11/08/2018 Disc displacement, lumbar Borderline intellectual functioning Schizoaffective disorder, depressive type Surgical History History of knee surgery (~09/04/13) Dr. Harper Family History Sister High cholesterol Social History Smoking and tobacco/nicotine status: never used tobacco/nicotine Alcohol intake: never Substance/Drug Use: never Household members: none Marital status: Single Current occupational status: disabled Course Vital Signs: Vital signs: Vital Signs Temperature 97.8 F 11/03/23 15:17 Pulse Rate 75 11/03/23 15:17 Respiratory Rate 16 11/03/23 15:17 Blood Pressure 134/86 11/03/23 15:17 Pulse Oximetry 94 11/03/23 15:17 Oxygen Delivery Me thod Room Air 11/03/23 15:17 MDM - General Adult Medical Decision Making Patient seen emergency department today for subsequent, of left rib/chest wall pain status post fall 2 days ago. Patient initially seen where she had a chest x-ray insignificant for any fractures or other acute findings, however radiology recommended correlating with a chest CT if her symptoms did not improve or concern for thoracic injury was significant. She returns today stating the pain has gotten worse and that she now has pain with deep respirations. I gave her a shot of Toradol and Norflex. CT without contrast failed to demonstrate any findings correlating to her pain, as I think she is still dealing with a contusion of her left ribs. I will send her with this prescription for Toradol and cyclobenzaprine, and instructed her to return if her symptoms still do not improve. Patient agrees with this plan and will be discharged home. Chart reviewed Lab Data Radiology Impressions Chest CT 11/03/23 16:14 IMPRESSION: 1. L1 vertebral body minimal compression deformity without retropulsion of bony fragments, age indeterminate. 2. Coronary artery atherosclerotic calcifications. 3. Small hiatal hernia. 4. Mild emphysematous changes suspected. COMMENTS: The presence of pulmonary emphysema on CT is an independent risk factor for lung cancer. In the absence of a history or active diagnosis of lung cancer, it is recommended that this patient with emphysema be evaluated for enrollment in a low dose CT lung cancer screening program. Discharge Plan Discharge Patient Disposition: Home Clinical Impression: Contusion of rib on left side Condition: Stable Prescriptions: New cyclobenzaprine 10 mg tablet 10 mg PO TID Qty: 30 0RF ketorolac 10 mg tablet 10 mg PO Q8H PRN (Reason: pain) Qty: 30 0RF No Action famotidine 20 mg tablet 20 mg PO DAILY (DME) diabetic shoes with molded inserts See Rx Instructions .Route .MEDSUPPLY Qty: 1 0RF Rx Instructions: As directed (DME) Fast Form See Rx Instructions .Route .MEDSUPPLY Qty: 1 0RF Rx Instructions: As directed insulin aspart U-100 [Novolog PenFill U-100 Insulin] 100 unit/mL cartridge 8 unit SUBCUT TID (DME) Diabetic Shoes with 3 pairs of inserts See Rx Instructions .Route .MEDSUPPLY Qty: 1 0RF Rx Instructions: As directed clonazepam 0.5 mg tablet 0.5 mg PO DAILY PRN (Reason: anxiety) Qty: 30 2RF topiramate [Topamax] 100 mg tablet 100 mg PO BID Qty: 60 0RF melatonin 10 mg tablet 20 mg PO BEDTIME Qty: 60 0RF ziprasidone HCl [Geodon] 20 mg capsule 20 mg PO BID Qty: 60 0RF Rx Instructions: give with food (meal/snack) Prozac 40 mg capsule 40 mg PO DAILY Qty: 30 2RF ibuprofen 800 mg tablet See Rx Instructions .ROUTE .COMPLEX Qty: 60 0RF Dose Instruction: TAKE ONE TABLET BY MOUTH EVERY 8 HOURS as needed for pain Rx Instructions: TAKE ONE TABLET BY MOUTH EVERY 8 HOURS as needed for pain Jardiance 10 mg Tablet 10 mg PO DAILY insulin glargine [Lantus U-100 Insulin] 100 unit/mL Solution 110 unit SUBCUT QPM cetirizine [Zyrtec] 10 mg Tablet 10 mg PO DAILY PRN (Reason: Allergy Symptoms) aspirin 81 mg Tablet,Delayed Release (Dr/Ec) 81 mg PO DAILY Hold Instructions: Resume on 09/02/21. May resume after 325 mg daily for 30 days gabapentin [Neurontin] 100 mg Capsule 100 mg PO TID Victoza 3-Chad 0.6 mg/0.1 mL (18 mg/3 mL) Pen Injector 1.6 mg SUBCUT DAILY albuterol sulfate 2.5 mg /3 mL (0.083 %) solution for nebulization 2.5 mg inhalation Q4H PRN (Reason: Shortness Of Breath) fluticasone propionate 50 mcg/actuation Chemult,Suspension 2 spray INTRANASAL DAILY PRN (Reason: Nasal Congestion) Rx Instructions: administer into each nostril rosuvastatin 20 mg tablet 20 mg PO DAILY tramadol 50 mg tablet 50 mg PO Q6H PRN (Reason: Pain) Qty: 15 0RF Voltaren Arthritis Pain 1 % gel 4 g topical QID Qty: 100 3RF Rx Instructions: apply to single knee, ankle, foot; for foot includes sole/toes/top of foot Discharge Orders: Discharge ED (Routine); Ordered 11/03/23 Ordered By: Yohan Hollis Referrals: Hilda Patel MD [Primary Care Provider] - Discharge Diet: Usual diet Discharge Activity: Increase activity as tolerated Patient Instructions: Rib Contusion (ED) Activity Restrictions/Additional Instructions: Toradol and cyclobenzaprine as directed. Apply ice/heat as needed. Follow-up with your primary care provider. Return for any new or worsening symptoms. Coding Level of Care Code ED Screen Printing Inspector for Casey Vaughn
[2023-11-03] MEDS: ketorolac 60 mg/2 mL INJ IM (16:25)
[2023-11-03] MEDS: orphenadrine 30 mg/mL Inj 2 mL 60 MG IM (16:25)
== END 2023-11-03 18:31 | disposition home or self-care (01) ==
PROVIDERS: Emergency Provider Physician Assistant; PCP Internal Medicine
DX: S20.212A Contusion of left front wall of thorax, initial encounter (principal); Z79.4 Long term (current) use of insulin; Z79.82 Long term (current) use of aspirin; E11.9 Type 2 diabetes mellitus without complications; W19.XXXA Unspecified fall, initial encounter
CPT/HCPCS: 71250; 96372; 99284; J1885; J2360

== ENCOUNTER 2023-11-12 21:50 | Emergency (ER) | payer MEDICARE, MEDICAID, SELFPAY ==
[2023-11-12 21:51] VITALS: BP 154/87; PULSE 93; RESP 16; TEMP 36.4; O2SAT 94; BMI 30.5
--- NOTE | 2023-11-12 21:55 | W.ED.GENADLT ---
HPI - General Adult General: Chief complaint: General Medical Stated complaint: rib pain Time Seen by Provider: 11/12/23 21:52 History of Present Illness: 63-year-old female presents to the emergency department via EMS personnel with complaints of left rib pain. She also complains of right hip pain. She states she was seen here in the emergency department on 11/03/2023 after she had an accidental fall on that date. She states that since that time she has been doing well. She states that she does have chronic arthritis of the right hip and it feels like it is having a flare today. EMS personnel state that she was ambulatory and met them in the lobby of her residence. Patient did stand from the EMS cot to turn and pivot ambulate to the ER bed and sat without difficulty. She is able to raise her legs without difficulty. She states her current pain is a aching 10 out of 10 pain. Review of Systems General: Reports: 10 or more systems reviewed and unremarkable except in HPI and below Musc: Reports: joint pain (Right hip pain.) and other (Left rib pain) [facility] PFSH: Medical History (Updated 11/12/23 @ 22:50 by Brannon Franco MD) Closed fracture of right distal radius and ulna Fracture, intertrochanteric, right femur Diabetes Fall Closed fracture of right hip Lumbar compression fracture 11/08/2018 Disc displacement, lumbar Borderline intellectual functioning Schizoaffective disorder, depressive type Surgical History History of knee surgery (~09/04/13) Dr. Harper Family History Sister High cholesterol Social History Smoking and tobacco/nicotine status: never used tobacco/nicotine Alcohol intake: never Substance/Drug Use: never Household members: none Marital status: Single Current occupational status: disabled Physical Exam Const: COMMON NORMALS: no acute distress, patient oriented x3 and alert HENMT: COMMON NORMALS: normocephalic, atraumatic, external ears normal and moist oral mucous membranes HEAD & SCALP: normocephalic and atraumatic EXTERNAL EAR: Yes external ears normal Eye: COMMON NORMALS: Equal, round and reactive pupils present and EOMs intact bilaterally PUPIL: Yes Equal, round and reactive pupils present Neck/C-Spine: COMMON NORMALS: full ROM and supple Chest: CHEST: No localized rib tenderness with anteroposterior compression and Yes tenderness (Slight tenderness to palpation to the left ribs no obvious crepitus or defo) rib (Left rib tenderness to palpation to the seventh and eighth rib area.) Resp: COMMON NORMALS: normal respiratory effort and clear to auscultation bilaterally AUSCULTATION: clear to auscultation bilaterally Cardio: COMMON NORMALS: regular rate, regular rhythm, S1 normal heart sound present, S2 normal heart sound present and Peripheral pulses 2+ throughout RATE: regular rate RHYTHM: regular rhythm HEART SOUNDS: S1 normal heart sound present and S2 normal heart sound present PERIPHERAL PULSES: Peripheral pulses 2+ throughout GI: COMMON NORMALS: Normal to inspection, nondistended, normoactive bowel sounds present, Soft to palpation and non-tender PALPATION: Yes Soft to palpation Back/Pelvis: COMMON NORMALS: thoracic and lumbar spine normal to inspection and thoraco-lumbar ROM normal Neuro: COMMON NORMALS: patient oriented x3 SENSORIUM/ORIENTATION: Yes alert Psych: COMMON NORMALS: mental status grossly normal, Normal thought process present, cooperative and normal affect THOUGHT PROCESS: Normal thought process present Skin: COMMON NORMALS: no rashes or lesions noted GENERAL SKIN EXAM: no rashes or lesions noted Course Vital Signs: Vital signs: Vital Signs Temperature 97.6 F 11/12/23 21:51 Pulse Rate 93 11/12/23 21:51 Respiratory Rate 16 11/12/23 22:35 Blood Pressure 124/85 11/12/23 22:35 Pulse Oximetry 94 11/12/23 21:51 Oxygen Delivery Me thod Room Air 11/12/23 21:51 [facility] - General Adult Medical Decision Making Physical exam completed and documented I will obtain radiographic examination . Her respirations are even and unlabored they are clear to auscultation, there is no edema noted in her extremities. She is able ambulate without difficulty. Her physical exam is essentially unremarkable. Vital signs are stable. I will provide the patient Toradol intramuscular injection for her pain relief and recommend that she continue with her routine medications and follow-up with her primary care provider. The patient does agree to this plan and will be discharged home. Differential Diagnosis Musculoskeletal strain, osteoarthritis, Medical Records I reviewed the patient's medical records. Lab Data Radiology Impressions Ribs X-Ray 11/12/23 22:02 IMPRESSION: Trace left pleural effusion. All radiology interpretation(s) finalized by discharge Discharge Plan Discharge Patient Disposition: Home Clinical Impression: Muscle strain of anterior chest wall Osteoarthritis of right hip Qualifiers: Osteoarthritis type: unspecified Qualified Code(s): M16.11 - Unilateral primary osteoarthritis, right hip Prescriptions: No Action famotidine 20 mg tablet 20 mg PO DAILY (DME) diabetic shoes with molded inserts See Rx Instructions .Route .MEDSUPPLY Qty: 1 0RF Rx Instructions: As directed (DME) Fast Form See Rx Instructions .Route .MEDSUPPLY Qty: 1 0RF Rx Instructions: As directed insulin aspart U-100 [Novolog PenFill U-100 Insulin] 100 unit/mL cartridge 8 unit SUBCUT TID (DME) Diabetic Shoes with 3 pairs of inserts See Rx Instructions .Route .MEDSUPPLY Qty: 1 0RF Rx Instructions: As directed clonazepam 0.5 mg tablet 0.5 mg PO DAILY PRN (Reason: anxiety) Qty: 30 2RF topiramate [Topamax] 100 mg tablet 100 mg PO BID Qty: 60 0RF melatonin 10 mg tablet 20 mg PO BEDTIME Qty: 60 0RF ziprasidone HCl [Geodon] 20 mg capsule 20 mg PO BID Qty: 60 0RF Rx Instructions: give with food (meal/snack) Prozac 40 mg capsule 40 mg PO DAILY Qty: 30 2RF ibuprofen 800 mg tablet See Rx Instructions .ROUTE .COMPLEX Qty: 60 0RF Dose Instruction: TAKE ONE TABLET BY MOUTH EVERY 8 HOURS as needed for pain Rx Instructions: TAKE ONE TABLET BY MOUTH EVERY 8 HOURS as needed for pain Jardiance 10 mg Tablet 10 mg PO DAILY insulin glargine [Lantus U-100 Insulin] 100 unit/mL Solution 110 unit SUBCUT QPM cetirizine [Zyrtec] 10 mg Tablet 10 mg PO DAILY PRN (Reason: Allergy Symptoms) aspirin 81 mg Tablet,Delayed Release (Dr/Ec) 81 mg PO DAILY Hold Instructions: Resume on 09/02/21. May resume after 325 mg daily for 30 days gabapentin [Neurontin] 100 mg Capsule 100 mg PO TID Victoza 3-Chad 0.6 mg/0.1 mL (18 mg/3 mL) Pen Injector 1.6 mg SUBCUT DAILY albuterol sulfate 2.5 mg /3 mL (0.083 %) solution for nebulization 2.5 mg inhalation Q4H PRN (Reason: Shortness Of Breath) fluticasone propionate 50 mcg/actuation [place],Suspension 2 spray INTRANASAL DAILY PRN (Reason: Nasal Congestion) Rx Instructions: administer into each nostril rosuvastatin 20 mg tablet 20 mg PO DAILY cyclobenzaprine 10 mg tablet 10 mg PO TID Qty: 30 0RF ketorolac 10 mg tablet 10 mg PO Q8H PRN (Reason: pain) Qty: 30 0RF tramadol 50 mg tablet 50 mg PO Q6H PRN (Reason: Pain) Qty: 15 0RF Voltaren Arthritis Pain 1 % gel 4 g topical QID Qty: 100 3RF Rx Instructions: apply to single knee, ankle, foot; for foot includes sole/toes/top of foot Discharge Orders: Discharge ED (Routine); Ordered 11/12/23 Ordered By: Brannon Franco Referrals: Hilda Patel MD [Primary Care Provider] - Discharge Diet: Advance as tolerated Discharge Activity: Resume usual activity Patient Instructions: Opioid Safety, Pain Management Activity Restrictions/Additional Instructions: Activity Restrictions/Additional Instructions: Thank you for choosing [facility] for your healthcare needs today. Please realize that you were seen in the Emergency Department and that we are providing you with an emergency medical screening exam and this may not be a complete and all inclusive of all the testing and or medical work-up that you may need to determine your ailment or severity of your illness. It is very important that you follow-up as instructed with your Primary care provider or Specialist for additional evaluation and to discuss your medical treatment plan. Coding Level of Care Code ED Railroad Surveyor for Casey Vaughn
--- NOTE | 2023-11-12 22:02 | XRR_ITS ---
PROCEDURE INFORMATION: Exam: XR Left Ribs Exam date and time: 11/12/2023 10:13 PM Age: 63 years old Clinical indication: Other: Low rib pain TECHNIQUE: Imaging protocol: Radiologic exam of the left ribs. Views: 2 views. COMPARISON: CR (CHEST, ) 11/01/2023 4:21 PM FINDINGS: Bones/joints: Normal. Pleural space: Trace left pleural effusion. Soft tissues: Normal. XR/XR ribs LT 2V* [id number] IMPRESSION: Trace left pleural effusion.
[2023-11-12] MEDS: ketorolac 30 mg/mL INJ IM (22:09)
[2023-11-12 22:35] VITALS: BP 124/85; RESP 16
== END 2023-11-12 23:02 | disposition home or self-care (01) ==
PROVIDERS: Emergency Provider Internal Medicine; PCP Internal Medicine
DX: M16.11 Unilateral primary osteoarthritis, right hip (principal); S29.011A Strain of muscle and tendon of front wall of thorax, initial encounter; Z79.82 Long term (current) use of aspirin; Z79.4 Long term (current) use of insulin; E11.9 Type 2 diabetes mellitus without complications; W19.XXXA Unspecified fall, initial encounter
CPT/HCPCS: 71100; 96372; 99284; J1885

== ENCOUNTER 2023-12-06 12:39 | Outpatient (CLI) | payer MEDICARE, MEDICAID, SELFPAY ==
[2023-12-06] MEDS: albuterol 2.5 mg/3 mL Neb INHALATION (13:37)
== END 2023-12-06 12:40 | disposition home or self-care (01) ==
LOC: RT 12:39
PROVIDERS: PCP Internal Medicine; Visit Provider Internal Medicine
DX: J44.9 Chronic obstructive pulmonary disease, unspecified (principal)
CPT/HCPCS: 94060

== ENCOUNTER → 2023-12-18 11:37 | Outpatient (BNVA) | payer MEDICARE, MEDICAID, SELFPAY | PROVIDERS: PCP Internal Medicine; Visit Provider Student in an Organized Health Care Education/Training Program | DX: S52.501D Unspecified fracture of the lower end of right radius, subsequent encounter for closed fracture with routine healing; S52.601D Unspecified fracture of lower end of right ulna, subsequent encounter for closed fracture with routine healing; S72.001D Fracture of unspecified part of neck of right femur, subsequent encounter for closed fracture with routine healing; X58.XXXD Exposure to other specified factors, subsequent encounter | CPT/HCPCS: 73110; 73502; 99213 ==

== ENCOUNTER → 2024-01-09 10:49 | Outpatient (BNVA) | payer MEDICARE, MEDICAID, SELFPAY | PROVIDERS: PCP Internal Medicine; Visit Provider Podiatrist Foot & Ankle Surgery | DX: E11.42 Type 2 diabetes mellitus with diabetic polyneuropathy (principal); L60.3 Nail dystrophy; M21.41 Flat foot [pes planus] (acquired), right foot; M21.42 Flat foot [pes planus] (acquired), left foot; L84 Corns and callosities | CPT/HCPCS: 11055; 11721 ==

== ENCOUNTER 2024-03-27 12:40 | Outpatient (CLI) | payer MEDICARE, MEDICAID, SELFPAY ==
--- NOTE | 2024-03-27 12:49 | XR_ITS ---
WS: [id number] Right hip, AP and frog-leg views, AP pelvis, 03/27/2024 Clinical Data: R HIP PAIN Comparison: Pelvis and right hip, 12/18/2023 Findings: The internal fixation of the right hip intertrochanteric fracture with an oblique nail in the right f emoral neck and a short proximal intramedullary femoral gustavo remains the same. No loosening or periart icular fractures are seen. The pelvis shows no change. There is osteoarthritis of the lower lumbar ve rtebral bodies. The left hip remains the same. XR/XR hip RT 2-3V wo/w pel* [id number] Impression: Stable internal fixation of right hip intertrochanteric fracture.
== END 2024-03-27 12:41 | disposition home or self-care (01) ==
LOC: RAD 12:42
PROVIDERS: PCP Internal Medicine; Visit Provider Internal Medicine
DX: M25.551 Pain in right hip (principal)
CPT/HCPCS: 73502

== ENCOUNTER → 2024-04-03 07:43 | Outpatient (BNVA) | payer MEDICARE, MEDICAID, SELFPAY | PROVIDERS: PCP Internal Medicine; Visit Provider Physician Assistant | DX: M25.551 Pain in right hip (principal) | CPT/HCPCS: 73502 ==

== ENCOUNTER → 2024-04-09 12:36 | Outpatient (BNVA) | payer MEDICARE, MEDICAID, SELFPAY | PROVIDERS: PCP Internal Medicine; Visit Provider Podiatrist Foot & Ankle Surgery | DX: E11.42 Type 2 diabetes mellitus with diabetic polyneuropathy (principal); L60.3 Nail dystrophy; M21.41 Flat foot [pes planus] (acquired), right foot; M21.42 Flat foot [pes planus] (acquired), left foot; L84 Corns and callosities; Z79.4 Long term (current) use of insulin | CPT/HCPCS: 11056; 11721 ==

== ENCOUNTER → 2024-04-10 12:49 | Outpatient (BNVA) | payer MEDICARE, MEDICAID, SELFPAY | PROVIDERS: PCP Internal Medicine; Visit Provider Student in an Organized Health Care Education/Training Program | DX: M25.551 Pain in right hip; T84.84XA Pain due to internal orthopedic prosthetic devices, implants and grafts, initial encounter; Y79.2 Prosthetic and other implants, materials and accessory orthopedic devices associated with adverse incidents | CPT/HCPCS: 36415; 73502; 80053; 81003; 81015; 85025; 99214 ==

== ENCOUNTER 2024-04-23 14:09 | Outpatient (CLI) | payer MEDICARE, MEDICAID, SELFPAY ==
--- NOTE | 2024-04-23 14:30 | CT_ITS ---
WS: [id number] Noncontrast CT RIGHT hip TECHNIQUE: Noncontrast CT RIGHT hip with coronal and sagittal reformatted images. CLINICAL INFORMATION: hardware removal COMPARISON: None. DLP: 365.[address] scans at [facility] use at least one of these dose optimization techniques: automated e xposure control; mA and/or kV adjustment per patient size (includes targeted exams where dose is matc hed to clinical indication); or iterative reconstruction. FINDINGS: Noncontrast CT RIGHT hip. Previous intramedullary gustavo and screw fixation RIGHT hip for prior intertro chanteric fracture fixation. Hardware appears in good position. No evidence of hardware loosening. In terval healing of the intertrochanteric fracture. Normal anatomic alignment. No significant joint eff usion. Advanced joint arthritis RIGHT hip.. Advanced degenerative arthritis RIGHT hip. Osteopenia. Normal pubic rami. CT/CT hip RT wo con* [id number] IMPRESSION: 1. Images obtained for preoperative planning 2. Hardware appears in good position with interval healing of the intertrochan teric fracture. 3. Normal anatomic alignment.
== END 2024-04-23 14:10 | disposition home or self-care (01) ==
LOC: RAD 14:10
PROVIDERS: PCP Internal Medicine; Visit Provider Student in an Organized Health Care Education/Training Program
DX: M25.551 Pain in right hip (principal); Z96.60 Presence of unspecified orthopedic joint implant
CPT/HCPCS: 73700

== ENCOUNTER 2024-04-24 12:41 | Outpatient (CLI) | payer MEDICARE, MEDICAID, SELFPAY ==
--- NOTE | 2024-04-24 | MM_ITS ---
WS: [id number] BILATERAL SCREENING DIGITAL TOMOSYNTHESIS MAMMOGRAM WITH CAD HISTORY: SCREENING COMPARISON: 04/19/2023, 02/23/2022, 02/08/2018 Bilateral CC and MLO views with tomosynthesis and synthetic mammography submitted. Computer aided det ection analyzed. Limited inclusion of the pectoralis muscles. Breast composition: The breasts are heterogeneously dense, which may obscure small masses. No suspici ous masses, microcalcifications or architectural distortion. MM/[place] [id number] IMPRESSION: BI-RADS: 2-Benign FOLLOW UP: 1 Year Follow-up Limited exam, suboptimal inclusion of the pectoralis muscles.
== END 2024-04-24 12:42 | disposition home or self-care (01) ==
LOC: RAD 12:42
PROVIDERS: PCP Internal Medicine; Visit Provider Internal Medicine
DX: Z12.31 Encounter for screening mammogram for malignant neoplasm of breast (principal); R92.333 Mammographic heterogeneous density, bilateral breasts
CPT/HCPCS: 77063; 77067

== ENCOUNTER → 2024-04-25 09:50 | Outpatient (BNVA) | payer MEDICARE, MEDICAID, SELFPAY | PROVIDERS: PCP Internal Medicine; Visit Provider Family Medicine | DX: Z01.818 Encounter for other preprocedural examination (principal); I49.8 Other specified cardiac arrhythmias; I45.81 Long QT syndrome | CPT/HCPCS: 93005 ==

== ENCOUNTER 2024-04-30 21:39 | Emergency (ER) | payer MEDICARE, MEDICAID, SELFPAY ==
--- NOTE | 2024-04-30 21:44 | W.ED.URI ---
HPI - URI/Sore Throat General: Chief Complaint: Upper Respiratory Infection Stated Complaint: sinus dranage Time Seen by Provider: 04/30/24 21:43 History of Present Illness: 64-year-old female comes in today with sinus pressure and nasal drainage for the last 3 to 4 days. Patient states that symptoms are worse and does not improve even after use of her allergy medication. Patient believes she is developing sinusitis. Patient also reports exposure to COVID 19. Patient appears nontoxic. Patient appears mildly unwell. Related Data Home Medications Medication Instructions Recorded Confirmed aspirin 81 mg tablet,delayed 81 mg PO DAILY 09/09/19 04/10/24 release cetirizine 10 mg tablet (Zyrtec) 10 mg PO DAILY PRN Allergy Symptoms 09/09/19 04/10/24 gabapentin 100 mg capsule 100 mg PO TID 09/09/19 04/10/24 (Neurontin) insulin glargine 100 unit/mL 110 unit SUBCUT QPM 09/09/19 04/10/24 subcutaneous solution (Lantus U-100 Insulin) famotidine 20 mg tablet 20 mg PO DAILY 03/01/21 04/10/24 empagliflozin 10 mg tablet 10 mg PO DAILY 07/26/21 04/10/24 (Jardiance) albuterol sulfate 2.5 mg/3 mL 2.5 mg inhalation Q4H PRN 01/31/23 04/10/24 (0.083 %) solution for nebulization Shortness Of Breath fluticasone propionate 50 2 spray intranasal DAILY PRN Nasal 01/31/23 04/10/24 mcg/actuation nasal Congestion spray,suspension rosuvastatin 20 mg tablet 20 mg PO DAILY 01/31/23 04/10/24 semaglutide 0.25 mg or 0.5 mg (2 mg SUBCUT .weekly 12/18/23 04/10/24 mg/3 mL) subcutaneous pen injector (Ozempic) sennosides 8.6 mg tablet (senna) mg PO 01/09/24 04/10/24 acetaminophen 500 mg tablet 500 mg PO Q6H PRN 04/03/24 04/10/24 (Tylenol Extra Strength) menthol 10 % topical cream applic topical PRN 04/03/24 04/10/24 (Biofreeze (menthol)) Previous Rx's Medication Instructions Recorded diabetic shoes with molded inserts #1 ea 10/18/21 Fast Form #1 ea 02/16/23 tramadol 50 mg tablet 50 mg PO Q6H PRN Pain #15 tabs 05/06/23 Diabetic Shoes with 3 pairs of #1 ea 06/25/23 inserts diclofenac sodium 1 % topical gel 4 g topical QID #100 grams 10/17/23 (Voltaren Arthritis Pain) cyclobenzaprine 10 mg tablet 10 mg PO TID #30 tabs 11/03/23 ketorolac 10 mg tablet 10 mg PO Q8H PRN pain #30 tabs 11/03/23 clonazepam 0.5 mg tablet 0.5 mg PO DAILY PRN anxiety #30 01/28/24 tabs fluoxetine 40 mg capsule (Prozac) 40 mg PO DAILY #30 caps 02/11/24 melatonin 10 mg tablet 20 mg (2 x 10 mg) PO BEDTIME #60 02/20/24 tabs topiramate 100 mg tablet (Topamax) 100 mg PO BID #60 tabs 02/20/24 ziprasidone HCl 20 mg capsule 20 mg PO BID #60 caps 02/20/24 (Geodon) doxycycline hyclate 100 mg capsule 100 mg PO BID 7 days #14 caps 04/30/24 Allergies Allergy/AdvReac Type Severity Reaction Status Date / Time Iodinated Contrast Media Allergy ALGY-Anaphy Verified 04/25/24 09:58 laxis Iodine and Iodide Containing Allergy ALGY-Difficulty Verified 04/25/24 09:58 Produc Breathing marijuana (cannabis) Allergy ADR-Headach Verified 04/25/24 09:58 [marijuana] e shellfish derived Allergy ALGY-Difficulty Verified 04/25/24 09:58 Breathing Review of Systems General: Reports: 10 or more systems reviewed and unremarkable except in HPI and below PFSH ED PFSH: Medical History (Updated 04/30/24 @ 23:10 by KIM Lloyd) Closed fracture of right distal radius and ulna Fracture, intertrochanteric, right femur Diabetes Fall Closed fracture of right hip Lumbar compression fracture 11/08/2018 Disc displacement, lumbar Borderline intellectual functioning Schizoaffective disorder, depressive type Surgical History History of knee surgery (~09/04/13) Dr. Harper Family History Sister High cholesterol Social History Smoking and tobacco/nicotine status: never used tobacco/nicotine Alcohol intake: never Substance/Drug Use: never Household members: none Marital status: Single Current occupational status: disabled Physical Exam Const: COMMON NORMALS: alert HENMT: COMMON NORMALS: normocephalic HEAD & SCALP: normocephalic THROAT: posterior oropharynx abnormal erythema Neck/C-Spine: COMMON NORMALS: full ROM Resp: COMMON NORMALS: normal respiratory effort and clear to auscultation bilaterally AUSCULTATION: clear to auscultation bilaterally Cardio: COMMON NORMALS: regular rate RATE: regular rate GI: COMMON NORMALS: Soft to palpation PALPATION: Yes Soft to palpation Extremity: COMMON NORMALS: full ROM Neuro: SENSORIUM/ORIENTATION: Yes alert Skin: COMMON NORMALS: turgor normal GENERAL SKIN EXAM: turgor normal Course Vital Signs: Vital signs: Vital Signs Temperature 98.1 F 04/30/24 21:51 Pulse Rate 88 04/30/24 21:55 Respiratory Rate 15 04/30/24 21:55 Blood Pressure 121/72 04/30/24 21:55 Pulse Oximetry 96 04/30/24 21:55 Oxygen Delivery Me thod Room Air 04/30/24 21:55 MDM - URI/Sore Throat Medical Decision Making 64-year-old female comes in today for complaints of sinus pain and pressure with nasal drainage. Patient appears nontoxic. Patient appears in no acute distress. Respirations are even lungs are clear to auscultation. Skin is warm and dry. Bilateral TMs are normal. Abdomen soft nontender. No edema is noted in extremities. Differential diagnosis includes but not limited to upper respiratory infection, rhinosinusitis, COVID-19. COVID test was positive. Encourage patient to drink plenty of water and fluids. Use acetaminophen and ibuprofen for pain and discomfort. Patient was written a prescription for doxycycline for prophylaxis. Patient reports understanding of care plan need for follow-up or return to the ER for worsening symptoms. Lab Data Laboratory Results SARS-CoV-2 Ag (Rapid) Positive (Negative) H 04/30/24 22:39 No radiology studies performed this visit Discharge Plan Discharge Patient Disposition: Home Clinical Impression: Acute rhinosinusitis, COVID Condition: Stable Prescriptions: New doxycycline hyclate 100 mg capsule 100 mg PO BID 7 Days Qty: 14 0RF No Action famotidine 20 mg tablet 20 mg PO DAILY (DME) diabetic shoes with molded inserts See Rx Instructions .Route .MEDSUPPLY Qty: 1 0RF Rx Instructions: As directed (DME) Fast Form See Rx Instructions .Route .MEDSUPPLY Qty: 1 0RF Rx Instructions: As directed sennosides [senna] 8.6 mg tablet PO ziprasidone HCl [Geodon] 20 mg capsule 20 mg PO BID Qty: 60 2RF Rx Instructions: give with food (meal/snack) topiramate [Topamax] 100 mg tablet 100 mg PO BID Qty: 60 2RF melatonin 10 mg tablet 20 mg PO BEDTIME Qty: 60 2RF (DME) Diabetic Shoes with 3 pairs of inserts See Rx Instructions .Route .MEDSUPPLY Qty: 1 0RF Rx Instructions: As directed Ozempic 0.25 mg or 0.5 mg (2 mg/3 mL) pen injector SUBCUT .weekly Biofreeze (menthol) 10 % cream topical PRN acetaminophen [Tylenol Extra Strength] 500 mg tablet 500 mg PO Q6H PRN clonazepam 0.5 mg tablet 0.5 mg PO DAILY PRN (Reason: anxiety) Qty: 30 2RF Prozac 40 mg capsule 40 mg PO DAILY Qty: 30 2RF Jardiance 10 mg Tablet 10 mg PO DAILY insulin glargine [Lantus U-100 Insulin] 100 unit/mL Solution 110 unit SUBCUT QPM cetirizine [Zyrtec] 10 mg Tablet 10 mg PO DAILY PRN (Reason: Allergy Symptoms) aspirin 81 mg Tablet,Delayed Release (Dr/Ec) 81 mg PO DAILY Hold Instructions: Resume on 09/02/21. May resume after 325 mg daily for 30 days gabapentin [Neurontin] 100 mg Capsule 100 mg PO TID albuterol sulfate 2.5 mg /3 mL (0.083 %) solution for nebulization 2.5 mg inhalation Q4H PRN (Reason: Shortness Of Breath) fluticasone propionate 50 mcg/actuation [place],Suspension 2 spray INTRANASAL DAILY PRN (Reason: Nasal Congestion) Rx Instructions: administer into each nostril rosuvastatin 20 mg tablet 20 mg PO DAILY cyclobenzaprine 10 mg tablet 10 mg PO TID Qty: 30 0RF ketorolac 10 mg tablet 10 mg PO Q8H PRN (Reason: pain) Qty: 30 0RF tramadol 50 mg tablet 50 mg PO Q6H PRN (Reason: Pain) Qty: 15 0RF Voltaren Arthritis Pain 1 % gel 4 g topical QID Qty: 100 3RF Rx Instructions: apply to single knee, ankle, foot; for foot includes sole/toes/top of foot Discharge Orders: Discharge ED (Routine); Ordered 04/30/24 Ordered By: Nilesh Resendez Referrals: Hilda Patel MD [Primary Care Provider] - Discharge Diet: Usual diet Discharge Activity: Increase activity as tolerated Patient Instructions: COVID-19 and Chronic Health Conditions (ED) Activity Restrictions/Additional Instructions: Home and rest. Drink plenty water and fluids. Take medication doxycycline as directed. Continue with routine medications as prescribed. Follow-up with primary care in 1 week for recheck. Try to avoid exposure of illness to other individuals. Return to ER for worsening symptoms such as inability to hold fluids down, increasing shortness of breath, or severe chest pain. Coding Level of Care Code ED Aircraft Layout Worker for Casey Vaughn
[2024-04-30 21:51] VITALS: BP 142/80; PULSE 90; RESP 16; TEMP 36.7; O2SAT 95; BMI 29.9
[2024-04-30 21:55] VITALS: BP 121/72; PULSE 88; RESP 15; O2SAT 96
[2024-04-30] MEDS: doxycycline 100 mg Tablet PO (22:35)
[2024-04-30 23:08] LABS: SARS Covid-2 Antigen Positive (Negative)
[2024-04-30 23:35] VITALS: BP 121/72; PULSE 84; O2SAT 97
== END 2024-04-30 23:37 | disposition home or self-care (01) ==
PROVIDERS: Emergency Provider Nurse Practitioner Family; PCP Internal Medicine
DX: J01.90 Acute sinusitis, unspecified (principal); U07.1 COVID-19; Z79.85 Long-term (current) use of injectable non-insulin antidiabetic drugs; Z79.82 Long term (current) use of aspirin; Z79.4 Long term (current) use of insulin; E11.9 Type 2 diabetes mellitus without complications
CPT/HCPCS: 87426; 99283

== ENCOUNTER → 2024-05-10 17:23 | Outpatient (BNVA) | payer MEDICARE, MEDICAID, SELFPAY | PROVIDERS: PCP Internal Medicine; Visit Provider Emergency Medicine | DX: U07.1 COVID-19 (principal) | CPT/HCPCS: 87426 ==

== ENCOUNTER → 2024-05-27 09:06 | Outpatient (BNVA) | payer MEDICARE, MEDICAID, OTHER, SELFPAY | PROVIDERS: PCP Internal Medicine; Visit Provider Family Medicine | DX: Z01.818 Encounter for other preprocedural examination (principal) | CPT/HCPCS: 80053; 81003; 83036; 85025 ==

== ENCOUNTER 2024-07-21 22:26 | Emergency (ER) | payer MEDICARE, MEDICAID, SELFPAY ==
[2024-07-21 22:28] VITALS: BP 175/104; PULSE 70; RESP 16; TEMP 36.5; O2SAT 97; BMI 29.2
--- NOTE | 2024-07-21 22:40 | W.ED.EXTPRO ---
HPI - Extremity Problem General: Chief complaint: Extremity Injury, Upper Stated complaint: SHOULDER PAIN Time Seen by Provider: 07/21/24 22:28 History of Present Illness: 54-year-old female with a history of chronic left shoulder pain presents emergency room with left shoulder pain. She presents by ambulance. She says she could not get a ride so she called the ambulance because her pain was worse. She is requesting a Toradol shot Related Data Home Medications Medication Instructions Recorded Confirmed aspirin 81 mg tablet,delayed 81 mg PO DAILY 09/09/19 06/05/24 release cetirizine 10 mg tablet (Zyrtec) 10 mg PO DAILY PRN Allergy Symptoms 09/09/19 06/05/24 gabapentin 100 mg capsule 100 mg PO TID 09/09/19 06/05/24 (Neurontin) insulin glargine 100 unit/mL 110 unit SUBCUT QPM 09/09/19 06/05/24 subcutaneous solution (Lantus U-100 Insulin) famotidine 20 mg tablet 20 mg PO DAILY 03/01/21 06/05/24 empagliflozin 10 mg tablet 10 mg PO DAILY 07/26/21 06/05/24 (Jardiance) fluticasone propionate 50 2 spray intranasal DAILY PRN Nasal 01/31/23 06/05/24 mcg/actuation nasal Congestion spray,suspension rosuvastatin 20 mg tablet 20 mg PO DAILY 01/31/23 06/05/24 semaglutide 0.25 mg or 0.5 mg (2 0.25 mg SUBCUT .weekly 12/18/23 06/05/24 mg/3 mL) subcutaneous pen injector (Ozempic) sennosides 8.6 mg tablet (senna) 8.6 mg PO DAILY 01/09/24 06/05/24 acetaminophen 500 mg tablet 500 mg PO Q6H PRN Pain 04/03/24 06/05/24 (Tylenol Extra Strength) menthol 10 % topical cream 1 applic topical DIRECTED PRN 04/03/24 06/05/24 (Biofreeze (menthol)) Pain fenofibrate nanocrystallized 145 145 mg PO DAILY 05/27/24 06/05/24 mg tablet (Tricor) Previous Rx's Medication Instructions Recorded diabetic shoes with molded inserts #1 ea 10/18/21 Fast Form #1 ea 02/16/23 Diabetic Shoes with 3 pairs of #1 ea 06/25/23 inserts diclofenac sodium 1 % topical gel 4 g topical QID #100 grams 10/17/23 (Voltaren Arthritis Pain) albuterol sulfate 2.5 mg/3 mL 2.5 mg (3 mL) inhalation Q6H PRN 04/30/24 (0.083 %) solution for nebulization shortness of breath or wheezing #180 mL clonazepam 0.5 mg tablet 0.5 mg PO DAILY PRN anxiety #30 05/15/24 tabs fluoxetine 40 mg capsule (Prozac) 40 mg PO DAILY #30 caps 05/15/24 melatonin 10 mg tablet 20 mg (2 x 10 mg) PO BEDTIME #60 05/15/24 tabs topiramate 100 mg tablet (Topamax) 100 mg PO BID #60 tabs 05/15/24 ziprasidone HCl 20 mg capsule 20 mg PO BID #60 caps 05/15/24 (Geodon) Allergies Allergy/AdvReac Type Severity Reaction Status Date / Time Iodinated Contrast Media Allergy ALGY-Anaphy Verified 05/27/24 09:21 laxis Iodine and Iodide Containing Allergy ALGY-Difficulty Verified 05/27/24 09:21 Produc Breathing marijuana (cannabis) Allergy ADR-Headach Verified 05/27/24 09:21 [marijuana] e shellfish derived Allergy ALGY-Difficulty Verified 05/27/24 09:21 Breathing Review of Systems Narrative: Constitutional symptoms: Negative except as documented in HPI. Skin symptoms: Negative except as documented in HPI. Eye symptoms: Negative except as documented in HPI. ENMT symptoms: Negative except as documented in HPI. Respiratory symptoms: Negative except as documented in HPI. Cardiovascular symptoms: Negative except as documented in HPI. Gastrointestinal symptoms: Negative except as documented in HPI. Genitourinary symptoms: Negative except as documented in HPI. Musculoskeletal symptoms: Negative except as documented in HPI. Neurologic symptoms: Negative except as documented in HPI. Psychiatric symptoms: Negative except as documented in HPI. Endocrine symptoms: Negative except as documented in HPI. PFSH ED PFSH: Medical History (Updated 07/21/24 @ 22:36 by Colleen Nickerson MD) Closed fracture of right distal radius and ulna Fracture, intertrochanteric, right femur Diabetes Fall Closed fracture of right hip Lumbar compression fracture 11/08/2018 Disc displacement, lumbar Borderline intellectual functioning Schizoaffective disorder, depressive type Surgical History History of knee surgery (~09/04/13) Dr. Harper Family History Sister High cholesterol Social History Smoking and tobacco/nicotine status: never used tobacco/nicotine Alcohol intake: never Substance/Drug Use: never Household members: none Marital status: Single Current occupational status: disabled Physical Exam Narrative: EXAM NARRATIVE: General: Alert, no acute distress. Skin: warm and dry Head: Normocephalic Neck: Trachea midline Eye: Extraocular movements are intact. Ears, nose, mouth and throat: Oral mucosa moist Respiratory: Respirations are non-labored Musculoskeletal: Some limitation of range of motion of her left shoulder secondary to pain. No obvious deformities. Neurovascularly intact. Neurological: Alert and oriented, No focal neurological deficit observed. Psychiatric: Cooperative, appropriate mood & affect. Course Vital Signs: Vital signs: Vital Signs Temperature 97.7 F 07/21/24 22:28 Pulse Rate 69 07/21/24 23:00 Respiratory Rate 16 07/21/24 22:28 Blood Pressure 169/103 07/21/24 23:00 Pulse Oximetry 97 07/21/24 23:00 Oxygen Delivery Me thod Room Air 07/21/24 22:28 MDM - Extremity (Nontraumatic) Medical Decision Making Assessment and plan: Chronic shoulder pain ?IM Toradol in the emergency room. - Discharged home - Discussed plan with patient. Answered any questions. - Evaluation and treatment of this problem were appropriate in the emergency setting. No radiology studies performed this visit Discharge Plan Discharge Patient Disposition: Home Clinical Impression: Chronic left shoulder pain Condition: Stable Prescriptions: No Action famotidine 20 mg tablet 20 mg PO DAILY (DME) diabetic shoes with molded inserts See Rx Instructions .Route .MEDSUPPLY Qty: 1 0RF Rx Instructions: As directed (DME) Fast Form See Rx Instructions .Route .MEDSUPPLY Qty: 1 0RF Rx Instructions: As directed sennosides [senna] 8.6 mg tablet 8.6 mg PO DAILY clonazepam 0.5 mg tablet 0.5 mg PO DAILY PRN (Reason: anxiety) Qty: 30 2RF Prozac 40 mg capsule 40 mg PO DAILY Qty: 30 2RF ziprasidone HCl [Geodon] 20 mg capsule 20 mg PO BID Qty: 60 2RF Rx Instructions: give with food (meal/snack) topiramate [Topamax] 100 mg tablet 100 mg PO BID Qty: 60 2RF (DME) Diabetic Shoes with 3 pairs of inserts See Rx Instructions .Route .MEDSUPPLY Qty: 1 0RF Rx Instructions: As directed Ozempic 0.25 mg or 0.5 mg (2 mg/3 mL) pen injector 0.25 mg SUBCUT .weekly Biofreeze (menthol) 10 % cream 1 applic topical DIRECTED PRN (Reason: Pain) acetaminophen [Tylenol Extra Strength] 500 mg tablet 500 mg PO Q6H PRN (Reason: Pain) fenofibrate nanocrystallized [Tricor] 145 mg tablet 145 mg PO DAILY melatonin 10 mg tablet 20 mg PO BEDTIME Qty: 60 2RF Jardiance 10 mg Tablet 10 mg PO DAILY insulin glargine [Lantus U-100 Insulin] 100 unit/mL Solution 110 unit SUBCUT QPM cetirizine [Zyrtec] 10 mg Tablet 10 mg PO DAILY PRN (Reason: Allergy Symptoms) aspirin 81 mg Tablet,Delayed Release (Dr/Ec) 81 mg PO DAILY Hold Instructions: Resume on 09/02/21. May resume after 325 mg daily for 30 days gabapentin [Neurontin] 100 mg Capsule 100 mg PO TID fluticasone propionate 50 mcg/actuation [place],Suspension 2 spray INTRANASAL DAILY PRN (Reason: Nasal Congestion) Rx Instructions: administer into each nostril rosuvastatin 20 mg tablet 20 mg PO DAILY diclofenac sodium [Voltaren Arthritis Pain] 1 % gel 4 g topical QID Qty: 100 3RF Rx Instructions: apply to single knee, ankle, foot; for foot includes sole/toes/top of foot albuterol sulfate 2.5 mg /3 mL (0.083 %) solution for nebulization 2.5 mg inhalation Q6H PRN (Reason: shortness of breath or wheezing) Qty: 180 0RF Discharge Orders: Discharge ED (Routine); Ordered 07/21/24 Ordered By: Colleen Nickerson Referrals: Hilda Patel MD [Primary Care Provider] - Patient Instructions: Opioid Safety, Pain Management Activity Restrictions/Additional Instructions: Thank you for choosing [facility] for your healthcare needs today. Please realize this is an emergency room and that we are providing you with a medical screening exam and this may not be complete and all inclusive of all the testing and or work up that you may need to determine your ailment or severity of your illness. You have been screened and evaluated and felt safe for discharge. Health conditions do change or evolve sometimes and as such it is important that you follow up with your Primary Doctor to be re checked, 3-5 days is a general good time frame for follow up. You are always welcome to return to the ED for re assessment if your symptoms are worsening or you have new concerns Coding Level of Care Code ED Insurance Coordinator for Casey Vaughn
[2024-07-21] MEDS: ketorolac 30 mg/mL INJ IM (22:45)
[2024-07-21 23:00] VITALS: BP 169/103; PULSE 69; O2SAT 97
== END 2024-07-21 23:01 | disposition home or self-care (01) ==
PROVIDERS: Emergency Provider Emergency Medicine; PCP Internal Medicine
DX: M25.512 Pain in left shoulder (principal); Z79.4 Long term (current) use of insulin; E11.9 Type 2 diabetes mellitus without complications
CPT/HCPCS: 96372; 99284; J1885

== ENCOUNTER → 2024-08-06 09:56 | Outpatient (BNVA) | payer MEDICARE, MEDICAID, SELFPAY | PROVIDERS: PCP Internal Medicine; Visit Provider Family Medicine | DX: Z01.818 Encounter for other preprocedural examination (principal); E11.42 Type 2 diabetes mellitus with diabetic polyneuropathy; Z79.899 Other long term (current) drug therapy | CPT/HCPCS: 80053; 81003; 83036; 85025 ==

== ENCOUNTER 2024-08-11 08:33 | Day surgery (SDC) | payer MEDICARE, MEDICAID, SELFPAY ==
[2024-08-11] VITALS (10 sets, daily range): BP systolic 95–144; BP diastolic 70–115; PULSE 73–91; RESP 14–28; TEMP 36.1–36.7; O2SAT 93–100; BMI 29.4
[2024-08-11] MEDS: ketorolac 30 mg/mL INJ IVP (09:22)
[2024-08-11] MEDS: scopolamine 1.5 Patch 1 PATCH TRANSDERMA (09:22)
[2024-08-11] MEDS: acetaminophen 1,000 MG/100 ML PIGGYBACK 400 MG IV (09:23)
[2024-08-11] MEDS: lactated ringers 500 ML IV (09:24)
[2024-08-11 09:30] LABS: Basophils # 0.1 10^3/uL (0.0-0.1); Basophils % 1.1 %; Eosinophils # 0.1 10^3/uL (0.0-0.8); Eosinophils % 1.4 %; Hematocrit 42.4 % (36-47); Lymphocytes # 2.5 10^3/uL (0.8-4.8); Lymphocytes % 33.7 %; Mean Corpuscular HGB Conc 36.1 g/dL (30-55); Mean Corpuscular Hemoglobin 31.3 pg (27-33); Mean Corpuscular Volume 86.7 fl (85-98); Monocytes # 0.5 10^3/uL (0.2-0.9); Monocytes % 7.3 %; Neutrophils # 4.06 10^3/uL (1.8-7.7); Neutrophils % 55.9 %; Nucleated Red Blood Cells % 0 %; Platelet Count 149 10^3/cmm (157-399); Red Blood Count 4.89 10^6/uL (3.85-5.65); Red Cell Distribution Width 12.9 % (12.1-15.1); White Blood Count 7.26 10^3/uL (3.29-11.43)
[2024-08-11 09:30] LABS: Glucose Point of Care 276 mg/dL (70-110)
[2024-08-11 09:43] LABS: Blood Urea Nitrogen 28 mg/dL (8-23); Calcium 9.5 mg/dL (8.5-10.5); Carbon Dioxide 19 mmol/L (22-29); Chloride 106 mmol/L (98-107); Glomerular Filtration Rate 55.5 mL/min (90-130); Glucose 284 mg/dL (65-115); Osmolality Calculated 302 mOsm/kg (285-295); Sodium 138 mmol/L (136-145)
--- NOTE | 2024-08-11 09:47 | ANES.PREANE2 ---
Pre-Anesthetic Assessment Height/Weight: Height 1.57 m Weight 73.028 kg Temp Pulse Resp BP Pulse Ox O2 Del Method 98.1 F 73 16 138/95 98 Room Air 08/11/24 08:53 08/11/24 08:53 08/11/24 08:53 08/11/24 08:53 08/11/24 08:53 08/11/24 08:53 Operation Date: 08/11/24 10:25 Proposed Procedures p right hip trochanteric femur nail removal(Right) - Cristian Flores DO Familial anesthetic complications: None Was Beta Colin taken within 24 hours: N/A Was Clonidine taken within 24 hours: N/A Last intake: Intake Last Liquid Date 08/10/24 Last Liquid Time 22:00 Last Solid Date 08/10/24 Last Solid Time 20:00 Social No alcohol and No tobacco Exam alert, oriented x 3, clear to auscultation bilaterally and regular rate & rhythm Airway Mallampati: Class II Dentition: other (no teeth) Pulmonary hx covid Metabolic Diabetes Mellitus, Hyperlipidemia and Morbid Obesity Anesthetic Plan ASA status: 3 Anesthesia: General Risk of > 500 ml blood loss (7ml/kg in children): No Medications/Allergies Home Medications Medication Instructions Recorded Confirmed Last Taken Type aspirin 81 mg tablet,delayed 81 mg PO DAILY 09/09/19 08/11/24 08/04/24 History release cetirizine 10 mg tablet (Zyrtec) 10 mg PO DAILY PRN Allergy Symptoms 09/09/19 08/11/24 08/07/24 History gabapentin 100 mg capsule 100 mg PO TID 09/09/19 08/11/24 08/07/24 History (Neurontin) insulin glargine 100 unit/mL 110 unit SUBCUT QPM 09/09/19 08/11/24 08/09/24 History subcutaneous solution (Lantus U-100 Insulin) famotidine 20 mg tablet 20 mg PO DAILY 03/01/21 08/11/24 08/10/24 History empagliflozin 10 mg tablet 10 mg PO DAILY 07/26/21 08/11/24 08/07/24 History (Jardiance) diabetic shoes with molded inserts #1 ea 10/18/21 08/11/24 Unknown Rx fluticasone propionate 50 2 spray intranasal DAILY PRN Nasal 01/31/23 08/11/24 06/06/24 History mcg/actuation nasal Congestion spray,suspension rosuvastatin 20 mg tablet 20 mg PO DAILY 01/31/23 08/11/24 08/07/24 History Fast Form #1 ea 02/16/23 08/11/24 Unknown Rx Diabetic Shoes with 3 pairs of #1 ea 06/25/23 08/11/24 Unknown Rx inserts diclofenac sodium 1 % topical gel 4 g topical QID #100 grams 10/17/23 08/11/24 08/10/24 Rx (Voltaren Arthritis Pain) semaglutide 0.25 mg or 0.5 mg (2 0.25 mg SUBCUT .weekly 12/18/23 08/11/24 08/04/24 History mg/3 mL) subcutaneous pen injector (Ozempic) sennosides 8.6 mg tablet (senna) 8.6 mg PO DAILY 01/09/24 08/11/24 06/08/24 History acetaminophen 500 mg tablet 500 mg PO Q6H PRN Pain 04/03/24 08/11/24 06/08/24 History (Tylenol Extra Strength) menthol 10 % topical cream 1 applic topical DIRECTED PRN 04/03/24 08/11/24 08/07/24 History (Biofreeze (menthol)) Pain albuterol sulfate 2.5 mg/3 mL 2.5 mg (3 mL) inhalation Q6H PRN 04/30/24 08/11/24 04/15/24 Rx (0.083 %) solution for nebulization shortness of breath or wheezing #180 mL clonazepam 0.5 mg tablet 0.5 mg PO DAILY PRN anxiety #30 05/15/24 08/11/24 08/07/24 Rx tabs fluoxetine 40 mg capsule (Prozac) 40 mg PO DAILY #30 caps 05/15/24 08/11/24 08/11/24 Rx melatonin 10 mg tablet 20 mg (2 x 10 mg) PO BEDTIME #60 05/15/24 08/11/24 08/07/24 Rx tabs topiramate 100 mg tablet (Topamax) 100 mg PO BID #60 tabs 05/15/24 08/11/24 08/07/24 Rx ziprasidone HCl 20 mg capsule 20 mg PO BID #60 caps 09/1908/11/24 08/07/24 Rx (Geodon) fenofibrate nanocrystallized 145 145 mg PO DAILY 05/27/24 08/11/24 08/07/24 History mg tablet (Tricor) hydrocodone 7.5 mg-acetaminophen 1 tab PO Q6H PRN pain #20 tabs 08/11/24 Unknown Rx 325 mg tablet Allergies Allergy/AdvReac Type Severity Reaction Status Date / Time Iodinated Contrast Media Allergy ALGY-Anaphy Verified 08/06/24 09:43 laxis Iodine and Iodide Containing Allergy ALGY-Difficulty Verified 08/06/24 09:43 Produc Breathing marijuana (cannabis) Allergy ADR-Headach Verified 08/06/24 09:43 [marijuana] e shellfish derived Allergy ALGY-Difficulty Verified 08/06/24 09:43 Breathing [facility] Anesthesia Medical History (Updated 07/21/24 @ 22:36 by Colleen Nickerson MD) Closed fracture of right distal radius and ulna Fracture, intertrochanteric, right femur Diabetes Fall Closed fracture of right hip Lumbar compression fracture 11/08/2018 Disc displacement, lumbar Borderline intellectual functioning Schizoaffective disorder, depressive type Surgical History History of knee surgery (~09/04/13) Dr. Harper Family History Sister High cholesterol Social History Smoking and tobacco/nicotine status: never used tobacco/nicotine Alcohol intake: never Substance/Drug Use: never Household members: none Marital status: Single Current occupational status: disabled Data Anesthesia 08/11/24 09:12 08/11/24 09:12 Short CBC 08/11/24 Range/Units 09:12 WBC 7.26 (3.29-11.43) 10^3/uL Hgb 15.30 (11.27-16.99) g/dL Hct 42.4 (36-47) % MCV 86.7 (85-98) fl Plt Count 149 L (157-399) 10^3/cmm Neut % (Auto) 55.9 % Neut # (Auto) 4.06 (1.8-7.7) 10^3/uL BMP 12/16/24 09:12 Sodium 138 Potassium 4.0 Chloride 106 Calcium 9.5 Cardiac Studies: No Data to Display
[2024-08-11] MEDS: insulin regular-human 100 units/1 mL 10 UNIT IVP (09:53)
[2024-08-11] MEDS: sodium chloride 0.9% 1,000 ML 30 ML IV (09:56)
--- NOTE | 2024-08-11 10:12 | W.PM.OPSFHP ---
Same Day Surgery H&P Indication for Procedure/HPI DATE OF PROCEDURE: August 11, 2024 CHIEF COMPLAINT/INDICATIONFOR SURGICAL PROCEDURE: Right hip painful trochanteric nail orthopedic hardware, healed right intertrochanteric femur fracture PREOP DIAGNOSIS: Healed right intertrochanteric femur fracture, painful orthopedic hardware PLANNED PROCEDURE: Operation Date: 08/11/24 10:25 Proposed Procedures p right hip trochanteric femur nail removal(Right) - Cristian Emmons, DO Medications/Allergies* Home Medications Medication Instructions Recorded Confirmed Type aspirin 81 mg tablet,delayed 81 mg PO DAILY 09/09/19 08/11/24 History release cetirizine 10 mg tablet (Zyrtec) 10 mg PO DAILY PRN Allergy Symptoms 09/09/19 08/11/24 History gabapentin 100 mg capsule 100 mg PO TID 09/09/19 08/11/24 History (Neurontin) insulin glargine 100 unit/mL 110 unit SUBCUT QPM 09/09/19 08/11/24 History subcutaneous solution (Lantus U-100 Insulin) famotidine 20 mg tablet 20 mg PO DAILY 03/01/21 08/11/24 History empagliflozin 10 mg tablet 10 mg PO DAILY 07/26/21 08/11/24 History (Jardiance) fluticasone propionate 50 2 spray intranasal DAILY PRN Nasal 01/31/23 08/11/24 History mcg/actuation nasal Congestion spray,suspension rosuvastatin 20 mg tablet 20 mg PO DAILY 01/31/23 08/11/24 History semaglutide 0.25 mg or 0.5 mg (2 0.25 mg SUBCUT .weekly 12/18/23 08/11/24 History mg/3 mL) subcutaneous pen injector (Ozempic) sennosides 8.6 mg tablet (senna) 8.6 mg PO DAILY 01/09/24 08/11/24 History acetaminophen 500 mg tablet 500 mg PO Q6H PRN Pain 04/03/24 08/11/24 History (Tylenol Extra Strength) menthol 10 % topical cream 1 applic topical DIRECTED PRN 04/03/24 08/11/24 History (Biofreeze (menthol)) Pain fenofibrate nanocrystallized 145 145 mg PO DAILY 05/27/24 08/11/24 History mg tablet (Tricor) Allergies/Adverse Reactions Allergy/AdvReac Type Severity Reaction Status Date / Time Iodinated Contrast Media Allergy ALGY-Anaphy Verified 08/06/24 09:43 laxis Iodine and Iodide Containing Allergy ALGY-Difficulty Verified 08/06/24 09:43 Produc Breathing marijuana (cannabis) Allergy ADR-Headach Verified 08/06/24 09:43 [marijuana] e shellfish derived Allergy ALGY-Difficulty Verified 08/06/24 09:43 Breathing Current Medications: Generic Name Dose Route Start Last Admin Trade Name Freq PRN Reason Stop Dose Admin Sodium Chloride 1,000 mls @ 30 mls/hr 08/11/24 08:45 08/11/24 09:56 Sodium Chloride 0.9% IV 08/12/24 08:44 30 mls/hr .Q24H JACOB Administration Pertinent History/Comorbid Conditions* Medical History (Updated 07/21/24 @ 22:36 by Colleen Nickerson MD) Closed fracture of right distal radius and ulna Fracture, intertrochanteric, right femur Diabetes Fall Closed fracture of right hip Lumbar compression fracture 11/08/2018 Disc displacement, lumbar Borderline intellectual functioning Schizoaffective disorder, depressive type Surgical History (Updated 06/13/23 @ 16:22 by FERN Wiggins) History of knee surgery (~09/04/13) Dr. Harper Family History (Updated 09/23/19 @ 09:24 by Onelia Jackson LPN) High cholesterol Sister Social History Smoking and tobacco/nicotine status: never used tobacco/nicotine Alcohol intake: never Substance/Drug Use: never Household members: none Marital status: Single Current occupational status: disabled Pertinent Exam Findings alert, oriented x 3, operative site marked and procedure specific exam findings Please refer to detailed orthopedic examination on 04/10/2024: HIP, right Incision well-healed no signs of infection. sensation intact to light touch distally, right lower extremity warm well perfused Normal hip range of motion with no pain she is able to ambulate and stand on her own in the office today Patient does have tenderness to palpation over the incision site predominantly over the lateral hip trochanteric screw Recommendations Surgery/Procedure today Other Plans: Plan proceed to the OR today for right hip trochanteric femur nail removal. She understands the ins and outs procedure risk benefits complication alternatives surgery. We will have her the partial weightbearing for the first couple weeks postoperatively. We did get a CT scan which confirmed complete union. Will go ahead and remove the right hip trochanteric femur nail per patient's request she understands the ins outs procedure risk benefits complication alternatives surgery and through shared decision make elects proceed with surgical invention. All questions answered at this time. Coding Level of Care Code Acute Code for Chg Fwd
[2024-08-11 10:13] LABS: Glucose Point of Care 236 mg/dL (70-110)
[2024-08-11] MEDS: ceFAZolin 2,000 mg SDV 2000 MG IVP (10:36)
[2024-08-11] MEDS: tranexamic acid 1,000 mg/10mL SDV 1000 MG IV (10:36)
[2024-08-11] MEDS: BUPivacaine 0.5% INJ 30 mL ×2 (12:00→12:20)
--- NOTE | 2024-08-11 12:01 | XR_ITS ---
WS: [id number] INTRAOPERATIVE TECHNIQUE: 4 Spot fluoroscopic images for intraoperative purposes. FLUOROSCOPY TIME: 214.4 seconds, 24.01 mGy CLINICAL INFORMATION: HARDWARE REMOVAL OR PICS FINDINGS: Images obtained for intraoperative hardware removal RIGHT hip and femur. XR/XR hip RT 2-3V wo/w pel* [id number] IMPRESSION: Images obtained for intraoperative purposes.
--- NOTE | 2024-08-11 12:03 | W.PM.BPON ---
Date of Procedure: 08/11/2024 Surgeon: Cristian Flores DO Certified Pedorthotist(s): Lavon Flores PA-C Procedure(s) performed: Right hip trochanteric femur nail removal (nail removal, screw removal, setscrew removal) Findings of the procedure(s): Patient was found to have a healed right hip intertrochanteric femur fracture underwent procedure as planned with removal without issues or complications taken PACU stable condition will be partial weightbearing 3050% for the first 2 weeks. Estimated blood loss: 75 mL Specimen(s) removed: None, hardware removed Post-operative diagnosis: Healed right hip intertrochanteric femur fracture, painful orthopedic
--- NOTE | 2024-08-11 12:05 | PM.OP ---
Operative Report Date of procedure: August 11, 2024 Pre-op diagnosis: right hip painful orthopedic hardware, healed right intertrochanteric femur fracture Post-op diagnosis: Healed right intertrochanteric femur fracture, painful orthopedic hardware Post-op findings: See operative report narrative Procedure done: Right hip trochanteric femur nail removal (nail, lag screw, setscrew, distal interlocking screw removed0 Surgeon: Cristian Flores DO Certified Nurse Practitioner: Lavon Flores PA-C: PA was necessary for assistance in this case with hip positioning,retraction as well as assistance in hardware removal, wound closure and dressing application. Anesthesia: General Estimated blood loss: 75 mL IV fluids: 500 mL Complications: None Findings: See operative report narrative Condition: stable Disposition: same day Brief History: Patient pleasant 64-year-old female who sustained a right intertrochanteric femur fracture and was fixed on 01/31/2023. Patient had an uncomplicated course this went on to heal well she started to have some prominence of her lag screw laterally and having pain with this she now subsequently given her persistent pain she like to have the hardware removed we did CT scan confirmed satisfactory healed intertrochanteric femur fracture and through shared decision making with the patient understanding risk benefits complication alternatives of surgery she elects proceed with surgical intervention to have right hip trochanteric femur nail removal. All questions have been answered at this time. Procedure: Patient seen eval in the preoperative holding area. Consent was reviewed and signed with patient. Correct extremity was then subsequently marked. Patient's sugars had been optimized to lower her risks of infection which she understands. At this point time she was seen evaluate by anesthesia was cleared for surgery she was taken back to the operative suite. Patient was kept on the hospital bed underwent issues per the [place] department was probably anesthetized was transported onto the [facility] bed. All bony problems well-padded patient appropriate secured to the bed. At this point time the lower extremities were then placed in the boot stirrups and secured to the [facility] bed. This point in time I brought in the x-ray to confirm satisfactory x-ray positioning again confirming a healed right intertrochanteric femur fracture and moved as a unit. At this point in time the right hip was then prepped and draped in orthopedic fashion. Final timeout performed. Patient received appropriate preoperative antibiotics. Previous incision was used proximally to remove the setscrew. At this point in time I then subsequently made sharp scalpel incision through skin maintain exact hemostasis with electrocautery utilized a Chery to bluntly split the fascia and came down directly over the previous old starting point and hardware I utilized a guidewire to start in the satisfactory position and then subsequently utilized an awl to clear out any bony fragments at this point time I then utilized a screwdriver to remove the setscrew this was removed atraumatically. I then subsequently once the setscrew was removed moved towards removing of the lag screw. I then subsequently made a small stab incision laterally and then triangulated with x-ray imaging and utilized my guidewire to cannulate into the lag screw I then set my screwdriver and removed the lag screw to its entirety and atraumatically. Next I then secured the back slap nail removal proximally prior to removing the distal interlocking screw. Then finally I then once this was secured and had excellent fixation I then subsequently made a small stab incision and then remove the distal interlocking screw and then back slapped the rest of the trochanteric nail out. This was removed atraumatically without issues or complications. I then took final x-rays and unhook the boot and took this to range of motion this all moved as a unit and no evidence of fracture was noted. At this point time thorough irrigation performed hemostasis satisfactory and then closed this in layered fashion with 0 Vicryl 2-0 Vicryl and jesus and then Silverlon dressings. Patient was then awakened from anesthesia transported on the hospital bed and taken back to PACU in stable condition. Disposition: Patient taken PACU stable condition recovering well at this point time we will have her discharge home. She understands importance of utilizing crutches/walker for partial weightbearing 30-50% just to protect since hardware has been removed. Will receive appropriate discharge instructions and medications postoperatively will follow-up in 2 weeks. Patient understands agrees to current plan. Questions answered.
[2024-08-11] MEDS: HYDROcodone-acetaminophen 7.5-325 mg Tablet 1 TAB PO (13:20)
--- NOTE | 2024-08-11 13:35 | ANE.PACU2 ---
Inpatient post-anesthesia follow up: Airway intact: Yes Vital signs: Temperature 97 F Pulse Rate 79 Respiratory Rate 18 Blood Pressure 124/78 Pulse Oximetry 100 Oxygen Delivery Me thod Room Air Oxygen Flow Rate 8 Fraction of Inspir ed Oxygen Hydration adequate: Yes Nausea and vomiting: No Pain level: 1 Mental status: Baseline
== END 2024-08-11 13:35 | disposition home or self-care (01) ==
PROVIDERS: Physician Assistant; PCP Internal Medicine; Visit Provider Student in an Organized Health Care Education/Training Program
PROC: (CPT 27245; principal; 2024-08-11 10:25)
DX: T84.84XA Pain due to internal orthopedic prosthetic devices, implants and grafts, initial encounter (principal); Z79.82 Long term (current) use of aspirin; E11.9 Type 2 diabetes mellitus without complications; Z79.4 Long term (current) use of insulin; E78.5 Hyperlipidemia, unspecified; E66.01 Morbid (severe) obesity due to excess calories; Z68.29 Body mass index [BMI] 29.0-29.9, adult
CPT/HCPCS: 20680; 36416; 73502; 76000; 80048; 82962; 85025; 86850; 86900; C1713; J0131; J0690; J1100; J1815; J1885; J2371; J2405; J2704; J3010; J3490; J7030; J7120

== ENCOUNTER 2024-08-14 00:44 | Emergency (ER) | payer MEDICARE, MEDICAID, SELFPAY ==
[2024-08-14 00:50] VITALS: BP 144/95; PULSE 84; RESP 16; TEMP 36.9; O2SAT 95
--- NOTE | 2024-08-14 00:58 | ED_ITS ---
HPI - Extremity Problem General: Chief complaint: Extremity Injury, Lower Stated complaint: HIP PAIN Time Seen by Provider: 08/14/24 00:49 History of Present Illness: Patient here by ambulance with postop hip pain. Pain in left hip. No signs of infection no neurological send Related Data Home Medications Medication Instructions Recorded Confirmed aspirin 81 mg tablet,delayed 81 mg PO DAILY 09/09/19 08/11/24 release cetirizine 10 mg tablet (Zyrtec) 10 mg PO DAILY PRN Allergy Symptoms 09/09/19 08/11/24 gabapentin 100 mg capsule 100 mg PO TID 09/09/19 08/11/24 (Neurontin) insulin glargine 100 unit/mL 110 unit SUBCUT QPM 09/09/19 08/11/24 subcutaneous solution (Lantus U-100 Insulin) famotidine 20 mg tablet 20 mg PO DAILY 03/01/21 08/11/24 empagliflozin 10 mg tablet 10 mg PO DAILY 07/26/21 08/11/24 (Jardiance) fluticasone propionate 50 2 spray intranasal DAILY PRN Nasal 01/31/23 08/11/24 mcg/actuation nasal Congestion spray,suspension rosuvastatin 20 mg tablet 20 mg PO DAILY 01/31/23 08/11/24 semaglutide 0.25 mg or 0.5 mg (2 0.25 mg SUBCUT .weekly 12/18/23 08/11/24 mg/3 mL) subcutaneous pen injector (Ozempic) sennosides 8.6 mg tablet (senna) 8.6 mg PO DAILY 01/09/24 08/11/24 acetaminophen 500 mg tablet 500 mg PO Q6H PRN Pain 04/03/24 08/11/24 (Tylenol Extra Strength) menthol 10 % topical cream 1 applic topical DIRECTED PRN 04/03/24 08/11/24 (Biofreeze (menthol)) Pain fenofibrate nanocrystallized 145 145 mg PO DAILY 05/27/24 08/11/24 mg tablet (Tricor) Previous Rx's Medication Instructions Recorded diabetic shoes with molded inserts #1 ea 10/18/21 Fast Form #1 ea 02/16/23 Diabetic Shoes with 3 pairs of #1 ea 06/25/23 inserts diclofenac sodium 1 % topical gel 4 g topical QID #100 grams 10/17/23 (Voltaren Arthritis Pain) albuterol sulfate 2.5 mg/3 mL 2.5 mg (3 mL) inhalation Q6H PRN 04/30/24 (0.083 %) solution for nebulization shortness of breath or wheezing #180 mL clonazepam 0.5 mg tablet 0.5 mg PO DAILY PRN anxiety #30 05/15/24 tabs fluoxetine 40 mg capsule (Prozac) 40 mg PO DAILY #30 caps 05/15/24 melatonin 10 mg tablet 20 mg (2 x 10 mg) PO BEDTIME #60 05/15/24 tabs topiramate 100 mg tablet (Topamax) 100 mg PO BID #60 tabs 05/15/24 ziprasidone HCl 20 mg capsule 20 mg PO BID #60 caps 05/15/24 (Geodon) aspirin 325 mg tablet 325 mg PO DAILY Blood clot 08/11/24 prevention postop 14 days #14 tabs hydrocodone 7.5 mg-acetaminophen 1 tab PO Q6H PRN pain #20 tabs 08/11/24 325 mg tablet Allergies Allergy/AdvReac Type Severity Reaction Status Date / Time Iodinated Contrast Media Allergy ALGY-Anaphy Verified 08/06/24 09:43 laxis Iodine and Iodide Containing Allergy ALGY-Difficulty Verified 08/06/24 09:43 Produc Breathing marijuana (cannabis) Allergy ADR-Headach Verified 08/06/24 09:43 [marijuana] e shellfish derived Allergy ALGY-Difficulty Verified 08/06/24 09:43 Breathing Review of Systems Narrative: Constitutional symptoms: Negative except as documented in HPI. Skin symptoms: Negative except as documented in HPI. Eye symptoms: Negative except as documented in HPI. ENMT symptoms: Negative except as documented in HPI. Respiratory symptoms: Negative except as documented in HPI. Cardiovascular symptoms: Negative except as documented in HPI. Gastrointestinal symptoms: Negative except as documented in HPI. Genitourinary symptoms: Negative except as documented in HPI. Musculoskeletal symptoms: Negative except as documented in HPI. Neurologic symptoms: Negative except as documented in HPI. Psychiatric symptoms: Negative except as documented in HPI. Endocrine symptoms: Negative except as documented in HPI. [facility] ED PFSH: Medical History (Updated 08/14/24 @ 00:57 by Colleen Nickerson MD) Closed fracture of right distal radius and ulna Fracture, intertrochanteric, right femur Diabetes Fall Closed fracture of right hip Lumbar compression fracture 11/08/2018 Disc displacement, lumbar Borderline intellectual functioning Schizoaffective disorder, depressive type Surgical History History of knee surgery (~09/04/13) Dr. Harper Family History Sister High cholesterol Social History Smoking and tobacco/nicotine status: never used tobacco/nicotine Alcohol intake: never Substance/Drug Use: never Household members: none Marital status: Single Current occupational status: disabled Physical Exam Narrative: EXAM NARRATIVE: General: Alert, no acute distress. Skin: warm and dry Head: Normocephalic Neck: Trachea midline Eye: Extraocular movements are intact. Ears, nose, mouth and throat: Oral mucosa moist Respiratory: Respirations are non-labored Musculoskeletal: No signs of infection Neurological: Alert and oriented, No focal neurological deficit observed. Psychiatric: Cooperative, appropriate mood & affect. Course 2 Vital Signs: Vital signs: Vital Signs Temperature 98.5 F 08/14/24 00:50 Pulse Rate 84 08/14/24 00:50 Respiratory Rate 16 08/14/24 00:50 Blood Pressure 144/95 08/14/24 00:50 Pulse Oximetry 95 08/14/24 00:50 Oxygen Delivery Me thod Room Air 08/14/24 00:50 MDM - Extremity (Nontraumatic) Medical Decision Making Assessment and plan: Postop hip pain Chronic pain syndrome ?Dilaudid, Decadron and Norflex in the emergency room. - Discharged home - Discussed plan with patient. Answered any questions. - Evaluation and treatment of this problem were appropriate in the emergency setting. No radiology studies performed this visit Discharge Plan Discharge Patient Disposition: Home Clinical Impression: Hip pain, Post-operative pain, Chronic pain syndrome Condition: Stable Prescriptions: No Action famotidine 20 mg tablet 20 mg PO DAILY (DME) diabetic shoes with molded inserts See Rx Instructions .Route .MEDSUPPLY Qty: 1 0RF Rx Instructions: As directed (DME) Fast Form See Rx Instructions .Route .MEDSUPPLY Qty: 1 0RF Rx Instructions: As directed sennosides [senna] 8.6 mg tablet 8.6 mg PO DAILY clonazepam 0.5 mg tablet 0.5 mg PO DAILY PRN (Reason: anxiety) Qty: 30 2RF Prozac 40 mg capsule 40 mg PO DAILY Qty: 30 2RF ziprasidone HCl [Geodon] 20 mg capsule 20 mg PO BID Qty: 60 2RF Rx Instructions: give with food (meal/snack) topiramate [Topamax] 100 mg tablet 100 mg PO BID Qty: 60 2RF (DME) Diabetic Shoes with 3 pairs of inserts See Rx Instructions .Route .MEDSUPPLY Qty: 1 0RF Rx Instructions: As directed Ozempic 0.25 mg or 0.5 mg (2 mg/3 mL) pen injector 0.25 mg SUBCUT .weekly Biofreeze (menthol) 10 % cream 1 applic topical DIRECTED PRN (Reason: Pain) acetaminophen [Tylenol Extra Strength] 500 mg tablet 500 mg PO Q6H PRN (Reason: Pain) Hold Instructions: Resume on 08/18/24. fenofibrate nanocrystallized [Tricor] 145 mg tablet 145 mg PO DAILY melatonin 10 mg tablet 20 mg PO BEDTIME Qty: 60 2RF Jardiance 10 mg Tablet 10 mg PO DAILY insulin glargine [Lantus U-100 Insulin] 100 unit/mL Solution 110 unit SUBCUT QPM cetirizine [Zyrtec] 10 mg Tablet 10 mg PO DAILY PRN (Reason: Allergy Symptoms) aspirin 81 mg Tablet,Delayed Release (Dr/Ec) 81 mg PO DAILY Hold Instructions: Resume on 08/26/24. gabapentin [Neurontin] 100 mg Capsule 100 mg PO TID fluticasone propionate 50 mcg/actuation [place],Suspension 2 spray INTRANASAL DAILY PRN (Reason: Nasal Congestion) Rx Instructions: administer into each nostril rosuvastatin 20 mg tablet 20 mg PO DAILY hydrocodone-acetaminophen 7.5-325 mg tablet 1 tab PO Q6H PRN (Reason: pain) Qty: 20 0RF aspirin 325 mg tablet 325 mg PO DAILY 14 Days Qty: 14 0RF diclofenac sodium [Voltaren Arthritis Pain] 1 % gel 4 g topical QID Qty: 100 3RF Rx Instructions: apply to single knee, ankle, foot; for foot includes sole/toes/top of foot albuterol sulfate 2.5 mg /3 mL (0.083 %) solution for nebulization 2.5 mg inhalation Q6H PRN (Reason: shortness of breath or wheezing) Qty: 180 0RF Discharge Orders: Discharge ED (Routine); Ordered 08/14/24 Ordered By: Colleen Nickerson Referrals: Hilda Patel MD [Primary Care Provider] - Discharge Diet: Usual diet Discharge Activity: Limit activity as instructed Patient Instructions: Opioid Safety, Pain Management Activity Restrictions/Additional Instructions: Thank you for choosing [facility] for your healthcare needs today. Please realize this is an emergency room and that we are providing you with a medical screening exam and this may not be complete and all inclusive of all the testing and or work up that you may need to determine your ailment or severity of your illness. You have been screened and evaluated and felt safe for discharge. Health conditions do change or evolve sometimes and as such it is important that you follow up with your Primary Doctor to be re checked, 3-5 days is a general good time frame for follow up. You are always welcome to return to the ED for re assessment if your symptoms are worsening or you have new concerns Coding Level of Care Code ED [employer] for Casey Vaughn
[2024-08-14] MEDS: orphenadrine 30 mg/mL Inj 2 mL 60 MG IVP (01:05)
[2024-08-14] MEDS: dexamethasone 10 mg/mL INJ IVP (01:05)
[2024-08-14 01:40] VITALS: BP 144/89; PULSE 81; O2SAT 98
[2024-08-14 01:41] VITALS: RESP 20
[2024-08-14] MEDS: HYDROmorphone 1 mg/mL INJ 1 mL IVP (01:41)
[2024-08-14 01:58] VITALS: BP 149/89; PULSE 81; RESP 16; O2SAT 98
== END 2024-08-14 01:59 | disposition home or self-care (01) ==
PROVIDERS: Emergency Provider Emergency Medicine; PCP Internal Medicine
DX: M25.552 Pain in left hip (principal); Z79.82 Long term (current) use of aspirin; E11.9 Type 2 diabetes mellitus without complications
CPT/HCPCS: 96374; 96375; 99285; J1100; J1171; J2360

== ENCOUNTER 2024-08-17 03:59 | Inpatient (IN) | payer MEDICARE, MEDICAID, SELFPAY ==
[2024-08-17] VITALS (45 sets, daily range): BP systolic 93–152; BP diastolic 51–103; PULSE 65–94; RESP 0–26; TEMP 36.7–36.9; O2SAT 77–98; BMI 29.2
--- NOTE | 2024-08-17 04:35 | XRR_ITS ---
PROCEDURE INFORMATION: Exam: XR Right Hip Exam date and time: 08/17/2024 4:35 AM Age: 64 years old Clinical indication: Right hip; Prior surgery; Surgery date: 3-7 days post-operative; Surgery type: RT troc nail removal 08/11/2024/; Patient HX: C/O worsening RT hip pain since troc nail removal 08/11/2024. ; Additional info: R hip pain post op TECHNIQUE: Imaging protocol: Radiologic exam of the right hip. Views: 1 view hip with pelvis when performed. COMPARISON: OT XR hip RT 2-3V wo/w pel* [id number] 08/11/2024 11:44 AM FINDINGS: Bones/joints: Patient is status post hardware removal from right hip. There appears to be a femoral neck fracture with proximal migration of the distal fracture fragment. Heterotopic ossification is seen adjacent to the greater trochanter. Hip joint space is relatively well preserved. Bony mineralization is decreased. Soft tissues: Unremarkable. XR/XR hip RT 2-3V wo/w pel* [id number] IMPRESSION: 1. Femoral neck fracture.
--- NOTE | 2024-08-17 04:42 | W.ED.EXTPRO ---
HPI - Extremity Problem General: Chief complaint: Extremity Problem,Nontraumatic Stated complaint: Hip pain Time Seen by Provider: 08/17/24 04:05 History of Present Illness: 64-year-old female who had a right hip surgery for hardware removal of an old intertrochanteric fracture a few days ago. She presents with right-sided hip pain. She states that she takes 7.5 hydrocodone's for pain, last took 1 around 7 PM last night. She had increased pain this morning. She forgot that she could use her pillows to position her hip more appropriately, and called an ambulance. She also states that she nearly fell in her home trying to transfer to the toilet last night as well. She denies fever. No numbness or tingling. Her incision has been fine, no drainage. Related Data Home Medications Medication Instructions Recorded Confirmed aspirin 81 mg tablet,delayed 81 mg PO DAILY 09/09/19 08/11/24 release cetirizine 10 mg tablet (Zyrtec) 10 mg PO DAILY PRN Allergy Symptoms 09/09/19 08/11/24 gabapentin 100 mg capsule 100 mg PO TID 09/09/19 08/11/24 (Neurontin) insulin glargine 100 unit/mL 110 unit SUBCUT QPM 09/09/19 08/11/24 subcutaneous solution (Lantus U-100 Insulin) famotidine 20 mg tablet 20 mg PO DAILY 03/01/21 08/11/24 empagliflozin 10 mg tablet 10 mg PO DAILY 07/26/21 08/11/24 (Jardiance) fluticasone propionate 50 2 spray intranasal DAILY PRN Nasal 01/31/23 08/11/24 mcg/actuation nasal Congestion spray,suspension rosuvastatin 20 mg tablet 20 mg PO DAILY 01/31/23 08/11/24 semaglutide 0.25 mg or 0.5 mg (2 0.25 mg SUBCUT .weekly 12/18/23 08/11/24 mg/3 mL) subcutaneous pen injector (Ozempic) sennosides 8.6 mg tablet (senna) 8.6 mg PO DAILY 01/09/24 08/11/24 acetaminophen 500 mg tablet 500 mg PO Q6H PRN Pain 04/03/24 08/11/24 (Tylenol Extra Strength) menthol 10 % topical cream 1 applic topical DIRECTED PRN 04/03/24 08/11/24 (Biofreeze (menthol)) Pain fenofibrate nanocrystallized 145 145 mg PO DAILY 05/27/24 08/11/24 mg tablet (Tricor) Previous Rx's Medication Instructions Recorded diabetic shoes with molded inserts #1 ea 10/18/21 Fast Form #1 ea 02/16/23 Diabetic Shoes with 3 pairs of #1 ea 06/25/23 inserts diclofenac sodium 1 % topical gel 4 g topical QID #100 grams 10/17/23 (Voltaren Arthritis Pain) albuterol sulfate 2.5 mg/3 mL 2.5 mg (3 mL) inhalation Q6H PRN 04/30/24 (0.083 %) solution for nebulization shortness of breath or wheezing #180 mL clonazepam 0.5 mg tablet 0.5 mg PO DAILY PRN anxiety #30 05/15/24 tabs fluoxetine 40 mg capsule (Prozac) 40 mg PO DAILY #30 caps 05/15/24 melatonin 10 mg tablet 20 mg (2 x 10 mg) PO BEDTIME #60 05/15/24 tabs topiramate 100 mg tablet (Topamax) 100 mg PO BID #60 tabs 05/15/24 ziprasidone HCl 20 mg capsule 20 mg PO BID #60 caps 05/15/24 (Geodon) aspirin 325 mg tablet 325 mg PO DAILY Blood clot 08/11/24 prevention postop 14 days #14 tabs hydrocodone 7.5 mg-acetaminophen 1 tab PO Q6H PRN pain 5 days #20 08/15/24 325 mg tablet tabs Allergies Allergy/AdvReac Type Severity Reaction Status Date / Time Iodinated Contrast Media Allergy ALGY-Anaphy Verified 08/06/24 09:43 laxis Iodine and Iodide Containing Allergy ALGY-Difficulty Verified 08/06/24 09:43 Produc Breathing marijuana (cannabis) Allergy ADR-Headach Verified 08/06/24 09:43 [marijuana] e shellfish derived Allergy ALGY-Difficulty Verified 08/06/24 09:43 Breathing PFSH ED PFSH: Medical History (Updated 08/17/24 @ 06:12 by Zander Duncan, ) Closed fracture of right hip Closed fracture of right distal radius and ulna Fracture, intertrochanteric, right femur Diabetes Fall Lumbar compression fracture 11/08/2018 Disc displacement, lumbar Borderline intellectual functioning Schizoaffective disorder, depressive type Surgical History History of knee surgery (~09/04/13) Dr. Harper Family History Sister High cholesterol Social History Smoking and tobacco/nicotine status: never used tobacco/nicotine Alcohol intake: never Substance/Drug Use: never Household members: none Marital status: Single Current occupational status: disabled Physical Exam Const: GENERAL APPEARANCE: cooperative HENMT: COMMON NORMALS: normocephalic, atraumatic and Normal external nose present HEAD & SCALP: normocephalic and atraumatic FACE & SINUS: normal facial exam and face symmetric NOSE: Normal external nose present Eye: COMMON NORMALS: Equal, round and reactive pupils present and EOMs intact bilaterally PUPIL: Yes Equal, round and reactive pupils present Neck/C-Spine: GENERAL: Yes trachea midline Chest: CHEST: Yes Symmetrical chest wall rise Resp: COMMON NORMALS: normal respiratory effort, No retractions, No use of accessory muscles and clear to auscultation bilaterally AUSCULTATION: clear to auscultation bilaterally Cardio: COMMON NORMALS: regular rate and regular rhythm RATE: regular rate RHYTHM: regular rhythm GI: COMMON NORMALS: Normal to inspection, nondistended, normoactive bowel sounds present Extremity: COMMON NORMALS: no pedal edema NARRATIVE EXTREMITY EXAM: Examination of the right lower extremity reveals a well-approximated stapled incision to the lateral hip. No drainage, no redness or cellulitis. There is tenderness anteriorly and laterally. There is slight shortening of the right lower extremity compared to the left. No other deformity. Pulses are intact distally. Neuro: JEANINE COMA SCALE: document GCS findings [place] coma scale eye opening: Spontaneous [place] coma scale verbal response: Orientated [place] coma scale motor response: [place]bey commands Jeanine coma scale total score: 15 SENSORY EXAM: Yes extremities (intact) Psych: COMMON NORMALS: speech normal SPEECH: Yes normal speech Skin: COMMON NORMALS: no rashes or lesions noted GENERAL SKIN EXAM: no rashes or lesions noted Course Vital Signs: Vital signs: Vital Signs Pulse Rate 82 08/17/24 05:39 Respiratory Rate 17 08/17/24 05:39 Blood Pressure 145/75 08/17/24 05:39 Pulse Oximetry 98 08/17/24 05:39 Oxygen Delivery Me thod Room Air 08/17/24 05:39 MDM - Extremity (Nontraumatic) Medical Decision Making 64-year-old female with recent hardware removal from the right hip. She has a fresh subcapital femoral neck fracture now. She denied falling. Her blood sugars elevated, with an anion gap, but pH is normal. She will require admission. Orthopedics has been consulted, they will see the patient this morning. Lab Data 08/17/24 04:06 08/17/24 04:06 Laboratory Results WBC 7.42 10^3/uL (3.29-11.43) 08/17/24 04:06 RBC 4.25 10^6/uL (3.85-5.65) 08/17/24 04:06 Hgb 13.00 g/dL (11.27-16.99) 08/17/24 04:06 Hct 38.3 % (36-47) 08/17/24 04:06 MCV 90.1 fl (85-98) 08/17/24 04:06 MCH 30.6 pg (27-33) 08/17/24 04:06 MCHC 33.9 g/dL (30-55) 08/17/24 04:06 RDW 13.4 % (12.1-15.1) 08/17/24 04:06 Plt Count 129 10^3/cmm (157-399) L 08/17/24 04:06 MPV 12.6 fL (7.4-10.4) H 08/17/24 04:06 Neut % (Auto) 61.9 % 08/17/24 04:06 Lymph % (Auto) 26.1 % 08/17/24 04:06 [place] % (Auto) 9.0 % 08/17/24 04:06 Eos % (Auto) 1.8 % 08/17/24 04:06 Baso % (Auto) 0.8 % 08/17/24 04:06 Neut # (Auto) 4.59 10^3/uL (1.8-7.7) 08/17/24 04:06 Lymph # (Auto) 1.9 10^3/uL (0.8-4.8) 08/17/24 04:06 [place] # (Auto) 0.7 10^3/uL (0.2-0.9) 08/17/24 04:06 Eos # (Auto) 0.1 10^3/uL (0.0-0.8) 08/17/24 04:06 Baso # (Auto) 0.1 10^3/uL (0.0-0.1) 08/17/24 04:06 Nucleated RBC % (auto) 0 % 08/17/24 04:06 Nucleated RBCs # 0.0 /100WBC 08/17/24 04:06 Sodium 139 mmol/L (136-145) 08/17/24 04:06 Potassium 3.8 mmol/L (3.5-5.1) 08/17/24 04:06 Chloride 96 mmol/L (98-107) L 08/17/24 04:06 Carbon Dioxide 18 mmol/L (22-29) L 08/17/24 04:06 Anion Gap 28.8 (5-19) H 08/17/24 04:06 BUN 26 mg/dL (8-23) H 08/17/24 04:06 Creatinine 0.9 mg/dL (0.5-0.9) 08/17/24 04:06 GFR Calculation 62.6 mL/min (90-130) L 08/17/24 04:06 Glucose 290 mg/dL (65-115) H 08/17/24 04:06 Calculated Osmolality 303 mOsm/kg (285-295) H 08/17/24 04:06 Calcium 10.4 mg/dL (8.5-10.5) 08/17/24 04:06 Total Bilirubin 0.7 mg/dL (0.15-1.2) 08/17/24 04:06 AST 27 U/L (0-32) 08/17/24 04:06 ALT 23 U/L (0-33) 08/17/24 04:06 Alkaline Phosphatase 89 U/L (35-105) 08/17/24 04:06 Total Protein 7.5 g/dL (6.6-8.7) 08/17/24 04:06 Albumin 4.2 g/dL (3.5-5.2) 08/17/24 04:06 Globulin 3.3 g/dL (1.3-4.6) 08/17/24 04:06 Urine Color Yellow (Yellow) 08/17/24 05:15 Urine Appearance Clear (CLEAR) 08/17/24 05:15 Urine pH 5.5 (5-7) 08/17/24 05:15 Ur Specific [place] 1.032 (1.005-1.030) H 08/17/24 05:15 Urine Protein Negative (Negative) 08/17/24 05:15 Urine Glucose (UA) 3+ (Normal) H 08/17/24 05:15 Urine Ketones 2+ (Negative) H 08/17/24 05:15 Urine Blood Negative (Negative) 08/17/24 05:15 Urine Nitrate Negative (Negative) 08/17/24 05:15 Urine Bilirubin Negative (Negative) 08/17/24 05:15 Urine Urobilinogen 1.0 mg/dL (Negative) 08/17/24 05:15 Ur Leukocyte Esterase Negative (Negative) 08/17/24 05:15 Urine RBC 0-2 /hpf (0-2) 08/17/24 05:15 Urine WBC 0-5 /hpf (0-5) 08/17/24 05:15 Ur Squamous Epith Cells 0-5 /hpf (0-5) 08/17/24 05:15 Amorphous Sediment Not Reportable 08/17/24 05:15 Urine Bacteria None seen /hpf (NONE) 08/17/24 05:15 Hyaline Casts 0-4 /lpf H 08/17/24 05:15 XR interpretation done by ED provider, pending radiology final review Discharge Plan Discharge Patient Disposition: Admitted As Inpatient Admit Provider: José Hope Clinical Impression: Closed fracture of right hip Condition: Stable Coding Level of Care Code ED Director Of Rehabilitation And Wellness for Casey Vaughn
--- NOTE | 2024-08-17 04:45 | XRR_ITS ---
PROCEDURE INFORMATION: Exam: XR Chest Exam date and time: 08/17/2024 4:52 AM Age: 64 years old Clinical indication: Other: Pre op for hip fracture; Additional info: Hip FX TECHNIQUE: Imaging protocol: Radiologic exam of the chest. Views: 1 view. COMPARISON: CT chest con [id number] 11/03/2023 4:39 PM FINDINGS: Lungs: Unremarkable. No consolidation. Pleural spaces: Unremarkable. No pleural effusion. No pneumothorax. Heart/Mediastinum: Unremarkable. No cardiomegaly. Bones/joints: Fibro-osseous suture noted involving the left humeral head. The distal left clavicle has been removed surgically. XR/XR chest 1V portable [id number] IMPRESSION: No acute findings.
[2024-08-17] MEDS: ketorolac 30 mg/mL INJ IVP (04:46)
[2024-08-17] MEDS: morphine 4 mg/mL SDV 1 mL IVP (04:46)
[2024-08-17 04:53] LABS: Basophils # 0.1 10^3/uL (0.0-0.1); Basophils % 0.8 %; Eosinophils # 0.1 10^3/uL (0.0-0.8); Eosinophils % 1.8 %; Hematocrit 38.3 % (36-47); Lymphocytes # 1.9 10^3/uL (0.8-4.8); Lymphocytes % 26.1 %; Mean Corpuscular HGB Conc 33.9 g/dL (30-55); Mean Corpuscular Hemoglobin 30.6 pg (27-33); Mean Corpuscular Volume 90.1 fl (85-98); Mean Platelet Volume 12.6 fL (7.4-10.4); Monocytes # 0.7 10^3/uL (0.2-0.9); Neutrophils # 4.59 10^3/uL (1.8-7.7); Neutrophils % 61.9 %; Nucleated Red Blood Cells % 0 %; Platelet Count 129 10^3/cmm (157-399); Red Blood Count 4.25 10^6/uL (3.85-5.65); Red Cell Distribution Width 13.4 % (12.1-15.1); White Blood Count 7.42 10^3/uL (3.29-11.43)
[2024-08-17 05:06] LABS: Alanine Aminotransferase 23 U/L (0-33); Albumin Level 4.2 g/dL (3.5-5.2); Alkaline Phosphatase 89 U/L (35-105); Anion Gap 28.8 (5-19); Aspartate Amino Transferase 27 U/L (0-32); Blood Urea Nitrogen 26 mg/dL (8-23); Calcium 10.4 mg/dL (8.5-10.5); Carbon Dioxide 18 mmol/L (22-29); Chloride 96 mmol/L (98-107); Creatinine Clr Calc Pharmacy 57.3574; Globulin 3.3 g/dL (1.3-4.6); Glomerular Filtration Rate 62.6 mL/min (90-130); Glucose 290 mg/dL (65-115); Osmolality Calculated 303 mOsm/kg (285-295); Potassium 3.8 mmol/L (3.5-5.1); Sodium 139 mmol/L (136-145); Total Bilirubin 0.7 mg/dL (0.15-1.2); Total Protein 7.5 g/dL (6.6-8.7)
--- NOTE | 2024-08-17 05:11 | ECG_ITS ---
[employer] Test Date: 2024-08-17 Pat Name: Jacqueline Jackson Department: Room: Gender: Female Ciso: : 1960 Requested By: Zander Doll Order Number: [id number] Gilmore MD: Jesus Manuel De Jesus M.D. Measurements Intervals [place] Rate: 78 P: 38 W[place]: 151 QRS: -40 QRSD: 106 T: 41 QT: 407 QTc: 464 Interpretive Statements SINUS RHYTHM LEFT AXIS DEVIATION [QRS AXIS < -30] PATTERN CONSISTENT WITH PULMONARY DISEASE MODERATE VOLTAGE CRITERIA FOR LVH, CONSIDER NORMAL VARIANT [MEETS CRITERIA IN ONE OF: R(aVL), S(V1), R(V5), R(V5/V6)+S(V1)] Compared to ECG 04/25/2024 10:03:14 Prolonged QT interval no longer present T-wave abnormality no longer present Electronically Signed On 08-18-2024 20:15:00 EKG MONITOR TECH by Jesus Manuel De Jesus M.D. [email or web address]
[2024-08-17 05:25] LABS: Bilirubin Urine Negative (Negative); Blood Urine Negative (Negative); Glucose Urine UA 3+ (Normal); Ketones Urine 2+ (Negative); Leukocyte Esterase Urine Negative (Negative); Nitrate Urine Negative (Negative); Protein Urine Negative (Negative); Urine Appearance Clear (CLEAR); Urine Color Yellow (Yellow); pH Urine 5.5 (5-7)
[2024-08-17 05:30] LABS: Add Urine Microscopic? YES; Bacteria Urine None Seen /hpf; Hyaline Casts Urine 0-4 /lpf; RBC Urine 0-2 /hpf (0-2); Specific Gravity, Urine 1.032 (1.005-1.030); Squamous Epithelial Cell Urine 0-5 /hpf (0-5); WBC Urine 0-5 /hpf (0-5)
--- NOTE | 2024-08-17 05:43 | P.HP_ITS ---
Providers/Chief Complaint 2 Admitting Physician: José Hope MD Primary Care Provider: Hilda Patel MD Chief Complaint: Hip pain History of Present Illness Jacqueline Jackson is a 64 year old female with a past medical history of type 2 diabetes mellitus, schizoaffective disorder, who recently had a right hip painful trochanteric nail orthopedic hardware, healed right intertrochanteric femur fracture, status post right hip trochanteric femur nail removal who presents to [facility] for right-sided hip pain, she tells me that since her surgery she has not been ambulatory much, she all she has been doing is transferring, even with that she is quite weak, she tells me that she had increased pain this morning of her right hip, found to have a right hip femoral neck fracture, hospitalist team was called for medical management, orthopedic service has been consulted she does not know how she injured it, denies any falls, no trauma, Review of Systems 2 Const: Denies: fever(s) Card: Denies: chest pain Resp: Denies: dyspnea Medications/Allergies Home Medications Medication Instructions Recorded Confirmed Last Taken Type aspirin 81 mg tablet,delayed 81 mg PO DAILY 09/09/19 08/11/24 08/04/24 History release cetirizine 10 mg tablet (Zyrtec) 10 mg PO DAILY PRN Allergy Symptoms 09/09/19 08/11/24 08/07/24 History gabapentin 100 mg capsule 100 mg PO TID 09/09/19 08/11/24 08/07/24 History (Neurontin) insulin glargine 100 unit/mL 110 unit SUBCUT QPM 09/09/19 08/11/24 08/09/24 History subcutaneous solution (Lantus U-100 Insulin) famotidine 20 mg tablet 20 mg PO DAILY 03/01/21 08/11/24 08/10/24 History empagliflozin 10 mg tablet 10 mg PO DAILY 07/26/21 08/11/24 08/07/24 History (Jardiance) diabetic shoes with molded inserts #1 ea 10/18/21 08/11/24 Unknown Rx fluticasone propionate 50 2 spray intranasal DAILY PRN Nasal 01/31/23 08/11/24 06/06/24 History mcg/actuation nasal Congestion spray,suspension rosuvastatin 20 mg tablet 20 mg PO DAILY 0608/11/24 08/07/24 History Fast Form #1 ea 02/16/23 08/11/24 Unknown Rx Diabetic Shoes with 3 pairs of #1 ea 06/25/23 08/11/24 Unknown Rx inserts diclofenac sodium 1 % topical gel 4 g topical QID #100 grams 10/17/23 08/11/24 08/10/24 Rx (Voltaren Arthritis Pain) semaglutide 0.25 mg or 0.5 mg (2 0.25 mg SUBCUT .weekly 12/18/23 08/11/24 08/04/24 History mg/3 mL) subcutaneous pen injector (Ozempic) sennosides 8.6 mg tablet (senna) 8.6 mg PO DAILY 01/09/24 08/11/24 06/08/24 History acetaminophen 500 mg tablet 500 mg PO Q6H PRN Pain 04/03/24 08/11/24 06/08/24 History (Tylenol Extra Strength) menthol 10 % topical cream 1 applic topical DIRECTED PRN 04/03/24 08/11/24 08/07/24 History (Biofreeze (menthol)) Pain albuterol sulfate 2.5 mg/3 mL 2.5 mg (3 mL) inhalation Q6H PRN 04/30/24 08/11/24 04/15/24 Rx (0.083 %) solution for nebulization shortness of breath or wheezing #180 mL clonazepam 0.5 mg tablet 0.5 mg PO DAILY PRN anxiety #30 05/15/24 08/11/24 08/07/24 Rx tabs fluoxetine 40 mg capsule (Prozac) 40 mg PO DAILY #30 caps 05/15/24 08/11/24 08/11/24 Rx melatonin 10 mg tablet 20 mg (2 x 10 mg) PO BEDTIME #60 05/15/24 08/11/24 08/07/24 Rx tabs topiramate 100 mg tablet (Topamax) 100 mg PO BID #60 tabs 05/15/24 08/11/24 08/07/24 Rx ziprasidone HCl 20 mg capsule 20 mg PO BID #60 caps 05/15/24 08/11/24 08/07/24 Rx (Geodon) fenofibrate nanocrystallized 145 145 mg PO DAILY 10/09/1908/11/24 08/07/24 History mg tablet (Tricor) aspirin 325 mg tablet 325 mg PO DAILY Blood clot 08/11/24 Unknown Rx prevention postop 14 days #14 tabs hydrocodone 7.5 mg-acetaminophen 1 tab PO Q6H PRN pain 5 days #20 08/15/24 Unknown Rx 325 mg tablet tabs Allergies Allergy/AdvReac Type Severity Reaction Status Date / Time Iodinated Contrast Media Allergy ALGY-Anaphy Verified 08/06/24 09:43 laxis Iodine and Iodide Containing Allergy ALGY-Difficulty Verified 08/06/24 09:43 Produc Breathing marijuana (cannabis) Allergy ADR-Headach Verified 08/06/24 09:43 [marijuana] e shellfish derived Allergy ALGY-Difficulty Verified 08/06/24 09:43 Breathing PFSH Acute 2 PFSH: Medical History (Updated 08/17/24 @ 05:49 by José Hope MD) Closed fracture of right hip Closed fracture of right distal radius and ulna Fracture, intertrochanteric, right femur Diabetes Fall Lumbar compression fracture 11/08/2018 Disc displacement, lumbar Borderline intellectual functioning Schizoaffective disorder, depressive type Surgical History History of knee surgery (~09/04/13) Dr. Harper Family History Sister High cholesterol Social History Smoking and tobacco/nicotine status: never used tobacco/nicotine Alcohol intake: never Substance/Drug Use: never Household members: none Marital status: Single Current occupational status: disabled Vitals/I&O/Wt Last Vital Signs Pulse 82 08/17/24 05:39 Resp 17 08/17/24 05:39 BP 145/75 08/17/24 05:39 Pulse Ox 98 08/17/24 05:39 O2 Del Method Room Air 08/17/24 05:39 Weight last 48 hrs Weight 72.575 kg Physical Exam 2 Const: COMMON NORMALS: no acute distress and patient oriented x3 HENMT: COMMON NORMALS: normocephalic HEAD & SCALP: normocephalic Resp: COMMON NORMALS: normal respiratory effort, No retractions, No use of accessory muscles and clear to auscultation bilaterally AUSCULTATION: clear to auscultation bilaterally Cardio: COMMON NORMALS: no JVD, regular rate, regular rhythm, S1 normal heart sound present and S2 normal heart sound present RATE: regular rate RHYTHM: regular rhythm HEART SOUNDS: S1 normal heart sound present and S2 normal heart sound present GI: COMMON NORMALS: Normal to inspection, nondistended, normoactive bowel sounds present, Soft to palpation and non-tender Extremity: COMMON NORMALS: no pedal edema Neuro: COMMON NORMALS: patient oriented x3 Psych: COMMON NORMALS: mental status grossly normal Urinary Catheter Management: Herrera: Cath Placed During This Visit: yes Urinary Catheter Date of Insertion: 08/17/24 Urinary Catheter Time of Insertion: 05:18 Data 08/17/24 04:06 08/17/24 04:06 A&P Assessment and plan (1) Schizoaffective disorder, depressive type: (2) Diabetic peripheral neuropathy associated with type 2 diabetes mellitus: (3) Closed fracture of right hip: (4) Increased anion gap metabolic acidosis: Plan Right hip fracture # Morphine for pain control # Continue aspirin ? Lovenox for DVT prophylaxis starting tonight # Possible surgery this morning -surgical service has been consulted ? Keep on bedrest Increased anion gap metabolic acidosis ? With hyperglycemia ? Will check serum ketones, and ABG ? If evidence of DKA we will start patient on insulin drip ? If no evidence of DKA could be from dehydration, continue IV fluids Full code Lovenox for DVT prophylaxis Attestations 2 Medical Necessity Statement*: Patient requires hospitalization for right hip fracture, increased anion gap metabolic acidosis, inpatient, greater than 2 midnights Diagnoses Schizoaffective disorder, depressive type F25.1 Diabetic peripheral neuropathy associated with type 2 diabetes mellitus E11.42 Closed fracture of right hip S72.001A Increased anion gap metabolic acidosis E87.29
--- NOTE | 2024-08-17 05:52 | PC.NURSE ---
Report was given to DARRELL Abbott on Med Surg. Currently holding pt in ER until ABG is completed.
[2024-08-17 05:57] LABS: ABG PCO2 31.7 mmHg (35-45); ABG PH Result 7.41 (7.35-7.45); Base Excess ABG -3.7 mmol/L (-2.0-2.0); Blood Gas Sample Site Brachial, right; Blood Gas Sample Type Arterial; Oxygen Device ROOM AIR; PO2 ABG 88.3 mmHg (80.0-100.0)
[2024-08-17 06:23] LABS: Ketone (Acetest) Serum Positive (Negative)
[2024-08-17] MEDS: pantoprazole 40 mg SDV IVP (06:44)
[2024-08-17] MEDS: morphine 4 mg/mL SDV 1 mL 2 MG IVP (06:44)
[2024-08-17 06:46] LABS: Glucose Point of Care 249 mg/dL (70-110)
[2024-08-17] MEDS: sodium chloride 0.9% 1,000 ML 100 ML IV ×2 (06:47→14:30)
[2024-08-17] MEDS: potassium chloride ER 20 mEq Tablet PO (06:55)
[2024-08-17 07:20] LABS: Magnesium 2.1 mg/dL (1.7-2.3); Phosphorus 3.5 mg/dL (2.5-4.5)
--- NOTE | 2024-08-17 07:46 | PC.NURSE ---
Dr. Hope reviewed pt labs and pt was noted to be in DKA. NO received and noted to transfer to ICU for insulin gtt. Report was given to RAMONITA/Arturo regarding pt's admission status and reason for transfer. Pt was stable upon transfer to ICU-7. All questions answered.
[2024-08-17] MEDS: INSULIN REGULAR IN 0.9 % NACL 100 UNIT/100 ML BAG 7.5 UNIT IV (07:52)
[2024-08-17 08:04] LABS: Glucose Point of Care 248 mg/dL (70-110)
[2024-08-17 08:21] LABS: Glucose Point of Care 191 mg/dL (70-110)
[2024-08-17 09:10] LABS: Glucose Point of Care 140 mg/dL (70-110)
[2024-08-17] MEDS: D5-NS 0.45% + KCL 20 mEq 20 MEQ/1,000 ML BAG 100 MEQ IV (09:18)
[2024-08-17] MEDS: ziprasidone hcl 20 mg Capsule PO ×2 (09:30→18:17)
[2024-08-17] MEDS: HYDROcodone-acetaminophen 5-325 mg Tablet 1 TAB PO ×2 (09:30→15:14)
[2024-08-17] MEDS: fenofibrate 145 mg Tablet PO (09:31)
[2024-08-17] MEDS: fluoxetine 20 mg Capsule 40 MG PO (09:31)
[2024-08-17] MEDS: topiramate 100 mg Tablet PO ×2 (09:31→18:17)
[2024-08-17] MEDS: aspirin 81 mg EC Tablet PO (09:31)
[2024-08-17] MEDS: gabapentin 100 mg Capsule PO ×3 (09:31→21:17)
[2024-08-17 09:40] LABS: Anion Gap 18.5 (5-19); Blood Urea Nitrogen 23 mg/dL (8-23); Calcium 9.4 mg/dL (8.5-10.5); Carbon Dioxide 23 mmol/L (22-29); Chloride 100 mmol/L (98-107); Glomerular Filtration Rate 55.5 mL/min (90-130); Glucose 106 mg/dL (65-115); Osmolality Calculated 290 mOsm/kg (285-295); Potassium 3.5 mmol/L (3.5-5.1); Sodium 138 mmol/L (136-145)
[2024-08-17 10:20] LABS: Glucose Point of Care 127 mg/dL (70-110)
[2024-08-17 11:25] LABS: Glucose Point of Care 134 mg/dL (70-110)
[2024-08-17 11:53] LABS: Glucose Point of Care 144 mg/dL (70-110)
--- NOTE | 2024-08-17 11:54 | P.CONIM_ITS ---
Providers/Reason For Consult 2 Consulting Physician/Specialty*: Hospitalist Reason for Consult*: Right femoral neck fracture Attending Physician: Mathew Yu Primary Care Provider: Hilda Patel MD History of Present Illness History of Present Illness Jacqueline Jackson is a 64 year old female just recently had a intramedullary hip nail removed. Intertrochanteric area is healed. She subsequently sustained a femoral neck fracture. Patient is currently in the ICU on insulin drip for DKA. Review of Systems 2 Const: Denies: fever(s) Card: Denies: chest pain Resp: Denies: dyspnea Medications/Allergies Home Medications Medication Instructions Recorded Confirmed Last Taken Type aspirin 81 mg tablet,delayed 81 mg PO DAILY 09/09/19 08/17/24 08/04/24 History release cetirizine 10 mg tablet (Zyrtec) 10 mg PO DAILY PRN Allergy Symptoms 09/09/19 08/17/24 08/07/24 History gabapentin 100 mg capsule 100 mg PO TID 09/09/19 08/17/24 08/07/24 History (Neurontin) insulin glargine 100 unit/mL 110 unit SUBCUT QPM 09/09/19 08/17/24 08/09/24 History subcutaneous solution (Lantus U-100 Insulin) famotidine 20 mg tablet 20 mg PO DAILY 03/01/21 08/17/24 08/10/24 History empagliflozin 10 mg tablet 10 mg PO DAILY 07/26/21 08/17/24 08/07/24 History (Jardiance) diabetic shoes with molded inserts #1 ea 10/18/21 08/17/24 Unknown Rx fluticasone propionate 50 2 spray intranasal DAILY PRN Nasal 01/31/23 08/17/24 06/06/24 History mcg/actuation nasal Congestion spray,suspension rosuvastatin 20 mg tablet 20 mg PO DAILY 01/31/23 08/17/24 08/07/24 History Fast Form #1 ea 02/16/23 08/17/24 Unknown Rx Diabetic Shoes with 3 pairs of #1 ea 06/25/23 08/17/24 Unknown Rx inserts diclofenac sodium 1 % topical gel 4 g topical QID #100 grams 10/17/23 08/17/24 08/10/24 Rx (Voltaren Arthritis Pain) semaglutide 0.25 mg or 0.5 mg (2 0.25 mg SUBCUT .weekly 12/18/23 08/17/24 08/04/24 History mg/3 mL) subcutaneous pen injector (Ozempic) sennosides 8.6 mg tablet (senna) 8.6 mg PO DAILY 01/09/24 08/17/24 06/08/24 History acetaminophen 500 mg tablet 500 mg PO Q6H PRN Pain 04/03/24 08/17/24 06/08/24 History (Tylenol Extra Strength) menthol 10 % topical cream 1 applic topical DIRECTED PRN 04/03/24 08/17/24 08/07/24 History (Biofreeze (menthol)) Pain albuterol sulfate 2.5 mg/3 mL 2.5 mg (3 mL) inhalation Q6H PRN 04/30/24 08/17/24 04/15/24 Rx (0.083 %) solution for nebulization shortness of breath or wheezing #180 mL clonazepam 0.5 mg tablet 0.5 mg PO DAILY PRN anxiety #30 05/15/24 08/17/24 08/07/24 Rx tabs fluoxetine 40 mg capsule (Prozac) 40 mg PO DAILY #30 caps 05/15/24 08/17/24 08/11/24 Rx melatonin 10 mg tablet 20 mg (2 x 10 mg) PO BEDTIME #60 05/15/24 08/17/24 08/07/24 Rx tabs topiramate 100 mg tablet (Topamax) 100 mg PO BID #60 tabs 05/15/24 08/17/24 08/07/24 Rx ziprasidone HCl 20 mg capsule 20 mg PO BID #60 caps 05/15/24 08/17/24 08/07/24 Rx (Geodon) fenofibrate nanocrystallized 145 145 mg PO DAILY 05/27/24 08/17/24 08/07/24 History mg tablet (Tricor) hydrocodone 7.5 mg-acetaminophen 1 tab PO Q6H PRN pain 5 days #20 08/15/24 08/17/24 Unknown Rx 325 mg tablet tabs docusate sodium 100 mg capsule 100 mg PO BID 08/17/24 08/17/24 Unknown History Allergies Allergy/AdvReac Type Severity Reaction Status Date / Time Iodinated Contrast Media Allergy ALGY-Anaphy Verified 08/06/24 09:43 laxis Iodine and Iodide Containing Allergy ALGY-Difficulty Verified 08/06/24 09:43 Produc Breathing marijuana (cannabis) Allergy ADR-Headach Verified 08/06/24 09:43 [marijuana] e shellfish derived Allergy ALGY-Difficulty Verified 08/06/24 09:43 Breathing Current Medications Generic Name Dose Route Start Last Admin Trade Name Freq PRN Reason Stop Dose Admin Hydrocodone Bitart/Acetaminophen 1 tab 08/17/24 09:26 08/17/24 09:30 Hydrocodone-Acetaminophen 5-325 Mg Tablet PO 1 tab Q4H PRN Administration MODERATE PAIN Aspirin 81 mg 08/17/24 09:00 08/17/24 09:31 Aspirin 81 Mg Ec Tablet PO 81 mg DAILY JACOB Administration Fenofibrate 145 mg 08/17/24 09:00 08/17/24 09:31 Fenofibrate 145 Mg Tablet PO 145 mg DAILY JACOB Administration Fluoxetine HCl 40 mg 08/17/24 09:00 08/17/24 09:31 Fluoxetine 20 Mg Capsule PO 40 mg DAILY JACOB Administration Gabapentin 100 mg 08/17/24 09:00 08/17/24 09:31 Gabapentin 100 Mg Capsule PO 100 mg TID JACOB Administration Insulin Human Regular 100 unit in 100 mls @ 0 mls/hr 08/17/24 06:45 08/17/24 09:12 Myxredlin 100 Unit/100 Ml Bag IV 1 unit/hr PROTOCOL JACOB 1 mls/hr Titration Protocol Per Protocol Sodium Chloride 1,000 mls @ 100 mls/hr 08/17/24 06:45 08/17/24 06:47 Sodium Chloride 0.9% IV 100 mls/hr .Q10H JACOB Administration Potassium Chloride/Dextrose/Sod Cl 20 meq in 1,000 mls @ 100 mls/hr 08/17/24 09:16 08/17/24 09:18 D5-Ns 0.45% + Kcl 20 Meq IV 100 mls/hr .Q10H PRN Administration blood glucose less than or equal to 250 mg/dL Morphine Sulfate 2 mg 08/17/24 06:15 08/17/24 06:44 Morphine 4 Mg/Ml Sdv 1 Ml IVP 2 mg Q4H PRN Administration SEVERE PAIN Pantoprazole Sodium 40 mg 08/17/24 06:15 08/17/24 06:44 Pantoprazole 40 Mg Sdv IVP 40 mg Q24H JACOB Administration Topiramate 100 mg 08/17/24 09:00 08/17/24 09:31 Topiramate 100 Mg Tablet PO 100 mg BID JACOB Administration Ziprasidone 20 mg 08/17/24 09:00 08/17/24 09:30 Ziprasidone Hcl 20 Mg Capsule PO 20 mg BID JACOB Administration PFSH Acute 2 PFSH: Medical History (Updated 08/17/24 @ 11:57 by Momo Linton DO) Closed fracture of right hip Closed fracture of right distal radius and ulna Fracture, intertrochanteric, right femur Diabetes Fall Lumbar compression fracture 11/08/2018 Disc displacement, lumbar Borderline intellectual functioning Schizoaffective disorder, depressive type Surgical History History of knee surgery (~09/04/13) Dr. Harper Family History Sister High cholesterol Social History Smoking and tobacco/nicotine status: never used tobacco/nicotine Alcohol intake: never Substance/Drug Use: never Household members: none Marital status: Single Current occupational status: disabled Vitals/I&O/Wt Last Vital Signs Temp 98.0 F 08/17/24 06:34 Pulse 75 08/17/24 08:30 Resp 20 H 08/17/24 08:30 BP 152/77 08/17/24 08:30 Pulse Ox 94 08/17/24 08:30 O2 Del Method Room Air 08/17/24 06:34 08/16/24 08/17/24 08/17/24 22:59 06:59 14:59 Intake Total 10 / 10 Output Total 900 / 900 Balance -890 / -890 Weight last 48 hrs Weight 165 lb 1 oz Weight 160 lb Physical Exam 2 Narrative: Patient is currently resting. Urinary Catheter Management: Herrera: Cath Placed During This Visit: yes Reason for Continuing Indwelling Catheter: Perioperative Use in Selected Surgeries Urinary Catheter Date of Insertion: 08/17/24 Urinary Catheter Time of Insertion: 05:18 Data 08/17/24 04:06 08/17/24 09:17 A&P Assessment and plan (1) Closed fracture of right hip: Patient has a right femoral neck fracture Plan to do a right hip hemiarthroplasty tomorrow N.p.o. after midnight Qualifiers: Encounter type: initial encounter Qualified Code(s): S72.001A - Fracture of unspecified part of neck of right femur, initial encounter for closed fracture Consult Attestations 2 Medical Necessity Statement: Femoral neck fracture Coding Level of Care Code Acute Code for [facility] Fwd Diagnoses Closed fracture of right hip, initial encounter S72.001A Encounter type: initial encounter
[2024-08-17 13:02] LABS: Glucose Point of Care 141 mg/dL (70-110)
[2024-08-17 13:39] LABS: Anion Gap 16.8 (5-19); Blood Urea Nitrogen 22 mg/dL (8-23); Carbon Dioxide 24 mmol/L (22-29); Chloride 102 mmol/L (98-107); Glomerular Filtration Rate 62.6 mL/min (90-130); Potassium 3.8 mmol/L (3.5-5.1); Sodium 139 mmol/L (136-145)
[2024-08-17 13:40] LABS: Creatinine Clr Calc Pharmacy 58.2489; Glucose 146 mg/dL (65-115); Osmolality Calculated 294 mOsm/kg (285-295)
[2024-08-17 17:23] LABS: Glucose Point of Care 159 mg/dL (70-110)
--- NOTE | 2024-08-17 17:32 | P.PN_ITS ---
Subjective 2 Subjective: Her hip has been sore. Mouth is dry this morning. Later on she is requesting for some food. Vitals/I&O/Wt Last Vital Signs Temp 98.0 F 08/17/24 06:34 Pulse 73 08/17/24 16:00 Resp 19 H 08/17/24 16:00 BP 106/67 08/17/24 16:00 Pulse Ox 90 08/17/24 16:00 O2 Del Method Room Air 08/17/24 06:34 08/17/24 08/17/24 08/17/24 06:59 14:59 22:59 Intake Total 785.584 / 785.584 900 / 1685.584 Output Total 1800 / 1800 450 / 2250 Balance -1014.416 / -1014.416 450 / -564.416 Weight last 48 hrs Weight 74.871 kg Weight 72.575 kg Physical Exam 2 Const: COMMON NORMALS: patient oriented x3 and alert GENERAL APPEARANCE: c ooperative ORIENTATION/CONSCIOUSNESS: Yes awake OTHER: Pleasant, conversant. HENMT: OTHER: Dry mucous membranes Neck/C-Spine: COMMON NORMALS: no JVD Resp: COMMON NORMALS: normal respiratory effort and clear to auscultation bilaterally AUSCULTATION: clear to auscultation bilaterally Cardio: COMMON NORMALS: no JVD, regular rhythm, S1 normal heart sound present, S2 normal heart sound present and No murmurs present (Cardio) RHYTHM: regular rhythm HEART SOUNDS: S1 normal heart sound present and S2 normal heart sound present GI: COMMON NORMALS: Normal to inspection, nondistended, normoactive bowel sounds present, Soft to palpation and non-tender PALPATION: Yes Soft to palpation Extremity: COMMON NORMALS: no joint enlargement and no pedal edema Neuro: COMMON NORMALS: patient oriented x3 and moves all extremities S ENSORIUM/ORIENTATION: Yes alert Skin: COMMON NORMALS: no rashes or lesions noted GENERAL SKIN EXAM: no rashes or lesions noted Urinary Catheter Management: Herrera: Cath Placed During This Visit: yes Reason for Continuing Indwelling Catheter: Perioperative Use in Selected Surgeries Urinary Catheter Date of Insertion: 08/17/24 Urinary Catheter Time of Insertion: 05:18 Data 08/17/24 04:06 08/17/24 13:14 A&P Assessment and plan (1) Schizoaffective disorder, depressive type: (2) Diabetic peripheral neuropathy associated with type 2 diabetes mellitus: (3) Closed fracture of right hip: Qualifiers: Encounter type: initial encounter Qualified Code(s): S72.001A - Fracture of unspecified part of neck of right femur, initial encounter for closed fracture (4) Increased anion gap metabolic acidosis: Plan DKA: Blood glucose improving, fluids adjusted, continued insulin drip. Reviewed vitals, CBC, ABG, CMP, magnesium, UA, ketones, CXR, hip/pelvis x-ray, EKG. On recheck labs gap closed. Stopped insulin drip. She did take her insulin Lantus last night, resumed Lantus, added sliding scale insulin. Discussed with orthopedics, no procedure planned for today, but tentative plan for tomorrow for repair of right hip fracture. Oral diet resumed. Decrease IV fluid rate. Continue to monitor blood glucose. Continue care on medical surgical floor. Repeat chemistry requested. Right hip fracture: Discussed with orthopedics, no plan for procedure today. Continue treatment of DKA, optimization of blood glucose control. Tomorrow to be reassessed with potential repair of right hip fracture. N.p.o. after midnight. Repeat CBC. # IV morphine for pain control # Continue aspirin ? Lovenox for DVT prophylaxis starting tonight ? Keep on bedrest Add incentive spirometer. Full code Lovenox for DVT prophylaxis Attestations 2 Medical Necessity Statement*: Continue optimization of blood glucose control following DKA and assessment management of right hip fracture. Coding Level of Care Code Critical Care >/= 30 minutes Critical care time (in minutes): 35 The high probability of a clinically significant, sudden or life threatening deterioration, as referenced in this documentation, required my full and direct attention, intervention and personal management. The critical care time shown is in addition to time spent performing any reported separately billable procedures and includes the following: [x] Data and vital sign review and interpretation [x ] Patient assessment, examination and intervention [x] Medication orders and management [x] Patient/Family updates as able [x] Care Coordination and Documentation. Diagnoses Schizoaffective disorder, depressive type F25.1 Diabetic peripheral neuropathy associated with type 2 diabetes mellitus E11.42 Closed fracture of right hip, initial encounter S72.001A Encounter type: initial encounter Increased anion gap metabolic acidosis E87.29
[2024-08-17] MEDS: insulin lispro 100 unit/1 mL SUBCUT ×2 (18:16→21:16)
[2024-08-17 20:47] LABS: Glucose Point of Care 235 mg/dL (70-110)
--- NOTE | 2024-08-17 21:07 | PC.NURSE ---
Spoke with regarding patient with accucheck of 235, is due to receive 8units of Humalog and 110units of Lantus. Patient will be NPO after MD for hip surgery. said only give 50 units of Lantus and 4units of humalog.
[2024-08-17] MEDS: insulin glargine 100 units/1 mL 50 UNIT SUBCUT (21:16)
[2024-08-17] MEDS: atorvastatin 40 mg Tablet PO (21:17)
[2024-08-17] MEDS: enoxaparin 40 mg/0.4 mL Syringe SUBCUT (21:24)
[2024-08-18] VITALS (17 sets, daily range): BP systolic 109–155; BP diastolic 55–98; PULSE 71–100; RESP 11–23; TEMP 36.7–37.1; O2SAT 90–100
--- NOTE | 2024-08-18 00:15 | PC.NURSE ---
Patient transferred to [facility] [id number] in bed with all belongings and chart. Patient settled in room with call hansen in reach, no complaints at this time.
[2024-08-18] MEDS: pantoprazole 40 mg SDV IVP (05:18)
[2024-08-18] MEDS: HYDROcodone-acetaminophen 5-325 mg Tablet 1 TAB PO ×4 (05:18→23:02)
[2024-08-18 06:12] LABS: Glucose Point of Care 149 mg/dL (70-110)
[2024-08-18 07:22] LABS: Basophils # 0.1 10^3/uL (0.0-0.1); Basophils % 0.8 %; Eosinophils # 0.1 10^3/uL (0.0-0.8); Eosinophils % 2.3 %; Hematocrit 33.8 % (36-47); Lymphocytes # 1.6 10^3/uL (0.8-4.8); Lymphocytes % 27.5 %; Mean Corpuscular HGB Conc 33.1 g/dL (30-55); Mean Corpuscular Hemoglobin 31.2 pg (27-33); Mean Corpuscular Volume 94.2 fl (85-98); Mean Platelet Volume 10.9 fL (7.4-10.4); Monocytes # 0.5 10^3/uL (0.2-0.9); Monocytes % 7.9 %; Neutrophils # 3.63 10^3/uL (1.8-7.7); Nucleated Red Blood Cells % 0 %; Platelet Count 132 10^3/cmm (157-399); Red Blood Count 3.59 10^6/uL (3.85-5.65); Red Cell Distribution Width 13.6 % (12.1-15.1); White Blood Count 5.96 10^3/uL (3.29-11.43)
[2024-08-18 07:40] LABS: Alanine Aminotransferase 14 U/L (0-33); Alkaline Phosphatase 63 U/L (35-105); Anion Gap 11.9 (5-19); Aspartate Amino Transferase 16 U/L (0-32); Blood Urea Nitrogen 19 mg/dL (8-23); Carbon Dioxide 23 mmol/L (22-29); Chloride 110 mmol/L (98-107); Globulin 2.8 g/dL (1.3-4.6); Glomerular Filtration Rate 55.5 mL/min (90-130); Glucose 143 mg/dL (65-115); Osmolality Calculated 297 mOsm/kg (285-295); Potassium 3.9 mmol/L (3.5-5.1); Sodium 141 mmol/L (136-145); Total Bilirubin 0.3 mg/dL (0.15-1.2); Total Protein 5.8 g/dL (6.6-8.7)
[2024-08-18] MEDS: fluoxetine 20 mg Capsule 40 MG PO (08:12)
[2024-08-18] MEDS: topiramate 100 mg Tablet PO ×2 (08:12→17:49)
[2024-08-18] MEDS: gabapentin 100 mg Capsule PO ×2 (08:12→20:16)
[2024-08-18] MEDS: flu vacc pf 24-25 (6 mos+) SYRINGE 45 MCG IM (09:38)
--- NOTE | 2024-08-18 09:58 | PC.CHAP ---
Pastoral Care Encounter/Spiritual Assessment Type of Contact [] Declined cafeteria clerk visit [] Patient/Family/Request visit [] Outpatient visit [] Follow-up visit [] Physician referral [] Code/Alert [x] Routine visit [] Staff referral [] Actively dying [] Patient sleeping [] Family support [] [] Out of room [] Palliative care [] [] Receiving care in room [] Pre-surgical visit [] Trauma [] Long length of stay [] ICU visit [] Other: Relational/Emotional Strength [] Patient feels connected with others/family/visitors/staff [] Distress [] Loneliness/isolation [] Abandonment Spirituality of Patient [x] Person of Marika [] Attends Christian of their Marika [x] Believes in Prayer [] Reads Bible or Religion materials [] There are Spiritual issues to be addressed Transfer Table Operator Helper Interventions [x] Prayer [x Active listening [] Non-anxious presence [] Spiritual/emotional support [] Crisis/trauma care [] Spiritual counseling [] Bereavement support [] Provided bereavement packet [x] Provided Bible/devotional materials [] Provided toy/stuffed animal, coloring book to patient or family member [] Provided Communion [] Anointing/[place] [] Salvation [x] Completed spiritual assessment [] Other: Impact on Illness or Injury [] Angry [] Fearful [] Anxious [] Often cries [] Exhaustion [] Unable to work [] Unable to attend mu-ism [] Unable to walk/stand [] Unable to read [] Unable to drive [] Unable to eat/drink [] Unable to sleep [] Unable to be with family [] Patient intubated [] Other: Summary Time spent with patient 10 min
--- NOTE | 2024-08-18 10:03 | W.PM.OPSUD ---
Surgery/Procedure H&P Update DATE OF PROCEDURE: August 18, 2024 DATE H&P PERFORMED: 08/17/24 H&P UPDATE INFORMATION: I have reviewed H&P completed within last 30 days, I have examined patient prior to procedure and No changes to prior documentation PLANNED PROCEDURE: Operation Date: 08/18/24 16:35 Proposed Procedures p Hemiarthroplasty Hip(Right) - Momo Linton DO
[2024-08-18 11:12] LABS: Glucose Point of Care 106 mg/dL (70-110)
[2024-08-18 12:24] LABS: Glucose Point of Care 97 mg/dL (70-110)
[2024-08-18 14:00] LABS: Glucose Point of Care 72 mg/dL (70-110)
--- NOTE | 2024-08-18 14:25 | P.PN_ITS ---
Subjective 2 Subjective: Patient was seen this morning, she is awaiting to have her hip surgery, no acute events overnight no fever, no chills, no cough, no chest pain Vitals/I&O/Wt Last Vital Signs Temp 98.5 F 08/18/24 13:33 Pulse 71 08/18/24 13:33 Resp 17 08/18/24 13:33 BP 127/81 08/18/24 13:33 Pulse Ox 97 08/18/24 13:33 O2 Del Method Room Air 08/18/24 13:33 08/17/24 08/18/24 08/18/24 22:59 06:59 14:59 Intake Total 2476.417 / 3262.001 Output Total 1350 / 3150 475 / 3625 900 / 900 Balance 1126.417 / 112.001 -475 / -362.999 -900 / -900 Weight last 48 hrs Weight 75.16 kg Weight 74.871 kg Weight 72.575 kg Physical Exam 2 Const: COMMON NORMALS: no acute distress and patient oriented x3 Resp: COMMON NORMALS: normal respiratory effort, No retractions, No use of accessory muscles and clear to auscultation bilaterally AUSCULTATION: clear to auscultation bilaterally Cardio: COMMON NORMALS: regular rate, regular rhythm, S1 normal heart sound present and S2 normal heart sound present RATE: regular rate RHYTHM: r egular rhythm HEART SOUNDS: S1 normal heart sound present and S2 normal heart sound present GI: COMMON NORMALS: Normal to inspection, nondistended, normoactive bowel sounds present and non-tender Extremity: COMMON NORMALS: no pedal edema Neuro: COMMON NORMALS: patient oriented x3 Psych: COMMON NORMALS: mental status grossly normal Urinary Catheter Management: Herrera: Cath Placed During This Visit: yes Reason for Continuing Indwelling Catheter: Acute Urinary Retention or Obstruction Urinary Catheter Date of Insertion: 08/17/24 Urinary Catheter Time of Insertion: 05:18 Data 08/18/24 07:07 08/18/24 07:07 A&P Assessment and plan (1) Schizoaffective disorder, depressive type: (2) Diabetic peripheral neuropathy associated with type 2 diabetes mellitus: (3) Closed fracture of right hip: Qualifiers: Encounter type: initial encounter Qualified Code(s): S72.001A - Fracture of unspecified part of neck of right femur, initial encounter for closed fracture (4) Increased anion gap metabolic acidosis: Plan DKA: Anion gap closed, blood sugars reasonable -Decrease Lantus to 60 units at bedtime # Moderate dose insulin sliding scale Right hip fracture: Will undergo surgical intervention today # IV morphine for pain control # Continue aspirin ? Lovenox for DVT prophylaxis ? Keep on bedrest Add incentive spirometer. Full code Lovenox for DVT prophylaxis Attestations 2 Medical Necessity Statement*: Patient requires hospitalization for right hip fracture, will undergo surgical intervention today Diagnoses Schizoaffective disorder, depressive type F25.1 Diabetic peripheral neuropathy associated with type 2 diabetes mellitus E11.42 Closed fracture of right hip, initial encounter S72.001A Encounter type: initial encounter Increased anion gap metabolic acidosis E87.29
[2024-08-18 14:35] LABS: Glucose Point of Care 84 mg/dL (70-110)
--- NOTE | 2024-08-18 14:54 | P.ANESASSM_ITS ---
Pre-Anesthetic Assessment Height/Weight: Height 5 ft 2 in Weight 165 lb 11.2 oz Temp Pulse Resp BP Pulse Ox O2 Del Method 98.5 F 71 17 127/81 97 Room Air 08/18/24 13:33 08/18/24 13:33 08/18/24 13:33 08/18/24 13:33 08/18/24 13:33 08/18/24 13:33 Preop Diagnosis: Hip fracture Operation Date: 08/18/24 16:35 Proposed Procedures p Hemiarthroplasty Hip(Right) - Momo Linton, DO Was Beta Colin taken within 24 hours: N/A Was Clonidine taken within 24 hours: N/A Last intake: Intake Last Liquid Date 08/18/24 Last Liquid Time 09:30 Social No alcohol and No tobacco Exam alert, oriented x 3, clear to auscultation bilaterally and regular rate & rhythm Airway Submandibular: within normal limits Cervical ROM: within normal limits Mallampati: Class II Dentition: other (Edentulous) Anesthetic Plan ASA status: 3 Anesthesia: General Other: No prior issues with anesthesia in the past NPO since yesterday History of diabetes, on insulin Schizoaffective disorder Labs reviewed today and acceptable for procedure, BS 84 Plan for general anesthesia Medications/Allergies Home Medications Medication Instructions Recorded Confirmed Last Taken Type aspirin 81 mg tablet,delayed 81 mg PO DAILY 09/09/19 08/17/24 08/04/24 History release cetirizine 10 mg tablet (Zyrtec) 10 mg PO DAILY PRN Allergy Symptoms 09/09/19 08/17/24 08/07/24 History gabapentin 100 mg capsule 100 mg PO TID 09/09/19 08/17/24 08/07/24 History (Neurontin) insulin glargine 100 unit/mL 110 unit SUBCUT QPM 09/09/19 08/17/24 08/09/24 History subcutaneous solution (Lantus U-100 Insulin) famotidine 20 mg tablet 20 mg PO DAILY 03/01/21 08/17/24 08/10/24 History empagliflozin 10 mg tablet 10 mg PO DAILY 07/26/21 08/17/24 08/07/24 History (Jardiance) diabetic shoes with molded inserts #1 ea 10/18/21 08/17/24 Unknown Rx fluticasone propionate 50 2 spray intranasal DAILY PRN Nasal 01/31/23 08/17/24 06/06/24 History mcg/actuation nasal Congestion spray,suspension rosuvastatin 20 mg tablet 20 mg PO DAILY 01/31/23 08/17/24 08/07/24 History Fast Form #1 ea 02/16/23 08/17/24 Unknown Rx Diabetic Shoes with 3 pairs of #1 ea 06/25/23 08/17/24 Unknown Rx inserts diclofenac sodium 1 % topical gel 4 g topical QID #100 grams 10/17/23 08/17/24 08/10/24 Rx (Voltaren Arthritis Pain) semaglutide 0.25 mg or 0.5 mg (2 0.25 mg SUBCUT .weekly 12/18/23 08/17/24 08/04/24 History mg/3 mL) subcutaneous pen injector (Ozempic) sennosides 8.6 mg tablet (senna) 8.6 mg PO DAILY 01/09/24 08/17/24 06/08/24 History acetaminophen 500 mg tablet 500 mg PO Q6H PRN Pain 04/03/24 08/17/24 06/08/24 History (Tylenol Extra Strength) menthol 10 % topical cream 1 applic topical DIRECTED PRN 04/03/24 08/17/24 08/07/24 History (Biofreeze (menthol)) Pain albuterol sulfate 2.5 mg/3 mL 2.5 mg (3 mL) inhalation Q6H PRN 04/30/24 08/17/24 04/15/24 Rx (0.083 %) solution for nebulization shortness of breath or wheezing #180 mL clonazepam 0.5 mg tablet 0.5 mg PO DAILY PRN anxiety #30 05/15/24 08/17/24 08/07/24 Rx tabs fluoxetine 40 mg capsule (Prozac) 40 mg PO DAILY #30 caps 05/15/24 08/17/24 08/11/24 Rx melatonin 10 mg tablet 20 mg (2 x 10 mg) PO BEDTIME #60 05/15/24 08/17/24 08/07/24 Rx tabs topiramate 100 mg tablet (Topamax) 100 mg PO BID #60 tabs 05/15/24 08/17/24 08/07/24 Rx ziprasidone HCl 20 mg capsule 20 mg PO BID #60 caps 05/15/24 08/17/24 08/07/24 Rx (Geodon) fenofibrate nanocrystallized 145 145 mg PO DAILY 05/27/24 08/17/24 08/07/24 History mg tablet (Tricor) hydrocodone 7.5 mg-acetaminophen 1 tab PO Q6H PRN pain 5 days #20 08/15/24 08/17/24 Unknown Rx 325 mg tablet tabs docusate sodium 100 mg capsule 100 mg PO BID 08/17/24 08/17/24 Unknown History Allergies Allergy/AdvReac Type Severity Reaction Status Date / Time Iodinated Contrast Media Allergy ALGY-Anaphy Verified 08/06/24 09:43 laxis Iodine and Iodide Containing Allergy ALGY-Difficulty Verified 08/06/24 09:43 Produc Breathing marijuana (cannabis) Allergy ADR-Headach Verified 08/06/24 09:43 [marijuana] e shellfish derived Allergy ALGY-Difficulty Verified 08/06/24 09:43 Breathing Current Medications Generic Name Dose Route Start Last Admin Trade Name Freq PRN Reason Stop Dose Admin Hydrocodone Bitart/Acetaminophen 1 tab 08/17/24 09:26 08/18/24 09:37 Hydrocodone-Acetaminophen 5-325 Mg Tablet PO 1 tab Q4H PRN Administration MODERATE PAIN Aspirin 81 mg 08/17/24 09:00 08/18/24 08:12 Aspirin 81 Mg Ec Tablet PO Not Given DAILY JACOB Atorvastatin Calcium 40 mg 08/17/24 21:00 08/17/24 21:17 Atorvastatin 40 Mg Tablet PO 40 mg BEDTIME JACOB Administration Enoxaparin Sodium 40 mg 08/17/24 21:00 08/17/24 21:24 Enoxaparin 40 Mg/0.4 Ml Syringe SUBCUT 40 mg Q24H JACOB Administration Fenofibrate 145 mg 08/17/24 09:00 08/18/24 08:12 Fenofibrate 145 Mg Tablet PO Not Given DAILY JACOB Fluoxetine HCl 40 mg 08/17/24 09:00 08/18/24 08:12 Fluoxetine 20 Mg Capsule PO 40 mg DAILY JACOB Administration Gabapentin 100 mg 08/17/24 09:00 08/18/24 08:12 Gabapentin 100 Mg Capsule PO 100 mg TID JACOB Administration Sodium Chloride 1,000 mls @ 30 mls/hr 08/17/24 06:45 08/17/24 19:00 Sodium Chloride 0.9% IV 30 mls/hr .Q24H JACOB Infusion Insulin Human Lispro 0 unit 08/17/24 18:00 08/18/24 12:19 Insulin Lispro 100 Unit/1 Ml SUBCUT Not Given WM&BEDTIME JACOB Protocol Morphine Sulfate 2 mg 08/17/24 06:15 08/17/24 06:44 Morphine 4 Mg/Ml Sdv 1 Ml IVP 2 mg Q4H PRN Administration SEVERE PAIN Pantoprazole Sodium 40 mg 08/17/24 06:15 08/18/24 05:18 Pantoprazole 40 Mg Sdv IVP 40 mg Q24H JACOB Administration Topiramate 100 mg 08/17/24 09:00 08/18/24 08:12 Topiramate 100 Mg Tablet PO 100 mg BID JACOB Administration Ziprasidone 20 mg 08/17/24 09:00 08/18/24 08:12 Ziprasidone Hcl 20 Mg Capsule PO Not Given BID JACOB PFSH Anesthesia Medical History (Updated 08/17/24 @ 11:57 by Momo Linton DO) Closed fracture of right hip Closed fracture of right distal radius and ulna Fracture, intertrochanteric, right femur Diabetes Fall Lumbar compression fracture 11/08/2018 Disc displacement, lumbar Borderline intellectual functioning Schizoaffective disorder, depressive type Surgical History History of knee surgery (~09/04/13) Dr. Harper Family History Sister High cholesterol Social History Smoking and tobacco/nicotine status: never used tobacco/nicotine Alcohol intake: never Substance/Drug Use: never Household members: none Marital status: Single Current occupational status: disabled Data Anesthesia 08/18/24 07:07 08/18/24 07:07 Short CBC 08/17/24 08/18/24 Range/Units 04:06 07:07 WBC 7.42 5.96 (3.29-11.43) 10^3/uL Hgb 13.00 11.20 L (11.27-16.99) g/dL Hct 38.3 33.8 L (36-47) % MCV 90.1 94.2 (85-98) fl Plt Count 129 L 132 L (157-399) 10^3/cmm Neut % (Auto) 61.9 61.0 % Neut # (Auto) 4.59 3.63 (1.8-7.7) 10^3/uL BMP 08/17/24 08/17/24 08/17/24 04:06 09:17 13:14 Sodium 139 138 139 Potassium 3.8 3.5 3.8 Chloride 96 L 100 102 Carbon Dioxide 18 L 23 24 BUN 26 H 23 22 Creatinine 0.9 1.0 H 0.9 Glucose 290 H 106 146 H Calcium 10.4 9.4 9.0 08/18/24 07:07 Sodium 141 Potassium 3.9 Chloride 110 H Carbon Dioxide 23 BUN 19 Creatinine 1.0 H Glucose 143 H Calcium 8.0 L Liver Function 08/17/24 08/18/24 Range/Units 04:06 07:07 Total Bilirubin 0.7 0.3 (0.15-1.2) mg/dL AST 27 16 (0-32) U/L ALT 23 14 (0-33) U/L Alkaline Phosphatase 89 63 (35-105) U/L Albumin 4.2 3.0 L (3.5-5.2) g/dL Urine 08/17/24 Range/Units 05:15 Urine Color Yellow (Yellow) Urine Appearance Clear (CLEAR) Urine pH 5.5 (5-7) Ur Specific [place] 1.032 H (1.005-1.030) Urine Protein Negative (Negative) Urine Glucose (UA) 3+ H (Normal) Urine Ketones 2+ H (Negative) Urine Nitrate Negative (Negative) Urine Bilirubin Negative (Negative) Ur Leukocyte Esterase Negative (Negative) Urine RBC 0-2 (0-2) /hpf Urine WBC 0-5 (0-5) /hpf ABG 08/17/24 05:47 Specimen Type Arterial Sample Site Brachial, right ABG pH 7.41 ABG pCO2 31.7 L ABG pO2 88.3 ABG HCO3 20.0 L ABG Base Excess -3.7 L O2 Delivery Device Room air Cardiac Studies: 2 No Data to Display
[2024-08-18] MEDS: sodium chloride 0.9% 1,000 ML 30 ML IV (15:00)
[2024-08-18] MEDS: ceFAZolin 2,000 mg SDV 2000 MG IVP ×2 (15:10→23:00)
[2024-08-18] MEDS: VANCOMYCIN ADD-Vantage 1,000 MG VIAL 1000 MG INTRA-ARTI (16:32)
--- NOTE | 2024-08-18 16:46 | XRR_ITS ---
PROCEDURE INFORMATION: Exam: XR Right Hip Exam date and time: 08/18/2024 5:02 PM Age: 64 years old Clinical indication: Device placement; Additional info: Post op hemiarthroplasty TECHNIQUE: Imaging protocol: Radiologic exam of the right hip. Views: 1 view hip with pelvis when performed. COMPARISON: CR (PELVIS, ) 08/17/2024 4:35 AM FINDINGS: Bones/joints: Heterotopic ossification about the greater trochanteric region. 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 Interval placement of right total hip arthroplasty changes. No definitive perihardware fracture or dislocation. Soft tissues: Unremarkable. XR/XR hip RT 1V wo/w pel [id number] IMPRESSION: As above.
--- NOTE | 2024-08-18 16:47 | P.OP_ITS ---
Operative Report Date of procedure: August 18, 2024 Pre-op diagnosis: Right femoral neck fracture Post-op diagnosis: same Procedure done: Right hip hemiarthroplasty Surgeon: Momo Linton DO Estimated blood loss (mL): 300 Procedure: Right hip hemiarthroplasty Patient brought the op suite after an [place] was placed in the lower Markus position with right side up. [place] removed patient just had surgery for nail removal approximately week ago. Skin incision was made using the previous incisions. The IT band was split modified Kuhn approach was used the abductors are taken anteriorly along with the capsule. Remaining femoral neck was cut. This was cut approxi-1 fingerbreadth above the lesser trochanter. Femoral head was then removed. Measured appropriate size head was used later. Extenders brought to the femur. The paperboard box maker was used followed by the canal finder followed by lateralizer. The broaches were then used up to 3. A size 3 [place] cement stem was used. The cement was then inserted into the canal after placing the cement wilberto. Then the stem was inserted into the cement. Held for 15 minutes. A negative for neck length and appropriate size head was used the hip was reduced felt to be stable in all positions. Wound was closed in a layered fashion after placing vancomycin powder. 0 Vicryl was used followed by 2-0 Vicryl and Monocryl suture. Sterile dressings were applied and patient was transferred to the PACU in stable condition after sterile dressings were applied.
[2024-08-18] MEDS: fentaNYL 50 mcg/mL INJ 2mL IVP (17:14)
[2024-08-18 17:30] LABS: Glucose Point of Care 111 mg/dL (70-110)
--- NOTE | 2024-08-18 17:43 | PC.NURSE ---
1739 - Accepted onto floor with DARRELL Kathleen - first ice to right hip - BP 147/79 - pulse 82 - 02 93% - Temp 98.4
[2024-08-18] MEDS: ziprasidone hcl 20 mg Capsule PO (17:49)
[2024-08-18] MEDS: atorvastatin 40 mg Tablet PO (20:16)
[2024-08-18] MEDS: enoxaparin 40 mg/0.4 mL Syringe SUBCUT (20:16)
[2024-08-18 21:13] LABS: Glucose Point of Care 174 mg/dL (70-110)
[2024-08-18] MEDS: insulin glargine 100 units/1 mL 60 UNIT SUBCUT (21:58)
[2024-08-18] MEDS: insulin lispro 100 unit/1 mL SUBCUT (21:59)
[2024-08-18] MEDS: acetaminophen 325 mg Tablet 650 MG PO (22:03)
[2024-08-19] VITALS (8 sets, daily range): BP systolic 91–125; BP diastolic 55–75; PULSE 73–94; RESP 16–17; TEMP 36.5–36.9; O2SAT 94–98
[2024-08-19] MEDS: pantoprazole 40 mg SDV IVP (06:28)
[2024-08-19 06:47] LABS: Glucose Point of Care 150 mg/dL (70-110)
[2024-08-19 06:54] LABS: Basophils % 0.1 %; Hematocrit 33.7 % (36-47); Lymphocytes # 0.9 10^3/uL (0.8-4.8); Lymphocytes % 13.5 %; Mean Corpuscular HGB Conc 31.8 g/dL (30-55); Mean Corpuscular Hemoglobin 30.7 pg (27-33); Mean Corpuscular Volume 96.6 fl (85-98); Monocytes # 0.4 10^3/uL (0.2-0.9); Monocytes % 5.8 %; Neutrophils # 5.35 10^3/uL (1.8-7.7); Nucleated Red Blood Cells % 0 %; Platelet Count 142 10^3/cmm (157-399); Red Blood Count 3.49 10^6/uL (3.85-5.65); Red Cell Distribution Width 13.6 % (12.1-15.1); White Blood Count 6.69 10^3/uL (3.29-11.43)
[2024-08-19 07:06] LABS: Anion Gap 16.5 (5-19); Blood Urea Nitrogen 21 mg/dL (8-23); Calcium 8.2 mg/dL (8.5-10.5); Carbon Dioxide 20 mmol/L (22-29); Chloride 105 mmol/L (98-107); Glomerular Filtration Rate 62.6 mL/min (90-130); Glucose 150 mg/dL (65-115); Osmolality Calculated 290 mOsm/kg (285-295); Potassium 4.5 mmol/L (3.5-5.1); Sodium 137 mmol/L (136-145)
[2024-08-19] MEDS: ceFAZolin 2,000 mg SDV 2000 MG IVP ×2 (07:07→15:59)
--- NOTE | 2024-08-19 08:30 | P.PN_ITS ---
Subjective 2 Subjective: Patient is postop day #1 right hip hemiarthroplasty. Doing well pain controlled. Vitals/I&O/Wt Last Vital Signs Temp 98.1 F 08/19/24 07:24 Pulse 79 08/19/24 07:24 Resp 16 08/19/24 07:24 BP 99/62 08/19/24 07:24 Pulse Ox 97 08/19/24 07:24 O2 Del Method Room Air 08/19/24 07:24 O2 Flow Rate 8 08/18/24 17:08 08/18/24 08/19/24 08/19/24 22:59 06:59 14:59 Intake Total 2880 / 2880 200 / 3080 Output Total 1150 / 2050 Balance 1730 / 830 200 / 1030 Weight last 48 hrs Weight 165 lb Weight 165 lb 11.2 oz Physical Exam 2 Narrative: Wound dressing with little drainage on it encouraged to change dressing reinforced. Leg lengths look the same. Urinary Catheter Management: Herrera: Cath Placed During This Visit: yes, but has since been removed by the nurse Reason for Continuing Indwelling Catheter: Decision to DC Catheter Urinary Catheter Date of Insertion: 08/17/24 Urinary Catheter Time of Insertion: 05:18 Date Urinary Catheter Removed: 08/19/24 Time Urinary Catheter Discontinued: 06:30 Data 08/19/24 06:06 08/19/24 06:06 A&P Assessment and plan (1) Closed fracture of right hip: Postop day #1 right hip hemiarthroplasty Qualifiers: Encounter type: initial encounter Qualified Code(s): S72.001A - Fracture of unspecified part of neck of right femur, initial encounter for closed fracture Attestations 2 Medical Necessity Statement*: Per primary service Coding Level of Care Code Acute Code for Chg Fwd Diagnoses Closed fracture of right hip, initial encounter S72.001A Encounter type: initial encounter
[2024-08-19] MEDS: HYDROcodone-acetaminophen 5-325 mg Tablet 1 TAB PO ×4 (08:57→22:19)
[2024-08-19] MEDS: topiramate 100 mg Tablet PO ×2 (08:57→18:06)
[2024-08-19] MEDS: gabapentin 100 mg Capsule PO ×3 (08:57→21:15)
[2024-08-19] MEDS: fenofibrate 145 mg Tablet PO (08:57)
[2024-08-19] MEDS: fluoxetine 20 mg Capsule 40 MG PO (08:57)
[2024-08-19] MEDS: aspirin 81 mg EC Tablet PO (08:57)
[2024-08-19] MEDS: ziprasidone hcl 20 mg Capsule PO ×2 (08:57→18:06)
[2024-08-19] MEDS: insulin lispro 100 unit/1 mL SUBCUT ×4 (08:58→21:16)
[2024-08-19 11:19] LABS: Glucose Point of Care 312 mg/dL (70-110)
--- NOTE | 2024-08-19 15:13 | P.PN_ITS ---
Subjective 2 Subjective: Patient was seen this morning, denies any fevers, chills, no cough she did well with surgery, Vitals/I&O/Wt Last Vital Signs Temp 98.1 F 08/19/24 07:24 Pulse 90 08/19/24 11:42 Resp 16 08/19/24 11:42 BP 91/55 08/19/24 11:42 Pulse Ox 96 08/19/24 11:42 O2 Del Method Room Air 08/19/24 11:42 O2 Flow Rate 8 08/18/24 17:08 08/19/24 08/19/24 08/19/24 06:59 14:59 22:59 Intake Total 200 / 3080 720 / 720 Balance 200 / 1030 720 / 720 Weight last 48 hrs Weight 74.843 kg Weight 75.16 kg Physical Exam 2 Const: COMMON NORMALS: no acute distress and patient oriented x3 Resp: COMMON NORMALS: normal respiratory effort, No retractions, No use of accessory muscles and clear to auscultation bilaterally AUSCULTATION: clear to auscultation bilaterally Cardio: COMMON NORMALS: regular rate, regular rhythm, S1 normal heart sound present and S2 normal heart sound present RATE: regular rate RHYTHM: r egular rhythm HEART SOUNDS: S1 normal heart sound present and S2 normal heart sound present GI: COMMON NORMALS: Normal to inspection, nondistended, normoactive bowel sounds present and non-tender Extremity: COMMON NORMALS: no pedal edema Neuro: COMMON NORMALS: patient oriented x3 Psych: COMMON NORMALS: mental status grossly normal Urinary Catheter Management: Herrera: Cath Placed During This Visit: yes, but has since been removed by the nurse Reason for Continuing Indwelling Catheter: Decision to DC Catheter Urinary Catheter Date of Insertion: 08/17/24 Urinary Catheter Time of Insertion: 05:18 Date Urinary Catheter Removed: 08/19/24 Time Urinary Catheter Discontinued: 06:30 Data 08/19/24 06:06 08/19/24 06:06 A&P Assessment and plan (1) Schizoaffective disorder, depressive type: (2) Diabetic peripheral neuropathy associated with type 2 diabetes mellitus: (3) Closed fracture of right hip: Qualifiers: Encounter type: initial encounter Qualified Code(s): S72.001A - Fracture of unspecified part of neck of right femur, initial encounter for closed fracture (4) Increased anion gap metabolic acidosis: Plan DKA: Anion gap closed, blood sugars reasonable -Decrease Lantus to 60 units at bedtime # Moderate dose insulin sliding scale Right hip fracture: Status post surgical intervention # IV morphine for pain control # Continue aspirin ? Lovenox for DVT prophylaxis ? Keep on bedrest Add incentive spirometer. Full code Lovenox for DVT prophylaxis Attestations 2 Medical Necessity Statement*: Patient requires hospitalization right hip fracture status post surgical intervention Diagnoses Schizoaffective disorder, depressive type F25.1 Diabetic peripheral neuropathy associated with type 2 diabetes mellitus E11.42 Closed fracture of right hip, initial encounter S72.001A Encounter type: initial encounter Increased anion gap metabolic acidosis E87.29
[2024-08-19 16:47] LABS: Glucose Point of Care 269 mg/dL (70-110)
[2024-08-19 20:43] LABS: Glucose Point of Care 218 mg/dL (70-110)
[2024-08-19] MEDS: atorvastatin 40 mg Tablet PO (21:15)
[2024-08-19] MEDS: enoxaparin 40 mg/0.4 mL Syringe SUBCUT (21:16)
[2024-08-19] MEDS: insulin glargine 100 units/1 mL 60 UNIT SUBCUT (21:16)
[2024-08-20] VITALS (11 sets, daily range): BP systolic 90–106; BP diastolic 56–74; PULSE 79–96; RESP 16–19; TEMP 36.6–37.1; O2SAT 91–100
[2024-08-20 00:13] LABS: Glucose Point of Care 139 mg/dL (70-110)
[2024-08-20] MEDS: HYDROcodone-acetaminophen 5-325 mg Tablet 1 TAB PO ×3 (03:51→23:01)
[2024-08-20 05:44] LABS: Basophils # 0.1 10^3/uL (0.0-0.1); Basophils % 0.7 %; Eosinophils # 0.2 10^3/uL (0.0-0.8); Eosinophils % 2.7 %; Hematocrit 31.2 % (36-47); Lymphocytes # 2.1 10^3/uL (0.8-4.8); Lymphocytes % 31.7 %; Mean Corpuscular HGB Conc 32.7 g/dL (30-55); Mean Corpuscular Hemoglobin 31.2 pg (27-33); Mean Corpuscular Volume 95.4 fl (85-98); Mean Platelet Volume 11.3 fL (7.4-10.4); Monocytes # 0.6 10^3/uL (0.2-0.9); Monocytes % 8.7 %; Neutrophils # 3.72 10^3/uL (1.8-7.7); Neutrophils % 55.8 %; Nucleated Red Blood Cells % 0 %; Platelet Count 148 10^3/cmm (157-399); Red Blood Count 3.27 10^6/uL (3.85-5.65); Red Cell Distribution Width 13.6 % (12.1-15.1); White Blood Count 6.68 10^3/uL (3.29-11.43)
[2024-08-20 06:09] LABS: Anion Gap 13.7 (5-19); Blood Urea Nitrogen 21 mg/dL (8-23); Calcium 8.2 mg/dL (8.5-10.5); Carbon Dioxide 23 mmol/L (22-29); Chloride 108 mmol/L (98-107); Creatinine Clr Calc Pharmacy 53.3018; Glomerular Filtration Rate 55.5 mL/min (90-130); Glucose 114 mg/dL (65-115); Osmolality Calculated 296 mOsm/kg (285-295); Potassium 3.7 mmol/L (3.5-5.1); Sodium 141 mmol/L (136-145)
[2024-08-20 06:28] LABS: Glucose Point of Care 114 mg/dL (70-110)
[2024-08-20] MEDS: ziprasidone hcl 20 mg Capsule PO ×2 (08:51→17:15)
[2024-08-20] MEDS: fluoxetine 20 mg Capsule 40 MG PO (08:51)
[2024-08-20] MEDS: topiramate 100 mg Tablet PO ×2 (08:52→17:15)
[2024-08-20] MEDS: gabapentin 100 mg Capsule PO ×3 (08:52→20:54)
[2024-08-20] MEDS: aspirin 81 mg EC Tablet PO (08:52)
[2024-08-20] MEDS: pantoprazole 40 mg SDV IVP (08:52)
[2024-08-20] MEDS: fenofibrate 145 mg Tablet PO (08:52)
[2024-08-20] MEDS: polyethylene glycol 3350 Pkt 17 gm PO (10:02)
[2024-08-20 11:17] LABS: Glucose Point of Care 298 mg/dL (70-110)
[2024-08-20] MEDS: insulin lispro 100 unit/1 mL SUBCUT ×3 (11:52→20:54)
--- NOTE | 2024-08-20 12:12 | PC.SOCIAL ---
IMM updated IMM dated and initialed, copy given to patient and copy placed in chart.
--- NOTE | 2024-08-20 15:38 | P.PN_ITS ---
Subjective 2 Subjective: Patient was seen this morning, she is sitting up in a chair, does report weakness, does report pain, Vitals/I&O/Wt Last Vital Signs Temp 98.7 F 08/20/24 11:00 Pulse 91 08/20/24 14:00 Resp 16 08/20/24 08:00 BP 98/64 08/20/24 13:31 Pulse Ox 91 08/20/24 11:00 O2 Del Method Room Air 08/20/24 11:00 O2 Flow Rate 8 08/18/24 17:08 08/20/24 08/20/24 08/20/24 06:59 14:59 22:59 Intake Total 1140 / 1140 Balance 1140 / 1140 Weight last 48 hrs Weight 77.383 kg Weight 74.843 kg Physical Exam 2 Const: COMMON NORMALS: no acute distress and patient oriented x3 Resp: COMMON NORMALS: normal respiratory effort, No retractions, No use of accessory muscles and clear to auscultation bilaterally AUSCULTATION: clear to auscultation bilaterally Cardio: COMMON NORMALS: regular rate, regular rhythm, S1 normal heart sound present and S2 normal heart sound present RATE: regular rate RHYTHM: r egular rhythm HEART SOUNDS: S1 normal heart sound present and S2 normal heart sound present GI: COMMON NORMALS: Normal to inspection, nondistended, normoactive bowel sounds present, Soft to palpation and non-tender PALPATION: Yes Soft to palpation Extremity: COMMON NORMALS: no pedal edema Neuro: COMMON NORMALS: patient oriented x3 Psych: COMMON NORMALS: mental status grossly normal Urinary Catheter Management: Herrera: Cath Placed During This Visit: yes, but has since been removed by the nurse Reason for Continuing Indwelling Catheter: Decision to DC Catheter Urinary Catheter Date of Insertion: 08/17/24 Urinary Catheter Time of Insertion: 05:18 Date Urinary Catheter Removed: 08/19/24 Time Urinary Catheter Discontinued: 06:30 Data 08/20/24 04:51 08/20/24 04:51 A&P Assessment and plan (1) Schizoaffective disorder, depressive type: (2) Diabetic peripheral neuropathy associated with type 2 diabetes mellitus: (3) Closed fracture of right hip: Qualifiers: Encounter type: initial encounter Qualified Code(s): S72.001A - Fracture of unspecified part of neck of right femur, initial encounter for closed fracture (4) Increased anion gap metabolic acidosis: Plan DKA: Anion gap closed, blood sugars reasonable -Decrease Lantus to 60 units at bedtime # Moderate dose insulin sliding scale Right hip fracture: Status post surgical intervention # IV morphine for pain control # Continue aspirin ? Lovenox for DVT prophylaxis ? PT OT Add incentive spirometer. Full code Lovenox for DVT prophylaxis Attestations 2 Medical Necessity Statement*: Patient requires hospitalization for right hip fracture, status post surgical intervention Diagnoses Schizoaffective disorder, depressive type F25.1 Diabetic peripheral neuropathy associated with type 2 diabetes mellitus E11.42 Closed fracture of right hip, initial encounter S72.001A Encounter type: initial encounter Increased anion gap metabolic acidosis E87.29
--- NOTE | 2024-08-20 16:31 | P.PN_ITS ---
Subjective 2 Subjective: Patient is postop day #2 right hip hemiarthroplasty. Doing well pain controlled.Patient has been up anPatient has been up and walking with therapy progressing well. Stable from Ortho standpoint Vitals/I&O/Wt Last Vital Signs Temp 98.7 F 08/20/24 11:00 Pulse 91 08/20/24 14:00 Resp 16 08/20/24 08:00 BP 98/64 08/20/24 13:31 Pulse Ox 91 08/20/24 11:00 O2 Del Method Room Air 08/20/24 11:00 O2 Flow Rate 8 08/18/24 17:08 08/20/24 08/20/24 08/20/24 06:59 14:59 22:59 Intake Total 1140 / 1140 Balance 1140 / 1140 Weight last 48 hrs Weight 170 lb 9.6 oz Weight 165 lb Physical Exam 2 Narrative: Right lower extremity examination wound dressing clean dry and intact\ leg lengths look the same. Patient is able to perform straight leg raise sensation tact light touch distally. Distal pulses palpable, right lower extremity is warm well-perfused, patient is able to plantarflex and dorsiflex ankle. Urinary Catheter Management: Herrera: Cath Placed During This Visit: yes, but has since been removed by the nurse Reason for Continuing Indwelling Catheter: Decision to DC Catheter Urinary Catheter Date of Insertion: 08/17/24 Urinary Catheter Time of Insertion: 05:18 Date Urinary Catheter Removed: 08/19/24 Time Urinary Catheter Discontinued: 06:30 Data 08/20/24 04:51 08/20/24 04:51 A&P Assessment and plan (1) Closed fracture of right hip: Postop day #2 right hip hemiarthroplasty Weight-bear as tolerated right lower extremity PT/OT Pain control DVT prophylaxis per primary AM labs reviewed Patient stable at this point time from orthopedic standpoint no further orthopedic surgical invention required at this time orthopedic surgery team will sign off patient and follow peripherally. If there is any question pertaining patient's care for for contact orthopedics on-call. Orthopedic discharge instructions are in patient's chart and patient to follow-up with Dr. Linton in 2 weeks from date of surgery. He will defer to primary team for discharge DVT prophylaxis upon discharge. Qualifiers: Encounter type: initial encounter Qualified Code(s): S72.001A - Fracture of unspecified part of neck of right femur, initial encounter for closed fracture Attestations 2 Medical Necessity Statement*: Patient requires hospitalization for right hip fracture, status post surgical intervention Coding Level of Care Code Acute Code for Chg Fwd Diagnoses Closed fracture of right hip, initial encounter S72.001A Encounter type: initial encounter Time Spent (min) 15
[2024-08-20 17:00] LABS: Glucose Point of Care 166 mg/dL (70-110)
[2024-08-20] MEDS: docusate sodium 100 mg Capsule PO (17:15)
[2024-08-20] MEDS: acetaminophen 325 mg Tablet 650 MG PO (17:19)
[2024-08-20 20:49] LABS: Glucose Point of Care 156 mg/dL (70-110)
[2024-08-20] MEDS: enoxaparin 40 mg/0.4 mL Syringe SUBCUT (20:54)
[2024-08-20] MEDS: insulin glargine 100 units/1 mL 60 UNIT SUBCUT (20:54)
[2024-08-20] MEDS: atorvastatin 40 mg Tablet PO (20:54)
[2024-08-21 00:09] LABS: Glucose Point of Care 110 mg/dL (70-110)
[2024-08-21 04:00] VITALS: BP 101/67; PULSE 90; RESP 18; TEMP 37.1; O2SAT 99
[2024-08-21 06:11] LABS: Basophils # 0.1 10^3/uL (0.0-0.1); Basophils % 0.8 %; Eosinophils # 0.2 10^3/uL (0.0-0.8); Eosinophils % 2.7 %; Hematocrit 32.7 % (36-47); Lymphocytes # 2.8 10^3/uL (0.8-4.8); Lymphocytes % 38.7 %; Mean Corpuscular HGB Conc 32.4 g/dL (30-55); Mean Corpuscular Hemoglobin 30.9 pg (27-33); Mean Corpuscular Volume 95.3 fl (85-98); Mean Platelet Volume 11.1 fL (7.4-10.4); Monocytes # 0.7 10^3/uL (0.2-0.9); Monocytes % 9.1 %; Neutrophils # 3.41 10^3/uL (1.8-7.7); Nucleated Red Blood Cells % 0 %; Platelet Count 148 10^3/cmm (157-399); Red Blood Count 3.43 10^6/uL (3.85-5.65); Red Cell Distribution Width 14.1 % (12.1-15.1); White Blood Count 7.11 10^3/uL (3.29-11.43)
[2024-08-21] MEDS: HYDROcodone-acetaminophen 5-325 mg Tablet 1 TAB PO ×2 (06:12→14:43)
[2024-08-21 06:13] LABS: Anion Gap 14.7 (5-19); Blood Urea Nitrogen 16 mg/dL (8-23); Calcium 8.5 mg/dL (8.5-10.5); Carbon Dioxide 24 mmol/L (22-29); Chloride 105 mmol/L (98-107); Creatinine Clr Calc Pharmacy 53.3018; Glomerular Filtration Rate 55.5 mL/min (90-130); Glucose 117 mg/dL (65-115); Osmolality Calculated 292 mOsm/kg (285-295); Potassium 3.7 mmol/L (3.5-5.1); Sodium 140 mmol/L (136-145)
[2024-08-21 06:16] LABS: Glucose Point of Care 158 mg/dL (70-110)
--- NOTE | 2024-08-21 06:48 | PC.NURSE ---
This nurse assisted patient to bathroom. Patient stated they don't want me wiping myself yet, you'll have to wipe for me. Patient educated and encouraged to wipe herself. Patient was able to do this with no difficulty. While in shower, patient stated, you'll have to wash my hair for me, I can't reach it. Patient encouraged and educated to try her best to do it so that she can get stronger. Patient was able to do this with no issue.
[2024-08-21 07:52] VITALS: BP 96/62; PULSE 86; RESP 18; TEMP 36.7; O2SAT 97
[2024-08-21] MEDS: gabapentin 100 mg Capsule PO (08:06)
[2024-08-21] MEDS: fenofibrate 145 mg Tablet PO (08:06)
[2024-08-21] MEDS: topiramate 100 mg Tablet PO (08:06)
[2024-08-21] MEDS: fluoxetine 20 mg Capsule 40 MG PO (08:06)
[2024-08-21] MEDS: ziprasidone hcl 20 mg Capsule PO (08:06)
[2024-08-21] MEDS: docusate sodium 100 mg Capsule PO (08:06)
[2024-08-21] MEDS: aspirin 81 mg EC Tablet PO (08:07)
[2024-08-21] MEDS: insulin lispro 100 unit/1 mL SUBCUT ×2 (08:07→11:53)
[2024-08-21] MEDS: pantoprazole 40 mg SDV IVP (08:07)
[2024-08-21] MEDS: acetaminophen 325 mg Tablet 650 MG PO (10:26)
[2024-08-21 10:41] LABS: Glucose Point of Care 202 mg/dL (70-110)
[2024-08-21 11:31] VITALS: BP 93/56; PULSE 81; RESP 18; TEMP 36.8; O2SAT 98
--- NOTE | 2024-08-21 12:01 | P.DS_ITS ---
Discharge Providers Date of Admission: 08/17/24 05:26 Date of Discharge: August 21, 2024 Attending Provider at Admission: José Hope MD Attending Provider at Discharge: José Hope MD Primary Care Provider: Hilda Patel MD Diagnoses at Discharge Discharge Diagnosis (1) Closed fracture of right hip: Status: Acute Qualifiers: Encounter type: initial encounter Qualified Code(s): S72.001A - Fracture of unspecified part of neck of right femur, initial encounter for closed fracture Reason for Visit Reason for Visit: Hip pain Hospital Course Hospital Course Jacqueline Jackson is a 64 year old female with a past medical history of type 2 diabetes mellitus, schizoaffective disorder, who recently had a right hip painful trochanteric nail orthopedic hardware, healed right intertrochanteric femur fracture, status post right hip trochanteric femur nail removal who presents to [facility] for right-sided hip pain Patient presented to [facility] for right hip fracture status post surgical intervention, tolerated procedure well, received inpatient physical therapy, did well, will be discharged home. Discharged on hydrocodone for pain control, Lovenox for DVT prophylaxis, follow-up with orthopedic service as outpatient Patient's hospitalization was complicated by diabetic ketoacidosis, requiring insulin drip, ICU level care, anion gap closed, will be discharged on Lantus 60 units once daily, and a moderate dose insulin sliding scale. Physical Exam Const: COMMON NORMALS: no acute distress and patient oriented x3 Resp: COMMON NORMALS: normal respiratory effort, No retractions, No use of accessory muscles and clear to auscultation bilaterally AUSCULTATION: clear to auscultation bilaterally Cardio: COMMON NORMALS: regular rate, regular rhythm, S1 normal heart sound present and S2 normal heart sound present RATE: regular rate RHYTHM: regular rhythm HEART SOUNDS: S1 normal heart sound present and S2 normal heart sound present GI: COMMON NORMALS: Normal to inspection, nondistended, normoactive bowel sounds present and non-tender Extremity: COMMON NORMALS: no pedal edema Neuro: COMMON NORMALS: patient oriented x3 Psych: COMMON NORMALS: mental status grossly normal Urinary Catheter Management: Herrera: Cath Placed During This Visit: yes, but has since been removed by the nurse Reason for Continuing Indwelling Catheter: Decision to DC Catheter Urinary Catheter Date of Insertion: 08/17/24 Urinary Catheter Time of Insertion: 05:18 Date Urinary Catheter Removed: 08/19/24 Time Urinary Catheter Discontinued: 06:30 Discharge Data Studies Completed and Pending Completed Studies During Hospitalization Category Date Time Status XR chest 1V portable [id number] Stat Exams 08/17/24 04:45 Completed XR hip RT 1V wo/w pel [id number] Routine Exams 08/18/24 16:46 Completed XR hip RT 2-3V wo/w pel* [id number] Stat Exams 08/17/24 04:35 Completed Pending at discharge Category Date Time Status C-arm Fluoroscopy [id number] Routine Exams 08/18/24 16:03 Ordered Radiology Impressions Hip/Pelvis X-Ray 08/17/24 04:35 IMPRESSION: 1. Femoral neck fracture. Chest X-Ray 08/17/24 04:45 IMPRESSION: No acute findings. Hip X-Ray 08/18/24 16:46 IMPRESSION: As above. Laboratory Results WBC 7.11 10^3/uL (3.29-11.43) 08/21/24 05:16 RBC 3.43 10^6/uL (3.85-5.65) L 08/21/24 05:16 Hgb 10.60 g/dL (11.27-16.99) L 08/21/24 05:16 Hct 32.7 % (36-47) L 08/21/24 05:16 MCV 95.3 fl (85-98) 08/21/24 05:16 MCH 30.9 pg (27-33) 08/21/24 05:16 MCHC 32.4 g/dL (30-55) 08/21/24 05:16 RDW 14.1 % (12.1-15.1) 08/21/24 05:16 Plt Count 148 10^3/cmm (157-399) L 08/21/24 05:16 MPV 11.1 fL (7.4-10.4) H 08/21/24 05:16 Neut % (Auto) 48.0 % 08/21/24 05:16 Lymph % (Auto) 38.7 % 08/21/24 05:16 Grant % (Auto) 9.1 % 08/21/24 05:16 Eos % (Auto) 2.7 % 08/21/24 05:16 Baso % (Auto) 0.8 % 08/21/24 05:16 Neut # (Auto) 3.41 10^3/uL (1.8-7.7) 08/21/24 05:16 Lymph # (Auto) 2.8 10^3/uL (0.8-4.8) 08/21/24 05:16 Grant # (Auto) 0.7 10^3/uL (0.2-0.9) 08/21/24 05:16 Eos # (Auto) 0.2 10^3/uL (0.0-0.8) 08/21/24 05:16 Baso # (Auto) 0.1 10^3/uL (0.0-0.1) 08/21/24 05:16 Nucleated RBC % (auto) 0 % 08/21/24 05:16 Nucleated RBCs # 0.0 /100WBC 08/21/24 05:16 Specimen Type Arterial 08/17/24 05:47 Sample Site Brachial, right 08/17/24 05:47 ABG pH 7.41 (7.35-7.45) 08/17/24 05:47 ABG pCO2 31.7 mmHg (35-45) L 08/17/24 05:47 ABG pO2 88.3 mmHg (80.0-100.0) 08/17/24 05:47 ABG HCO3 20.0 mmol/L (22-26) L 08/17/24 05:47 ABG Base Excess -3.7 mmol/L (-2.0-2.0) L 08/17/24 05:47 Stew Test N/a 08/17/24 05:47 Hematocrit 39.0 % (37-47) 08/17/24 05:47 O2 Delivery Device Room air 08/17/24 05:47 Development Associate ID [email or web address] 08/17/24 05:47 Sodium 140 mmol/L (136-145) 08/21/24 05:16 Potassium 3.7 mmol/L (3.5-5.1) 08/21/24 05:16 Chloride 105 mmol/L (98-107) 08/21/24 05:16 Carbon Dioxide 24 mmol/L (22-29) 08/21/24 05:16 Anion Gap 14.7 (5-19) 08/21/24 05:16 BUN 16 mg/dL (8-23) 08/21/24 05:16 Creatinine 1.0 mg/dL (0.5-0.9) H 08/21/24 05:16 GFR Calculation 55.5 mL/min (90-130) L 08/21/24 05:16 Glucose 117 mg/dL (65-115) H 08/21/24 05:16 POC Glucose 202 mg/dL (70-110) H 08/21/24 10:36 Calculated Osmolality 292 mOsm/kg (285-295) 08/21/24 05:16 Calcium 8.5 mg/dL (8.5-10.5) 08/21/24 05:16 Phosphorus 3.5 mg/dL (2.5-4.5) 08/17/24 04:06 Magnesium 2.1 mg/dL (1.7-2.3) 08/17/24 04:06 Total Bilirubin 0.3 mg/dL (0.15-1.2) 08/18/24 07:07 AST 16 U/L (0-32) 08/18/24 07:07 ALT 14 U/L (0-33) 08/18/24 07:07 Alkaline Phosphatase 63 U/L (35-105) 08/18/24 07:07 Total Protein 5.8 g/dL (6.6-8.7) L 08/18/24 07:07 Albumin 3.0 g/dL (3.5-5.2) L 08/18/24 07:07 Globulin 2.8 g/dL (1.3-4.6) 08/18/24 07:07 Urine Color Yellow (Yellow) 08/17/24 05:15 Urine Appearance Clear (CLEAR) 08/17/24 05:15 Urine pH 5.5 (5-7) 08/17/24 05:15 Ur Specific [place] 1.032 (1.005-1.030) H 08/17/24 05:15 Urine Protein Negative (Negative) 08/17/24 05:15 Urine Glucose (UA) 3+ (Normal) H 08/17/24 05:15 Urine Ketones 2+ (Negative) H 08/17/24 05:15 Urine Blood Negative (Negative) 08/17/24 05:15 Urine Nitrate Negative (Negative) 08/17/24 05:15 Urine Bilirubin Negative (Negative) 08/17/24 05:15 Urine Urobilinogen 1.0 mg/dL (Negative) 08/17/24 05:15 Ur Leukocyte Esterase Negative (Negative) 08/17/24 05:15 Urine RBC 0-2 /hpf (0-2) 08/17/24 05:15 Urine WBC 0-5 /hpf (0-5) 08/17/24 05:15 Ur Squamous Epith Cells 0-5 /hpf (0-5) 08/17/24 05:15 Amorphous Sediment Not Reportable 08/17/24 05:15 Urine Bacteria None seen /hpf (NONE) 08/17/24 05:15 Hyaline Casts 0-4 /lpf H 08/17/24 05:15 Serum Ketones Positive (Negative) H 08/17/24 04:06 Vitals Last Vital Signs Temp 98.2 F 08/21/24 11:31 Pulse 81 08/21/24 11:31 Resp 18 08/21/24 11:31 BP 93/56 08/21/24 11:31 Pulse Ox 98 08/21/24 11:31 O2 Del Method Room Air 08/21/24 11:31 O2 Flow Rate 8 08/18/24 17:08 Discharge Plan Discharge Patient Disposition: Home Health Service Condition: Stable Prescriptions: New insulin aspart U-100 [Novolog FlexPen U-100 Insulin] 100 unit/mL (3 mL) insulin pen See Rx Instructions .ROUTE .COMPLEX Qty: 15 0RF Rx Instructions: inject subcut, three times daily after meals, based on sliding scale provided hydrocodone-acetaminophen 5-325 mg tablet 1 tab PO Q6H PRN (Reason: pain) 5 Days Qty: 20 0RF enoxaparin [Lovenox] 30 mg/0.3 mL syringe 30 mg SUBCUT Q24H 35 Days Qty: 10.5 0RF Continued famotidine 20 mg tablet 20 mg PO DAILY (DME) diabetic shoes with molded inserts See Rx Instructions .Route .MEDSUPPLY Qty: 1 0RF Rx Instructions: As directed (DME) Fast Form See Rx Instructions .Route .MEDSUPPLY Qty: 1 0RF Rx Instructions: As directed sennosides [senna] 8.6 mg tablet 8.6 mg PO DAILY clonazepam 0.5 mg tablet 0.5 mg PO DAILY PRN (Reason: anxiety) Qty: 30 2RF Prozac 40 mg capsule 40 mg PO DAILY Qty: 30 2RF ziprasidone HCl [Geodon] 20 mg capsule 20 mg PO BID Qty: 60 2RF Rx Instructions: give with food (meal/snack) topiramate [Topamax] 100 mg tablet 100 mg PO BID Qty: 60 2RF (DME) Diabetic Shoes with 3 pairs of inserts See Rx Instructions .Route .MEDSUPPLY Qty: 1 0RF Rx Instructions: As directed Ozempic 0.25 mg or 0.5 mg (2 mg/3 mL) pen injector 0.25 mg SUBCUT .weekly Rx Instructions: weekly on Mondays Biofreeze (menthol) 10 % cream 1 applic topical DIRECTED PRN (Reason: Pain) acetaminophen [Tylenol Extra Strength] 500 mg tablet 500 mg PO Q6H PRN (Reason: Pain) Hold Instructions: Resume on 08/18/24. fenofibrate nanocrystallized [Tricor] 145 mg tablet 145 mg PO DAILY melatonin 10 mg tablet 20 mg PO BEDTIME Qty: 60 2RF Jardiance 10 mg Tablet 10 mg PO DAILY cetirizine [Zyrtec] 10 mg Tablet 10 mg PO DAILY PRN (Reason: Allergy Symptoms) aspirin 81 mg Tablet,Delayed Release (Dr/Ec) 81 mg PO DAILY Hold Instructions: Resume on 08/26/24. gabapentin [Neurontin] 100 mg Capsule 100 mg PO TID fluticasone propionate 50 mcg/actuation [place],Suspension 2 spray INTRANASAL DAILY PRN (Reason: Nasal Congestion) Rx Instructions: administer into each nostril rosuvastatin 20 mg tablet 20 mg PO DAILY docusate sodium 100 mg capsule 100 mg PO BID diclofenac sodium [Voltaren Arthritis Pain] 1 % gel 4 g topical QID Qty: 100 3RF Rx Instructions: apply to single knee, ankle, foot; for foot includes sole/toes/top of foot albuterol sulfate 2.5 mg /3 mL (0.083 %) solution for nebulization 2.5 mg inhalation Q6H PRN (Reason: shortness of breath or wheezing) Qty: 180 0RF Changed insulin glargine [Lantus U-100 Insulin] 100 unit/mL Solution 60 unit SUBCUT QPM Qty: 10 0RF Discontinued hydrocodone-acetaminophen 7.5-325 mg tablet 1 tab PO Q6H PRN (Reason: pain) 5 Days Qty: 20 0RF Discharge Orders: Discharge Order (Routine); Ordered 08/21/24 Ordered By: José Hope Referrals: Hilda Patel MD [Primary Care Provider] - Momo Linton DO [Physician] - 09/11/24 2:45 pm (2wks) Discharge Activity: Increase activity as tolerated, Use walker/crutches as instructed and As per PT/OT instructions Patient Instructions: Hydrocodone/Acetaminophen (By mouth) (Vicodin, [place]), Enoxaparin (By injection), Insulin Aspart, Recombinant (By injection), How to Give a Subcutaneous Injection (GEN), Acute Wound Care (DC), Hip Fracture (GEN), Opioid Safety, Post Anesthesia Care Activity Restrictions/Additional Instructions: Orthopedic discharge instructions: You are being discharged from the hospital today during which time you have been under the care of Dr. Linton. You had a right femoral neck fracture. You were treated for this injury with right hip hemiarthroplasty. You may resume you normal diet (including any special diets as directed by your primary doctor) as well as your home medications. You should follow up with you primary doctor if you have any questions regarding medication you took prior to your stay in the hospital. You may take your pain medication as prescribed. After the first few days, take your pain medication as needed. Do not drive or drink alcohol while taking your pain medication. Your injury may increase your risk of developing a blood clot,or DVT, in your arm or leg. This could potentially dislodge and travel to your lungs and become a life threatening condition called apulmonary embolus,or PE. You have been prescribed Lovenox to be taken to prevent this. Frequent movement of the legs will also help prevent this from occurring. If you develop any new or worsening cough, chestpain, bloody sputum or shortness of breath, call 911 or go to the EmergencyRoom. Always keep your surgical incision/dressing clean and dry. If you experience increasing pain at your incision site, redness, swelling, increasing discharge, foul odors, or fevers (greater than 100.4), night sweats or chills you should call the office at the above number. If you feel this is an emergency you should be evaluated in the Emergency Department of a nearby hospital. Orthopedic Patient Instructions Summary: Weight Bearing: As tolerated Activity: As tolerated. Diet: Regular. Wound Care: Keep dressing clean and dry. Anticoagulation: Lovenox Pain Medication: Take only as needed. Ice, rest and elevation will be of great benefit. Please plan to follow-up [facility] Dr Linton in 2 weeks. You will need to call the clinic [phone] to schedule this visit. Thank you far allowing me to participate in your care. Do not hesitate to call the office with any questions or concerns. -Please monitor your blood sugars closely -Monitor your blood sugars 3 times daily as after meals -Please record your blood sugars, and a blood sugar log -For your NovoLog -Please inject blood sugar after meals based on sliding scale provided -Do not inject insulin if you do not eat as hypoglycemia kills -This is a NovoLog sliding scale -Insulin sliding ?fingerstick? Insulin ?141-180?0 units/sq 181-220?2 units/sq ?221-260?4 units/sq ?261-300 6 units/sq ?301-350?8 units/sq ?351-400 10 units/sq ?401-450?12 units/sq >450? 14units/sq -If your blood sugar is greater than 500 go to the emergency room -If your blood sugar is less than 60 or at anytime you feel lightheaded or dizzy or diaphoretic or have chest palpitations check your blood sugar, and eat a hard candy or drink orange juice and go immediately to the emergency room -Remember hypoglycemia kills, so if his blood sugar is less than 60 we have to increase it by taking in a sugary meal such as a hard candy or orange juice and go to the emergency room -If you have any questions please call us where here to help - Please use hydrocodone sparingly for pain, do not drive operate machinery or drink while taking medication Discharge Attestations Time Spent in Discharge Care*: greater than 30 min Quality Metrics Clinical Quality Measures [ No reported AMI, CVA or VTE this stay] Coding Level of Care Code 86140 Total time (in minutes) for Discharge: 45 Diagnoses Closed fracture of right hip, initial encounter S72.001A Encounter type: initial encounter
--- NOTE | 2024-08-21 13:50 | PC.NURSE ---
education Nurse went over discharge instructions with patient. Patient instructed on how to administer Lovenox shot. Patient stated she gives herself shot all the time. Nurse reinforced education on Dr instructions.
[2024-08-21 15:05] VITALS: BP 98/65; PULSE 85; RESP 18; TEMP 36.9; O2SAT 99
[2024-08-21 17:10] VITALS: BP 98/85; PULSE 85; RESP 18; TEMP 36.9; O2SAT 99
== END 2024-08-21 15:30 | disposition home health service (06) | DRG 521 ==
LOC: ER 05:21 → MEDSURG 05:27 → ICU 07:44 → MEDSURG 08-18 00:11
PROVIDERS: Internal Medicine; Orthopaedic Surgery; Admitting Provider Family Medicine; Emergency Provider Emergency Medicine; PCP Internal Medicine; Visit Provider Family Medicine
PROC: 0SRR019 Replacement of Right Hip Joint, Femoral Surface with Metal Synthetic Substitute, Cemented, Open Approach (ICD-10-PCS; CPT 27125; principal; 2024-08-18 16:05)
DX: S72.001A Fracture of unspecified part of neck of right femur, initial encounter for closed fracture (principal); E11.10 Type 2 diabetes mellitus with ketoacidosis without coma; X58.XXXA Exposure to other specified factors, initial encounter; E11.42 Type 2 diabetes mellitus with diabetic polyneuropathy; F25.1 Schizoaffective disorder, depressive type; Z79.82 Long term (current) use of aspirin; Z79.4 Long term (current) use of insulin; Z79.85 Long-term (current) use of injectable non-insulin antidiabetic drugs; Z79.891 Long term (current) use of opiate analgesic; Z91.041 Radiographic dye allergy status
CPT/HCPCS: 36415; 36416; 36600; 51702; 71045; 73501; 73502; 80048; 80053; 81001; 82009; 82803; 82962; 83735; 84100; 85025; 90471; 90686; 93005; 96372; 96374; 96375; 97116; 97161; 97166; 99285; C1776; J0690; J1100; J1650; J1815; J1885; J2270; J2405; J2470; J2704; J2710; J3010; J3370; J3490; J7030

== ENCOUNTER → 2024-09-09 09:14 | Outpatient (BNVA) | payer MEDICARE, MEDICAID, OTHER, SELFPAY | PROVIDERS: PCP Internal Medicine; Visit Provider Orthopaedic Surgery | DX: Z96.651 Presence of right artificial knee joint (principal); S72.001D Fracture of unspecified part of neck of right femur, subsequent encounter for closed fracture with routine healing; X58.XXXD Exposure to other specified factors, subsequent encounter | CPT/HCPCS: 73502; 99024 ==

== ENCOUNTER → 2024-09-30 08:39 | Outpatient (BNVA) | payer MEDICARE, MEDICAID, SELFPAY | PROVIDERS: PCP Internal Medicine; Visit Provider Orthopaedic Surgery | DX: S72.001D Fracture of unspecified part of neck of right femur, subsequent encounter for closed fracture with routine healing (principal); X58.XXXD Exposure to other specified factors, subsequent encounter | CPT/HCPCS: 73502; 99024 ==

== ENCOUNTER 2024-10-06 20:19 | Emergency (ER) | payer MEDICARE, MEDICAID, SELFPAY ==
[2024-10-06 20:22] VITALS: BP 174/98; PULSE 76; RESP 18; TEMP 36.6; O2SAT 98; BMI 27.4
--- NOTE | 2024-10-06 20:26 | XRR_ITS ---
PROCEDURE INFORMATION: Exam: XR Left Shoulder Exam date and time: 10/06/2024 8:36 PM Age: 64 years old Clinical indication: Pain; Left; Prior surgery; Surgery date: 6+ months; Surgery type: Lt shoulder TECHNIQUE: Imaging protocol: Radiologic exam of the left shoulder. Views: 2 or more views. COMPARISON: CR (CHEST, ) 08/17/2024 4:52 AM FINDINGS: Bones/joints: Chronic deformity of the humeral head. There is a rotator cuff anchor within the humeral head. There is absence of the distal clavicle related to surgical osteotomy which can be seen in the setting of a Gisell surgical procedure. No definite acute displaced fracture. No dislocation. Soft tissues: Overlying soft tissues are unremarkable. XR/XR shoulder LT min 2V* [id number] IMPRESSION: As above.
--- NOTE | 2024-10-06 20:29 | ED_ITS ---
HPI - Extremity Problem General: Chief complaint: Extremity Problem,Nontraumatic Stated complaint: left shoulder pain Time Seen by Provider: 10/06/24 20:21 Source: patient and EMS Mode of arrival: EMS Limitations: no limitations History of Present Illness: 64-year-old female states she has chroni c left shoulder pain has arthritis states she has had some increased pain in that left shoulder its much worse with movement. Denies any new injury. States she has minimal pain at rest. Related Data Home Medications ?Medication ?Instructions ?Recorded ?Confirmed aspirin 81 mg tablet,delayed 81 mg PO DAILY 09/09/19 0 09/30/24 release cetirizine 10 mg tablet (Zyrtec) 10 mg PO DAILY PRN Al lergy Symptoms 09/09/19 09/30/24 gabapentin 100 mg capsule 100 mg PO TID 09/09/1909/30 (Neurontin) famotidine 20 mg tablet 20 mg PO DAILY 03/01/2112/19 empagliflozin 10 mg tablet 10 mg PO DAILY 07/26/2112/19 (Jardiance) fluticasone propionate 50 2 spray intranasal DAILY PRN Nasal 01/31/23 09/30/24 mcg/actuation nasal Congestion spray,suspension rosuvastatin 20 mg tablet 20 mg PO DAILY 01/31/2312/19 semaglutide 0.25 mg or 0.5 mg (2 0.25 mg SUBCUT .weekl y 12/18/23 09/30/24 mg/3 mL) subcutaneous pen injector (Ozempic) sennosides 8.6 mg tablet (senna) 8.6 mg PO DAILY 01/0809/30/24 acetaminophen 500 mg tablet 500 mg PO Q6H PRN Pain 04/1909/30/24 (Tylenol Extra Strength) menthol 10 % topical cream 1 applic topical DIRECTE D PRN 04/03/24 09/30/24 (Biofreeze (menthol)) Pain fenofibrate nanocrystallized 145 145 mg PO DAILY 05/2709/30/24 mg tablet (Tricor) docusate sodium 100 mg capsule 100 mg PO BID 08/17/24 09/30/24 insulin glargine 100 unit/mL 110 unit SUBCUT QAM 09/1709/30/24 subcutaneous solution (Lantus U-100 Insulin) Previous Rx's ?Medication ?Instructions ?Recorded diabetic shoes with molded inserts #1 ea 10/18/21 Fast Form #1 ea 02/16/23 Diabetic Shoes with 3 pairs of #1 ea 06/25/23 inserts diclofenac sodium 1 % topical gel 4 g topical QID #100 grams 10/17/23 (Voltaren Arthritis Pain) albuterol sulfate 2.5 mg/3 mL 2.5 mg (3 mL) inhalation Q6H PRN 04/30/24 (0.083 %) solution for nebulization shortness of breat h or wheezing #180 mL fluoxetine 40 mg capsule (Prozac) 40 mg PO DAILY #30 c aps 05/15/24 melatonin 10 mg tablet 20 mg (2 x 10 mg) PO BEDTIME #60 05/15/24 tabs topiramate 100 mg tablet (Topamax) 100 mg PO BID #60 t abs 05/15/24 ziprasidone HCl 20 mg capsule 20 mg PO BID #60 caps (Geodon) hydrocodone 5 mg-acetaminophen 325 1 tab PO Q4H PRN pa in 7 days #42 09/01/24 mg tablet tabs clonazepam 0.5 mg tablet 0.5 mg PO DAILY PRN anxiety #30 09/26/24 tabs Allergies Allergy/AdvReac Type Severity Reaction Status Date / Time Iodinated Contrast Media Allergy ALGY-Anaphy Verified 10/06/24 20:28 laxis Iodine and Iodide Containing Allergy ALGY-Difficulty Verified 10/06/24 20:28 Produc Breathing marijuana (cannabis) Allergy ADR-Headach Verified 10/06/24 20:28 (marijuana) e shellfish derived Allergy ALGY-Difficulty Verified 10/06/24 20:28 Breathing ON LICENSE OF [facility] ED PFSH: Medical History Closed fracture of right hip Closed fracture of right distal radius and ulna Fracture, intertrochanteric, right femur Diabetes Fall Lumbar compression fracture 11/08/2018 Disc displacement, lumbar Borderline intellectual functioning Schizoaffective disorder, depressive type Surgical History History of knee surgery (~09/04/13) Dr. Harper Family History Sister High cholesterol Social History Smoking and tobacco/nicotine status: never used tobacco/nicotine Alcohol intake: never Substance/Drug Use: never Household members: none Marital status: Single Current occupational status: disabled Course Vital Signs: Vital signs: Vital Signs Temperature 97.9 F 10/06/24 20:22 Pulse Rate 90 10/06/24 20:58 Respiratory Rate 16 10/06/24 20:58 Blood Pressure 138/81 10/06/24 20:58 Pulse Oximetry 97 10/06/24 20:58 Oxygen Delivery Me thod Room Air 10/06/24 20:58 MDM - Extremity (Nontraumatic) Medical Decision Making Patient presents for left shoulder pain x-ray shows no acute findings likely arthritis she stable for discharge follow-up with PCP return if worsening. Medical Records I reviewed the patient's medical records. Lab Data Radiology Impressions Shoulder X-Ray 10/06/24 20:26 IMPRESSION: As above. All radiology interpretation(s) finalized by discharge Discharge Plan Discharge Patient Disposition: Home Clinical Impression: Chronic left shoulder pain Condition: Stable Prescriptions: No Action famotidine 20 mg tablet 20 mg PO DAILY (DME) diabetic shoes with molded inserts See Rx Instructions .Route .MEDSUPPLY Qty: 1 0RF Rx Instructions: As directed (DME) Fast Form See Rx Instructions .Route .MEDSUPPLY Qty: 1 0RF Rx Instructions: As directed sennosides [senna] 8.6 mg tablet 8.6 mg PO DAILY Prozac 40 mg capsule 40 mg PO DAILY Qty: 30 2RF ziprasidone HCl [Geodon] 20 mg capsule 20 mg PO BID Qty: 60 2RF Rx Instructions: give with food (meal/snack) topiramate [Topamax] 100 mg tablet 100 mg PO BID Qty: 60 2RF insulin glargine [Lantus U-100 Insulin] 100 unit/mL solution 110 unit SUBCUT QAM (DME) Diabetic Shoes with 3 pairs of inserts See Rx Instructions .Route .MEDSUPPLY Qty: 1 0RF Rx Instructions: As directed Ozempic 0.25 mg or 0.5 mg (2 mg/3 mL) pen injector 0.25 mg SUBCUT .weekly Rx Instructions: weekly on Mondays Biofreeze (menthol) 10 % cream 1 applic topical DIRECTED PRN (Reason: Pain) acetaminophen [Tylenol Extra Strength] 500 mg tablet 500 mg PO Q6H PRN (Reason: Pain) fenofibrate nanocrystallized [Tricor] 145 mg tablet 145 mg PO DAILY melatonin 10 mg tablet 20 mg PO BEDTIME Qty: 60 2RF hydrocodone-acetaminophen 5-325 mg tablet 1 tab PO Q4H PRN (Reason: pain) 7 Days Qty: 42 0RF clonazepam 0.5 mg tablet 0.5 mg PO DAILY PRN (Reason: anxiety) Qty: 30 2RF Jardiance 10 mg Tablet 10 mg PO DAILY cetirizine [Zyrtec] 10 mg Tablet 10 mg PO DAILY PRN (Reason: Allergy Symptoms) aspirin 81 mg Tablet,Delayed Release (Dr/Ec) 81 mg PO DAILY gabapentin [Neurontin] 100 mg Capsule 100 mg PO TID fluticasone propionate 50 mcg/actuation [place],Suspension 2 spray INTRANASAL DAILY PRN (Reason: Nasal Congestion) Rx Instructions: administer into each nostril rosuvastatin 20 mg tablet 20 mg PO DAILY docusate sodium 100 mg capsule 100 mg PO BID diclofenac sodium [Voltaren Arthritis Pain] 1 % gel 4 g topical QID Qty: 100 3RF Rx Instructions: apply to single knee, ankle, foot; for foot includes sole/toes/top of foot albuterol sulfate 2.5 mg /3 mL (0.083 %) solution for nebulization 2.5 mg inhalation Q6H PRN (Reason: shortness of breath or wheezing) Qty: 180 0RF Discharge Orders: Discharge ED (Routine); Ordered 10/06/24 Ordered By: Travis Guido Referrals: Hilda Patel MD [Primary Care Provider] - 4-7 days Discharge Diet: Advance as tolerated Discharge Activity: Resume usual activity Patient Instructions: Shoulder Pain (ED) Print Language: Nepali Coding Level of Care Code ED [employer] Web Developer for Casey Vaughn
[2024-10-06] MEDS: ketorolac 30 mg/mL INJ IM (20:53)
[2024-10-06 20:58] VITALS: BP 138/81; PULSE 90; RESP 16; O2SAT 97
[2024-10-06 21:43] VITALS: BP 123/74; PULSE 75; O2SAT 96
== END 2024-10-06 21:45 | disposition home or self-care (01) ==
PROVIDERS: Emergency Provider Emergency Medicine; PCP Internal Medicine
DX: M25.512 Pain in left shoulder (principal); Z79.4 Long term (current) use of insulin; Z79.82 Long term (current) use of aspirin; E11.9 Type 2 diabetes mellitus without complications
CPT/HCPCS: 73030; 96372; 99284; J1885

== ENCOUNTER 2024-10-21 06:59 | Emergency (ER) | payer MEDICARE, MEDICAID, SELFPAY ==
--- NOTE | 2024-10-21 07:00 | XRR_ITS ---
PROCEDURE INFORMATION: Exam: XR Right Hip Exam date and time: 10/21/2024 7:47 AM Age: 64 years old Clinical indication: Hip pain; Right hip; Prior surgery; Surgery date: 6+ months; Surgery type: Hip replacement TECHNIQUE: Imaging protocol: Radiologic exam of the right hip. Views: 1 view hip with pelvis when performed. COMPARISON: CR XR hip RT 2-3V wo/w pel* [id number] 09/30/2024 8:42 AM FINDINGS: Bones/joints: Total hip replacement. Anatomic alignment. Bone marrow are intact. No fracture or dislocation.. No acute fracture. Soft tissues: Unremarkable. XR/XR hip RT 2-3V wo/w pel* [id number] IMPRESSION: Normal following replacement.
[2024-10-21 07:05] VITALS: BP 107/72; PULSE 66; RESP 16; TEMP 36.5; O2SAT 96; BMI 29.8
--- NOTE | 2024-10-21 07:39 | W.ED.EXTPRO ---
HPI - Extremity Problem General: Chief complaint: Extremity Injury, Lower Stated complaint: right hip pain Time Seen by Provider: 10/21/24 07:00 History of Present Illness: 64-year-old female presents emergency room with complaint of right hip pain. She previously had a fracture then had a subsequent revision of the right hip arthroplasty she has acute pain today. She has had this in the past no recent trauma or fall. She states Toradol usually works very well she has hydrocodone she uses occasionally at home Associated symptoms: Deny chest pain, fever(s) or rash Related Data Home Medications ?Medication ?Instructions ?Recorded ?Confirmed aspirin 81 mg tablet,delayed 81 mg PO DAILY 09/09/19 10/21/24 release cetirizine 10 mg tablet (Zyrtec) 10 mg PO DAILY PRN Allergy Symptoms 09/09/19 10/21/24 gabapentin 100 mg capsule 100 mg PO TID 09/09/19 10/21/24 (Neurontin) rosuvastatin 20 mg tablet 20 mg PO DAILY 01/31/23 10/21/24 semaglutide 0.25 mg or 0.5 mg (2 0.25 mg SUBCUT .weekly 12/18/23 10/21/24 mg/3 mL) subcutaneous pen injector (Ozempic) acetaminophen 500 mg tablet 500 mg PO Q6H PRN Pain 04/03/24 10/21/24 (Tylenol Extra Strength) fenofibrate nanocrystallized 145 145 mg PO DAILY 05/27/24 10/21/24 mg tablet (Tricor) docusate sodium 100 mg capsule 100 mg PO BID 08/17/24 10/21/24 insulin glargine 100 unit/mL 110 unit SUBCUT QAM 09/17/24 10/21/24 subcutaneous solution (Lantus U-100 Insulin) Previous Rx's ?Medication ?Instructions ?Recorded albuterol sulfate 2.5 mg/3 mL 2.5 mg (3 mL) inhalation Q6H PRN 04/30/24 (0.083 %) solution for nebulization shortness of breath or wheezing #180 mL fluoxetine 40 mg capsule (Prozac) 40 mg PO DAILY #30 caps 05/15/24 topiramate 100 mg tablet (Topamax) 100 mg PO BID #60 tabs 05/15/24 ziprasidone HCl 20 mg capsule 20 mg PO BID #60 caps 05/15/24 (Geodon) clonazepam 0.5 mg tablet 0.5 mg PO DAILY PRN anxiety #30 09/26/24 tabs hydrocodone 5 mg-acetaminophen 325 1 tab PO Q8H PRN pain 7 days #21 10/15/24 mg tablet tabs hydrocodone 5 mg-acetaminophen 325 1 tab PO Q6H PRN pain #5 tabs 10/21/24 mg tablet Allergies Allergy/AdvReac Type Severity Reaction Status Date / Time Iodinated Contrast Media Allergy ALGY-Anaphy Verified 10/21/24 07:10 laxis Iodine and Iodide Containing Allergy ALGY-Difficulty Verified 10/21/24 07:10 Produc Breathing marijuana (cannabis) Allergy ADR-Headach Verified 10/21/24 07:10 (marijuana) e shellfish derived Allergy ALGY-Difficulty Verified 10/21/24 07:10 Breathing Review of Systems Const: Denies: fever(s) or chills Card: Denies: chest pain Resp: Denies: dyspnea GI: Denies: abdominal pain : Denies: dysuria, urinary frequency or urinary urgency Musc: Reports: joint pain; Denies: neck pain or back pain Skin/Breast: Denies: rash PFSH ED PFSH: Medical History Closed fracture of right hip Closed fracture of right distal radius and ulna Fracture, intertrochanteric, right femur Diabetes Fall Lumbar compression fracture 11/08/2018 Disc displacement, lumbar Borderline intellectual functioning Schizoaffective disorder, depressive type Surgical History History of knee surgery (~09/04/13) Dr. Harper Family History Sister High cholesterol Social History Smoking and tobacco/nicotine status: never used tobacco/nicotine Alcohol intake: never Substance/Drug Use: never Household members: none Marital status: Single Current occupational status: disabled Physical Exam Const: COMMON NORMALS: no acute distress GENERAL APPEARANCE: cooperative and comfortable ORIENTATION/CONSCIOUSNESS: Yes awake, Yes oriented to person, Yes oriented to place and Yes oriented to time HENMT: COMMON NORMALS: normocephalic, atraumatic and hearing grossly normal bilaterally HEAD & SCALP: normocephalic and atraumatic Resp: COMMON NORMALS: normal respiratory effort, No retractions, No use of accessory muscles and clear to auscultation bilaterally AUSCULTATION: clear to auscultation bilaterally Cardio: COMMON NORMALS: regular rate, regular rhythm and No murmurs present (Cardio) RATE: regular rate RHYTHM: regular rhythm Extremity: COMMON NORMALS: normal to inspection, capillary refill normal, no clubbing, cyanosis or edema, no calf tenderness and no pedal edema OTHER: Tenderness at the greater trochanter of the right hip Neuro: SENSORIUM/ORIENTATION: Yes oriented to person, Yes oriented to place and Yes oriented to time Skin: COMMON NORMALS: no rashes or lesions noted GENERAL SKIN EXAM: no rashes or lesions noted Course Vital Signs: Vital signs: Vital Signs Temperature 97.7 F 10/21/24 07:05 Pulse Rate 66 10/21/24 07:05 Respiratory Rate 16 10/21/24 07:05 Blood Pressure 107/72 10/21/24 07:05 Pulse Oximetry 96 10/21/24 07:05 MDM - Extremity (Nontraumatic) Medical Decision Making Responded well to Toradol. Discharged home with 5 tablets hydrocodone use. Follow-up with primary care orthopedics for further pain control strategies. This has been an issue for her in the past as well. Medical Records I reviewed the patient's medical records. Lab Data Radiology Impressions Hip/Pelvis X-Ray 10/21/24 07:00 IMPRESSION: Normal following replacement. All radiology interpretation(s) finalized by discharge Discharge Plan Discharge Patient Disposition: Home Clinical Impression: Acute pain of right hip Condition: Stable Prescriptions: New hydrocodone-acetaminophen 5-325 mg tablet 1 tab PO Q6H PRN (Reason: pain) Qty: 5 0RF No Action Prozac 40 mg capsule 40 mg PO DAILY Qty: 30 2RF ziprasidone HCl [Geodon] 20 mg capsule 20 mg PO BID Qty: 60 2RF Rx Instructions: give with food (meal/snack) topiramate [Topamax] 100 mg tablet 100 mg PO BID Qty: 60 2RF insulin glargine [Lantus U-100 Insulin] 100 unit/mL solution 110 unit SUBCUT QAM Ozempic 0.25 mg or 0.5 mg (2 mg/3 mL) pen injector 0.25 mg SUBCUT .weekly Rx Instructions: weekly on Mondays acetaminophen [Tylenol Extra Strength] 500 mg tablet 500 mg PO Q6H PRN (Reason: Pain) fenofibrate nanocrystallized [Tricor] 145 mg tablet 145 mg PO DAILY clonazepam 0.5 mg tablet 0.5 mg PO DAILY PRN (Reason: anxiety) Qty: 30 2RF hydrocodone-acetaminophen 5-325 mg tablet 1 tab PO Q8H PRN (Reason: pain) 7 Days Qty: 21 0RF cetirizine [Zyrtec] 10 mg Tablet 10 mg PO DAILY PRN (Reason: Allergy Symptoms) aspirin 81 mg Tablet,Delayed Release (Dr/Ec) 81 mg PO DAILY gabapentin [Neurontin] 100 mg Capsule 100 mg PO TID rosuvastatin 20 mg tablet 20 mg PO DAILY docusate sodium 100 mg capsule 100 mg PO BID albuterol sulfate 2.5 mg /3 mL (0.083 %) solution for nebulization 2.5 mg inhalation Q6H PRN (Reason: shortness of breath or wheezing) Qty: 180 0RF Discharge Orders: Discharge ED (Routine); Ordered 10/21/24 Ordered By: Frantz Collado Referrals: Hilda Patel MD [Primary Care Provider] - Discharge Diet: Usual diet Discharge Activity: Increase activity as tolerated Patient Instructions: Opioid Safety, Pain Management Activity Restrictions/Additional Instructions: Thank you for choosing [facility] for your healthcare needs today. It is very important that you follow up as instructed or that you return to the Emergency Department should you have concerns or if your condition changes or worsens in any way. You are seen in the emergency room for right hip pain you responded well to the medications given. X-ray did not show any acute changes or new fractures in the right hip. You are given a small course of pain medication to use as needed follow-up with your regular doctor for further pain control strategies. 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
[2024-10-21] MEDS: ketorolac 30 mg/mL INJ IM (08:39)
== END 2024-10-21 10:50 | disposition home or self-care (01) ==
PROVIDERS: Emergency Provider Family Medicine; PCP Internal Medicine
DX: M25.551 Pain in right hip (principal); Z79.82 Long term (current) use of aspirin; E11.9 Type 2 diabetes mellitus without complications; Z96.641 Presence of right artificial hip joint
CPT/HCPCS: 73502; 96372; 99284; J1885

== ENCOUNTER 2024-11-01 20:10 | Emergency (ER) | payer MEDICARE, MEDICAID, SELFPAY ==
[2024-11-01 20:13] VITALS: BP 165/93; PULSE 76; RESP 16; TEMP 36.8; O2SAT 96; BMI 30.5
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
[2024-11-01] MEDS: ketorolac 30 mg/mL INJ 15 MG IM (21:15)
[2024-11-01 22:45] VITALS: BP 131/89; PULSE 74; RESP 16; O2SAT 93
== END 2024-11-01 22:41 | disposition home or self-care (01) ==
PROVIDERS: Emergency Provider Nurse Practitioner Family; PCP Internal Medicine
DX: S20.211A Contusion of right front wall of thorax, initial encounter (principal); Z79.4 Long term (current) use of insulin; Z79.82 Long term (current) use of aspirin; X58.XXXA Exposure to other specified factors, initial encounter
CPT/HCPCS: 71250; 96372; 99284; J1885

== ENCOUNTER 2024-11-15 23:29 | Emergency (ER) | payer MEDICAID, SELFPAY ==
[2024-11-15 23:30] VITALS: BMI 29.9
[2024-11-15 23:35] VITALS: BP 175/85; PULSE 88; RESP 18; TEMP 36.5; O2SAT 98
[2024-11-16] MEDS: ondansetron 4 MG Tablet PO (00:24)
[2024-11-16] MEDS: ketorolac 30 mg/mL INJ 60 MG IM (00:24)
--- NOTE | 2024-11-16 00:40 | W.ED.EXTPRO ---
HPI - Extremity Problem General: Chief complaint: Extremity Problem,Nontraumatic Stated complaint: R HIP PAIN Time Seen by Provider: 11/15/24 23:35 History of Present Illness: 64-year-old female with chronic right hip pain after placement of orthopedic hardware for arthroplasty. She locates her pain laterally. She was having trouble sleeping tonight due to the pain, so she called an ambulance. No fever. No other significant pain. No recent trauma or fall. Related Data Home Medications ?Medication ?Instructions ?Recorded ?Confirmed aspirin 81 mg tablet,delayed 81 mg PO DAILY 09/09/19 10/21/24 release cetirizine 10 mg tablet (Zyrtec) 10 mg PO DAILY PRN Allergy Symptoms 09/09/19 10/21/24 gabapentin 100 mg capsule 100 mg PO TID 09/09/19 10/21/24 (Neurontin) rosuvastatin 20 mg tablet 20 mg PO DAILY 01/31/23 10/21/24 semaglutide 0.25 mg or 0.5 mg (2 0.25 mg SUBCUT .weekly 12/18/23 10/21/24 mg/3 mL) subcutaneous pen injector (Ozempic) acetaminophen 500 mg tablet 500 mg PO Q6H PRN Pain 04/03/24 10/21/24 (Tylenol Extra Strength) fenofibrate nanocrystallized 145 145 mg PO DAILY 05/27/24 10/21/24 mg tablet (Tricor) docusate sodium 100 mg capsule 100 mg PO BID 08/17/24 10/21/24 insulin glargine 100 unit/mL 110 unit SUBCUT QAM 09/17/24 10/21/24 subcutaneous solution (Lantus U-100 Insulin) Previous Rx's ?Medication ?Instructions ?Recorded albuterol sulfate 2.5 mg/3 mL 2.5 mg (3 mL) inhalation Q6H PRN 04/30/24 (0.083 %) solution for nebulization shortness of breath or wheezing #180 mL fluoxetine 40 mg capsule (Prozac) 40 mg PO DAILY #30 caps 05/15/24 topiramate 100 mg tablet (Topamax) 100 mg PO BID #60 tabs 05/15/24 ziprasidone HCl 20 mg capsule 20 mg PO BID #60 caps 05/15/24 (Geodon) clonazepam 0.5 mg tablet 0.5 mg PO DAILY PRN anxiety #30 09/26/24 tabs hydrocodone 5 mg-acetaminophen 325 1 tab PO Q8H PRN pain 7 days #21 10/15/24 mg tablet tabs hydrocodone 5 mg-acetaminophen 325 1 tab PO Q6H PRN pain #5 tabs 10/21/24 mg tablet Allergies Allergy/AdvReac Type Severity Reaction Status Date / Time Iodinated Contrast Media Allergy ALGY-Anaphy Verified 11/15/24 23:34 laxis Iodine and Iodide Containing Allergy ALGY-Difficulty Verified 11/15/24 23:34 Produc Breathing marijuana (cannabis) Allergy ADR-Headach Verified 11/15/24 23:34 (marijuana) e shellfish derived Allergy ALGY-Difficulty Verified 11/15/24 23:34 Breathing PFSH ED PFSH: Medical History Closed fracture of right hip Closed fracture of right distal radius and ulna Fracture, intertrochanteric, right femur Diabetes Fall Lumbar compression fracture 11/08/2018 Disc displacement, lumbar Borderline intellectual functioning Schizoaffective disorder, depressive type Surgical History History of knee surgery (~09/04/13) Dr. Harper Family History Sister High cholesterol Social History Smoking and tobacco/nicotine status: never used tobacco/nicotine Alcohol intake: never Substance/Drug Use: never Household members: none Marital status: Single Current occupational status: disabled Physical Exam Const: COMMON NORMALS: no acute distress GENERAL APPEARANCE: cooperative; not ill appearing and not frail appearing HENMT: COMMON NORMALS: normocephalic, atraumatic and Normal external nose present HEAD & SCALP: normocephalic and atraumatic FACE & SINUS: normal facial exam and face symmetric NOSE: Normal external nose present Eye: COMMON NORMALS: Equal, round and reactive pupils present and EOMs intact bilaterally PUPIL: Yes Equal, round and reactive pupils present Neck/C-Spine: GENERAL: Yes trachea midline Chest: CHEST: Yes Symmetrical chest wall rise Resp: COMMON NORMALS: normal respiratory effort, No retractions and No use of accessory muscles Cardio: COMMON NORMALS: regular rate and regular rhythm RATE: regular rate RHYTHM: regular rhythm Extremity: NARRATIVE EXTREMITY EXAM: Exam of the right lower extremity reveals no deformity. There is tenderness to palpation over the lateral/trochanteric region of the right hip. No groin pain. No significant pain on logroll testing. Neuro: JEANINE COMA SCALE: document GCS findings [place] coma scale eye opening: Spontaneous [place] coma scale verbal response: Orientated Jeanine coma scale motor response: Obey commands [place] coma scale total score: 15 SENSORY EXAM: Yes extremities (intact) Psych: COMMON NORMALS: speech normal SPEECH: Yes normal speech Course Vital Signs: Vital signs: Vital Signs Temperature 97.7 F 11/15/24 23:35 Pulse Rate 88 11/15/24 23:35 Respiratory Rate 18 11/15/24 23:35 Blood Pressure 175/85 11/15/24 23:35 Pulse Oximetry 98 11/15/24 23:35 Oxygen Delivery Me thod Room Air 11/15/24 23:35 MDM - Extremity (Nontraumatic) Medical Decision Making Patient received an injection of Toradol for chronic right hip pain after placement of orthopedic hardware previously. She has had no trauma. X-rays will not likely change her management or outcome. No radiology studies performed this visit Discharge Plan Discharge Patient Disposition: Home Clinical Impression: Painful orthopaedic hardware Condition: Stable Prescriptions: No Action Prozac 40 mg capsule 40 mg PO DAILY Qty: 30 2RF ziprasidone HCl [Geodon] 20 mg capsule 20 mg PO BID Qty: 60 2RF Rx Instructions: give with food (meal/snack) topiramate [Topamax] 100 mg tablet 100 mg PO BID Qty: 60 2RF insulin glargine [Lantus U-100 Insulin] 100 unit/mL solution 110 unit SUBCUT QAM Ozempic 0.25 mg or 0.5 mg (2 mg/3 mL) pen injector 0.25 mg SUBCUT .weekly Rx Instructions: weekly on Mondays acetaminophen [Tylenol Extra Strength] 500 mg tablet 500 mg PO Q6H PRN (Reason: Pain) fenofibrate nanocrystallized [Tricor] 145 mg tablet 145 mg PO DAILY clonazepam 0.5 mg tablet 0.5 mg PO DAILY PRN (Reason: anxiety) Qty: 30 2RF hydrocodone-acetaminophen 5-325 mg tablet 1 tab PO Q8H PRN (Reason: pain) 7 Days Qty: 21 0RF cetirizine [Zyrtec] 10 mg Tablet 10 mg PO DAILY PRN (Reason: Allergy Symptoms) aspirin 81 mg Tablet,Delayed Release (Dr/Ec) 81 mg PO DAILY gabapentin [Neurontin] 100 mg Capsule 100 mg PO TID rosuvastatin 20 mg tablet 20 mg PO DAILY docusate sodium 100 mg capsule 100 mg PO BID albuterol sulfate 2.5 mg /3 mL (0.083 %) solution for nebulization 2.5 mg inhalation Q6H PRN (Reason: shortness of breath or wheezing) Qty: 180 0RF hydrocodone-acetaminophen 5-325 mg tablet 1 tab PO Q6H PRN (Reason: pain) Qty: 5 0RF Discharge Orders: Discharge ED (Routine); Ordered 11/16/24 Ordered By: Zander Duncan Referrals: Hilda Patel MD [Primary Care Provider] - 1-3 days Patient Instructions: Hip Pain (ED), Opioid Safety, Pain Management Print Language: Portuguese Coding Level of Care Code 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
[2024-11-16 00:49] VITALS: BP 150/83; PULSE 88; RESP 18; TEMP 36.7; O2SAT 96
== END 2024-11-16 00:55 | disposition home or self-care (01) ==
PROVIDERS: Emergency Provider Emergency Medicine; PCP Internal Medicine
DX: T84.84XA Pain due to internal orthopedic prosthetic devices, implants and grafts, initial encounter (principal); X58.XXXA Exposure to other specified factors, initial encounter; M25.551 Pain in right hip; Z79.82 Long term (current) use of aspirin
CPT/HCPCS: 96372; 99284; J1885; Q0162

== ENCOUNTER → 2025-01-06 12:43 | Outpatient (BNVA) | payer MEDICARE, MEDICAID, SELFPAY | PROVIDERS: PCP Internal Medicine; Visit Provider Podiatrist Foot & Ankle Surgery | DX: E11.42 Type 2 diabetes mellitus with diabetic polyneuropathy (principal); L60.3 Nail dystrophy; L84 Corns and callosities; M21.41 Flat foot [pes planus] (acquired), right foot; M21.42 Flat foot [pes planus] (acquired), left foot; Z79.4 Long term (current) use of insulin | CPT/HCPCS: 11056; 11721; 99213 ==

== ENCOUNTER → 2025-01-08 12:46 | Outpatient (BNVA) | payer MEDICARE, MEDICAID, SELFPAY | PROVIDERS: PCP Internal Medicine; Visit Provider Orthopaedic Surgery | DX: S72.001D Fracture of unspecified part of neck of right femur, subsequent encounter for closed fracture with routine healing (principal); X58.XXXD Exposure to other specified factors, subsequent encounter | CPT/HCPCS: 73502; 99024 ==

== ENCOUNTER 2025-03-02 02:27 | Emergency (ER) | payer MEDICARE, MEDICAID, SELFPAY ==
--- OUTSIDE RECORDS SUMMARY | 2015-12-22 10:00 | XMS_ITS | Continuity of Care Document ---
Author Organization [facility] Address [id number] [address] Phone Care Team Providers Care Sql Database Programmer Name Role Phone Ellis VARGAS MD, Tristin [...] Diagnoses Date Provider Providers Copied on Encounter [facility], [id number] [place], [place], [address], [place] tel:[phone] [facility] No Information 6 Ellis Crow. [address] [place], [address], [place]. tel:[phone] Referring Provider: Tristin Hale, [address] [place], [address]. tel:[phone] [facility], [id number], [address], tel:[phone] [facility] No Information 6 No Information Family History Family Member Type Diagnosis Age At Onset Son Problem (finding) Alive and well Payers Payer name Insurance type Covered alliance party ID Authorkaelyn deleon(s) No Information Social [...]
[2025-03-02 02:33] VITALS: BP 108/69; PULSE 69; RESP 15; TEMP 36.8; O2SAT 97; BMI 27.4
--- OUTSIDE RECORDS SUMMARY | 2025-03-02 02:38 | XMS_ITS | Encounter Summary ---
Author Organization [facility] Address [address] [place] [address] Care Team Providers Care Linux Architect Name Role Phone Unavailable Primary Care Provider Unavailabl e Encounter Details Date Type Department Care Team (Latest Contact Info) Description 12/12/2000 Outpatient Historical [facility] Reddy Guerra NO ADDRESS ON FILE Temporomandibular joint disorders, unspecified (Primary Dx) Social History Tobacco Use Types Packs/Day Years Used Date Smoking Tobacco: Never Assessed Comments Unknown Sex and Gender Information Value Date Recorded Sex Assigned at Not on file Legal 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
--- OUTSIDE RECORDS SUMMARY | 2025-03-02 02:38 | XMS_ITS | Encounter Summary ---
Author Organization [employer] [facility] Address [address] [place] [address] Care Team Providers Care Logistics Planning Engineer Name Role Phone Unavailable Primary Care Provider Unavailabl e Encounter Details Date Type Department Care Team (Latest Contact Info) Description 05/08/2000 Outpatient Historical HIS [facility] Reddy Guerra NO ADDRESS ON FILE Type II or unspecified type diabetes mellitus without mention of complication, not stated as uncontrolled (Primary Dx); Other and unspecified hyperlipidemia Social History Tobacco Use Types Packs/Day Years Used Date Smoking Tobacco: Never Assessed Comments Unknown Sex and Gender Information Value Date Recorded Sex Assigned at Not on file Legal Sex Female 3:42 AM BIOINFORMATICS TEAM MEMBER Gender Identity Not on file Sexual Orientation Not on file documented as of this encounter Plan of Treatment Not on file documented as of this encounter Visit Diagnoses Diagnosis Type II or unspecified type diabetes mellitus without mention of complication, not stated as uncontrolled- Primary Other and unspecified hyperlipidemia documented in this encounter
--- OUTSIDE RECORDS SUMMARY | 2025-03-02 02:38 | XMS_ITS | Encounter Summary ---
Author Organization [employer] [facility] Address [address] [place] [address] Care Team Providers Care Chassis Mechanic Name Role Phone Unavailable Primary Care Provider Unavailabl e Encounter Details Date Type Department Care Team (Latest Contact Info) Description 10/24/1999 Outpatient Historical HIS [facility] Delaneyaugusta Reddy H NO ADDRESS ON FILE Type II or unspecified type diabetes mellitus without mention of complication, not stated as uncontrolled (Primary Dx); Other and unspecified hyperlipidemia; Need for prophylactic vaccination with tetanus-diphtheria (Td) Social History Tobacco Use Types Packs/Day Years Used Date Smoking Tobacco: Never Assessed Comments Unknown Sex and Gender Information Value Date Recorded Sex Assigned at Not on file Legal Sex Female 3:42 AM CURTAIN WORKER Gender Identity Not on file Sexual Orientation Not on file documented as of this encounter Plan of Treatment Not on file documented as of this encounter Visit Diagnoses Diagnosis Type II or unspecified type diabetes mellitus without mention of complication, not stated as uncontrolled- Primary Other and unspecified hyperlipidemia Need for prophylactic vaccination with tetanus-diphtheria (Td) documented in this encounter
--- OUTSIDE RECORDS SUMMARY | 2025-03-02 02:38 | XMS_ITS | Encounter Summary ---
Author Organization [employer] [facility] Address [address] [place] [address] Care Team Providers Care Fuel Pilot Engineer Name Role Phone Unavailable Primary Care Provider Unavailabl e Encounter Details Date Type Department Care Team (Latest Contact Info) Description 06/08/1999 Outpatient Historical HIS [facility] Reddy Guerra NO ADDRESS ON FILE Pure hyperglyceridemia (Primary Dx); Type II or unspecified type diabetes mellitus without mention of complication, not stated as uncontrolled Social History Tobacco Use Types Packs/Day Years Used Date Smoking Tobacco: Never Assessed Comments Unknown Sex and Gender Information Value Date Recorded Sex Assigned at Not on file Legal Sex Female 3:42 AM BACK PANEL PADDER Gender Identity Not on file Sexual Orientation Not on file documented as of this encounter Plan of Treatment Not on file documented as of this encounter Visit Diagnoses Diagnosis Pure hyperglyceridemia- Primary Type II or unspecified type diabetes mellitus without mention of complication, not stated as uncontrolled documented in this encounter
--- OUTSIDE RECORDS SUMMARY | 2025-03-02 02:38 | XMS_ITS | Encounter Summary ---
Author Organization [employer] [facility] Address [address] [place] [address] Care Team Providers Care Piercer Operator Name Role Phone Unavailable Primary Care Provider Unavailabl e Encounter Details Date Type Department Care Team (Latest Contact Info) Description 05/09/1999 Outpatient Historical HIS [facility] Ririelyse Reddy H NO ADDRESS ON FILE Other and unspecified hyperlipidemia (Primary Dx); Type II or unspecified type diabetes mellitus without mention of complication, not stated as uncontrolled; Obesity, unspecified Social History Tobacco Use Types Packs/Day Years Used Date Smoking Tobacco: Never Assessed Comments Unknown Sex and Gender Information Value Date Recorded Sex Assigned at Not on file Legal Sex Female 3:42 AM LINE SERVICE TECHNICIAN Gender Identity Not on file Sexual Orientation Not on file documented as of this encounter Plan of Treatment Not on file documented as of this encounter Visit Diagnoses Diagnosis Other and unspecified hyperlipidemia- Primary Type II or unspecified type diabetes mellitus without mention of complication, not stated as uncontrolled Obesity, unspecified documented in this encounter
--- OUTSIDE RECORDS SUMMARY | 2025-03-02 02:38 | XMS_ITS | Encounter Summary ---
Author Organization [employer] [facility] Address [address] [place] [address] Care Team Providers Care Spectral Scientist Name Role Phone Unavailable Primary Care Provider Unavailabl e Encounter Details Date Type Department Care Team (Latest Contact Info) Description 08/22/1999 Outpatient Historical HIS [facility] Ririelyse Reddy H NO ADDRESS ON FILE Unspecified transient cerebral ischemia (Primary Dx); Type II or unspecified type diabetes mellitus without mention of complication, not stated as uncontrolled Social History Tobacco Use Types Packs/Day Years Used Date Smoking Tobacco: Never Assessed Comments Unknown Sex and Gender Information Value Date Recorded Sex Assigned at Not on file Legal Sex Female 3:42 AM CASINO SHIFT MANAGER Gender Identity Not on file Sexual Orientation Not on file documented as of this encounter Plan of Treatment Not on file documented as of this encounter Visit Diagnoses Diagnosis Unspecified transient cerebral ischemia- Primary Type II or unspecified type diabetes mellitus without mention of complication, not stated as uncontrolled documented in this encounter
--- OUTSIDE RECORDS SUMMARY | 2025-03-02 02:38 | XMS_ITS | Encounter Summary ---
Author Organization [facility] Address [address] Hernandezn: Epic [place] [address] Care Team Providers Care X Ray Service Technician Name Role Phone Unavailable Primary Care Provider Unavailabl e Encounter Details Date Type Department Care Team (Late st Contact Info) Description 07/09/2000 Outpatient Historical Reddy Guerra NO ADDRESS ON FILE Social History Tobacco Use Types Packs/Day Years Used Date Smoking Tobacco: Never Assessed Comments Unknown Sex and Gender Information Value Date Recorded Sex Assigned at Not on file Legal Sex Female 3:42 AM MANAGED CARE NURSE Gender Identity Not on file Sexual Orientation Not on file documented as of this encounter Plan of Treatment Not on file documented as of this encounter Visit Diagnoses Not on filedocumented in this encounter
--- OUTSIDE RECORDS SUMMARY | 2025-03-02 02:38 | XMS_ITS | Encounter Summary ---
Author Organization [employer] [facility] Address [address] [place] [address] Care Team Providers Care Assistant Professor Of Dietetics Name Role Phone Unavailable Primary Care Provider Unavailabl e Encounter Details Date Type Department Care Team (Late st Contact Info) Description 06/17/1999 Outpatient Historical HIS [facility] Social History Tobacco Use Types Packs/Day Years Used Date Smoking Tobacco: Never Assessed Comments Unknown Sex and Gender Information Value Date Recorded Sex Assigned at Not on file Legal Sex Female 3:42 AM SCHOOL GUARD Gender Identity Not on file Sexual Orientation Not on file documented as of this encounter Plan of Treatment Not on file documented as of this encounter Visit Diagnoses Not on filedocumented in this encounter
--- OUTSIDE RECORDS SUMMARY | 2025-03-02 02:38 | XMS_ITS | Encounter Summary ---
Author Organization [employer] [facility] Address [address] [place] [address] Care Team Providers Care Insole Coverer Name Role Phone Unavailable Primary Care Provider Unavailabl e Encounter Details Date Type Department Care Team (Latest Contact Info) Description 12/26/1999 Outpatient Historical HIS [facility] Reddy Guerra NO ADDRESS ON FILE Type II or unspecified type diabetes mellitus without mention of complication, not stated as uncontrolled (Primary Dx); Other and unspecified hyperlipidemia Social History Tobacco Use Types Packs/Day Years Used Date Smoking Tobacco: Never Assessed Comments Unknown Sex and Gender Information Value Date Recorded Sex Assigned at Not on file Legal Sex Female 3:42 AM NUCLEAR LOGGING ENGINEER Gender Identity Not on file Sexual Orientation Not on file documented as of this encounter Plan of Treatment Not on file documented as of this encounter Visit Diagnoses Diagnosis Type II or unspecified type diabetes mellitus without mention of complication, not stated as uncontrolled- Primary Other and unspecified hyperlipidemia documented in this encounter
--- OUTSIDE RECORDS SUMMARY | 2025-03-02 02:38 | XMS_ITS | Encounter Summary ---
Author Organization [email or web address] [facility] Address [address] [place] [address] Care Team Providers Care Wad Compressor Operator Adjuster Name Role Phone Unavailable Primary Care Provider Unavailabl e Encounter Details Date Type Department Care Team (Latest Contact Info) Description 04/06/2000 Outpatient Historical HIS [facility] DelaneyaugustaReddy NO ADDRESS ON FILE Sprain and strain of unspecified site of knee and leg (Primary Dx); Type II or unspecified type diabetes mellitus without mention of complication, not stated as uncontrolled; Other and unspecified hyperlipidemia Social History Tobacco Use Types Packs/Day Years Used Date Smoking Tobacco: Never Assessed Comments Unknown Sex and Gender Information Value Date Recorded Sex Assigned at Not on file Legal Sex Female 3:42 AM STUDENT SUCCESS ADVISOR Gender Identity Not on file Sexual Orientation Not on file documented as of this encounter Plan of Treatment Not on file documented as of this encounter Visit Diagnoses Diagnosis Sprain and strain of unspecified site of knee and leg- Primary Type II or unspecified type diabetes mellitus without mention of complication, not stated as uncontrolled Other and unspecified hyperlipidemia documented in this encounter
--- OUTSIDE RECORDS SUMMARY | 2025-03-02 02:38 | XMS_ITS | Encounter Summary ---
Author Organization [facility] Address [address] Hernandezn: Epic Prel[place] [address] Care Team Providers Care Fishing Rod Trimmer Name Role Phone Unavailable Primary Care Provider Unavailabl e Encounter Details Date Type Department Care Team (Late st Contact Info) Description 03/27/2000 Outpatient Historical Reddy Guerra NO ADDRESS ON FILE Social History Tobacco Use Types Packs/Day Years Used Date Smoking Tobacco: Never Assessed Comments Unknown Sex and Gender Information Value Date Recorded Sex Assigned at Not on file Legal Sex Female 3:42 AM SERVICES ENGINEER Gender Identity Not on file Sexual Orientation Not on file documented as of this encounter Plan of Treatment Not on file documented as of this encounter Visit Diagnoses Not on filedocumented in this encounter
--- OUTSIDE RECORDS SUMMARY | 2025-03-02 02:38 | XMS_ITS | Encounter Summary ---
Author Organization [employer] [facility] Address [address] [place] [address] Care Team Providers Care Pulmonologist Intensivist Name Role Phone Unavailable Primary Care Provider Unavailabl e Encounter Details Date Type Department Care Team (Latest Contact Info) Description 01/07/2001 Outpatient Historical HIS [facility] [...] on file Legal Sex Female 3:42 AM HEALTH AND NUTRITION SPECIALIST Gender Identity Not on file Sexual Orientation Not on file documented as of this encounter Plan of Treatment Not on file documented as of this encounter Visit Diagnoses Diagnosis Type II or unspecified type diabetes mellitus without mention of complication, not stated as uncontrolled- Primary Other and unspecified hyperlipidemia documented in this encounter
--- OUTSIDE RECORDS SUMMARY | 2025-03-02 02:38 | XMS_ITS | Encounter Summary ---
Author Organization [facility] Address [address] Hernandezn: [place] [address] Care Team Providers Care Bookmaker'S Clerk Name Role Phone Unavailable Primary Care Provider Unavailabl e Encounter Details Date Type Department Care Team (Late st Contact Info) Description 10/10/1999 Outpatient Historical [facility], Markus Arana MD [address] [place] [address] Social History Tobacco Use Types Packs/Day Years Used Date Smoking Tobacco: Never Assessed Comments Unknown Sex and Gender Information Value Date Recorded Sex Assigned at Not on file Legal Sex Female 3:42 AM PARTS SALES ASSOCIATE Gender Identity Not on file Sexual Orientation Not on file documented as of this encounter Plan of Treatment Not on file documented as of this encounter Visit Diagnoses Not on filedocumented in this encounter
--- OUTSIDE RECORDS SUMMARY | 2025-03-02 02:38 | XMS_ITS | Encounter Summary ---
Author Organization [employer] [facility] Address [address] [place] [address] Care Team Providers Care Market Risk Analyst Name Role Phone Unavailable Primary Care Provider Unavailabl e Encounter Details Date Type Department Care Team (Latest Contact Info) Description 07/09/2000 Outpatient Historical HIS [facility] Reddy Guerra NO ADDRESS ON FILE Type II or unspecified type diabetes mellitus without mention of complication, not stated as uncontrolled (Primary Dx); Pure hypercholesterolem; Encounter for long-term (current) use of other medications; Lumbago Social History Tobacco Use Types Packs/Day Years Used Date Smoking Tobacco: Never Assessed Comments Unknown Sex and Gender Information Value Date Recorded Sex Assigned at Not on file Legal Sex Female 3:42 AM PRODUCTION PLANNER Gender Identity Not on file Sexual Orientation Not on file documented as of this encounter Plan of Treatment Not on file documented as of this encounter Visit Diagnoses Diagnosis Type II or unspecified type diabetes mellitus without mention of complication, not stated as uncontrolled- Primary Pure hypercholesterolem Pure hypercholesterolemia Encounter for long-term (current) use of other medications Lumbago documented in this encounter
--- OUTSIDE RECORDS SUMMARY | 2025-03-02 02:38 | XMS_ITS | Encounter Summary ---
Author Organization [employer] [facility] Address [address] [place] [address] Care Team Providers Care Retail Salesman Name Role Phone Unavailable Primary Care Provider Unavailabl e Encounter Details Date Type Department Care Team (Latest Contact Info) Description 03/01/2001 Outpatient Historical HIS [facility] Delaneyaugusta Reddy H NO ADDRESS ON FILE Pure hypercholesterolem (Primary Dx); Type II or unspecified type diabetes mellitus without mention of complication, not stated as uncontrolled; Dietary surveil/housing counselor Social History Tobacco Use Types Packs/Day Years Used Date Smoking Tobacco: Never Assessed Comments Unknown Sex and Gender Information Value Date Recorded Sex Assigned at Not on file Legal Sex Female 3:42 AM CONDENSER OPERATOR Gender Identity Not on file Sexual Orientation Not on file documented as of this encounter Plan of Treatment Not on file documented as of this encounter Visit Diagnoses Diagnosis Pure hypercholesterolem- Primary Pure hypercholesterolemia Type II or unspecified type diabetes mellitus without mention of complication, not stated as uncontrolled Dietary surveil/housing counselor Dietary surveillance and counseling documented in this encounter
--- OUTSIDE RECORDS SUMMARY | 2025-03-02 02:38 | XMS_ITS | Encounter Summary ---
Author Organization [employer] [facility] Address [address] [place] [address] Care Team Providers Care Piccolo Mechanic Name Role Phone Unavailable Primary Care Provider Unavailabl e Encounter Details Date Type Department Care Team (Latest Contact Info) Description 05/28/2000 Outpatient Historical HIS [facility] Ririelyse Reddy H NO ADDRESS ON FILE Headache(784.0) (Primary Dx) Social History Tobacco Use Types Packs/Day Years Used Date Smoking Tobacco: Never Assessed Comments Unknown Sex and Gender Information Value Date Recorded Sex Assigned at Not on file Legal Sex Female 3:42 AM NETWORK CONTROL SUPERVISOR Gender Identity Not on file Sexual Orientation Not on file documented as of this encounter Plan of Treatment Not on file documented as of this encounter Visit Diagnoses Diagnosis Headache(784.0)- Primary Headache documented in this encounter
--- OUTSIDE RECORDS SUMMARY | 2025-03-02 02:38 | XMS_ITS | Encounter Summary ---
Author Organization [employer] [facility] Address [address] [place] [address] Care Team Providers Care Jigger Machine Operator Name Role Phone Unavailable Primary Care Provider Unavailabl e Encounter Details Date Type Department Care Team (Latest Contact Info) Description 10/08/2000 Outpatient Historical HIS [facility] Ririelyse Reddy H NO ADDRESS ON FILE Other and unspecified hyperlipidemia (Primary Dx); Type II or unspecified type diabetes mellitus without mention of complication, not stated as uncontrolled Social History Tobacco Use Types Packs/Day Years Used Date Smoking Tobacco: Never Assessed Comments Unknown Sex and Gender Information Value Date Recorded Sex Assigned at Not on file Legal Sex Female 3:42 AM MECHANICAL ASSEMBLY Gender Identity Not on file Sexual Orientation Not on file documented as of this encounter Plan of Treatment Not on file documented as of this encounter Visit Diagnoses Diagnosis Other and unspecified hyperlipidemia- Primary Type II or unspecified type diabetes mellitus without mention of complication, not stated as uncontrolled documented in this encounter
--- OUTSIDE RECORDS SUMMARY | 2025-03-02 02:38 | XMS_ITS | Encounter Summary ---
Author Organization [employer] [facility] Address [address] [place] [address] Care Team Providers Care Vegetable Thinner Name Role Phone Unavailable Primary Care Provider Unavailabl e Encounter Details Date Type Department Care Team (Latest Contact Info) Description 03/28/1999 Outpatient Historical HIS [facility] Ririelyse Reddy Natanael NO ADDRESS ON FILE Type II or unspecified type diabetes mellitus without mention of complication, not stated as uncontrolled (Primary Dx) Social History Tobacco Use Types Packs/Day Years Used Date Smoking Tobacco: Never Assessed Comments Unknown Sex and Gender Information Value Date Recorded Sex Assigned at Not on file Legal Sex Female 3:42 AM SUPERVISOR CONCRETE STONE FINISHING Gender Identity Not on file Sexual Orientation Not on file documented as of this encounter Plan of Treatment Not on file documented as of this encounter Visit Diagnoses Diagnosis Type II or unspecified type diabetes mellitus without mention of complication, not stated as uncontrolled- Primary documented in this encounter
--- OUTSIDE RECORDS SUMMARY | 2025-03-02 02:38 | XMS_ITS | Encounter Summary ---
Author Organization [employer] [facility] Address [address] [place] [address] Care Team Providers Care Candle Cutter Name Role Phone Unavailable Primary Care Provider Unavailabl e Encounter Details Date Type Department Care Team (Latest Contact Info) Description 06/22/1999 Outpatient Historical HIS [facility] Reddy Guerra NO ADDRESS ON FILE Vomiting alone (Primary Dx) Social History Tobacco Use Types Packs/Day Years Used Date Smoking Tobacco: Never Assessed Comments Unknown Sex and Gender Information Value Date Recorded Sex Assigned at Not on file Legal Sex Female 3:42 AM FLIPPING MACHINE OPERATOR Gender Identity Not on file Sexual Orientation Not on file documented as of this encounter Plan of Treatment Not on file documented as of this encounter Visit Diagnoses Diagnosis Vomiting alone- Primary documented in this encounter
--- OUTSIDE RECORDS SUMMARY | 2025-03-02 02:39 | XMS_ITS | Encounter Summary ---
Author Organization [email or web address] [facility] Address [address] [place] [address] Care Team Providers Care Pony Edger Name Role Phone Unavailable Primary Care Provider Unavailabl e Encounter Details Date Type Department Care Team (Latest Contact Info) Description 12/09/2001 Outpatient Historical HIS [facility] Martin Umanzor MD [address] [place] [id number] JOINT PAIN-L/LEG (Primary Dx); DIABETES UNCOMPL ADULT-TYPE II (CMS/HCC) Social History Tobacco Use Types Packs/Day Years Used Date Smoking Tobacco: Never Assessed Comments Unknown Sex and Gender Information Value Date Recorded Sex Assigned at Not on file Legal Sex Female 3:42 AM RADIO AERIAL INSTALLER Gender Identity Not on file Sexual Orientation Not on file documented as of this encounter Plan of Treatment Not on file documented as of this encounter Visit Diagnoses Diagnosis Pain in joint, lower leg- Primary Type II or unspecified type diabetes mellitus without mention of complication, not stated as uncontrolled documented in this encounter
--- OUTSIDE RECORDS SUMMARY | 2025-03-02 02:39 | XMS_ITS | Encounter Summary ---
Author Organization [employer] [facility] Address [address] [place] [address] Care Team Providers Care Development Chemist Name Role Phone Unavailable Primary Care Provider Unavailabl e Encounter Details Date Type Department Care Team (Latest Contact Info) Description 07/15/2001 Outpatient Historical HIS [facility] Martin Umanzor MD [address] [place] [id number] DIABETES UNCOMPL ADULT-TYPE II ([facility]) (Primary Dx); LUMBAGO; POSTMENOPAUSAL HORMONAL REPLACMT Social History Tobacco Use Types Packs/Day Years Used Date Smoking Tobacco: Never Assessed Comments Unknown Sex and Gender Information Value Date Recorded Sex Assigned at Not on file Legal Sex Female 3:42 AM COIN BOX COLLECTOR Gender Identity Not on file Sexual Orientation Not on file documented as of this encounter Plan of Treatment Not on file documented as of this encounter Visit Diagnoses Diagnosis Type II or unspecified type diabetes mellitus without mention of complication, not stated as uncontrolled- Primary Lumbago Need for prophylactic hormone replacement therapy (postmenopausal) documented in this encounter
--- OUTSIDE RECORDS SUMMARY | 2025-03-02 02:39 | XMS_ITS | Clinical Summary ---
Author Organization [facility] Address [address] Odonnell: [place] [address] Care Team Providers Care Railroad Accountant Name Role Phone Unavailable Primary Care Provider Unavailabl e Immunizations Immunization Administration Dates Next Due (TDVAX)(7 YRS UP) TETANUS AN D DIPHTHERIA TOXOIDS, ADSORBED (2 LF OF TETANUS TOXOID AND 2 LF OF DIPHTHERIA TOXOID), 0.5ML (PF), IM 10/24/1999 Influenza Seasonal Unspecified Formulation IM Social History Tobacco Use Types Packs/Day Years Used Date Smoking Tobacco: Never Assessed Comments Unknown Sex and Gender Information Value Date Recorded Sex Assigned at Not on file Legal Sex Female 3:42 AM SOURCE WATER PROTECTION SPECIALIST Gender Identity Not on file Sexual Orientation Not on file Plan of Treatment Health Maintenance Due Date Last Done Comments BREAST CANCER SCREENING 1998 DTAP/TDAP/TD VACCINES (1 - Tdap) 10/25/1999 10/24/19 00 COLORECTAL SCREENING 2003 Colorectal Cancer Screening 2003 FIT-DNA Q 3 years 2003 FIT/FOBT Q 1 year 2003 Flex Sig/CT Colonography Q 5 years 2003 PNEUMOCOCCAL VACCINE 50+ YEARS (1 of 1 - PCV) 02/04/20 08 ZOSTER VACCINE (1 of 2) 02/04/2008 OSTEOPOROSIS SCREENING 2023 INFLUENZA VACCINE (#1) 2025 07/29/1998 RSV VACCINE (60+ or ) (1 - 1-dose 75+ series) 2033
--- OUTSIDE RECORDS SUMMARY | 2025-03-02 02:39 | XMS_ITS | Encounter Summary ---
Author Organization [employer] [facility] Address [address] [place] [address] Care Team Providers Care Sweep Press Operator Name Role Phone Unavailable Primary Care Provider Unavailabl e Encounter Details Date Type Department Care Team (Latest Contact Info) Description 11/05/2001 Outpatient Historical HIS [facility] Martin Umanzor MD [address] [place] [phone] DIABETES UNCOMPL ADULT-TYPE II (CMS/HCC) (Primary Dx); JOINT PAIN-UNSPEC Social History Tobacco Use Types Packs/Day Years Used Date Smoking Tobacco: Never Assessed Comments Unknown Sex and Gender Information Value Date Recorded Sex Assigned at Not on file Legal Sex Female 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
--- OUTSIDE RECORDS SUMMARY | 2025-03-02 02:39 | XMS_ITS | Encounter Summary ---
Author Organization [employer] [facility] Address [address] [place] [address] Care Team Providers Care Automobile Bumper Straightener Name Role Phone Unavailable Primary Care Provider Unavailabl e Encounter Details Date Type Department Care Team (Latest Contact Info) Description 01/07/2002 Outpatient Historical HIS [facility] Martin Umanzor MD [address] [place] [phone] Pain in limb (Primary Dx); DIABETES UNCOMPL ADULT-TYPE II (CMS/HCC) Social History Tobacco Use Types Packs/Day Years Used Date Smoking Tobacco: Never Assessed Comments Unknown Sex and Gender Information Value Date Recorded Sex Assigned at Not on file 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
--- OUTSIDE RECORDS SUMMARY | 2025-03-02 02:39 | XMS_ITS | Encounter Summary ---
Author Organization [facility] Address [address] [place] [address] Care Team Providers Care Continuous Washer Operator Name Role Phone Unavailable Primary Care Provider Unavailabl e Encounter Details Date Type Department Care Team (Latest Contact Info) Description 02/07/2002 Outpatient Historical HIS [facility] Martin Umanzor MD [address] [place] [phone] DIABETES UNCOMPL ADULT-TYPE II (CMS/HCC) (Primary Dx) Social History Tobacco Use Types Packs/Day Years Used Date Smoking Tobacco: Never Assessed Comments Unknown Sex and Gender Information Value Date Recorded Sex Assigned at Not on file 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
--- OUTSIDE RECORDS SUMMARY | 2025-03-02 02:39 | XMS_ITS | Encounter Summary ---
Author Organization [employer] [facility] Address [address] [place] [address] Care Team Providers Care Peanut Vendor Name Role Phone Unavailable Primary Care Provider Unavailabl e Encounter Details Date Type Department Care Team (Latest Contact Info) Description 05/09/2001 Outpatient Historical HIS [facility] Martin Umanzor MD [address] [place] [phone] Type II or unspecified type diabetes mellitus without mention of complication, not stated as uncontrolled (Primary Dx); Other and unspecified hyperlipidemia Social History Tobacco Use Types Packs/Day Years Used Date Smoking Tobacco: Never Assessed Comments Unknown Sex and Gender Information Value Date Recorded Sex Assigned at Not on file Legal 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
--- OUTSIDE RECORDS SUMMARY | 2025-03-02 02:39 | XMS_ITS | Encounter Summary ---
Author Organization [employer] [facility] Address [address] [place] [address] Care Team Providers Care Interior Paneler Name Role Phone Unavailable Primary Care Provider Unavailabl e Encounter Details Date Type Department Care Team (Latest Contact Info) Description 09/05/2001 Outpatient Historical HIS [facility] Martin Umanzor MD [address] [place] [phone] DIABETES UNCOMPL ADULT-TYPE II (CMS/HCC) (Primary Dx) Social History Tobacco Use Types Packs/Day Years Used Date Smoking Tobacco: Never Assessed Comments Unknown Sex and Gender Information Value Date Recorded Sex Assigned at Not on file Legal Sex Female 3:42 AM SILK HANGER Gender Identity Not on file Sexual Orientation Not on file documented as of this encounter Plan of Treatment Not on file documented as of this encounter Visit Diagnoses Diagnosis Type II or unspecified type diabetes mellitus without mention of complication, not stated as uncontrolled- Primary documented in this encounter
--- OUTSIDE RECORDS SUMMARY | 2025-03-02 02:39 | XMS_ITS | Encounter Summary ---
Author Organization [employer] [facility] Address [address] [place] [address] Care Team Providers Care Mobility Engineer Name Role Phone Unavailable Primary Care Provider Unavailabl e Encounter Details Date Type Department Care Team (Latest Contact Info) Description 04/03/2001 Outpatient Historical HIS [facility] Ririelyse Reddy H NO ADDRESS ON FILE Type II or unspecified type diabetes mellitus without mention of complication, not stated as uncontrolled (Primary Dx); Pure hyperglyceridemia Social History Tobacco Use Types Packs/Day Years Used Date Smoking Tobacco: Never Assessed Comments Unknown Sex and Gender Information Value Date Recorded Sex Assigned at Not on file Legal Sex Female 3:42 AM DUTY ENGINEER Gender Identity Not on file Sexual Orientation Not on file documented as of this encounter Plan of Treatment Not on file documented as of this encounter Visit Diagnoses Diagnosis Type II or unspecified type diabetes mellitus without mention of complication, not stated as uncontrolled- Primary Pure hyperglyceridemia documented in this encounter
--- OUTSIDE RECORDS SUMMARY | 2025-03-02 02:39 | XMS_ITS | Encounter Summary ---
Author Organization [email or web address] [facility] [facility] Address [address] [place] [address] Care Team Providers Care Training And Development Specialist Name Role Phone Unavailable Primary Care Provider Unavailabl e Encounter Details Date Type Department Care Team (Latest Contact Info) Description 09/23/2001 Outpatient Historical HIS [facility] Martin Umanzor MD [address] [place] [phone] ACUTE SINUSITIS NOS (Primary Dx) Social History Tobacco Use Types Packs/Day Years Used Date Smoking Tobacco: Never Assessed Comments Unknown Sex and Gender Information Value Date Recorded Sex Assigned at Not on file Legal 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
--- OUTSIDE RECORDS SUMMARY | 2025-03-02 02:39 | XMS_ITS | Clinical Summary ---
Author Organization [facility] Address [address] [place] [address] Phone Care Team Providers Care Chemist Water Purification Name Role Phone Unavailable Primary Care Provider Unavailabl e Allergies Active Allergy Reactions Criticality Noted Date Comments Iodinated Contrast Media Anaphylaxis High 10/28/2024 Iodine Anaphylaxis High 2023 Marijuana (Cannabis) Headache Low 2023 Shellfish Derived Shortness of Breath/Wheezing High 2023 Medications acetaminophen (TYLENOL) 325 mg tablet Take 2 Tablets (650 mg) by mouth every 6 hours as needed for Pain or Other (See Comment) (See admin instructions). 120 Tablet 023 Active aluminum - magnesium - simethicone (MYLANTA) 200-200-20 mg/5 mL Suspension Take 30 mL by mouth every 4 hours as needed for Indigestion. 354 mL 023 Active ascorbic acid, vitamin C, (VITAMIN C) 500 mg tablet Take 1 Tablet (500 mg) by mouth daily. 30 Tablet 023 Active bisacodyL (DULCOLAX) 10 mg Suppository Insert 1 Suppository (10 mg) by rectum 1 time daily as needed for Constipation. 30 Suppository 023 Active magnesium hydroxide (MILK OF MAGNESIA) 400 mg/5 mL suspension Take 30 mL by mouth 1 time daily as needed for Constipation. 473 mL 023 Active melatonin 10 mg Tablet Take 1 Tablet (10 mg) by mouth daily at bedtime. 30 Tablet 023 Active aspirin (ECOTRIN EC) 81 mg Tablet, Delayed Release (E.C.) Take 1 Tablet (81 mg) by mouth daily. 30 Tablet 023 Active cetirizine (ZyrTEC) 5 mg tablet Take 1 Tablet (5 mg) by mouth nightly as needed for Allergies, Congestion or Rhinitis. 30 Tablet Active cholecalciferol, vitamin D3, 1,000 unit Take 1 Tablet (1,000 Units) by mouth daily. 30 Tablet Active cyanocobalamin (VITAMIN B-12) 250 mcg Tablet Take 1 Tablet (250 mcg) by mouth daily. 30 Tablet Active docusate sodium (COLACE) 100 mg capsule Take 1 Capsule (100 mg) by mouth 2 times daily. 60 Capsule Active famotidine (PEPCID) 20 mg tablet Take 1 Tablet (20 mg) by mouth daily at bedtime. 30 Tablet Active FLUoxetine (PROzac) 20 mg capsule Take 1 Capsule (20 mg) by mouth daily. 30 Capsule Active fluticasone propionate (FLONASE) 50 mcg/spray [place], Suspension nasal inhaler Administer 2 Sprays in each nostril 1 time daily as needed for Allergies or Rhinitis. 16 Gram Active furosemide (LASIX) 20 mg tablet Take 1 Tablet (20 mg) by mouth daily. 30 Tablet Active insulin glargine-yfgn 100 unit/mL pen syringe Inject 30 Units by subcutaneous injection daily with breakfast. 15 mL Active insulin lispro (HumaLOG) 100 unit/mL pen syringe Inject 0-4 Units by subcutaneous injection daily at bedtime. * MUST be given at least 4 hours after last insulin dose. Medium-Dose Bedtime Correction: Less than or equal to 175 = no correctional insulin 176 - 200 = give and/or add 1 unit 201 - 250 = give and/or add 2 units 251 - 299 = give and/or add 3 units 300 and greater = give and/or add 4 units CONTACT PROVIDER - If blood sugar greater than 250 mg/dL - If blood sugar greater than 180 mg/dL for two consecutive readings 15 mL 023 Active insulin lispro (HumaLOG) 100 unit/mL pen syringe Inject 4 Units by subcutaneous injection 3 times daily with meals. 15 mL Active Lidocaine 4 % Adhesive Patch, Medicated Apply to right thigh pain, along the incision. Apply only once for up to 12 hours within a 24 hour period. Patches may be cut into smaller sizes with scissors prior to the removal of the release liner. Clothing may be worn over the area of application. For more information use the [employer] link. 60 Patch 023 Active miconazole nitrate (REMEDY-AF,ZEASORB-A F) 2 % PowderIndications:Fo lds of abdomen Apply to affected area daily. 85 Gram 023 Active polyethylene glycol (MIRALAX) 17 gram Powder in Packet Take 1 Packet (17 Grams) by mouth 1 time daily as needed for Constipation. 30 Packet 023 Active polysaccharide iron complex (FERREX 150,IFEREX 150) 150 mg iron capsule Take 1 Capsule (150 mg) by mouth daily. 30 Capsule 023 Active potassium chloride (KLOR-CON) 10 mEq Extended Release tablet Take 1 Tablet (10 mEq) by mouth daily with breakfast. 30 Tablet 023 Active rosuvastatin (CRESTOR) 20 mg tablet Take 1 Tablet (20 mg) by mouth daily at bedtime. 30 Tablet 023 Active sennosides (SENOKOT XTRA) 17.2 mg Tablet tablet Take 1 Tablet (17.2 mg) by mouth daily at bedtime. 30 Tablet 023 Active topiramate (TOPAMAX) 50 mg tablet Take 1 Tablet (50 mg) by mouth 2 times daily. 60 Tablet 023 Active traMADoL (ULTRAM) 50 mg tabletIndications:Mu ltiple fractures,Closed fracture of distal end of right radius, unspecified fracture morphology, initial encounter,Closed displaced intertrochanteric fracture of right femur, initial encounter (CMS/[facility]) Take 1 Tablet (50 mg) by mouth every 6 hours as needed for Pain, Moderate or Pain, Severe. 15 Tablet 023 Active trolamine salicylate (ASPERCREME) 10 % Cream Apply to affected area 2 times daily. 120 Gram 023 Active ziprasidone (GEODON) 20 mg Capsule Take 1 Capsule (20 mg) by mouth daily at bedtime. 30 Capsule 023 Active VITAMIN B COMPLEX ORAL Take 1 Tablet by mouth daily. Active Active Problems Problem Noted Date Diagnosed Date Diabetes mellitus due to und erlying condition, uncontrolled, with hyperglycemia 02/05/2023 Hypertension, essential 2023 DM (diabetes mellitus), type 2 2023 Mild intellectual disabilities 2023 Schizoaffective disorder 2023 Multiple fractures 2023 H/O fall 2023 Closed fracture of distal end of right radius Overview (2023): 01/30/23 after all. ORIF 01/31/23 [place]. Closed displaced intertrochanteric fracture of r ight femur 2023 Overview (2023): After fall 01/30/23. IMN 01/31 [place] NUVIA (acute kidney injury) 2023 Thrombocytopenia 2023 Acute blood loss anemia 2023 Smoker 2023 Impaired mobility and activities of daily living 2023 Encounters Date Type Department Care Team Description 02/10/2025 External Device Data STL ABSTRACTION Provider, Abstract 01/27/2025 External Device Data ST[facility] ABSTRACTION Provider, Abstract 12/30/2024 External Device Data ST[facility] ABSTRACTION Provider, Abstract 12/23/2024 External Device Data ST[facility] ABSTRACTION Provider, Abstract from Last 3 Months Immunizations Immunization Administration Dates Next Due (TDVAX)(7 YRS UP) TETANUS AN D DIPHTHERIA TOXOIDS, ADSORBED (2 LF OF TETANUS TOXOID AND 2 LF OF DIPHTHERIA TOXOID), 0.5ML (PF), IM 10/24/1999 Influenza Seasonal Unspecified Formulation IM Social History Tobacco Use Types Packs/Day Years Used Date Smoking Tobacco: Former Cigarettes Smokeless Tobacco: Never Tobacco Cessation:Counseling Given: Not Answered Alcohol Use Standard Drinks/Week Comments Not Currently 0 (1 standard drink = 0.6 oz pur e alcohol) once in a great while Feeling Safe Answer Date Recorded Are you in a relationship wi th someone who hurts you emotionally and/or physically? No 10/28/2024 Food Insecurity Answer Date Recorded Social/Environmental Concerns No concerns Transportation Needs Answer Date Record ed Social/Environmental Concerns No concerns Housing Stability Answer Date Recorded Social/Environmental Concerns No concerns Utility Needs Answer Date Recorded Social/Environmental Concerns No concerns Comments Unknown Sex and Gender Information Value Date Recorded Sex Assigned at Not on file Legal Sex Female 7:25 AM WOOL MIXER Gender Identity Not on file Sexual Orientation Not on file Last Filed Vital Signs Vital Sign Reading Time Taken Comments Blood Pressure 160/81 10/28/2024 5:43 AM WOOL MIXER Pulse 60 02/15/2023 1:53 PM CDT Temperature 36.6 C (97.8 F) 10/28/2024 5:43 AM WOOL MIXER Respiratory Rate 16 10/28/2024 5:43 AM WOOL MIXER Oxygen Saturation 97% 10/28/2024 5:43 AM WOOL MIXER Inhaled Oxygen Concentration - - Weight 74.1 kg (163 lb 6.4 oz) 10/28/2024 5:43 A M WOOL MIXER Height 157.5 cm (5' 2 ) 10/28/2024 5:43 AM WOOL MIXER Body Mass Index 29.89 10/28/2024 5:43 AM WOOL MIXER Plan of Treatment Health Maintenance Due Date Last Done Comments DIABETES ANNUAL FOOT EXAM 02/04/1976 DIABETES ANNUAL RETINAL EXAM 02/04/1976 DIABETES MICROALBUMIN ANNUAL SCREEN 02/04/1976 LDL CHOLESTEROL ANNUAL 02/04/1976 PNEUMOCOCCAL VACCINE 50+ YEA RS (1 of 2 - PCV) 1977 BREAST CANCER SCREENING 1998 COLORECTAL SCREENING 2003 Colorectal Cancer Screening 2003 FIT-DNA Q 3 years 2003 FIT/FOBT Q 1 year 2003 Flex Sig/CT Colonography Q 5 years 2003 ZOSTER VACCINE (1 of 2) 02/04/2008 DTAP/TDAP/TD VACCINES (1 - Tdap) 12/24/2011 12/23/19 12, 10/24/1999 RSV VACCINE (60+ or ) (1 - Risk 60-74 years 1-dose series) 2018 OSTEOPOROSIS SCREENING 2023 DIABETES HBA1C Q 6 MONTHS 08/06/2023 02/04/2023 INFLUENZA VACCINE (#1) 2025 07/29/1998 Procedures Procedure Name Priority Date/Time Associated Diagnosis Comments HEMOGLOBIN A1C Routine 02/04/2023 8:38 AM CDT from Last 3 Months or Most Recently Relevant to Health Maintenance Results * (ABNORMAL) HEMOGLOBIN A1C (02/04/2023 8:38 AM CDT) HEMOGLOBIN A1C 9.5(H) <=5.6 % 02/05/2023 10:20 AM CDT [facility] [employer] [facility] EST. AVG GLUCOSE, A1C 226 mg/dL 02/05/2023 10:20 AM CDT [facility] Blood Venipuncture / Unknown 02/04/2023 8:38 AM CDT 02/04/2023 10:38 AM CDT Narrative [facility] - 02/05/2023 10:20 AM CDT HGB A1C INTERPRETATION NORMAL: <5.7% PRE-DIABETES: 5.7 - 6.4% DIABETES: 6.5% OR GREATER us Hari Bonilla MD CHEMISTRY ORDERABLES Final Resul t Performing Organization Address City/State/[facility] Co de Phone Number [facility] CLIA # [id number] [id number] [place] [address] from Last 3 Months or Most Recently Relevant to Health Maintenance Insurance MEDICAID [place] PART B Advance Directives For more information, please contact: [phone] * Full Code (Latest Code Status on File) Date Activated Date Inactivated Comments 2023 11:37 AM 02/15/2023 5:32 PM
--- NOTE | 2025-03-02 06:07 | W.ED.EXTPRO ---
HPI - Extremity Problem General: Chief complaint: Extremity Problem,Nontraumatic Stated complaint: right hip pain Time Seen by Provider: 03/02/25 05:46 History of Present Illness: 65 year-old female presents emergency room complaining of right hip pain. She usually uses topical and [id number] medications as her not managing her discomfort this evening. She arrives by EMS she is requesting a Toradol shot. She has had these in the past and they have been helpful. She denies any recent trauma. She still is able to walk around she said it is very uncomfortable. She has had this similar presentation in the past. Associated symptoms: Deny chest pain, fever(s) or rash Related Data Home Medications ?Medication ?Instructions ?Recorded ?Confirmed aspirin 81 mg tablet,delayed 81 mg PO DAILY 09/09/19 01/13/25 release cetirizine 10 mg tablet (Zyrtec) 10 mg PO DAILY PRN Allergy Symptoms 09/09/19 01/13/25 gabapentin 100 mg capsule 100 mg PO TID 09/09/19 01/13/25 (Neurontin) rosuvastatin 20 mg tablet 20 mg PO DAILY 01/31/23 01/13/25 semaglutide 0.25 mg or 0.5 mg (2 0.25 mg SUBCUT .weekly 12/18/23 01/13/25 mg/3 mL) subcutaneous pen injector (Ozempic) acetaminophen 500 mg tablet 500 mg PO Q6H PRN Pain 04/03/24 01/13/25 (Tylenol Extra Strength) fenofibrate nanocrystallized 145 145 mg PO DAILY 05/27/24 01/13/25 mg tablet (Tricor) docusate sodium 100 mg capsule 100 mg PO BID 08/17/24 01/13/25 insulin glargine 100 unit/mL 110 unit SUBCUT QAM 09/17/24 01/13/25 subcutaneous solution (Lantus U-100 Insulin) Previous Rx's ?Medication ?Instructions ?Recorded albuterol sulfate 2.5 mg/3 mL 2.5 mg (3 mL) inhalation Q6H PRN 04/30/24 (0.083 %) solution for nebulization shortness of breath or wheezing #180 mL hydrocodone 5 mg-acetaminophen 325 1 tab PO Q8H PRN pain 7 days #21 10/15/24 mg tablet tabs hydrocodone 5 mg-acetaminophen 325 1 tab PO Q6H PRN pain #5 tabs 10/21/ mg tablet ciprofloxacin HCl 0.3 % eye drops 1 drp ophthalmic (eye) Q4H #10 mL 12/08/24 Diabetic shoe with 3 sets of #1 ea 01/06/25 insoles clonazepam 0.5 mg tablet 0.5 mg PO DAILY PRN anxiety #30 01/13/25 tabs fluoxetine 40 mg capsule (Prozac) 40 mg PO DAILY #30 caps 01/13/25 topiramate 100 mg tablet (Topamax) 100 mg PO BID #60 tabs 01/13/25 ziprasidone HCl 20 mg capsule 20 mg PO BID #60 caps 01/13/25 (Geodon) Allergies Allergy/AdvReac Type Severity Reaction Status Date / Time Sulfa (Sulfonamide Allergy Mild Rash Verified 01/13/25 08:48 Antibiotics) Iodinated Contrast Media Allergy ALGY-Anaphy Verified 01/13/25 08:48 laxis Iodine and Iodide Containing Allergy ALGY-Difficulty Verified 01/13/25 08:48 Produc Breathing marijuana (cannabis) Allergy ADR-Headach Verified 01/13/25 08:48 (marijuana) e shellfish derived Allergy ALGY-Difficulty Verified 01/13/25 08:48 Breathing Review of Systems Const: Denies: fever(s) or chills Card: Denies: chest pain Resp: Denies: dyspnea GI: Denies: abdominal pain : Denies: dysuria, urinary frequency or urinary urgency Musc: Reports: joint pain; Denies: neck pain or back pain Skin/Breast: Denies: rash PFSH ED PFSH: Medical History Psychiatric care Closed fracture of right hip Closed fracture of right distal radius and ulna Fracture, intertrochanteric, right femur Diabetes Fall Lumbar compression fracture 11/08/2018 Disc displacement, lumbar Borderline intellectual functioning Schizoaffective disorder, depressive type Surgical History History of knee surgery (~09/04/13) Dr. Harper Family History Sister High cholesterol Social History Smoking and tobacco/nicotine status: never used tobacco/nicotine Alcohol intake: never Substance/Drug Use: never Household members: none Marital status: Single Current occupational status: disabled Physical Exam Const: COMMON NORMALS: no acute distress GENERAL APPEARANCE: cooperative and comfortable ORIENTATION/CONSCIOUSNESS: Yes awake, Yes oriented to person, Yes oriented to place and Yes oriented to time HENMT: COMMON NORMALS: normocephalic, atraumatic and hearing grossly normal bilaterally HEAD & SCALP: normocephalic and atraumatic Resp: COMMON NORMALS: normal respiratory effort, No retractions, No use of accessory muscles and clear to auscultation bilaterally AUSCULTATION: clear to auscultation bilaterally Cardio: COMMON NORMALS: regular rate, regular rhythm and No murmurs present (Cardio) RATE: regular rate RHYTHM: regular rhythm GI: COMMON NORMALS: Soft to palpation and No hepatosplenomegaly present AUSCULTATION: Yes normoactive bowel sounds PALPATION: Yes Soft to palpation, No Tenderness to palpation present (GI), No Guarding due to palpation present (GI) and Yes No hepatosplenomegaly present Extremity: COMMON NORMALS: normal to inspection, capillary refill normal, no clubbing, cyanosis or edema, no calf tenderness and no pedal edema Neuro: SENSORIUM/ORIENTATION: Yes oriented to person, Yes oriented to place and Yes oriented to time Skin: COMMON NORMALS: no rashes or lesions noted GENERAL SKIN EXAM: no rashes or lesions noted Course Vital Signs: Vital signs: Vital Signs Temperature 98.2 F 03/02/25 02:33 Pulse Rate 69 03/02/25 02:33 Respiratory Rate 15 03/02/25 02:33 Blood Pressure 108/69 03/02/25 02:33 Pulse Oximetry 97 03/02/25 02:33 Oxygen Delivery Me thod Room Air 03/02/25 02:33 MDM - Extremity (Nontraumatic) Medical Decision Making Patient given Toradol shot. She declines any other medication due to usually otherwise manage with your previously prescribed medication including hydrocodone topical analgesics and ibuprofen. No radiology studies performed this visit Discharge Plan Discharge Patient Disposition: Home Clinical Impression: Osteoarthritis of right hip Condition: Stable Prescriptions: No Action insulin glargine [Lantus U-100 Insulin] 100 unit/mL solution 110 unit SUBCUT QAM Ozempic 0.25 mg or 0.5 mg (2 mg/3 mL) pen injector 0.25 mg SUBCUT .weekly Rx Instructions: weekly on Mondays acetaminophen [Tylenol Extra Strength] 500 mg tablet 500 mg PO Q6H PRN (Reason: Pain) fenofibrate nanocrystallized [Tricor] 145 mg tablet 145 mg PO DAILY (DME) Diabetic shoe with 3 sets of insoles See Rx Instructions .Route .MEDSUPPLY Qty: 1 0RF Rx Instructions: As directed by [facility] clonazepam 0.5 mg tablet 0.5 mg PO DAILY PRN (Reason: anxiety) Qty: 30 2RF Prozac 40 mg capsule 40 mg PO DAILY Qty: 30 2RF ziprasidone HCl [Geodon] 20 mg capsule 20 mg PO BID Qty: 60 2RF Rx Instructions: give with food (meal/snack) topiramate [Topamax] 100 mg tablet 100 mg PO BID Qty: 60 2RF hydrocodone-acetaminophen 5-325 mg tablet 1 tab PO Q8H PRN (Reason: pain) 7 Days Qty: 21 0RF cetirizine [Zyrtec] 10 mg Tablet 10 mg PO DAILY PRN (Reason: Allergy Symptoms) aspirin 81 mg Tablet,Delayed Release (Dr/Ec) 81 mg PO DAILY gabapentin [Neurontin] 100 mg Capsule 100 mg PO TID rosuvastatin 20 mg tablet 20 mg PO DAILY docusate sodium 100 mg capsule 100 mg PO BID ciprofloxacin HCl 0.3 % drops 1 drp ophthalmic (eye) Q4H Qty: 10 0RF albuterol sulfate 2.5 mg /3 mL (0.083 %) solution for nebulization 2.5 mg inhalation Q6H PRN (Reason: shortness of breath or wheezing) Qty: 180 0RF hydrocodone-acetaminophen 5-325 mg tablet 1 tab PO Q6H PRN (Reason: pain) Qty: 5 0RF Discharge Orders: Discharge ED (Routine); Ordered 03/02/25 Ordered By: Frantz Collado Referrals: Hilda Patel MD [Primary Care Provider, Internal Medicine] Patient Instructions: Opioid Safety, Pain Management, Patient Portal & Lluvia Instructions Activity Restrictions/Additional Instructions: [facility]. It is very important that you follow up as instructed or that you return to the Emergency Department should you have concerns or if your condition changes or worsens in any way. Print Language: Polish Coding Level of Care Code ED [employer] Department Supervisor for Casey Vaughn
[2025-03-02 07:28] VITALS: BP 108/73; PULSE 63; RESP 16; O2SAT 99
== END 2025-03-02 07:29 | disposition home or self-care (01) ==
PROVIDERS: Emergency Provider Family Medicine; PCP Internal Medicine
DX: M16.11 Unilateral primary osteoarthritis, right hip (principal); Z79.4 Long term (current) use of insulin; Z79.82 Long term (current) use of aspirin; E11.9 Type 2 diabetes mellitus without complications
CPT/HCPCS: 96372; 99284; J1885

== ENCOUNTER 2025-04-01 19:56 | Emergency (ER) | payer MEDICARE, MEDICAID, SELFPAY ==
--- OUTSIDE RECORDS SUMMARY | 2015-12-22 10:00 | XMS_ITS | Continuity of Care Document ---
Author Organization [facility] Address [id number] [address] Phone Care Team Providers Care International Relations Teacher Name Role Phone Ellis VARGAS MD, Tristin Unavailable Unavailab le Allergies, Adverse Reactions, Alerts Substance Reaction Status Criticality shellfish derived Active No Informa tion iodine Active No Information Medications Medication Instructions Dosage Effective Dates (start - stop) Status Comments cephalexin 500 mg capsule take 1 capsule by oral route every 6 hours 500 MG - Active hydrocodone 7.5 mg-acetaminophen 325 mg tablet take 1 tablet by oral route every 4 hours as needed for pain 1 tablet - Active ABILIFY (unknown strength) take 1 tablet by oral route every day Not Available - Active CRESTOR (unknown strength) take 1 tablet by oral route every day Not Available - Active FLUOXETINE HCL (unknown strength) take 2 capsule by oral route every day Not Available - Active GLIPIZIDE (unknown strength) take 1 tablet by oral route every day before a meal Not Available - Active JANUVIA (unknown strength) take 2 tablet by oral route every day Not Available - Active KLONOPIN (unknown strength) take 1 tablet by oral route 3 times every day Not Available - Active LANTUS (unknown strength) inject by subcutaneous route as per insulin protocol Not Available - Active METFORMIN HCL (unknown strength) take 1 tablet by oral route 2 times every day with morning and evening meals Not Available - Active MOBIC (unknown strength) take 1 tablet by oral route every day Not Available - Active NEXIUM (unknown strength) take 1 capsule by oral route every day at least 1 hour before a meal swallowing whole. Do not crush or chew granules. Not Available - Active TRAZODONE HCL (unknown strength) take 1 tablet by oral route 3 times every day after meals Not Available - Active TOPAMAX (unknown strength) take 1 capsule by oral route 2 times every day in the morning and evening Not Available - Active FLEXITOL (unknown strength) Not Available - No Longer Active VERSACLOZ (unknown strength) Not Available - No Longer Active MEXILETINE HCL (unknown strength) Not Available - No Longer Active RIOMET (unknown strength) Not Available - No Longer Active Procedures Procedure Date Limited Oral Evaluation Problem Focused Alveoloplasty In Conjunction With Extractions Fo Alveoloplasty In Conjunction With Extractions Fo Alveoloplasty In Conjunction With Extractions Fo Alveoloplasty In Conjunction With Extractions Fo EDR Approval Note Bitewings Four Films Panoramic Film Intraoral Periapical First Film Intraoral Periapical Each Additional Film Comprehensive Oral Evaluatio n New Or Established EDR Approval Note Advance Directives Directive Yes / No Effective Date File Name No Information Encounters Encounter Description Practice Location Reason(s) For Visit Diagnoses Date Provider Providers Copied on Encounter [facility], [id number] [place], [place], [id number], [place] tel:[phone] [facility] No Information 6 Ellis Crow. [address] [place], [address], [place]. tel:[phone] Referring Provider: Tristin Hale, [address] [place], [address]. tel:[phone] [facility], [id number], [id number], tel:[phone] [facility] No Information 6 No Information Family History Family Member Type Diagnosis Age At Onset Son Problem (finding) Alive and well Payers Payer name Insurance type Covered constitution party ID Authorkaelyn deleon(s) No Information Social History Type Description Quantity Date Captured Comments Alcohol Use Details No Caffeine Use Details Unknown Tobacco Use Status Never smoked tobacco 2015 Smoking Status Never smoker Non-Smoking Tobacco Use Details : No Details Available : No Details Available Sex Female Chief Complaint And Reason For Visit No Information Reason For Referral Reason For Referral No Information History Of Present Illness Encounter Date Complaint History Of Prese nt Illness No Information Functional Status Date Functional Assessmen t No Information Instructions Date Instruction Additional Infor mation No Information Assessments Type Assessment Date No Information Patient Care Teams Name Effective Dates (start - stop) Status Members No Information
[2025-04-01 19:57] VITALS: BP 130/73; PULSE 70; RESP 18; TEMP 36.8; O2SAT 70; BMI 28.1
[2025-04-01 20:02] VITALS: BP 130/73; PULSE 66; O2SAT 95
--- NOTE | 2025-04-01 20:16 | XRR_ITS ---
PROCEDURE INFORMATION: Exam: XR Right Hip Exam date and time: 04/01/2025 8:23 PM Age: 65 years old Clinical indication: Hip pain; Right hip; Additional info: R hip pain TECHNIQUE: Imaging protocol: Radiologic exam of the right hip. Views: 1 view hip with pelvis when performed. COMPARISON: CR XR hip RT 2-3V wo/w pel* [id number] 01/08/2025 1:08 PM FINDINGS: Bones/joints: Right hip prosthesis in anatomic alignment. Few pelvic phleboliths. Overall, not significantly changed compared to prior. [id number] degenerative changes of the lumbar vertebrae. Soft tissue ossifications adjacent to the hip prosthesis. Mild degenerative changes of left hip. Soft tissues: See Bones/joints finding. XR/XR hip RT 2-3V wo/w pel* [id number] IMPRESSION: Right hip prosthesis in anatomic alignment. Few pelvic phleboliths. Overall, not significantly changed compared to prior. [id number] degenerative changes of the lumbar vertebrae. Soft tissue ossifications adjacent to the hip prosthesis. Mild degenerative changes of left hip.
--- NOTE | 2025-04-01 20:16 | W.ED.FALL ---
HPI - Fall General: Chief Complaint: Fall Stated Complaint: right hip pain Time Seen by Provider: 04/01/25 19:57 History of Present Illness: Right hip pain, chief complaint says fall but patient does not report any fall just some right hip pain. Reports she is normally doing pretty good when she just needs a Toradol. Patient denies any shortness of breath. Appears there is a vital sign charted up at 70 O2 sat. This appears to be a mistake and was the heart rate. Patient took 3 to 500 mg Tylenol's prior to arrival and it did help some. Related Data Home Medications ?Medication ?Instructions ?Recorded ?Confirmed aspirin 81 mg tablet,delayed 81 mg PO DAILY 09/09/19 01/13/25 release cetirizine 10 mg tablet (Zyrtec) 10 mg PO DAILY PRN Allergy Symptoms 09/09/19 01/13/25 gabapentin 100 mg capsule 100 mg PO TID 09/09/19 01/13/25 (Neurontin) rosuvastatin 20 mg tablet 20 mg PO DAILY 01/31/23 01/13/25 semaglutide 0.25 mg or 0.5 mg (2 0.25 mg SUBCUT .weekly 12/18/23 01/13/25 mg/3 mL) subcutaneous pen injector (Ozempic) acetaminophen 500 mg tablet 500 mg PO Q6H PRN Pain 04/03/24 01/13/25 (Tylenol Extra Strength) fenofibrate nanocrystallized 145 145 mg PO DAILY 05/27/24 01/13/25 mg tablet (Tricor) docusate sodium 100 mg capsule 100 mg PO BID 08/17/24 01/13/25 insulin glargine 100 unit/mL 110 unit SUBCUT QAM 09/17/24 01/13/25 subcutaneous solution (Lantus U-100 Insulin) Previous Rx's ?Medication ?Instructions ?Recorded albuterol sulfate 2.5 mg/3 mL 2.5 mg (3 mL) inhalation Q6H PRN 04/30/24 (0.083 %) solution for nebulization shortness of breath or wheezing #180 mL hydrocodone 5 mg-acetaminophen 325 1 tab PO Q8H PRN pain 7 days #21 10/15/24 mg tablet tabs hydrocodone 5 mg-acetaminophen 325 1 tab PO Q6H PRN pain #5 tabs 10/21/24 mg tablet ciprofloxacin HCl 0.3 % eye drops 1 drp ophthalmic (eye) Q4H #10 mL 12/08/24 Diabetic shoe with 3 sets of #1 ea 01/06/25 insoles clonazepam 0.5 mg tablet 0.5 mg PO DAILY PRN anxiety #30 01/13/25 tabs fluoxetine 40 mg capsule (Prozac) 40 mg PO DAILY #30 caps 01/13/25 topiramate 100 mg tablet (Topamax) 100 mg PO BID #60 tabs 01/13/25 ziprasidone HCl 20 mg capsule 20 mg PO BID #60 caps 01/13/25 (Geodon) Allergies Allergy/AdvReac Type Severity Reaction Status Date / Time Sulfa (Sulfonamide Allergy Mild Rash Verified 01/13/25 08:48 Antibiotics) Iodinated Contrast Media Allergy ALGY-Anaphy Verified 01/13/25 08:48 laxis Iodine and Iodide Containing Allergy ALGY-Difficulty Verified 01/13/25 08:48 Produc Breathing marijuana (cannabis) Allergy ADR-Headach Verified 01/13/25 08:48 (marijuana) e shellfish derived Allergy ALGY-Difficulty Verified 01/13/25 08:48 Breathing Review of Systems General: Reports: 10 or more systems reviewed and unremarkable except in HPI and below PFSH ED PFSH: Medical History (Updated 04/01/25 @ 20:46 by Chas Johnson MD) Psychiatric care Closed fracture of right hip Closed fracture of right distal radius and ulna Fracture, intertrochanteric, right femur Diabetes Fall Lumbar compression fracture 11/08/2018 Disc displacement, lumbar Borderline intellectual functioning Schizoaffective disorder, depressive type Surgical History History of knee surgery (~09/04/13) Dr. Harper Family History Sister High cholesterol Social History Smoking and tobacco/nicotine status: never used tobacco/nicotine Alcohol intake: never Substance/Drug Use: never Household members: none Marital status: Single Current occupational status: disabled Physical Exam Const: COMMON NORMALS: no acute distress, average body habitus, patient oriented x3, healthy appearing, alert and well nourished GENERAL APPEARANCE: well kempt and well developed HENMT: COMMON NORMALS: normocephalic, atraumatic, external ears normal and moist oral mucous membranes HEAD & SCALP: normocephalic and atraumatic EXTERNAL EAR: Yes external ears normal Eye: COMMON NORMALS: Equal, round and reactive pupils present, EOMs intact bilaterally and conjunctivae normal CONJUNCTIVA: Yes conjunctivae normal PUPIL: Yes Equal, round and reactive pupils present Neck/C-Spine: COMMON NORMALS: full ROM, no lymphadenopathy and supple Chest: CHEST: Yes Symmetrical chest wall rise and No Surgical scars present (Chest) Resp: COMMON NORMALS: normal respiratory effort, No retractions, No use of accessory muscles and clear to auscultation bilaterally AUSCULTATION: clear to auscultation bilaterally Cardio: COMMON NORMALS: regular rate, regular rhythm, S1 normal heart sound present, S2 normal heart sound present, No gallops present (Cardio), No clicks present (Cardio), No murmurs present (Cardio) and No rub (Cardio) RATE: regular rate RHYTHM: regular rhythm HEART SOUNDS: S1 normal heart sound present, S2 normal heart sound present and no murmurs PERIPHERAL PULSES: other (Radial pulses 2+ and symmetric) GI: COMMON NORMALS: Soft to palpation, non-tender and no masses INSPECTION: No abdominal distension PALPATION: Yes Soft to palpation, No Guarding due to palpation present (GI) and No Rebound tenderness present : COMMON NORMALS: Yes no CVA tenderness BLADDER/KIDNEY EXAM: Yes no CVA tenderness Back/Pelvis: COMMON NORMALS: no CVA tenderness Extremity: COMMON NORMALS: normal to inspection, full ROM, capillary refill normal and no clubbing, cyanosis or edema NARRATIVE EXTREMITY EXAM: Right hip pain with internal rotation and palpation of the greater trochanteric bursa Neuro: COMMON NORMALS: patient oriented x3 SENSORIUM/ORIENTATION: Yes alert Psych: APPEARANCE: Yes well kempt Skin: COMMON NORMALS: no rashes or lesions noted, no wounds, turgor normal and no jaundice GENERAL SKIN EXAM: no rashes or lesions noted and turgor normal Course Vital Signs: Vital signs: Vital Signs Temperature 98.2 F 04/01/25 19:57 Pulse Rate 66 04/01/25 20:02 Respiratory Rate 18 04/01/25 19:57 Blood Pressure 130/73 04/01/25 20:02 Pulse Oximetry 95 04/01/25 20:02 Oxygen Delivery Me thod Room Air 04/01/25 20:02 MDM - Fall Medical Decision Making Patient received Toradol shot and reports much improvement. X-ray unremarkable. Patient will be discharged. Medical Records I reviewed the patient's medical records. Lab Data I reviewed the patient's lab results. All radiology interpretation(s) finalized by discharge ED provider radiology interpretation(s): X-ray personally reviewed and unremarkable. Discharge Plan Discharge Patient Disposition: Home Clinical Impression: Acute pain of right hip Condition: Stable Prescriptions: No Action insulin glargine [Lantus U-100 Insulin] 100 unit/mL solution 110 unit SUBCUT QAM Ozempic 0.25 mg or 0.5 mg (2 mg/3 mL) pen injector 0.25 mg SUBCUT .weekly Rx Instructions: weekly on Mondays acetaminophen [Tylenol Extra Strength] 500 mg tablet 500 mg PO Q6H PRN (Reason: Pain) fenofibrate nanocrystallized [Tricor] 145 mg tablet 145 mg PO DAILY (DME) Diabetic shoe with 3 sets of insoles See Rx Instructions .Route .MEDSUPPLY Qty: 1 0RF Rx Instructions: As directed by [facility] clonazepam 0.5 mg tablet 0.5 mg PO DAILY PRN (Reason: anxiety) Qty: 30 2RF Prozac 40 mg capsule 40 mg PO DAILY Qty: 30 2RF ziprasidone HCl [Geodon] 20 mg capsule 20 mg PO BID Qty: 60 2RF Rx Instructions: give with food (meal/snack) topiramate [Topamax] 100 mg tablet 100 mg PO BID Qty: 60 2RF hydrocodone-acetaminophen 5-325 mg tablet 1 tab PO Q8H PRN (Reason: pain) 7 Days Qty: 21 0RF cetirizine [Zyrtec] 10 mg Tablet 10 mg PO DAILY PRN (Reason: Allergy Symptoms) aspirin 81 mg Tablet,Delayed Release (Dr/Ec) 81 mg PO DAILY gabapentin [Neurontin] 100 mg Capsule 100 mg PO TID rosuvastatin 20 mg tablet 20 mg PO DAILY docusate sodium 100 mg capsule 100 mg PO BID ciprofloxacin HCl 0.3 % drops 1 drp ophthalmic (eye) Q4H Qty: 10 0RF albuterol sulfate 2.5 mg /3 mL (0.083 %) solution for nebulization 2.5 mg inhalation Q6H PRN (Reason: shortness of breath or wheezing) Qty: 180 0RF hydrocodone-acetaminophen 5-325 mg tablet 1 tab PO Q6H PRN (Reason: pain) Qty: 5 0RF Discharge Orders: Discharge ED (Routine); Ordered 04/01/25 Ordered By: Chas Johnson Referrals: Hilda Patel MD [Primary Care Provider, Internal Medicine] Discharge Diet: Usual diet Discharge Activity: Resume usual activity Patient Instructions: Pain Management, Patient Portal & Lluvia Instructions Activity Restrictions/Additional Instructions: Use your walker, take it easy. No more NSAIDs tonight. Print Language: Hungarian Coding Level of Care Code ED Slp Teacher for Casey Vaughn
--- OUTSIDE RECORDS SUMMARY | 2025-04-01 20:24 | XMS_ITS | Encounter Summary ---
Author Organization [employer] [facility] Address [address] [place] [address] Care Team Providers Care Television Script Writer Name Role Phone Unavailable Primary Care Provider Unavailabl e Encounter Details Date Type Department Care Team (Latest Contact Info) Description 06/22/1999 Outpatient Historical HIS [facility] Mari Reddy H NO ADDRESS ON FILE Vomiting alone (Primary Dx) Social History Tobacco Use Types Packs/Day Years Used Date Smoking Tobacco: Never Assessed Comments Unknown Sex and Gender Information Value Date Recorded Sex Assigned at Not on file Legal 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
--- OUTSIDE RECORDS SUMMARY | 2025-04-01 20:24 | XMS_ITS | Encounter Summary ---
Author Organization [employer] [facility] Address [address] [place] [address] Care Team Providers Care Stock Patch Sawyer Name Role Phone Unavailable Primary Care Provider Unavailabl e Encounter Details Date Type Department Care Team (Latest Contact Info) Description 06/08/1999 Outpatient Historical HIS [facility] Reddy Guerra NO ADDRESS ON FILE Pure hyperglyceridemia (Primary Dx); Type II or unspecified type diabetes mellitus without mention of complication, not stated as uncontrolled Social History Tobacco Use Types Packs/Day Years Used Date Smoking Tobacco: Never Assessed Comments Unknown Sex and Gender Information Value Date Recorded Sex Assigned at Not on file Legal Sex Female 3:42 AM LEGAL PARAPROFESSIONAL Gender Identity Not on file Sexual Orientation Not on file documented as of this encounter Plan of Treatment Not on file documented as of this encounter Visit Diagnoses Diagnosis Pure hyperglyceridemia- Primary Type II or unspecified type diabetes mellitus without mention of complication, not stated as uncontrolled documented in this encounter
--- OUTSIDE RECORDS SUMMARY | 2025-04-01 20:24 | XMS_ITS | Encounter Summary ---
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
--- OUTSIDE RECORDS SUMMARY | 2025-04-01 20:24 | XMS_ITS | Encounter Summary ---
Author Organization [employer] [facility] Address [address] [place] [address] Care Team Providers Care College And Career Counselor Name Role Phone Unavailable Primary Care Provider Unavailabl e Encounter Details Date Type Department Care Team (Latest Contact Info) Description 12/26/1999 Outpatient Historical HIS [facility] Reddy Guerra NO ADDRESS ON FILE Type II or unspecified type diabetes mellitus without mention of complication, not stated as uncontrolled (Primary Dx); Other and unspecified hyperlipidemia Social History Tobacco Use Types Packs/Day Years Used Date Smoking Tobacco: Never Assessed Comments Unknown Sex and Gender Information Value Date Recorded Sex Assigned at Not on file Legal Sex Female 3: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
--- OUTSIDE RECORDS SUMMARY | 2025-04-01 20:24 | XMS_ITS | Encounter Summary ---
Author Organization [employer] Address [address] [place] [address] Care Team Providers Care Graphic Technician Name Role Phone Unavailable Primary Care Provider Unavailabl e Encounter Details Date Type Department Care Team (Late st Contact Info) Description 06/17/1999 Outpatient Historical HIS [facility] Social History Tobacco Use Types Packs/Day Years Used Date Smoking Tobacco: Never Assessed Comments Unknown Sex and Gender Information Value Date Recorded Sex Assigned at Not on file Legal Sex Female 3:42 AM MANAGER CONSUMER INSIGHTS Gender Identity Not on file Sexual Orientation Not on file documented as of this encounter Plan of Treatment Not on file documented as of this encounter Visit Diagnoses Not on filedocumented in this encounter
--- OUTSIDE RECORDS SUMMARY | 2025-04-01 20:24 | XMS_ITS | Encounter Summary ---
Author Organization [employer] [facility] Address [address] [place] [address] Care Team Providers Care Skip Miner Blasting Name Role Phone Unavailable Primary Care Provider Unavailabl e Encounter Details Date Type Department Care Team (Latest Contact Info) Description 08/22/1999 Outpatient Historical HIS [facility] Ririelyse Reddy H NO ADDRESS ON FILE Unspecified transient cerebral ischemia (Primary Dx); Type II or unspecified type diabetes mellitus without mention of complication, not stated as uncontrolled Social History Tobacco Use Types Packs/Day Years Used Date Smoking Tobacco: Never Assessed Comments Unknown Sex and Gender Information Value Date Recorded Sex Assigned at Not on file Legal Sex Female 3: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
--- OUTSIDE RECORDS SUMMARY | 2025-04-01 20:24 | XMS_ITS | Encounter Summary ---
Author Organization [facility] Address [address] Hernandezn: Epic Prel[place] [address] Care Team Providers Care Video Library Assistant Name Role Phone Unavailable Primary Care Provider Unavailabl e Encounter Details Date Type Department Care Team (Late st Contact Info) Description 10/10/1999 Outpatient Historical Surinder Bradshaw, Markus Arana MD [address] [place] [address] Social History Tobacco Use Types Packs/Day Years Used Date Smoking Tobacco: Never Assessed Comments Unknown Sex and Gender Information Value Date Recorded Sex Assigned at Not on file Legal Sex Female 3:42 AM RESIDENT CARE TECHNICIAN Gender Identity Not on file Sexual Orientation Not on file documented as of this encounter Plan of Treatment Not on file documented as of this encounter Visit Diagnoses Not on filedocumented in this encounter
--- OUTSIDE RECORDS SUMMARY | 2025-04-01 20:25 | XMS_ITS | Encounter Summary ---
Author Organization [employer] [facility] Address [address] [place] [address] Care Team Providers Care Flower Picker Name Role Phone Unavailable Primary Care Provider Unavailabl e Encounter Details Date Type Department Care Team (Latest Contact Info) Description 07/15/2001 Outpatient Historical HIS [facility] Martin Umanzor MD [address] [place] [phone] DIABETES UNCOMPL ADULT-TYPE II ([facility]) (Primary Dx); LUMBAGO; POSTMENOPAUSAL HORMONAL REPLACMT Social History Tobacco Use Types Packs/Day Years Used Date Smoking Tobacco: Never Assessed Comments Unknown Sex and Gender Information Value Date Recorded Sex Assigned at Not on file Legal Sex Female 3:42 AM MEDART OPERATOR Gender Identity Not on file Sexual [...]
--- OUTSIDE RECORDS SUMMARY | 2025-04-01 20:25 | XMS_ITS | Encounter Summary ---
Author Organization [employer] [facility] Address [address] [place] [address] Care Team Providers Care Senior Engineering Specialist Name Role Phone Unavailable Primary Care Provider Unavailabl e Encounter Details Date Type Department Care Team (Latest Contact Info) Description 10/08/2000 Outpatient Historical HIS [facility] Ririelyse Reddy H NO ADDRESS ON FILE Other and unspecified hyperlipidemia (Primary Dx); Type II or unspecified type diabetes mellitus without mention of complication, not stated as uncontrolled Social History Tobacco Use Types Packs/Day Years Used Date Smoking Tobacco: Never Assessed Comments Unknown Sex and Gender Information Value Date Recorded Sex Assigned at Not on file Legal Sex Female 3:42 AM SENIOR NAVAL PARACHUTIST Gender Identity Not on file Sexual Orientation Not on file documented as of this encounter Plan of Treatment Not on file documented as of this encounter Visit Diagnoses Diagnosis Other and unspecified hyperlipidemia- Primary Type II or unspecified type diabetes mellitus without mention of complication, not stated as uncontrolled documented in this encounter
--- OUTSIDE RECORDS SUMMARY | 2025-04-01 20:25 | XMS_ITS | Encounter Summary ---
Author Organization [employer] [facility] Address [address] [place] [address] Care Team Providers Care Appliance Repairer Name Role Phone Unavailable Primary Care Provider Unavailabl e Encounter Details Date Type Department Care Team (Latest Contact Info) Description 01/07/2002 Outpatient Historical HIS [facility] Martin Umanzor MD [address] [place] [phone] Pain in limb (Primary Dx); DIABETES UNCOMPL ADULT-TYPE II (CMS/HCC) Social History Tobacco Use Types Packs/Day Years Used Date Smoking Tobacco: Never Assessed Comments Unknown Sex and Gender Information Value Date Recorded Sex Assigned at Not on file Legal Sex Female 3:42 AM IT SOLUTIONS ARCHITECT Gender Identity Not on file Sexual Orientation [...]
--- OUTSIDE RECORDS SUMMARY | 2025-04-01 20:25 | XMS_ITS | Encounter Summary ---
Author Organization [employer] [facility] Address [address] [place] [address] Care Team Providers Care Transport Assistant Name Role Phone Unavailable Primary Care Provider Unavailabl e Encounter Details Date Type Department Care Team (Latest Contact Info) Description 01/07/2001 Outpatient Historical HIS [facility] Reddy Guerra NO ADDRESS ON FILE Type II or unspecified type diabetes mellitus without mention of complication, not stated as uncontrolled (Primary Dx); Other and unspecified hyperlipidemia Social History Tobacco Use Types Packs/Day Years Used Date Smoking Tobacco: Never Assessed Comments Unknown Sex and Gender Information Value Date Recorded Sex Assigned at Not on file Legal Sex Female 3:42 AM WHIZZER HAND Gender Identity Not on file Sexual Orientation Not on file documented as of this encounter Plan of Treatment Not on file documented as of this encounter Visit Diagnoses Diagnosis Type II or unspecified type diabetes mellitus without mention of complication, not stated as uncontrolled- Primary Other and unspecified hyperlipidemia documented in this encounter
--- OUTSIDE RECORDS SUMMARY | 2025-04-01 20:25 | XMS_ITS | Encounter Summary ---
Author Organization [employer] [facility] Address [address] [place] [address] Care Team Providers Care Form Grader Name Role Phone Unavailable Primary Care Provider Unavailabl e Encounter Details Date Type Department Care Team (Latest Contact Info) Description 04/06/2000 Outpatient Historical HIS [facility] Delaneyaugusta Reddy H NO ADDRESS ON FILE Sprain and strain [...] on file Legal Sex Female 3:42 AM VP ANALYSIS Gender Identity Not on file Sexual Orientation [...]
--- OUTSIDE RECORDS SUMMARY | 2025-04-01 20:25 | XMS_ITS | Encounter Summary ---
Author Organization [employer] [facility] Address [address] [place] [address] Care Team Providers Care Barratte Operator Name Role Phone Unavailable Primary Care Provider Unavailabl e Encounter Details Date Type Department Care Team (Latest Contact Info) Description 05/08/2000 Outpatient Historical HIS [facility] Reddy Guerra NO ADDRESS ON FILE Type II or unspecified type diabetes mellitus without mention of complication, not stated as uncontrolled (Primary Dx); Other and unspecified hyperlipidemia Social History Tobacco Use Types Packs/Day Years Used Date Smoking Tobacco: Never Assessed Comments Unknown Sex and Gender Information Value Date Recorded Sex Assigned at Not on file Legal Sex Female 3:42 AM FITNESS SALES ASSOCIATE Gender Identity Not on file Sexual Orientation Not on file documented as of this encounter Plan of Treatment Not on file documented as of this encounter Visit Diagnoses Diagnosis Type II or unspecified type diabetes mellitus without mention of complication, not stated as uncontrolled- Primary Other and unspecified hyperlipidemia documented in this encounter
--- OUTSIDE RECORDS SUMMARY | 2025-04-01 20:25 | XMS_ITS | Encounter Summary ---
Author Organization [employer] [facility] Address [address] [place] [address] Care Team Providers Care Diesel Pile Hammer Operator Name Role Phone Unavailable Primary Care Provider Unavailabl e Encounter Details Date Type Department Care Team (Latest Contact Info) Description 12/09/2001 Outpatient Historical HIS [facility] Martin Umanzor MD [address] [place] [phone] JOINT PAIN-L/LEG (Primary Dx); DIABETES UNCOMPL ADULT-TYPE II (CMS/HCC) Social History Tobacco Use Types Packs/Day Years Used Date Smoking Tobacco: Never Assessed Comments Unknown Sex and Gender Information Value Date Recorded Sex Assigned at Not on file Legal Sex Female 3:42 AM EMBEDDED SOFTWARE MANAGER Gender Identity Not on file Sexual Orientation Not on file documented as of this encounter Plan of Treatment Not on file documented as of this encounter Visit Diagnoses Diagnosis Pain in joint, lower leg- Primary Type II or unspecified type diabetes mellitus without mention of complication, not stated as uncontrolled documented in this encounter
--- OUTSIDE RECORDS SUMMARY | 2025-04-01 20:25 | XMS_ITS | Encounter Summary ---
Author Organization [employer] [facility] Address [address] [place] [address] Care Team Providers Care Personnel Associate Name Role Phone Unavailable Primary Care Provider Unavailabl e Encounter Details Date Type Department Care Team (Latest Contact Info) Description 11/05/2001 Outpatient Historical HIS [facility] Martin Umanzor MD [address] [place] [phone] DIABETES UNCOMPL ADULT-TYPE II (CMS/HCC) (Primary Dx); JOINT PAIN-UNSPEC Social History Tobacco Use Types Packs/Day Years Used Date Smoking Tobacco: Never Assessed Comments Unknown Sex and Gender Information Value Date Recorded Sex Assigned at Not on file Legal Sex Female 3:42 AM AGILITY INSTRUCTOR Gender Identity Not on file Sexual Orientation Not on file documented as of this encounter Plan of Treatment Not on file documented as of this encounter Visit Diagnoses Diagnosis Type II or unspecified type diabetes mellitus without mention of complication, not stated as uncontrolled- Primary Pain in joint, site unspecified documented in this encounter
--- OUTSIDE RECORDS SUMMARY | 2025-04-01 20:25 | XMS_ITS | Encounter Summary ---
Author Organization [employer] [facility] Address [address] [place] [address] Care Team Providers Care Automobile Body Repairer Helper Name Role Phone Unavailable Primary Care Provider Unavailabl e Encounter Details Date Type Department Care Team (Latest Contact Info) Description 05/28/2000 Outpatient Historical HIS [facility] Ririelyse Reddy H NO ADDRESS ON FILE Headache(784.0) (Primary Dx) Social History Tobacco Use Types Packs/Day Years Used Date Smoking Tobacco: Never Assessed Comments Unknown Sex and Gender Information Value Date Recorded Sex Assigned at Not on file Legal Sex Female 3:42 AM ADMINISTRATIVE SUPERVISOR Gender Identity Not on file Sexual Orientation Not on file documented as of this encounter Plan of Treatment Not on file documented as of this encounter Visit Diagnoses Diagnosis Headache(784.0)- Primary Headache documented in this encounter
--- OUTSIDE RECORDS SUMMARY | 2025-04-01 20:25 | XMS_ITS | Encounter Summary ---
Author Organization [employer] [facility] Address [address] [place] [address] Care Team Providers Care Dance Studio Manager Name Role Phone Unavailable Primary Care Provider Unavailabl e Encounter Details Date Type Department Care Team (Latest Contact Info) Description 02/07/2002 Outpatient Historical HIS [facility] Martin Umanzor MD [address] [place] [phone] DIABETES UNCOMPL ADULT-TYPE II (CMS/HCC) (Primary Dx) Social History Tobacco Use Types Packs/Day Years Used Date Smoking Tobacco: Never Assessed Comments Unknown Sex and Gender Information Value Date Recorded Sex Assigned at Not on file Legal Sex Female 3:42 AM RN TEACHER Gender Identity Not on file Sexual Orientation Not on file documented as of this encounter Plan of Treatment Not on file documented as of this encounter Visit Diagnoses Diagnosis Type II or unspecified type diabetes mellitus without mention of complication, not stated as uncontrolled- Primary documented in this encounter
--- OUTSIDE RECORDS SUMMARY | 2025-04-01 20:25 | XMS_ITS | Encounter Summary ---
Author Organization [employer] [facility] Address [address] [place] [address] Care Team Providers Care Chemical Processing Supervisor Name Role Phone Unavailable Primary Care Provider Unavailabl e Encounter Details Date Type Department Care Team (Latest Contact Info) Description 09/23/2001 Outpatient Historical HIS [facility] Martin Umanzor MD [address] [place] [phone] ACUTE SINUSITIS NOS (Primary Dx) Social History Tobacco Use Types Packs/Day Years Used Date Smoking Tobacco: Never Assessed Comments Unknown Sex and Gender Information Value Date Recorded Sex Assigned at Not on file Legal Sex Female 3:42 AM PRESS TENDER [employer] Gender Identity Not on file Sexual Orientation Not on file documented as of this encounter Plan of Treatment Not on file documented as of this encounter Visit Diagnoses Diagnosis Acute sinusitis, unspecified- Primary documented in this encounter
--- OUTSIDE RECORDS SUMMARY | 2025-04-01 20:25 | XMS_ITS | Encounter Summary ---
Author Organization [facility] Address [address] Hernandezn: Epic Prel[place] [address] Care Team Providers Care Clinical Team Lead Name Role Phone Unavailable Primary Care Provider Unavailabl e Encounter Details Date Type Department Care Team (Late st Contact Info) Description 03/27/2000 Outpatient Historical Reddy Guerra NO ADDRESS ON FILE Social History Tobacco Use Types Packs/Day Years Used Date Smoking Tobacco: Never Assessed Comments Unknown Sex and Gender Information Value Date Recorded Sex Assigned at Not on file Legal Sex Female 3:42 AM POTATO CHIP FRIER Gender Identity Not on file Sexual Orientation Not on file documented as of this encounter Plan of Treatment Not on file documented as of this encounter Visit Diagnoses Not on filedocumented in this encounter
--- OUTSIDE RECORDS SUMMARY | 2025-04-01 20:25 | XMS_ITS | Encounter Summary ---
Author Organization [employer] [facility] Address [address] [place] [address] Care Team Providers Care Machine Quilt Stuffer Name Role Phone Unavailable Primary Care Provider Unavailabl e Encounter Details Date Type Department Care Team (Latest Contact Info) Description 12/12/2000 Outpatient Historical HIS [facility] Reddy Guerra NO ADDRESS ON FILE Temporomandibular joint disorders, unspecified (Primary Dx) Social History Tobacco Use Types Packs/Day Years Used Date Smoking Tobacco: Never Assessed Comments Unknown Sex and Gender Information Value Date Recorded Sex Assigned at Not on file Legal Sex Female 3:42 AM RETAIL SHIFT LEADER Gender Identity Not on file Sexual Orientation Not on file documented as of this encounter Plan of Treatment Not on file documented as of this encounter Visit Diagnoses Diagnosis Temporomandibular joint disorders, unspecified- Primary documented in this encounter
--- OUTSIDE RECORDS SUMMARY | 2025-04-01 20:25 | XMS_ITS | Encounter Summary ---
Author Organization [employer] [facility] Address [address] [place] [address] Care Team Providers Care Department Store General Manager Name Role Phone Unavailable Primary Care Provider Unavailabl e Encounter Details Date Type Department Care Team (Latest Contact Info) Description 05/09/1999 Outpatient Historical HIS [facility] Ririelyse Reddy H NO ADDRESS ON FILE Other and unspecified hyperlipidemia (Primary Dx); Type II or unspecified type diabetes mellitus without mention of complication, not stated as uncontrolled; Obesity, unspecified Social History Tobacco Use Types Packs/Day Years Used Date Smoking Tobacco: Never Assessed Comments Unknown Sex and Gender Information Value Date Recorded Sex Assigned at Not on file Legal Sex Female 3:42 AM TRUST AND ESTATES ATTORNEY Gender Identity Not on file Sexual Orientation Not on file documented as of this encounter Plan of Treatment Not on file documented as of this encounter Visit Diagnoses Diagnosis Other and unspecified hyperlipidemia- Primary Type II or unspecified type diabetes mellitus without mention of complication, not stated as uncontrolled Obesity, unspecified documented in this encounter
--- OUTSIDE RECORDS SUMMARY | 2025-04-01 20:25 | XMS_ITS | Clinical Summary ---
Author Organization [facility] Address [address] [place] [address] Phone Care Team Providers Care Ladle Repairman Name Role Phone Unavailable Primary Care Provider [...] Capsule Active fluticasone propionate (FLONASE) 50 mcg/spray [place], Suspension nasal inhaler Administer 2 Sprays in [...] of application. For more information use the [employer] ADMINISTRATION link. 60 Patch 023 Active miconazole [...] intertrochanteric fracture of right femur, initial encounter (CMS/[facility]) Take 1 Tablet (50 mg) by mouth [...] Overview (2023): 01/30/23 after all. ORIF 01/31/23 [place]. Closed displaced intertrochanteric fracture of r ight femur 2023 Overview (2023): After fall 01/30/23. IMN 01/31 [place] NUVIA (acute kidney injury) 2023 Thrombocytopenia 2023 Acute blood loss anemia 2023 Smoker 2023 Impaired mobility and activities of daily living 2023 Encounters Date Type Department Care Team Description 03/03/2025 External Device Data [facility] ABSTRACTION Provider, Abstract 03/03/2025 External Device Data [facility] ABSTRACTION Provider, Abstract 02/10/2025 External Device Data [facility] ABSTRACTION Provider, [...] e alcohol) once in a great while Comments Unknown Sex and Gender Information Value Date Recorded Sex Assigned at Not on file Legal Sex Female 7:25 AM VALANCE CUTTER Gender Identity Not on file Sexual Orientation Not on file Last Filed Vital Signs Vital Sign Reading Time Taken Comments Blood Pressure 160/81 10/28/2024 5:43 AM VALANCE CUTTER Pulse 60 02/15/2023 1:53 PM CDT Temperature 36.6 C (97.8 F) 10/28/2024 5:43 AM VALANCE CUTTER Respiratory Rate 16 10/28/2024 5:43 AM VALANCE CUTTER Oxygen Saturation 97% 10/28/2024 5:43 AM VALANCE CUTTER Inhaled Oxygen Concentration - - Weight 74.1 kg (163 lb 6.4 oz) 10/28/2024 5:43 A M VALANCE CUTTER Height 157.5 cm (5' 2 ) 10/28/2024 5:43 AM VALANCE CUTTER Body Mass Index 29.89 10/28/2024 5:43 AM VALANCE CUTTER Plan of Treatment Health Maintenance Due Date [...] 9.5(H) <=5.6 % 02/05/2023 10:20 AM CDT [facility] EST. AVG GLUCOSE, A1C 226 mg/dL 02/05/2023 10:20 AM CDT [facility] Blood Venipuncture / Unknown 02/04/2023 8:38 AM CDT 02/04/2023 10:38 AM CDT Narrative [facility] - 02/05/2023 10:20 AM CDT HGB A1C INTERPRETATION NORMAL: <5.7% PRE-DIABETES: 5.7 - 6.4% DIABETES: 6.5% OR GREATER us Hari Bonilla MD CHEMISTRY ORDERABLES Final Resul t [facility] CLIA # [id number] [address] [address] from Last 3 Months or Most Recently Relevant to Health Maintenance Insurance MEDICA[place] PART [place] Advance Directives For more information, please contact: [phone] * Full Code (Latest Code Status on File) Date Activated Date Inactivated Comments 2023 11:37 AM 02/15/2023 5:32 PM
--- OUTSIDE RECORDS SUMMARY | 2025-04-01 20:25 | XMS_ITS | Encounter Summary ---
Author Organization [employer] [facility] Address [address] [place] [address] Care Team Providers Care Central Office Operator Name Role Phone Unavailable Primary Care Provider Unavailabl e Encounter Details Date Type Department Care Team (Latest Contact Info) Description 09/05/2001 Outpatient Historical HIS [facility] Martin Umanzor MD [address] [place] [phone] DIABETES UNCOMPL ADULT-TYPE II (CMS/HCC) (Primary Dx) Social History Tobacco Use Types Packs/Day Years Used Date Smoking Tobacco: Never Assessed Comments Unknown Sex and Gender Information Value Date Recorded Sex Assigned at Not on file Legal Sex Female 3:42 AM ENTRY LEVEL BUYER Gender Identity Not on file Sexual Orientation Not on file documented as of this encounter Plan of Treatment Not on file documented as of this encounter Visit Diagnoses Diagnosis Type II or unspecified type diabetes mellitus without mention of complication, not stated as uncontrolled- Primary documented in this encounter
--- OUTSIDE RECORDS SUMMARY | 2025-04-01 20:25 | XMS_ITS | Encounter Summary ---
Author Organization [employer] [facility] Address [address] [place] [address] Care Team Providers Care Automobile Service Station Manager Name Role Phone Unavailable Primary Care Provider Unavailabl e Encounter Details Date Type Department Care Team (Latest Contact Info) Description 04/03/2001 Outpatient Historical HIS [facility] Ririelyse Reddy H NO ADDRESS ON FILE Type II or unspecified type diabetes mellitus without mention of complication, not stated as uncontrolled (Primary Dx); Pure hyperglyceridemia Social History Tobacco Use Types Packs/Day Years Used Date Smoking Tobacco: Never Assessed Comments Unknown Sex and Gender Information Value Date Recorded Sex Assigned at Not on file Legal Sex Female 3:42 AM WET PROCESS OPERATOR Gender Identity Not on file Sexual Orientation Not on file documented as of this encounter Plan of Treatment Not on file documented as of this encounter Visit Diagnoses Diagnosis Type II or unspecified type diabetes mellitus without mention of complication, not stated as uncontrolled- Primary Pure hyperglyceridemia documented in this encounter
--- OUTSIDE RECORDS SUMMARY | 2025-04-01 20:25 | XMS_ITS | Clinical Summary ---
Author Organization [email or web address] Address [address] Odonnell: [place] [address] Care Team Providers Care Head Worker Name Role Phone Unavailable Primary Care Provider [...] on file Legal Sex Female 3:42 AM ANESTHESIOLOGY MEDICAL DOCTOR Gender Identity Not on file Sexual Orientation [...]
--- OUTSIDE RECORDS SUMMARY | 2025-04-01 20:25 | XMS_ITS | Encounter Summary ---
Author Organization [employer] [facility] Address [address] [place] [address] Care Team Providers Care Roadway Technician Name Role Phone Unavailable Primary Care Provider Unavailabl e Encounter Details Date Type Department Care Team (Latest Contact Info) Description 03/28/1999 Outpatient Historical HIS [facility] Ririelyse Reddy Natanael NO ADDRESS ON FILE Type II or unspecified type diabetes mellitus without mention of complication, not stated as uncontrolled (Primary Dx) Social History Tobacco Use Types Packs/Day Years Used Date Smoking Tobacco: Never Assessed Comments Unknown Sex and Gender Information Value Date Recorded Sex Assigned at Not on file Legal Sex Female 3:42 AM AURIST Gender Identity Not on file Sexual Orientation Not on file documented as of this encounter Plan of Treatment Not on file documented as of this encounter Visit Diagnoses Diagnosis Type II or unspecified type diabetes mellitus without mention of complication, not stated as uncontrolled- Primary documented in this encounter
--- OUTSIDE RECORDS SUMMARY | 2025-04-01 20:25 | XMS_ITS | Encounter Summary ---
Author Organization [employer] [facility] Address [address] [place] [address] Care Team Providers Care Benefit Director Name Role Phone Unavailable Primary Care Provider Unavailabl e Encounter Details Date Type Department Care Team (Latest Contact Info) Description 05/09/2001 Outpatient Historical HIS [facility] Martin Umanzor MD [address] [place] [phone] Type II or unspecified type diabetes mellitus without mention of complication, not stated as uncontrolled (Primary Dx); Other and unspecified hyperlipidemia Social History Tobacco Use Types Packs/Day Years Used Date Smoking Tobacco: Never Assessed Comments Unknown Sex and Gender Information Value Date Recorded Sex Assigned at Not on file Legal Sex Female 3:42 AM FILENET DEVELOPER Gender Identity Not on file Sexual Orientation Not on file documented as of this encounter Plan of Treatment Not on file documented as of this encounter Visit Diagnoses Diagnosis Type II or unspecified type diabetes mellitus without mention of complication, not stated as uncontrolled- Primary Other and unspecified hyperlipidemia documented in this encounter
--- OUTSIDE RECORDS SUMMARY | 2025-04-01 20:25 | XMS_ITS | Encounter Summary ---
Author Organization [facility] Address [address] [place] [address] Care Team Providers Care Administration Dean Name Role Phone Unavailable Primary Care Provider Unavailabl e Encounter Details Date Type Department Care Team (Latest Contact Info) Description 07/09/2000 Outpatient Historical HIS [facility] DelaneyaugustaReddy NO ADDRESS ON FILE Type II or [...] on file Legal Sex Female 3:42 AM TEACHING YOUNG Gender Identity Not on file Sexual Orientation [...]
--- OUTSIDE RECORDS SUMMARY | 2025-04-01 20:25 | XMS_ITS | Encounter Summary ---
Author Organization [facility] Address [address] Hernandezn: Epic [place] [address] Care Team Providers Care [employer] Principal Name Role Phone Unavailable Primary Care Provider [...] file Legal Sex Female 3:42 AM SENIOR LINUX ENGINEER Gender Identity Not on file Sexual Orientation Not on file documented as of this encounter Plan of Treatment Not on file documented as of this encounter Visit Diagnoses Not on filedocumented in this encounter
--- OUTSIDE RECORDS SUMMARY | 2025-04-01 20:25 | XMS_ITS | Encounter Summary ---
Author Organization [facility] Address [address] [place] [address] Care Team Providers Care Dental Insurance Biller Name Role Phone Unavailable Primary Care Provider Unavailabl e Encounter Details Date Type Department Care Team (Latest Contact Info) Description 03/01/2001 Outpatient Historical HIS [facility] Delaneyaugusta Reddy H NO ADDRESS ON FILE Pure hypercholesterolem (Primary Dx); Type II or unspecified type diabetes mellitus without mention of complication, not stated as uncontrolled; Dietary surveil/tariff counsel Social History Tobacco Use Types Packs/Day Years Used Date Smoking Tobacco: Never Assessed Comments Unknown Sex and Gender Information Value Date Recorded Sex Assigned at Not on file Legal Sex Female 3:42 AM CAPTAIN FISHING VESSEL Gender Identity Not on file Sexual Orientation Not on file documented as of this encounter Plan of Treatment Not on file documented as of this encounter Visit Diagnoses Diagnosis Pure hypercholesterolem- Primary Pure hypercholesterolemia Type II or unspecified type diabetes mellitus without mention of complication, not stated as uncontrolled Dietary surveil/tariff counsel Dietary surveillance and counseling documented in this encounter
[2025-04-01 21:18] VITALS: BP 132/77; PULSE 75; O2SAT 97
== END 2025-04-01 21:20 | disposition home or self-care (01) ==
PROVIDERS: Emergency Provider Emergency Medicine; PCP Internal Medicine
DX: M25.551 Pain in right hip (principal); Z79.82 Long term (current) use of aspirin; Z79.4 Long term (current) use of insulin; E11.9 Type 2 diabetes mellitus without complications
CPT/HCPCS: 73502; 96372; 99284; J1885

== ENCOUNTER 2025-06-05 14:55 | Emergency (ER) | payer MEDICARE, MEDICAID, SELFPAY ==
[2025-06-05 14:29] VITALS: BP 97/75; PULSE 67; RESP 18; TEMP 36.7; O2SAT 96; BMI 28.3
--- NOTE | 2025-06-05 14:29 | ECG_ITS ---
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: : 1960 Requested By: Frantz Lyon Order Number: [id number] Mando MD: SAMUEL SAXENA Measurements Intervals Howe Rate: 63 P: 34 MS: 169 QRS: -40 QRSD: 104 T: 33 QT: 420 QTc: 431 Interpretive Statements SINUS RHYTHM LEFT AXIS DEVIATION [QRS AXIS < -30] PATTERN CONSISTENT WITH PULMONARY DISEASE MINIMAL VOLTAGE CRITERIA FOR LVH, CONSIDER NORMAL VARIANT [MEETS CRITERIA IN ONE OF: R(aVL), S(V1), R(V5), R(V5/V6)+S(V1)] NONSPECIFIC T-WAVE ABNORMALITY Compared to ECG 08/17/2024 05:11:33 T-wave abnormality now present Electronically Signed On 06-07-2025 23:23:13 CDT by SAMUEL SAXENA [email or web address]
--- NOTE | 2025-06-05 14:29 | XRR_ITS ---
PROCEDURE INFORMATION: Exam: XR Chest Exam date and time: 06/05/2025 2:41 PM Age: 65 years old Clinical indication: Cough and dyspnea; Additional info: Dyspnea/cough TECHNIQUE: Imaging protocol: Radiologic exam of the chest. Views: 1 view. COMPARISON: CT chest con [id number] 11/01/2024 8:39 PM FINDINGS: Lungs: Unremarkable. No consolidation. Pleural spaces: Unremarkable. No pleural effusion. No pneumothorax. Heart/Mediastinum: Unremarkable. No cardiomegaly. Bones/joints: Unremarkable. XR/XR chest 1V portable [id number] IMPRESSION: No acute findings.
[2025-06-05 14:44] LABS: Hematocrit 40.4 % (36-47); Hemoglobin 13.40 g/dL (11.27-16.99); Mean Corpuscular HGB Conc 33.2 g/dL (30-55); Mean Corpuscular Hemoglobin 29.4 pg (27-33); Mean Corpuscular Volume 88.6 fl (85-98); Nucleated Red Blood Cells % 0 %; Platelet Count 207 10^3/cmm (157-399); Red Blood Count 4.56 10^6/uL (3.85-5.65); White Blood Count 5.75 10^3/uL (3.29-11.43)
[2025-06-05 15:06] LABS: Alanine Aminotransferase 10 U/L (0-33); Albumin Level 4.2 g/dL (3.5-5.2); Alkaline Phosphatase 65 U/L (35-105); Anion Gap 18.0 (5-19); Aspartate Amino Transferase 12 U/L (0-32); Blood Urea Nitrogen 27 mg/dL (8-23); Calcium 10.1 mg/dL (8.5-10.5); Carbon Dioxide 23 mmol/L (22-29); Chloride 104 mmol/L (98-107); Creatinine Clr Calc Pharmacy 45.5839; Globulin 3.6 g/dL (1.3-4.6); Glucose 274 mg/dL (65-115); Osmolality Calculated 307 mOsm/kg (285-295); Potassium 4.0 mmol/L (3.5-5.1); Sodium 141 mmol/L (136-145); Total Protein 7.8 g/dL (6.6-8.7)
[2025-06-05 15:10] LABS: Glucose Urine UA 3+ (Normal); Nitrate Urine Negative (Negative); Specific Gravity, Urine 1.018 (1.005-1.030)
--- NOTE | 2025-06-05 15:12 | W.ED.WEAKNES ---
HPI - Weakness General: Chief complaint: Weakness Stated complaint: weakness History of Present Illness: 65-year-old female who presents emergency room from home just generally feeling weak and fatigued. She states her hips hurt but this is chronic. She denies any fever sweats or chills. She states her blood pressure has been low. She denies any chest pain or shortness of breath or abdominal pain. Associated symptoms: Denies chest pain, chills, dysuria or fever(s) Related Data Home Medications ?Medication ?Instructions ?Recorded ?Confirmed aspirin 81 mg tablet,delayed 81 mg PO DAILY 09/09/19 04/20/25 release cetirizine 10 mg tablet (Zyrtec) 10 mg PO DAILY PRN Allergy Symptoms 09/09/19 04/20/25 gabapentin 100 mg capsule 100 mg PO TID 09/09/19 04/20/25 (Neurontin) rosuvastatin 20 mg tablet 20 mg PO DAILY 01/31/23 04/20/25 semaglutide 0.25 mg or 0.5 mg (2 0.25 mg SUBCUT .weekly 12/18/23 04/20/25 mg/3 mL) subcutaneous pen injector (Ozempic) acetaminophen 500 mg tablet 500 mg PO Q6H PRN Pain 04/03/24 04/20/25 (Tylenol Extra Strength) fenofibrate nanocrystallized 145 145 mg PO DAILY 05/27/24 04/20/25 mg tablet (Tricor) docusate sodium 100 mg capsule 100 mg PO BID 08/17/24 04/20/25 insulin glargine 100 unit/mL 110 unit SUBCUT QAM 09/17/24 04/20/25 subcutaneous solution (Lantus U-100 Insulin) Previous Rx's ?Medication ?Instructions ?Recorded albuterol sulfate 2.5 mg/3 mL 2.5 mg (3 mL) inhalation Q6H PRN 04/30/24 (0.083 %) solution for nebulization shortness of breath or wheezing #180 mL hydrocodone 5 mg-acetaminophen 325 1 tab PO Q8H PRN pain 7 days #21 10/15/24 mg tablet tabs hydrocodone 5 mg-acetaminophen 325 1 tab PO Q6H PRN pain #5 tabs 10/21/24 mg tablet ciprofloxacin HCl 0.3 % eye drops 1 drp ophthalmic (eye) Q4H #10 mL 12/08/24 Diabetic shoe with 3 sets of #1 ea 01/06/25 insoles clonazepam 0.5 mg tablet 0.5 mg PO DAILY PRN anxiety #30 04/20/25 tabs fluoxetine 40 mg capsule 40 mg PO DAILY #30 caps 04/20/25 topiramate 100 mg tablet (Topamax) 100 mg PO BID #60 tabs 04/20/25 ziprasidone HCl 20 mg capsule 20 mg PO BID #60 caps 04/20/25 (Geodon) cefdinir 300 mg capsule 300 mg PO BID #14 caps 06/05/25 Allergies Allergy/AdvReac Type Severity Reaction Status Date / Time Sulfa (Sulfonamide Allergy Mild Rash Verified 04/20/25 11:06 Antibiotics) Iodinated Contrast Media Allergy ALGY-Anaphy Verified 04/20/25 11:06 laxis Iodine and Iodide Containing Allergy ALGY-Difficulty Verified 04/20/25 11:06 Produc Breathing marijuana (cannabis) Allergy ADR-Headach Verified 04/20/25 11:06 (marijuana) e shellfish derived Allergy ALGY-Difficulty Verified 04/20/25 11:06 Breathing Review of Systems Const: Reports: fatigue and malaise; Denies: fever(s) or chills Card: Denies: chest pain Resp: Denies: dyspnea GI: Denies: abdominal pain : Denies: dysuria, urinary frequency or urinary urgency Musc: Denies: neck pain or back pain Skin/Breast: Denies: rash PFSH ED PFSH: Medical History Psychiatric care Closed fracture of right hip Closed fracture of right distal radius and ulna Fracture, intertrochanteric, right femur Diabetes Fall Lumbar compression fracture 11/08/2018 Disc displacement, lumbar Borderline intellectual functioning Schizoaffective disorder, depressive type Surgical History History of knee surgery (~09/04/13) Dr. Harper Family History Sister High cholesterol Social History Smoking and tobacco/nicotine status: never used tobacco/nicotine Alcohol intake: never Substance/Drug Use: never Household members: none Marital status: Single Current occupational status: disabled Physical Exam Const: GENERAL APPEARANCE: cooperative ORIENTATION/CONSCIOUSNESS: Yes awake, Yes oriented to person, Yes oriented to place and Yes oriented to time HENMT: COMMON NORMALS: normocephalic, atraumatic and hearing grossly normal bilaterally HEAD & SCALP: normocephalic and atraumatic Resp: COMMON NORMALS: normal respiratory effort, No retractions, No use of accessory muscles and clear to auscultation bilaterally AUSCULTATION: clear to auscultation bilaterally Cardio: COMMON NORMALS: regular rate, regular rhythm and No murmurs present (Cardio) RATE: regular rate RHYTHM: regular rhythm GI: COMMON NORMALS: Soft to palpation and No hepatosplenomegaly present AUSCULTATION: Yes normoactive bowel sounds PALPATION: Yes Soft to palpation, No Tenderness to palpation present (GI), No Guarding due to palpation present (GI) and Yes No hepatosplenomegaly present Extremity: COMMON NORMALS: normal to inspection, capillary refill normal, no clubbing, cyanosis or edema, no calf tenderness and no pedal edema Neuro: SENSORIUM/ORIENTATION: Yes oriented to person, Yes oriented to place and Yes oriented to time Skin: COMMON NORMALS: no rashes or lesions noted GENERAL SKIN EXAM: no rashes or lesions noted Course Vital Signs: Vital signs: Vital Signs Temperature 98.1 F 06/05/25 14:29 Pulse Rate 63 06/05/25 17:20 Respiratory Rate 18 06/05/25 14:29 Blood Pressure 108/76 06/05/25 17:20 Pulse Oximetry 99 06/05/25 17:20 Oxygen Delivery Me thod Room Air 06/05/25 14:29 MDM - Weakness Medical Decision Making UA shows cystitis. Patient given fluid bolus blood pressure improved she states she is feeling much better she given dose of Rocephin will discharge home on cefdinir however follow-up with her primary care doctor return if she has further problems. Medical Records I reviewed the patient's medical records. Lab Data I reviewed the patient's lab results. 06/05/25 14:10 06/05/25 14:10 Radiology Impressions Chest X-Ray 06/05/25 14:29 IMPRESSION: No acute findings. Laboratory Results WBC 5.75 10^3/uL (3.29-11.43) 06/05/25 14:10 RBC 4.56 10^6/uL (3.85-5.65) 06/05/25 14:10 Hgb 13.40 g/dL (11.27-16.99) 06/05/25 14:10 Hct 40.4 % (36-47) 06/05/25 14:10 MCV 88.6 fl (85-98) 06/05/25 14:10 MCH 29.4 pg (27-33) 06/05/25 14:10 MCHC 33.2 g/dL (30-55) 06/05/25 14:10 RDW 13.7 % (12.1-15.1) 06/05/25 14:10 Plt Count 207 10^3/cmm (157-399) 06/05/25 14:10 MPV 11.4 fL (7.4-10.4) H 06/05/25 14:10 Neut % (Auto) 49.5 % 06/05/25 14:10 Lymph % (Auto) 41.9 % 06/05/25 14:10 Sullivan % (Auto) 6.1 % 06/05/25 14:10 Eos % (Auto) 1.4 % 06/05/25 14:10 Baso % (Auto) 0.9 % 06/05/25 14:10 Neut # (Auto) 2.85 10^3/uL (1.8-7.7) 06/05/25 14:10 Lymph # (Auto) 2.4 10^3/uL (0.8-4.8) 06/05/25 14:10 Sullivan # (Auto) 0.4 10^3/uL (0.2-0.9) 06/05/25 14:10 Eos # (Auto) 0.1 10^3/uL (0.0-0.8) 06/05/25 14:10 Baso # (Auto) 0.1 10^3/uL (0.0-0.1) 06/05/25 14:10 Nucleated RBC % (auto) 0 % 06/05/25 14:10 Nucleated RBCs # 0.0 /100WBC 06/05/25 14:10 Sodium 141 mmol/L (136-145) 06/05/25 14:10 Potassium 4.0 mmol/L (3.5-5.1) 06/05/25 14:10 Chloride 104 mmol/L (98-107) 06/05/25 14:10 Carbon Dioxide 23 mmol/L (22-29) 06/05/25 14:10 Anion Gap 18.0 (5-19) 06/05/25 14:10 BUN 27 mg/dL (8-23) H 06/05/25 14:10 Creatinine 1.1 mg/dL (0.5-0.9) H 06/05/25 14:10 GFR Calculation 49.5 mL/min (90-130) L 06/05/25 14:10 Glucose 274 mg/dL (65-115) H 06/05/25 14:10 Calculated Osmolality 307 mOsm/kg (285-295) H 06/05/25 14:10 Calcium 10.1 mg/dL (8.5-10.5) 06/05/25 14:10 Total Bilirubin 0.2 mg/dL (0.15-1.2) 06/05/25 14:10 AST 12 U/L (0-32) 06/05/25 14:10 ALT 10 U/L (0-33) 06/05/25 14:10 Alkaline Phosphatase 65 U/L (35-105) 06/05/25 14:10 Creatine Kinase 48 U/L (26-192) 06/05/25 14:10 Total Protein 7.8 g/dL (6.6-8.7) 06/05/25 14:10 Albumin 4.2 g/dL (3.5-5.2) 06/05/25 14:10 Globulin 3.6 g/dL (1.3-4.6) 06/05/25 14:10 Urine Color Yellow (Yellow) 06/05/25 15:03 Urine Appearance Clear (CLEAR) 06/05/25 15:03 Urine pH 6.5 (5-7) 06/05/25 15:03 Ur Specific [place] 1.018 (1.005-1.030) 06/05/25 15:03 Urine Protein Negative (Negative) 06/05/25 15:03 Urine Glucose (UA) 3+ (Normal) H 06/05/25 15:03 Urine Ketones Negative (Negative) 06/05/25 15:03 Urine Blood Negative (Negative) 06/05/25 15:03 Urine Nitrate Negative (Negative) 06/05/25 15:03 Urine Bilirubin Negative (Negative) 06/05/25 15:03 Urine Urobilinogen 0.2 mg/dL (Negative) 06/05/25 15:03 Ur Leukocyte Esterase 2+ (Negative) A 06/05/25 15:03 Urine RBC 0-4 /hpf (0-2) H 06/05/25 15:03 Urine WBC 25-40 /hpf (0-5) H 06/05/25 15:03 Ur Squamous Epith Cells 0-4 /hpf (0-5) H 06/05/25 15:03 Amorphous Sediment Not Reportable 06/05/25 15:03 Urine Bacteria 2+ /hpf (NONE) H 06/05/25 15:03 All radiology interpretation(s) finalized by discharge Discharge Plan Discharge Patient Disposition: Home Clinical Impression: Cystitis Condition: Stable Prescriptions: New cefdinir 300 mg capsule 300 mg PO BID Qty: 14 0RF No Action insulin glargine [Lantus U-100 Insulin] 100 unit/mL solution 110 unit SUBCUT QAM Ozempic 0.25 mg or 0.5 mg (2 mg/3 mL) pen injector 0.25 mg SUBCUT .weekly Rx Instructions: weekly on Mondays acetaminophen [Tylenol Extra Strength] 500 mg tablet 500 mg PO Q6H PRN (Reason: Pain) fenofibrate nanocrystallized [Tricor] 145 mg tablet 145 mg PO DAILY (DME) Diabetic shoe with 3 sets of insoles See Rx Instructions .Route .MEDSUPPLY Qty: 1 0RF Rx Instructions: As directed by [facility] ziprasidone HCl [Geodon] 20 mg capsule 20 mg PO BID Qty: 60 2RF Rx Instructions: give with food (meal/snack) topiramate [Topamax] 100 mg tablet 100 mg PO BID Qty: 60 2RF clonazepam 0.5 mg tablet 0.5 mg PO DAILY PRN (Reason: anxiety) Qty: 30 2RF fluoxetine 40 mg capsule 40 mg PO DAILY Qty: 30 2RF hydrocodone-acetaminophen 5-325 mg tablet 1 tab PO Q8H PRN (Reason: pain) 7 Days Qty: 21 0RF cetirizine [Zyrtec] 10 mg Tablet 10 mg PO DAILY PRN (Reason: Allergy Symptoms) aspirin 81 mg Tablet,Delayed Release (Dr/Ec) 81 mg PO DAILY gabapentin [Neurontin] 100 mg Capsule 100 mg PO TID rosuvastatin 20 mg tablet 20 mg PO DAILY docusate sodium 100 mg capsule 100 mg PO BID ciprofloxacin HCl 0.3 % drops 1 drp ophthalmic (eye) Q4H Qty: 10 0RF albuterol sulfate 2.5 mg /3 mL (0.083 %) solution for nebulization 2.5 mg inhalation Q6H PRN (Reason: shortness of breath or wheezing) Qty: 180 0RF hydrocodone-acetaminophen 5-325 mg tablet 1 tab PO Q6H PRN (Reason: pain) Qty: 5 0RF Discharge Orders: Discharge ED (Routine); Ordered 06/05/25 Ordered By: Frantz Collado Referrals: Hilda Patel MD [Primary Care Provider, Internal Medicine] Discharge Diet: Usual diet Discharge Activity: Increase activity as tolerated Patient Instructions: Opioid Safety, Pain Management, Patient Portal & Lluvia Instructions Activity Restrictions/Additional Instructions: [facility]. It is very important that you follow up as instructed or that you return to the Emergency Department should you have concerns or if your condition changes or worsens in any way. Emergency department visits are focused on emergent conditions, in some cases you may require further evaluation on an outpatient basis. You were seen in the emergency room with complaints of weakness. Laboratory test reviewed shows you have a mild cystitis you were given initial dose of antibiotics here begin oral antibiotics tomorrow 1 pill twice a day you are also given IV fluids which improved your blood pressure. Your white count was normal the bladder infection be treated as an outpatient follow-up your primary care doctor. (Please note that included in your discharge packet is information concerning opioid safety and pain management. This information is given to all patients were discharged from the ER regardless of their discharge diagnosis or the medicines they usually take or are prescribed.) Print Language: Hungarian Coding Level of Care Code ED Cycle Consultant for Casey Vaughn
[2025-06-05 15:46] LABS: UA Manual Slide Review YES
[2025-06-05 15:47] VITALS: BP 99/63; PULSE 66; O2SAT 97
[2025-06-05 15:47] LABS: Add Urine Microscopic? YES
[2025-06-05] MEDS: cefTRIAXone 1,000 mg SDV 1000 MG IVP (16:10)
[2025-06-05 16:11] VITALS: BP 132/72; PULSE 67; O2SAT 96
[2025-06-05 17:20] VITALS: BP 108/76; PULSE 63; O2SAT 99
== END 2025-06-05 17:29 | disposition home or self-care (01) ==
PROVIDERS: Emergency Provider Family Medicine; PCP Internal Medicine
DX: N30.90 Cystitis, unspecified without hematuria (principal); Z79.82 Long term (current) use of aspirin; E11.9 Type 2 diabetes mellitus without complications
CPT/HCPCS: 71045; 80053; 81001; 82550; 85025; 87077; 87086; 87186; 93005; 96361; 96374; 99285; J0696; J7030

== ENCOUNTER → 2025-07-22 10:58 | Outpatient (BNVA) | payer MEDICARE, MEDICAID, SELFPAY | PROVIDERS: PCP Internal Medicine; Visit Provider Student in an Organized Health Care Education/Training Program | DX: S72.001D Fracture of unspecified part of neck of right femur, subsequent encounter for closed fracture with routine healing (principal); T84.84XA Pain due to internal orthopedic prosthetic devices, implants and grafts, initial encounter; X58.XXXD Exposure to other specified factors, subsequent encounter; Y79.2 Prosthetic and other implants, materials and accessory orthopedic devices associated with adverse incidents | CPT/HCPCS: 73502; 99213 ==

== ENCOUNTER 2025-08-03 03:17 | Emergency (ER) | payer MEDICARE, MEDICAID, SELFPAY ==
[2025-08-03 03:18] VITALS: BP 88/75; PULSE 87; RESP 17; TEMP 36.4; O2SAT 95; BMI 29.5
--- OUTSIDE RECORDS SUMMARY | 2025-08-03 03:23 | XMS_ITS | Encounter Summary ---
Author Organization [facility] Address [address] [place] [address] Care Team Providers Care Paper Sheeter Name Role Phone Unavailable Primary Care Provider Unavailabl e Encounter Details Date Type Department Care Team (Latest Contact Info) Description 09/23/2001 Outpatient Historical HIS [facility] Martin Umanzor MD [address] [place] [id number] ACUTE SINUSITIS NOS (Primary Dx) Social History Tobacco Use Types Packs/Day Years Used Date Smoking Tobacco: Never Assessed Comments Unknown Sex and Gender Information Value Date Recorded Sex Assigned at Not on file 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
--- OUTSIDE RECORDS SUMMARY | 2025-08-03 03:23 | XMS_ITS | Encounter Summary ---
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
--- OUTSIDE RECORDS SUMMARY | 2025-08-03 03:23 | XMS_ITS | Encounter Summary ---
Author Organization [facility] Address [address] [place] [address] Care Team Providers Care Basket Filler Name Role Phone Unavailable Primary Care Provider Unavailabl e Encounter Details Date Type Department Care Team (Latest Contact Info) Description 01/07/2002 Outpatient Historical HIS [facility] Martin Umanzor MD [address] [place] [id number] Pain in limb (Primary Dx); DIABETES UNCOMPL ADULT-TYPE II (CMS/HCC) Social History Tobacco Use Types Packs/Day Years Used Date Smoking Tobacco: Never Assessed Comments Unknown Sex and Gender Information Value Date Recorded Sex Assigned at Not on file 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
--- OUTSIDE RECORDS SUMMARY | 2025-08-03 03:23 | XMS_ITS | Encounter Summary ---
Author Organization [facility] Address [address] [place] [address] Care Team Providers Care Order Processor Name Role Phone Unavailable Primary Care Provider Unavailabl e Encounter Details Date Type Department Care Team (Latest Contact Info) Description 06/08/1999 Outpatient Historical HIS [facility] Delaneyaugusta Reddy H NO ADDRESS ON FILE Pure hyperglyceridemia (Primary Dx); Type II or unspecified type diabetes mellitus without mention of complication, not stated as uncontrolled Social History Tobacco Use Types Packs/Day Years Used Date Smoking Tobacco: Never Assessed Comments Unknown Sex and Gender Information Value Date Recorded Sex Assigned at Not on file 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
--- OUTSIDE RECORDS SUMMARY | 2025-08-03 03:23 | XMS_ITS | Encounter Summary ---
Author Organization [facility] Address [address] [place] [address] Care Team Providers Care In Home Baby Sitter Name Role Phone Unavailable Primary Care Provider Unavailabl e Encounter Details Date Type Department Care Team (Latest Contact Info) Description 01/07/2001 Outpatient Historical HIS [facility] RiriReddy pappas NO ADDRESS ON FILE Type II or unspecified type diabetes mellitus without mention of complication, not stated as uncontrolled (Primary Dx); Other and unspecified hyperlipidemia Social History Tobacco Use Types Packs/Day Years Used Date Smoking Tobacco: Never Assessed Comments Unknown Sex and Gender Information Value Date Recorded Sex Assigned at Not on file 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
--- OUTSIDE RECORDS SUMMARY | 2025-08-03 03:23 | XMS_ITS | Clinical Summary ---
Author Organization [facility] [employer] Address [address] 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
--- OUTSIDE RECORDS SUMMARY | 2025-08-03 03:23 | XMS_ITS | Encounter Summary ---
Author Organization [facility] Address [address] [place] [address] Care Team Providers Care Mortgage Accounting Clerk Name Role Phone Unavailable Primary Care Provider Unavailabl e Encounter Details Date Type Department Care Team (Latest Contact Info) Description 12/12/2000 Outpatient Historical HIS [facility] Reddy Guerra NO ADDRESS ON FILE Temporomandibular joint disorders, unspecified (Primary Dx) Social History Tobacco Use Types Packs/Day Years Used Date Smoking Tobacco: Never Assessed Comments Unknown Sex and Gender Information Value Date Recorded Sex Assigned at Not on file 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
--- OUTSIDE RECORDS SUMMARY | 2025-08-03 03:23 | XMS_ITS | Encounter Summary ---
Author Organization [facility] Address [address] [place] [address] Care Team Providers Care Reporting Manager Name Role Phone Unavailable Primary Care Provider Unavailabl e Encounter Details Date Type Department Care Team (Latest Contact Info) Description 03/01/2001 Outpatient Historical HIS [facility] Delaneyaugusta Reddy H NO ADDRESS ON FILE Pure hypercholesterolem (Primary Dx); Type II or unspecified type diabetes mellitus without mention of complication, not stated as uncontrolled; Dietary surveil/rehab/pre vocational counselor Social History Tobacco Use Types Packs/Day Years Used Date Smoking Tobacco: Never Assessed Comments Unknown Sex and Gender Information Value Date Recorded Sex Assigned at Not on file 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
--- OUTSIDE RECORDS SUMMARY | 2025-08-03 03:23 | XMS_ITS | Encounter Summary ---
Author Organization [employer] [facility] Address [address] [place] [address] Care Team Providers Care Dairy Bacteriologist Name Role Phone Unavailable Primary Care Provider Unavailabl e Encounter Details Date Type Department Care Team (Latest Contact Info) Description 02/07/2002 Outpatient Historical HIS [facility] Martin Umanzor MD [address] [place] [phone] DIABETES UNCOMPL ADULT-TYPE II (CMS/HCC) (Primary Dx) Social History Tobacco Use Types Packs/Day Years Used Date Smoking Tobacco: Never Assessed Comments Unknown Sex and Gender Information Value Date Recorded Sex Assigned at Not on file 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
--- OUTSIDE RECORDS SUMMARY | 2025-08-03 03:23 | XMS_ITS | Encounter Summary ---
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
--- OUTSIDE RECORDS SUMMARY | 2025-08-03 03:23 | XMS_ITS | Encounter Summary ---
Author Organization [employer] [facility] Address [address] [place] [address] Care Team Providers Care Cleaning Matron Name Role Phone Unavailable Primary Care Provider Unavailabl e Encounter Details Date Type Department Care Team (Latest Contact Info) Description 12/26/1999 Outpatient Historical HIS [facility] Reddy Guerra NO ADDRESS ON FILE Type II or unspecified type diabetes mellitus without mention of complication, not stated as uncontrolled (Primary Dx); Other and unspecified hyperlipidemia Social History Tobacco Use Types Packs/Day Years Used Date Smoking Tobacco: Never Assessed Comments Unknown Sex and Gender Information Value Date Recorded Sex Assigned at Not on file 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
--- OUTSIDE RECORDS SUMMARY | 2025-08-03 03:23 | XMS_ITS | Encounter Summary ---
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
--- OUTSIDE RECORDS SUMMARY | 2025-08-03 03:23 | XMS_ITS | Encounter Summary ---
Author Organization [employer] [facility] Address [address] [place] [address] Care Team Providers Care Lobster Man Name Role Phone Unavailable Primary Care Provider [...] on file Legal Sex Female 3:42 AM SERVICE TECH Gender Identity Not on file Sexual Orientation [...]
--- OUTSIDE RECORDS SUMMARY | 2025-08-03 03:23 | XMS_ITS | Encounter Summary ---
Author Organization [employer] [facility] Address [address] [place] [address] Care Team Providers Care Topstitcher Lockstitch Name Role Phone Unavailable Primary Care Provider Unavailabl e Encounter Details Date Type Department Care Team (Latest Contact Info) Description 07/09/2000 Outpatient Historical HIS [facility] DelaneyaugustaReddy NO ADDRESS ON FILE Type [...] on file Legal Sex Female 3:42 AM CPO Gender Identity Not on file Sexual Orientation [...]
--- OUTSIDE RECORDS SUMMARY | 2025-08-03 03:23 | XMS_ITS | Encounter Summary ---
Author Organization [employer] [facility] Address [address] [place] [address] Care Team Providers Care Set Up Mechanic Automatic Line Name Role Phone Unavailable Primary Care Provider Unavailabl e Encounter Details Date Type Department Care Team (Latest Contact Info) Description 11/05/2001 Outpatient Historical HIS [facility] Martin Umanzor MD [address] [place] [phone] DIABETES UNCOMPL ADULT-TYPE II (CMS/HCC) (Primary Dx); JOINT PAIN-UNSPEC Social History Tobacco Use Types Packs/Day Years Used Date Smoking Tobacco: Never Assessed Comments Unknown Sex and Gender Information Value Date Recorded Sex Assigned at Not on file 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
--- OUTSIDE RECORDS SUMMARY | 2025-08-03 03:23 | XMS_ITS | Encounter Summary ---
Author Organization [employer] [facility] Address [address] [place] [address] Care Team Providers Care Tow Truck Dispatcher Name Role Phone Unavailable Primary Care Provider Unavailabl e Encounter Details Date Type Department Care Team (Latest Contact Info) Description 04/03/2001 Outpatient Historical HIS [facility] Ririelyse Reddy H NO ADDRESS ON FILE Type II or unspecified type diabetes mellitus without mention of complication, not stated as uncontrolled (Primary Dx); Pure hyperglyceridemia Social History Tobacco Use Types Packs/Day Years Used Date Smoking Tobacco: Never Assessed Comments Unknown Sex and Gender Information Value Date Recorded Sex Assigned at Not on file Legal Sex Female 3:42 AM MANAGED CARE ANALYST Gender Identity Not on file Sexual Orientation Not on file documented as of this encounter Plan of Treatment Not on file documented as of this encounter Visit Diagnoses Diagnosis Type II or unspecified type diabetes mellitus without mention of complication, not stated as uncontrolled- Primary Pure hyperglyceridemia documented in this encounter
--- OUTSIDE RECORDS SUMMARY | 2025-08-03 03:23 | XMS_ITS | Encounter Summary ---
Author Organization [employer] [facility] Address [address] [place] [address] Care Team Providers Care Camera Systems Engineer Name Role Phone Unavailable Primary Care Provider Unavailabl e Encounter Details Date Type Department Care Team (Latest Contact Info) Description 04/06/2000 Outpatient Historical HIS [facility] Delnaeyaugusta Reddy H NO ADDRESS ON FILE Sprain [...] on file Legal Sex Female 3:42 AM DOWEL PIN WORKER Gender Identity Not on file Sexual [...]
--- OUTSIDE RECORDS SUMMARY | 2025-08-03 03:23 | XMS_ITS | Encounter Summary ---
Author Organization [facility] Address [address]: Epic [place] [address] Care Team Providers Care Ornamental Metal Erector Name Role Phone Unavailable Primary Care Provider Unavailabl e Encounter Details Date Type Department Care Team (Late st Contact Info) Description 07/09/2000 Outpatient Historical Reddy Guerra NO ADDRESS ON FILE Social History Tobacco Use Types Packs/Day Years Used Date Smoking Tobacco: Never Assessed Comments Unknown Sex and Gender Information Value Date Recorded Sex Assigned at Not on file Legal Sex Female 3:42 AM CHANGE MANAGEMENT ADMINISTRATOR Gender Identity Not on file Sexual Orientation Not on file documented as of this encounter Plan of Treatment Not on file documented as of this encounter Visit Diagnoses Not on filedocumented in this encounter
--- OUTSIDE RECORDS SUMMARY | 2025-08-03 03:23 | XMS_ITS | Encounter Summary ---
Author Organization [employer] [facility] Address [address] [place] [address] Care Team Providers Care Chief Engineer Research Name Role Phone Unavailable Primary Care Provider Unavailabl e Encounter Details Date Type Department Care Team (Latest Contact Info) Description 05/09/2001 Outpatient Historical HIS [facility] Martin Umanzor MD [address] [place] [phone] Type II or unspecified type diabetes mellitus without mention of complication, not stated as uncontrolled (Primary Dx); Other and unspecified hyperlipidemia Social History Tobacco Use Types Packs/Day Years Used Date Smoking Tobacco: Never Assessed Comments Unknown Sex and Gender Information Value Date Recorded Sex Assigned at Not on file Legal Sex Female 3:42 AM HAND PLUG SHAPER Gender Identity Not on file Sexual Orientation Not on file documented as of this encounter Plan of Treatment Not on file documented as of this encounter Visit Diagnoses Diagnosis Type II or unspecified type diabetes mellitus without mention of complication, not stated as uncontrolled- Primary Other and unspecified hyperlipidemia documented in this encounter
--- OUTSIDE RECORDS SUMMARY | 2025-08-03 03:23 | XMS_ITS | Encounter Summary ---
Author Organization [facility] Address 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
--- OUTSIDE RECORDS SUMMARY | 2025-08-03 03:23 | XMS_ITS | Encounter Summary ---
Author Organization [employer] [facility] Address [address] [place] [address] Care Team Providers Care Ticket Dispatcher Name Role Phone Unavailable Primary Care Provider Unavailabl e Encounter Details Date Type Department Care Team (Latest Contact Info) Description 09/05/2001 Outpatient Historical HIS [facility] Martin Umanzor MD [address] [place] [phone] DIABETES UNCOMPL ADULT-TYPE II (CMS/HCC) (Primary Dx) Social History Tobacco Use Types Packs/Day Years Used Date Smoking Tobacco: Never Assessed Comments Unknown Sex and Gender Information Value Date Recorded Sex Assigned at Not on file Legal Sex Female 3:42 AM APPARATUS CLEANER Gender Identity Not on file Sexual Orientation Not on file documented as of this encounter Plan of Treatment Not on file documented as of this encounter Visit Diagnoses Diagnosis Type II or unspecified type diabetes mellitus without mention of complication, not stated as uncontrolled- Primary documented in this encounter
--- OUTSIDE RECORDS SUMMARY | 2025-08-03 03:23 | XMS_ITS | Clinical Summary ---
Author Organization [facility] Address [address] [place] [address] Phone Care Team Providers Care Licensed Weigher Name Role Phone Unavailable Primary Care Provider [...] Capsule Active fluticasone propionate (FLONASE) 50 mcg/spray Rolfe, Suspension nasal inhaler Administer 2 Sprays in [...] 3 times daily with meals. 15 mL 023 Active Lidocaine 4 % Adhesive Patch, Medicated Apply to right thigh pain, along the incision. Apply only once for up to 12 hours within a 24 hour period. Patches may be cut into smaller sizes with scissors prior to the removal of the release liner. Clothing may be worn over the area of application. For more information use the [employer] link. 60 Patch 023 Active miconazole [...] intertrochanteric fracture of right femur, initial encounter ([facility]) Take 1 Tablet (50 mg) by mouth [...] Overview (2023): 01/30/23 after all. ORIF 01/31/23 [place]. Closed displaced intertrochanteric fracture of r ight femur 2023 Overview (2023): After fall 01/30/23. IMN 01/31 [place] NUVIA (acute kidney injury) 2023 Thrombocytopenia 2023 Acute blood loss anemia 2023 Smoker 2023 Impaired mobility and activities of daily living 2023 Encounters Date Type Department Care Team Description 07/07/2025 External Device Data STL ABSTRACTION Provider, Abstract 07/07/2025 External Device Data [facility] ABSTRACTION Provider, Abstract 07/07/2025 External Device Data [facility] ABSTRACTION Provider, Abstract 05/26/2025 External Device Data [facility] ABSTRACTION Provider, Abstract 05/26/2025 External Device Data [facility] ABSTRACTION Provider, Abstract 05/05/2025 External Device Data [facility] ABSTRACTION Provider, Abstract [...] on file Legal Sex Female 7:25 AM TIMBER GRADER Gender Identity Not on file Sexual Orientation Not on file Last Filed Vital Signs Vital Sign Reading Time Taken Comments Blood Pressure 160/81 10/28/2024 5:43 AM TIMBER GRADER Pulse 60 02/15/2023 1:53 PM CDT Temperature 36.6 C (97.8 F) 10/28/2024 5:43 AM TIMBER GRADER Respiratory Rate 16 10/28/2024 5:43 AM TIMBER GRADER Oxygen Saturation 97% 10/28/2024 5:43 AM TIMBER GRADER Inhaled Oxygen Concentration - - Weight 74.1 kg (163 lb 6.4 oz) 10/28/2024 5:43 A M TIMBER GRADER Height 157.5 cm (5' 2 ) 10/28/2024 5:43 AM TIMBER GRADER Body Mass Index 29.89 10/28/2024 5:43 AM TIMBER GRADER Plan of Treatment Health Maintenance Due Date [...] Flex Sig/CT Colonography Q 5 years 2003 RSV VACCINE (60+ or ) (1 - Risk 50-74 years 1-dose series) 02/04/2008 ZOSTER VACCINE (1 of 2) 02/04/2008 DTAP/TDAP/TD VACCINES (1 - Tdap) 12/24/2011 12/23/19 12, 10/24/1999 OSTEOPOROSIS SCREENING 2023 DIABETES HBA1C Q 6 MONTHS 08/06/2023 02/04/2023 INFLUENZA VACCINE (#1) 2025 07/29/1998 Procedures Procedure Name Priority Date/Time Associated Diagnosis Comments HEMOGLOBIN A1C Routine 02/04/2023 8:38 AM CDT from Last 3 Months or Most Recently Relevant to Health Maintenance Results * (ABNORMAL) HEMOGLOBIN A1C (02/04/2023 8:38 AM CDT) HEMOGLOBIN A1C 9.5(H) <=5.6 % 02/05/2023 10:20 AM CDT [facility] [employer] [facility] EST. AVG GLUCOSE, A1C 226 mg/dL 02/05/2023 10:20 AM CDT [facility] Blood Venipuncture / Unknown 02/04/2023 8:38 AM CDT 02/04/2023 10:38 AM CDT Narrative [facility] - 02/05/2023 10:20 AM CDT HGB A1C INTERPRETATION NORMAL: <5.7% PRE-DIABETES: 5.7 - 6.4% DIABETES: 6.5% OR GREATER us Hari Bonilla MD CHEMISTRY ORDERABLES Final Resul t [facility] CLIA # [id number] [address] [address] from Last 3 Months or Most Recently Relevant to Health Maintenance Insurance MEDICA[place] PART B Advance Directives For more information, please contact: [phone] * Full Code (Latest Code Status on File) Date Activated Date Inactivated Comments 2023 11:37 AM 02/15/2023 5:32 PM
--- OUTSIDE RECORDS SUMMARY | 2025-08-03 03:23 | XMS_ITS | Encounter Summary ---
Author Organization [employer] [facility] Address [address] [place] [address] Care Team Providers Care Machinist Name Role Phone Unavailable Primary Care Provider Unavailabl e Encounter Details Date Type Department Care Team (Latest Contact Info) Description 10/08/2000 Outpatient Historical HIS [facility] Ririelyse Reddy H NO ADDRESS ON FILE Other and unspecified hyperlipidemia (Primary Dx); Type II or unspecified type diabetes mellitus without mention of complication, not stated as uncontrolled Social History Tobacco Use Types Packs/Day Years Used Date Smoking Tobacco: Never Assessed Comments Unknown Sex and Gender Information Value Date Recorded Sex Assigned at Not on file Legal Sex Female 3:42 AM PRODUCER ASSISTANT Gender Identity Not on file Sexual Orientation Not on file documented as of this encounter Plan of Treatment Not on file documented as of this encounter Visit Diagnoses Diagnosis Other and unspecified hyperlipidemia- Primary Type II or unspecified type diabetes mellitus without mention of complication, not stated as uncontrolled documented in this encounter
--- OUTSIDE RECORDS SUMMARY | 2025-08-03 03:23 | XMS_ITS | Encounter Summary ---
Author Organization [employer] [facility] Address [address] [place] [address] Care Team Providers Care Wire Worker Name Role Phone Unavailable Primary Care Provider Unavailabl e Encounter Details Date Type Department Care Team (Latest Contact Info) Description 08/22/1999 Outpatient Historical HIS [facility] Ririelyse Reddy Natanael NO ADDRESS ON FILE Unspecified transient cerebral ischemia (Primary Dx); Type II or unspecified type diabetes mellitus without mention of complication, not stated as uncontrolled Social History Tobacco Use Types Packs/Day Years Used Date Smoking Tobacco: Never Assessed Comments Unknown Sex and Gender Information Value Date Recorded Sex Assigned at Not on file Legal Sex Female 3:42 AM CYBER FORENSIC SPECIALIST Gender Identity Not on file Sexual Orientation Not on file documented as of this encounter Plan of Treatment Not on file documented as of this encounter Visit Diagnoses Diagnosis Unspecified transient cerebral ischemia- Primary Type II or unspecified type diabetes mellitus without mention of complication, not stated as uncontrolled documented in this encounter
--- OUTSIDE RECORDS SUMMARY | 2025-08-03 03:23 | XMS_ITS | Encounter Summary ---
Author Organization [facility] Address [address]: Epic [place] [address] Care Team Providers Care Client Business Manager Name Role Phone Unavailable Primary Care Provider Unavailabl e Encounter Details Date Type Department Care Team (Late st Contact Info) Description 10/10/1999 Outpatient Historical Surinder Bradshaw, Markus Arana MD [address] [place] [address] Social History Tobacco Use Types Packs/Day Years Used Date Smoking Tobacco: Never Assessed Comments Unknown Sex and Gender Information Value Date Recorded Sex Assigned at Not on file Legal Sex Female 3:42 AM BILLING CLERK Gender Identity Not on file Sexual Orientation Not on file documented as of this encounter Plan of Treatment Not on file documented as of this encounter Visit Diagnoses Not on filedocumented in this encounter
--- OUTSIDE RECORDS SUMMARY | 2025-08-03 03:23 | XMS_ITS | Encounter Summary ---
Author Organization [employer] [facility] Address [address] [place] [address] Care Team Providers Care Pattern Ruler Name Role Phone Unavailable Primary Care Provider Unavailabl e Encounter Details Date Type Department Care Team (Latest Contact Info) Description 05/28/2000 Outpatient Historical HIS [facility] Ririelyse Reddy Natanael NO ADDRESS ON FILE Headache(784.0) (Primary Dx) Social History Tobacco Use Types Packs/Day Years Used Date Smoking Tobacco: Never Assessed Comments Unknown Sex and Gender Information Value Date Recorded Sex Assigned at Not on file Legal Sex Female 3:42 AM MOLD CONSTRUCTION SUPERVISOR Gender Identity Not on file Sexual Orientation Not on file documented as of this encounter Plan of Treatment Not on file documented as of this encounter Visit Diagnoses Diagnosis Headache(784.0)- Primary Headache documented in this encounter
--- OUTSIDE RECORDS SUMMARY | 2025-08-03 03:23 | XMS_ITS | Encounter Summary ---
Author Organization [employer] [facility] Address [address] [place] [address] Care Team Providers Care Corporate Associate Name Role Phone Unavailable Primary Care Provider Unavailabl e Encounter Details Date Type Department Care Team (Latest Contact Info) Description 03/28/1999 Outpatient Historical HIS [facility] RiriReddy pappas Natanael NO ADDRESS ON FILE Type II or unspecified type diabetes mellitus without mention of complication, not stated as uncontrolled (Primary Dx) Social History Tobacco Use Types Packs/Day Years Used Date Smoking Tobacco: Never Assessed Comments Unknown Sex and Gender Information Value Date Recorded Sex Assigned at Not on file Legal Sex Female 3:42 AM CUSTOMER RESOLUTION SPECIALIST Gender Identity Not on file Sexual Orientation Not on file documented as of this encounter Plan of Treatment Not on file documented as of this encounter Visit Diagnoses Diagnosis Type II or unspecified type diabetes mellitus without mention of complication, not stated as uncontrolled- Primary documented in this encounter
--- OUTSIDE RECORDS SUMMARY | 2025-08-03 03:23 | XMS_ITS | Encounter Summary ---
Author Organization [employer] [facility] Address [address] [place] [address] Care Team Providers Care Vascular Technician Name Role Phone Unavailable Primary Care Provider Unavailabl e Encounter Details Date Type Department Care Team (Latest Contact Info) Description 07/15/2001 Outpatient Historical HIS [facility] Martin Umanzor MD [address] [place] [phone] DIABETES UNCOMPL ADULT-TYPE II ([facility]) (Primary Dx); LUMBAGO; POSTMENOPAUSAL HORMONAL REPLACMT Social History Tobacco Use Types Packs/Day Years Used Date Smoking Tobacco: Never Assessed Comments Unknown Sex and Gender Information Value Date Recorded Sex Assigned at Not on file Legal Sex Female 3:42 AM PRODUCT REPRESENTATIVE Gender Identity Not on file Sexual Orientation [...]
--- OUTSIDE RECORDS SUMMARY | 2025-08-03 03:23 | XMS_ITS | Encounter Summary ---
Author Organization [employer] [facility] Address [address] [place] [address] Care Team Providers Care Platinumsmith Name Role Phone Unavailable Primary Care Provider Unavailabl e Encounter Details Date Type Department Care Team (Latest Contact Info) Description 05/08/2000 Outpatient Historical HIS [facility] Reddy Guerra NO ADDRESS ON FILE Type II or unspecified type diabetes mellitus without mention of complication, not stated as uncontrolled (Primary Dx); Other and unspecified hyperlipidemia Social History Tobacco Use Types Packs/Day Years Used Date Smoking Tobacco: Never Assessed Comments Unknown Sex and Gender Information Value Date Recorded Sex Assigned at Not on file Legal Sex Female 3:42 AM TUMBLE TAILSTOCK TURRET 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
--- OUTSIDE RECORDS SUMMARY | 2025-08-03 03:23 | XMS_ITS | Encounter Summary ---
Author Organization [employer] [facility] Address [address] [place] [address] Care Team Providers Care Production Assembly Operator Name Role Phone Unavailable Primary Care Provider Unavailabl e Encounter Details Date Type Department Care Team (Latest Contact Info) Description 12/09/2001 Outpatient Historical [facility] Martin Umanzor MD [address] [place] [id number] JOINT PAIN-L/LEG (Primary Dx); DIABETES UNCOMPL ADULT-TYPE II (CMS/HCC) Social History Tobacco Use Types Packs/Day Years Used Date Smoking Tobacco: Never Assessed Comments Unknown Sex and Gender Information Value Date Recorded Sex Assigned at Not on file Legal Sex Female 3:42 AM PLANT AND MAINTENANCE TECHNICIAN Gender Identity Not on file Sexual Orientation Not on file documented as of this encounter Plan of Treatment Not on file documented as of this encounter Visit Diagnoses Diagnosis Pain in joint, lower leg- Primary Type II or unspecified type diabetes mellitus without mention of complication, not stated as uncontrolled documented in this encounter
[2025-08-03 03:27] VITALS: BP 88/75; PULSE 83; RESP 17; O2SAT 96
--- NOTE | 2025-08-03 03:54 | W.ED.HA ---
HPI - Headache General: Chief Complaint: Upper Respiratory Infection Stated Complaint: HEADACHE History of Present Illness: Patient is a 65-year-old female presenting with headache that started a couple of days ago. She describes the pain as being right in the middle of her head. The patient reports that her neck started hurting and she developed a hacking cough when she turned the heat up high, which she initially attributed to her COPD. She used her allergy spray shortly before the appointment, which provided some relief. She denies fever and significant congestion. Related Data Home Medications ?Medication ?Instructions ?Recorded ?Confirmed aspirin 81 mg tablet,delayed 81 mg PO DAILY 09/09/19 07/22/25 release cetirizine 10 mg tablet (Zyrtec) 10 mg PO DAILY PRN Allergy Symptoms 09/09/19 07/22/25 gabapentin 100 mg capsule 100 mg PO TID 09/09/19 07/22/25 (Neurontin) rosuvastatin 20 mg tablet 20 mg PO DAILY 01/31/23 07/22/25 semaglutide 0.25 mg or 0.5 mg (2 0.25 mg SUBCUT .weekly 12/18/23 07/22/25 mg/3 mL) subcutaneous pen injector (Ozempic) acetaminophen 500 mg tablet 500 mg PO Q6H PRN Pain 04/03/24 07/22/25 (Tylenol Extra Strength) fenofibrate nanocrystallized 145 145 mg PO DAILY 05/27/24 07/22/25 mg tablet (Tricor) docusate sodium 100 mg capsule 100 mg PO BID 08/17/24 07/22/25 insulin glargine 100 unit/mL 110 unit SUBCUT QAM 09/17/24 07/22/25 subcutaneous solution (Lantus U-100 Insulin) Previous Rx's ?Medication ?Instructions ?Recorded albuterol sulfate 2.5 mg/3 mL 2.5 mg (3 mL) inhalation Q6H PRN 04/30/24 (0.083 %) solution for nebulization shortness of breath or wheezing #180 mL hydrocodone 5 mg-acetaminophen 325 1 tab PO Q8H PRN pain 7 days #21 10/15/25 mg tablet tabs hydrocodone 5 mg-acetaminophen 325 1 tab PO Q6H PRN pain #5 tabs 10/21/25 mg tablet ciprofloxacin HCl 0.3 % eye drops 1 drp ophthalmic (eye) Q4H #10 mL 12/08/24 Diabetic shoe with 3 sets of #1 ea 01/06/25 insoles clonazepam 0.5 mg tablet 0.5 mg PO DAILY PRN anxiety #30 04/20/25 tabs fluoxetine 40 mg capsule 40 mg PO DAILY #30 caps 04/20/25 topiramate 100 mg tablet (Topamax) 100 mg PO BID #60 tabs 04/20/25 ziprasidone HCl 20 mg capsule 20 mg PO BID #60 caps 04/20/25 (Geodon) cefdinir 300 mg capsule 300 mg PO BID #14 caps 06/05/25 tramadol 50 mg tablet 50 mg PO Q6H PRN pain 7 days #56 07/22/25 tabs Allergies Allergy/AdvReac Type Severity Reaction Status Date / Time Sulfa (Sulfonamide Allergy Mild Rash Verified 07/22/25 11:19 Antibiotics) Iodinated Contrast Media Allergy ALGY-Anaphy Verified 07/22/25 11:19 laxis Iodine and Iodide Containing Allergy ALGY-Difficulty Verified 07/22/25 11:19 Produc Breathing marijuana (cannabis) Allergy ADR-Headach Verified 07/22/25 11:19 (marijuana) e shellfish derived Allergy ALGY-Difficulty Verified 07/22/25 11:19 Breathing PFSH ED PFSH: Medical History (Updated 08/03/25 @ 04:30 by Zander Duncan DO) Psychiatric care Closed fracture of right hip Closed fracture of right distal radius and ulna Fracture, intertrochanteric, right femur Diabetes Fall Lumbar compression fracture 11/08/2018 Disc displacement, lumbar Borderline intellectual functioning Schizoaffective disorder, depressive type Surgical History History of knee surgery (~09/04/13) Dr. Harper Family History Sister High cholesterol Social History Smoking and tobacco/nicotine status: never used tobacco/nicotine Alcohol intake: never Substance/Drug Use: never Household members: none Marital status: Single Current occupational status: disabled Physical Exam Const: COMMON NORMALS: no acute distress and alert GENERAL APPEARANCE: cooperative; not ill appearing and not frail appearing HENMT: COMMON NORMALS: normocephalic, atraumatic and Normal external nose present HEAD & SCALP: normocephalic and atraumatic FACE & SINUS: normal facial exam and face symmetric NOSE: Normal external nose present Eye: COMMON NORMALS: Equal, round and reactive pupils present and EOMs intact bilaterally PUPIL: Yes Equal, round and reactive pupils present Neck/C-Spine: GENERAL: Yes trachea midline Chest: CHEST: Yes Symmetrical chest wall rise Resp: COMMON NORMALS: normal respiratory effort, No retractions, No use of accessory muscles and clear to auscultation bilaterally AUSCULTATION: clear to auscultation bilaterally Cardio: COMMON NORMALS: regular rate and regular rhythm RATE: regular rate RHYTHM: regular rhythm Extremity: COMMON NORMALS: no pedal edema Neuro: JEANINE COMA SCALE: document GCS findings Jeanine coma scale eye opening: Spontaneous Jeanine coma scale verbal response: Orientated Jeanine coma scale motor response: Obey commands [place] coma scale total score: 15 SENSORIUM/ORIENTATION: Yes alert COORDINATION/BALANCE: [id number] test normal and [id number] test normal SENSORY EXAM: Yes extremities (intact) MOTOR EXAM: Pronator motor function not present COORDINATION: [id number] test normal and [id number] test normal Course Vital Signs: Vital signs: Vital Signs Temperature 97.6 F 08/03/25 04:41 Pulse Rate 89 08/03/25 04:41 Respiratory Rate 23 H 08/03/25 04:41 Blood Pressure 125/81 08/03/25 04:41 Pulse Oximetry 95 08/03/25 04:41 Oxygen Delivery Me thod Room Air 08/03/25 03:18 MDM - Headache Medical Decision Making Headache relieved after Toradol. Vitals are stable. She stable for discharge No radiology studies performed this visit Discharge Plan Discharge Patient Disposition: Home Clinical Impression: Headache Condition: Stable Prescriptions: No Action insulin glargine [Lantus U-100 Insulin] 100 unit/mL solution 110 unit SUBCUT QAM tramadol 50 mg tablet 50 mg PO Q6H PRN (Reason: pain) 7 Days Qty: 56 0RF Ozempic 0.25 mg or 0.5 mg (2 mg/3 mL) pen injector 0.25 mg SUBCUT .weekly Rx Instructions: weekly on Mondays acetaminophen [Tylenol Extra Strength] 500 mg tablet 500 mg PO Q6H PRN (Reason: Pain) fenofibrate nanocrystallized [Tricor] 145 mg tablet 145 mg PO DAILY (DME) Diabetic shoe with 3 sets of insoles See Rx Instructions .Route .MEDSUPPLY Qty: 1 0RF Rx Instructions: As directed by [facility] ziprasidone HCl [Geodon] 20 mg capsule 20 mg PO BID Qty: 60 2RF Rx Instructions: give with food (meal/snack) topiramate [Topamax] 100 mg tablet 100 mg PO BID Qty: 60 2RF clonazepam 0.5 mg tablet 0.5 mg PO DAILY PRN (Reason: anxiety) Qty: 30 2RF fluoxetine 40 mg capsule 40 mg PO DAILY Qty: 30 2RF hydrocodone-acetaminophen 5-325 mg tablet 1 tab PO Q8H PRN (Reason: pain) 7 Days Qty: 21 0RF cetirizine [Zyrtec] 10 mg Tablet 10 mg PO DAILY PRN (Reason: Allergy Symptoms) aspirin 81 mg Tablet,Delayed Release (Dr/Ec) 81 mg PO DAILY gabapentin [Neurontin] 100 mg Capsule 100 mg PO TID rosuvastatin 20 mg tablet 20 mg PO DAILY docusate sodium 100 mg capsule 100 mg PO BID ciprofloxacin HCl 0.3 % drops 1 drp ophthalmic (eye) Q4H Qty: 10 0RF albuterol sulfate 2.5 mg /3 mL (0.083 %) solution for nebulization 2.5 mg inhalation Q6H PRN (Reason: shortness of breath or wheezing) Qty: 180 0RF hydrocodone-acetaminophen 5-325 mg tablet 1 tab PO Q6H PRN (Reason: pain) Qty: 5 0RF cefdinir 300 mg capsule 300 mg PO BID Qty: 14 0RF Discharge Orders: Discharge ED (Routine); Ordered 08/03/25 Ordered By: Zander Duncan Referrals: Hilda Patel MD [Primary Care Provider, Internal Medicine] - 1-3 days Patient Instructions: Opioid Safety, Pain Management, Patient Portal & [place] Instructions Activity Restrictions/Additional Instructions: Call your doctor later this morning for follow-up appointment. Return for any problems. Print Language: Salvadorean Coding Level of Care Code ED Treatment Coordinator for Casey Vaughn
[2025-08-03 04:41] VITALS: BP 125/81; PULSE 89; RESP 23; TEMP 36.4; O2SAT 95
== END 2025-08-03 04:42 | disposition home or self-care (01) ==
PROVIDERS: Emergency Provider Emergency Medicine; PCP Internal Medicine
DX: R51.9 Headache, unspecified (principal); Z79.82 Long term (current) use of aspirin; E11.9 Type 2 diabetes mellitus without complications
CPT/HCPCS: 96372; 99284; J1885

== ENCOUNTER → 2025-08-13 08:41 | Outpatient (BNVA) | payer MEDICARE, MEDICAID, SELFPAY | PROVIDERS: PCP Internal Medicine; Visit Provider Orthopaedic Surgery | DX: M25.551 Pain in right hip (principal); Z47.89 Encounter for other orthopedic aftercare; Z96.641 Presence of right artificial hip joint | CPT/HCPCS: 73502; 99213 ==